=== PATIENT | male | born 1955 | race Caucasian/White ===

== ENCOUNTER 2019-12-28 17:36 | Emergency (ER) | payer MEDICARE, MEDICAID, SELFPAY ==
--- NOTE | ~2019-12-28 | CT_ITS ---
EXAMINATION: CTA chest PE protocol DATE: 12/28/2019 18:54 INDICATION: Shortness of breath. TECHNIQUE: Computed tomography (CT) pulmonary angiogram of the chest was performed with 100 mL Omnipa que-350 intravenous contrast. Additional 3D reconstructions utilizing coronal maximum intensity proje ction (MIP) were performed. Automated exposure control and iterative reconstruction technique were em ployed. The dose-length product was 343.31 mGy-cm. COMPARISON: None FINDINGS: Excellent contrast opacification of the pulmonary arteries. There is mild streak artifact from dense contrast in the superior vena cava and right atrium. Mild to moderate scattered respiratory motion ar tifact which mild to moderately decreases sensitivity in some of the smaller subsegmental pulmonary a rteries. No pulmonary embolism. Mild emphysema. Mild septal thickening in the dependent lower lobes w hich could represent mild atelectasis or less likely mild pulmonary edema. No pneumonia, pleural effu laly or pneumothorax. Heart size is normal. No pericardial effusion. Thoracic aorta is normal in vik ashlyn with no dissection. No pathologically enlarged thoracic lymphadenopathy. Diffuse hepatic steatosi s. Chronic T10 and T12 compression fractures. 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 IMPRESSION: 1. No pulmonary embolism with sensitivity mild to moderately decreased in some of the smaller subsegm ental pulmonary arteries to primarily to respiratory motion. 2. Mild emphysema with mild atelectasis versus mild pulmonary edema in the dependent lower lobes. 3. Diffuse hepatic steatosis. Reviewed, dictated and finalized at location A. IMPRESSION: 1. No pulmonary embolism with sensitivity mild to moderately decreased in some of the smaller subsegmental pulmonary arteries to primarily to respiratory roman on. 2. Mild emphysema with mild atelectasis versus mild pulmonary edema in the depe ndent lower lobes. 3. Diffuse hepatic steatosis.
--- NOTE | ~2019-12-28 | XR_ITS ---
EXAMINATION: XR chest 1V portable DATE: 12/28/2019 18:17 INDICATION: COPD presenting with shortness of breath TECHNIQUE: frontal view of the chest was obtained. COMPARISON: None FINDINGS: Increased lucency and architectural distortion in the upper lung zones consistent with given history of COPD. Increased interstitial pattern in the bilateral lower lung zones. No pleural effusion or pne umothorax. The cardiomediastinal silhouette is normal. IMPRESSION: 1. Increased interstitial opacities in the bilateral lower lung zones which could represent mild pulm onary edema or less likely pneumonia. 2. Emphysema. Reviewed, dictated and finalized at location A. IMPRESSION: 1. Increased interstitial opacities in the bilateral lower lung zones which cou ld represent mild pulmonary edema or less likely pneumonia. 2. Emphysema.
[2019-12-28 17:33] VITALS: BP 116/103; PULSE 118; RESP 22; TEMP 36.9; O2SAT 99
[2019-12-28 17:42] VITALS: PULSE 118
--- NOTE | 2019-12-28 17:45 | ECG_ITS ---
Measurements Intervals [place] Rate: 112 P: 81 [place]: 163 QRS: -12 QRSD: 108 T: 57 QT: 337 QTc: 461 Interpretive Statements SINUS TACHYCARDIA POSSIBLE LEFT ATRIAL ENLARGEMENT MINIMAL Q WAVES- LATERAL LEADS PEAKED T WAVES- CONSIDER HYPERKALEMIA OR ISCHEMIA BASELINE ARTIFACT- I, II, III, AVR, AVL, AVF, V1-V2 ABNORMAL ECG Electronically Signed On 12-29-2019 7:10:56 CDT by Daniel Roldan D.O.
[2019-12-28 17:46] LABS: Glucose Point of Care 185 (65-105)
--- NOTE | 2019-12-28 17:59 | ED.GENADULT ---
HPI - General Adult General Chief complaint: Shortness of Breath/Dyspnea Stated complaint: Sob/etoh Source: patient and EMS Mode of arrival: ambulatory Limitations: no limitations History of Present Illness HPI narrative: Patient is a 64-year-old male who presents to emergency department per EMS for evaluation of shortness of breath that has been present today patient reportedly has been drinking alcohol noting he had 6 beers patient was also smoking on arrival of EMS noting that he has shortness of breath and history of COPD. Patient was found to be wheezing denying any pain. Patient denies URI symptoms or sick contacts. On arrival patient resting comfortably in the room denying any pain resting comfortably Related Data Home Medications Medication Instructions Recorded Confirmed aspirin [Aspir-81] 81 mg PO DAILY 12/28/19 atorvastatin 80 mg PO HS 12/28/19 carvedilol 6.25 mg PO BID 12/28/19 cholecalciferol (vitamin D3) 25 mcg PO DAILY 12/28/19 [Vitamin D3] folic acid 1 mg PO DAILY 12/28/19 gabapentin 300 mg PO TID 12/28/19 potassium gluconate 595 mg PO DAILY 12/28/19 prednisone 12/28/19 tofacitinib [Xeljanz] 5 mg PO BID 12/28/19 Allergies Allergy/AdvReac Type Severity Reaction Status Date / Time No Known Allergies Allergy Unverified 12/28/19 17:40 Review of Systems Review of Systems: All systems reviewed & are unremarkable except as noted in HPI and below PMFSH Past Medical History Medical History (Updated 12/28/19 @ 19:12 by Tomas Tello PA-C) COPD (chronic obstructive pulmonary disease) Family History Family History (Updated 04/20/18 @ 15:46 by DOCTOR UNKNOWN) Other Family history of coronary artery disease Hypertension Social History Social History Smoking status: Current every day smoker Alcohol intake: current Exam Narrative: Exam Narrative: GENERAL: Well-appearing, well-nourished, and in no acute distress. HEAD: Normocephalic, atraumatic. EYES: PERRLA and EOMI. ENT: Nares clear, no rhinorrhea or epistaxis. Mucous membranes moist. Oropharynx without tonsillar hypertrophy exudate or other lesions. NECK: Supple. No adenopathy or masses. CHEST: Clear to auscultation. No respiratory distress. No wheezes rales or rhonchi HEART: Regular rate and rhythm. No murmur heard. Normal peripheral pulses. ABDOMEN: Soft, nontender, nondistended EXTREMITIES: Normal range of motion. No edema. SKIN: Warm, dry, no rash. NEURO: No focal deficits. Alert and oriented x3. Cranial nerves II through XII grossly intact PSYCH: Normal mood and affect. Course Vital Signs Vital signs: Vital Signs Temperature 98.5 F 12/28/19 17:33 Pulse Rate 118 H 12/28/19 17:33 Respiratory Rate 22 H 12/28/19 17:33 Blood Pressure 116/103 H 12/28/19 17:33 Pulse Oximetry 99 12/28/19 17:33 Temperature 98.5 F 12/28/19 17:33 Pulse Rate 126 H 12/28/19 18:25 Respiratory Rate 18 12/28/19 18:25 Blood Pressure 115/89 12/28/19 18:25 Pulse Oximetry 98 12/28/19 18:25 Medical Decision Making MDM Narrative Medical decision making narrative: Patient in the room at this time noting that he is anxious and does not wish to stay in the emergency department for any further evaluation patient notes that he would like to leave and is requesting to be discharged efforts were made to get the patient to stay in hospital and receive further evaluation of his symptoms however patient notes despite being told that he could risk and leaving he would still like to leave and will sign AMA documentation. Vital Signs Vital Signs: Vital Signs Temperature 98.5 F 12/28/19 17:33 Pulse Rate 118 H 12/28/19 17:33 Respiratory Rate 22 H 12/28/19 17:33 Blood Pressure 116/103 H 12/28/19 17:33 Pulse Oximetry 99 12/28/19 17:33 Temperature 98.5 F 12/28/19 17:33 Pulse Rate 126 H 12/28/19 18:25 Respiratory Rate 18
[2019-12-28 18:17] LABS: Basophils Percent Auto 0.3 % (0.2-1.2); Eosinophils Percent Auto 0.4 % (0-4.4); Hematocrit 41.1 % (42.0-52.0); Hemoglobin 14.4 g/dL (14.0-18.0); Immature Granulocyte Absolute 0.03 K/mm3 (0.00-0.031); Immature Granulocyte Percent A 0.4 % (0-0.5); Lymphocytes Absolute Auto 2.25 K/mm3 (0.9-3.2); Lymphocytes Percent Auto 32.6 % (18.3-44.2); Mean Corpuscular Hemoglobin 32.7 pg (26-34); Mean Corpuscular Volume 93.4 fl (80-100); Mean Platelet Volume 9.3 fl (7.4-10.4); Monocytes Absolute Auto 0.7 K/mm3 (0.1-0.6); Neutrophils Absolute Auto 3.9 K/mm3 (1.3-6.7); Neutrophils Percent Auto 56.3 % (45.5-73.1); Platelet Count Result 246 k/mm3 (150-375); Red Cell Distribution Width 15.8 % (11.5-14.5); White Blood Count 6.9 K/mm3 (4.5-10.0)
[2019-12-28 18:23] VITALS: BP 115/89; PULSE 119; RESP 22
[2019-12-28 18:25] VITALS: BP 115/89; PULSE 126; RESP 18; O2SAT 98
[2019-12-28 18:28] LABS: Alanine Aminotransferase 34 U/L (4-50); Albumin Level 4.3 g/dL (3.5-5.1); Alkaline Phosphatase 83 U/L (38-126); Aspartate Amino Transferase 51 U/L (17-59); Bilirubin,Total 0.4 mg/dL (0.2-1.3); Blood Urea Nitrogen 5 mg/dL (9-20); Calcium 8.4 mg/dL (8.4-10.2); Carbon Dioxide 21 mmol/L (22-30); Chloride 93 mmol/L (98-107); Estimated CRCL calculation 95 ml/min; Estimated Glomerular Filt Rate > 60; Glucose 191 mg/dL (75-110); Lipase 112 U/L (23-300); Potassium 3.4 mmol/L (3.4-5.0); Sodium 127 mmol/L (137-145)
[2019-12-28 18:31] LABS: D Dimer 2.17 ug/mL (<0.48)
[2019-12-28 18:41] LABS: NT Pro B Type Natriuretic Pept 70 PG/ML (5-100); Troponin I < 0.012 ng/mL (0.000-0.034)
--- NOTE | 2019-12-28 19:12 | PC.NURSE ---
Pt stating he wants to sign out. Austin at bedside explaining risks of leaving. AMA papers signed
== END 2019-12-28 19:28 | disposition left against medical advice (07) ==
PROVIDERS: Emergency Medicine Emergency Medical Services; Emergency Provider Emergency Medicine; PCP Family Medicine
DX: J43.9 Emphysema, unspecified (principal); R06.00 Dyspnea, unspecified; Z79.82 Long term (current) use of aspirin; F17.210 Nicotine dependence, cigarettes, uncomplicated; R00.0 Tachycardia, unspecified; R94.31 Abnormal electrocardiogram [ECG] [EKG]
CPT/HCPCS: 36415; 71045; 71275; 80053; 82948; 83690; 83880; 84484; 85025; 85380; 85610; 85730; 93005; 96365; 96375; 99284; J1100; J3411; J3475; J7120; Q9967

== ENCOUNTER 2020-01-02 10:17 | Inpatient (IN) | payer MEDICARE, MEDICAID, SELFPAY ==
[2020-01-02] VITALS (11 sets, daily range): BP systolic 141–157; BP diastolic 76–98; PULSE 103–159; RESP 19–21; TEMP 36.5–36.9; O2SAT 93–99; BMI 21.5
--- NOTE | ~2020-01-02 | CT_ITS ---
EXAMINATION: CT brain wo con INDICATION: Left-sided facial droop COMPARISON: 02/01/2016 TECHNIQUE: Standard unenhanced head CT. The dose-length product (DLP) was 605.33 mGy-cm. The mA was a djusted according to patient size. Iterative reconstruction technique was employed. FINDINGS: There is no acute intraparenchymal hemorrhage. No evidence of mass lesion. No evidence of a cute infarction. Encephalomalacia in the right frontal and temporal lobes is consistent with prior in farction. There is ex vacuo enlargement of the anterior horn of the right lateral ventricle. There is mild periventricular and subcortical hypodensity probably related to small vessel ischemic disease. There is mild prominence of the sulci and ventricles related to cerebral atrophy. Intracranial calcif ied cerebral atherosclerosis is noted. There are no extra-axial collections. There is no mass effect or midline shift. The orbits and soft tissues are unremarkable. The visualized sinuses and mastoid a ir cells are well aerated. IMPRESSION: 1. There is a prior infarction in the right frontal and temporal lobes without acute intracranial abn ormality. 2. Age related findings. Reviewed, dictated and finalized at location A. IMPRESSION: 1. There is a prior infarction in the right frontal and temporal lobes without acute intracranial abnormality. 2. Age related findings.
--- NOTE | 2020-01-02 10:19 | ED.WEAKNESS ---
HPI - Weakness General Chief complaint: Weakness Stated complaint: WEAKNESS History of Present Illness HPI Narrative: BIBEMS for weakness and dehydration. He reports that he awoke this morning feeling weak and dizzy. He says that he has been drinking heavily for several days and has not been eating or drinking anything besides beer. Last drink was late last night. He does have a h/o alcohol withdrawal. Related Data Home Medications Medication Instructions Recorded Confirmed aspirin [Aspir-81] 81 mg PO DAILY 12/28/19 atorvastatin 80 mg PO HS 12/28/19 carvedilol 6.25 mg PO BID 12/28/19 cholecalciferol (vitamin D3) 25 mcg PO DAILY 12/28/19 [Vitamin D3] folic acid 1 mg PO DAILY 12/28/19 gabapentin 300 mg PO TID 12/28/19 potassium gluconate 595 mg PO DAILY 12/28/19 prednisone 12/28/19 tofacitinib [Xeljanz] 5 mg PO BID 12/28/19 duloxetine 60 mg capsule,delayed 60 mg PO DAILY 01/02/20 release sprinkle lisinopril 20 mg tablet 20 mg PO DAILY 01/02/20 meloxicam 15 mg tablet 15 mg PO DAILY 01/02/20 methotrexate sodium 2.5 mg tablet 20 mg/m2 PO WEEKLY tablet 01/02/20 miconazole nitrate 2 % topical 1 applic TOPICAL DAILY 01/02/20 cream propranolol 80 mg capsule,24 80 mg PO DAILY 01/02/20 hr,extended release tiotropium bromide 2.5 2 puff INHALATION DAILY 01/02/20 mcg/actuation mist for inhalation trazodone 100 mg tablet 100 mg PO DAILY tablet 01/02/20 Allergies Allergy/AdvReac Type Severity Reaction Status Date / Time No Known Allergies Allergy Verified 01/02/20 10:32 Review of Systems Review of Systems: All systems reviewed & are unremarkable except as noted in HPI and below Constitutional: Constitutional: Reports fever(s) Cardiovascular: Cardiovascular: Denies chest pain Respiratory: Respiratory: Reports dyspnea Gastrointestinal: Gastrointestinal: Reports nausea and Denies vomiting Neurologic: Reports dizziness and Reports weakness [facility] Past Medical History Medical History COPD (chronic obstructive pulmonary disease) Stroke (~2013) Surgical History Surgical History History of laminectomy 1994 & 2001 Family History Family History Other Family history of coronary artery disease Hypertension Social History Social History Smoking status: Light tobacco smoker Second hand tobacco smoke exposure: Yes Alcohol intake: current Substance use: never Substance use type: does not use Gender identity (if verbalized by the patient): Male Exam Const: General: alert and ill appearing Nutritional Appearance: thin Orientation/consciousness: patient oriented x3 HENMT: Head: normal to inspection Eyes: Pupils: Equal, round and reactive pupils present Resp: Effort & Inspection: normal respiratory effort Auscultation: clear to auscultation bilaterally Cardio: Rate: tachycardic Rhythm: regular rhythm GI: GI Palp: Yes Soft to palpation and No Tenderness to palpation present (GI) Skin: General skin exam: normal color Neuro: General: patient oriented x3, moves all extremities and CN's II-XI intact bilaterally Speech: normal speech Other: Mildly tremulous Extrem: General: normal to inspection Course Vital Signs Vital signs: Vital Signs Temperature 36.9 C 01/02/20 10:23 Pulse Rate 125 H 01/02/20 10:23 Respiratory Rate 21 H 01/02/20 10:23 Blood Pressure 152/98 H 01/02/20 10:23 Pulse Oximetry 93 01/02/20 10:23 Temperature 36.9 C 01/02/20 10:23 Pulse Rate 159 H 01/02/20 14:14 Respiratory Rate 20 01/02/20 14:14 Blood Pressure 144/82 H 01/02/20 14:14 Pulse Oximetry 99 01/02/20 14:14 MDM - Weakness MDM Narrative Medical decision making narrative: Despite 2 liters NS he continues to be significantly ta
--- NOTE | 2020-01-02 10:41 | ECG_ITS ---
Measurements Intervals [place] Rate: 112 P: 71 [place]: 165 QRS: -50 QRSD: 101 T: 62 QT: 318 QTc: 434 Interpretive Statements SINUS TACHYCARDIA POSSIBLE LEFT ATRIAL ENLARGEMENT LEFT ANTERIOR FASCICULAR BLOCK PEAKED T WAVES- CONSIDER HYPERKALEMIA OR ISCHEMIA BASELINE ARTIFACT- I, III, AVL, V1-V2 ABNORMAL ECG Electronically Signed On 01-02-2020 11:40:12 CDT by Daniel Roldan D.O.
[2020-01-02] MEDS: SODIUM CHLORIDE 0.9% IV 1,000 ML 999 ML IV CONT ×2 (10:54→12:48)
[2020-01-02 11:20] LABS: Hematocrit 43.9 % (42.0-52.0); Hemoglobin 15.2 g/dL (14.0-18.0); Mean Corpuscular HGB Conc 34.6 g/dl (32-36); Mean Corpuscular Hemoglobin 32.6 pg (26-34); Mean Corpuscular Volume 94.2 fl (80-100); Mean Platelet Volume 9.6 fl (7.4-10.4); Platelet Count Result 207 k/mm3 (150-375); Red Blood Count 4.66 M/mm3 (4.6-6.20); Red Cell Distribution Width 16.2 % (11.5-14.5); White Blood Count 9.7 K/mm3 (4.5-10.0)
[2020-01-02 11:31] LABS: Prothrombin Time 13.2 Seconds (11.1-14.7)
[2020-01-02 11:32] LABS: Partial Thromboplastin Time 25.8 SECONDS (22.3-36.8)
[2020-01-02 11:33] LABS: Eosinophils Absolute Manual 0.09 K/mm3 (0.02-0.5); Eosinophils Percent Manual 1 % (0-4); Lymphocytes Absolute Manual 1.26 K/mm3 (1.1-4.5); Monocytes Absolute Manual 1.16 K/mm3 (0.1-0.90); Monocytes Percent Manual 12 % (3-9); Neutrophils Percent Manual 74 % (46-73); Platelet Estimate Adequate (Adequate); Total Cells Counted 100
[2020-01-02 11:35] LABS: Ethanol 111 mg/dL (<10)
[2020-01-02 11:38] LABS: Alanine Aminotransferase 97 U/L (4-50); Albumin Level 4.6 g/dL (3.5-5.1); Alkaline Phosphatase 103 U/L (38-126); Aspartate Amino Transferase 129 U/L (17-59); Bilirubin,Total 0.9 mg/dL (0.2-1.3); Blood Urea Nitrogen 8 mg/dL (9-20); Calcium 8.6 mg/dL (8.4-10.2); Carbon Dioxide 27 mmol/L (22-30); Chloride 99 mmol/L (98-107); Estimated CRCL calculation 71 ml/min; Estimated Glomerular Filt Rate > 60; Glucose 60 mg/dL (75-110); Sodium 136 mmol/L (137-145)
[2020-01-02 11:42] LABS: Lactic Acid Reflex 2.8 mmol/L (0.7-2.1)
[2020-01-02] MEDS: THIAMINE HCL 200 MG/2 ML VIAL 100 MG IV PUSH (11:47)
[2020-01-02] MEDS: CHLORDIAZEPOXIDE 25 MG CAPSULE PO ×2 (13:11→19:33)
[2020-01-02 13:18] LABS: Add Urine Microscopic? YES; Appearance Urine Clear (Clear); Bacteria Urine Trace /hpf; Bilirubin Urine Negative (Negative); Blood Urine Negative (Negative); Color Urine Yellow (Yellow); Glucose Urine UA Negative (Negative); Ketones Urine 1+ mg/dL (Negative); Leukocyte Esterase Ur Negative LEU/UL (Negative); Mucus Urine Rare /lpf; Nitrate Urine Negative (Negative); Protein Urine Negative (Negative); RBC Urine 0-2 /hpf (0-2); Squamous Epithelial Cell Urine Rare /hpf (Few); Urobilinogen Urine Negative mg/dL (<2.0); WBC Urine 0-3 /hpf
[2020-01-02 14:17] LABS: Reflex Lactic Acid Yes or No Add Lactic
[2020-01-02 15:24] LABS: Lactic Acid 1.8 mmol/L (0.7-2.1)
--- NOTE | 2020-01-02 16:14 | PC.NURSE ---
This patient, Mahamed Potts, was admitted to Medical Room 344-01. Patient/family oriented to hospital policies and general routines including ID bracelet, bed and alarms, visiting hours, pain management, procedures, bathroom and other care routines, personal items, smoking policy, room service/diet, and visiting hours. Valuables list has been completed. Information on how to activate the Rapid Response Team has been discussed. Patient/Family are encouraged to report perceived risks to care and to ask questions if they do not understand what they are told or what they should do.
[2020-01-02] MEDS: LABETALOL HCL INJ 100 MG/20 ML VIAL IV PUSH (17:37)
[2020-01-02] MEDS: LACTATED RINGERS 1,000 ML 150 ML IV CONT (17:40)
--- NOTE | 2020-01-02 18:51 | PM.IMHP ---
H&P: HPI History of Present Illness Chief complaint: dehydration,alcohol abuse and dependence Narrative: Mahamed Potts is a 64 year old male who has a history of alcoholism. The patient states that he drinks anywhere from 6-12 beers a night. The patient stated he has been drinking pretty heavily the last several nights. His chronic back pain. His chronic diarrhea as well the patient states that he has had several back surgeries and that he no longer can control his power bladder. He is able to walk without difficulty. Although patient has various stages of bruising all over his body. The patient stated he may have drinking more than usual last night. He comes in today with weakness and dehydration. Patient woke up and felt weak and dizzy. The patient has had a history of alcohol withdrawals in the past. He has a very poor historian. Patient's ethyl alcohol level is 111 when he came to the emergency room. Lactic 2.8. AST is 129, ALT is 97 an echo in fast phase was normal. On the of this month his liver enzymes were normal. Of some lower back pain. Patient had a chest CT performed on 12/28/2019 outpatient which was read as no pulmonary embolism was sensitivity mild to moderate bleed decreased and some of the smaller subsegmental pulmonary arteries to primarily due to respiratory motion. Diffuse hepatic steatosis. The patient was actually seen in ER here on 12/28/2019 when the patient became short of breath. Patient was wheezing that day he has history of COPD. Patient still continues to smoke at least half a pack to 2 packs of cigarettes a day. I am not sure if patient follows up with his primary care doctor is a have no office visit here since 04/21/18. On IV fluids, Ativan IV, thiamin IV, and Librium. Patient also tachycardic and hypertensive I did give him IV labetalol which helped the blood pressure as well as the heart rate. Date of service is 01/02/2020 Review of Systems Review of Systems: Narrative: The patient is a very poor historian. All systems reviewed & are unremarkable except as noted in HPI and below Constitutional: Constitutional: Reports as per HPI and Reports no additional constitutional complaints Eyes: Eyes: Reports as per HPI and Reports no additional eye complaints ENT: Reports system reviewed and no additional complaints, except as documented and Reports Normal hearing present Cardiovascular: Cardiovascular: Reports no additional cardiovascular complaints Respiratory: Respiratory: Reports no additional respiratory complaints and Reports no additional respiratory complaints Gastrointestinal: Gastrointestinal: Reports as per HPI and Reports no additional gastrointestinal complaints Musculoskeletal: Musculoskeletal: Reports no additional musculoskeletal complaints Integumentary/Breasts: Skin/Breast: Reports system reviewed and no additional complaints, except as docu and Reports as per HPI Neurologic: Reports system reviewed and no additional complaints, except as documented, Reports as per HPI and Reports Normal hearing present Psychiatric: Psychiatric: Reports no additional psychiatric complaints and Reports as per HPI Endocrine: Endocrine: Reports no additional endocrine complaints Hematologic/Lymphatic: Hematologic/Lymphatic: Reports no additional hematologic/lymphatic complaints Allergic/Immunologic: Allergic/Immunologic: Reports no additional allergic/immunologic complaints [facility] Past Medical History Medical History (Updated 01/02/20 @ 19:09 by Lizeth Prater NP) Anxiety COPD (chronic obstructive pulmonary disease) History of CVA (cerebrovascular accident) No residual Hyperlipidemia Hypertension Neuropathy Rheumatoid arthritis Stroke (~2013) Surgical History Surgical History History of laminectomy 1994 & 2001 Family History Family History (Updated 01/02/20 @ 19:06 by Lizeth Prater NP) Mother Heart disease Other
[2020-01-02] MEDS: GABAPENTIN 300 MG CAPSULE PO (19:34)
[2020-01-02] MEDS: ATORVASTATIN 40 MG TABLET 80 MG PO (20:13)
[2020-01-02] MEDS: carvediloL 6.25 MG TABLET 3.125 MG PO (20:13)
[2020-01-02 20:33] LABS: IFOB Positive Control Positive; Immunochemical Fecal Occult Bl Negative (N)
[2020-01-02] MEDS: SODIUM CHLORIDE 0.9% IV 500 ML 999 ML IV CONT (22:36)
[2020-01-03] VITALS (15 sets, daily range): BP systolic 125–137; BP diastolic 76–90; PULSE 69–107; RESP 16–20; TEMP 36.1–36.6; O2SAT 96–99
[2020-01-03] MEDS: LACTATED RINGERS 1,000 ML 150 ML IV CONT ×4 (00:28→20:43)
[2020-01-03] MEDS: CHLORDIAZEPOXIDE 25 MG CAPSULE PO ×4 (00:29→20:40)
[2020-01-03 06:22] LABS: Lactic Acid 0.9 mmol/L (0.7-2.1)
[2020-01-03 06:26] LABS: Alanine Aminotransferase 51 U/L (4-50); Albumin Level 2.9 g/dL (3.5-5.1); Alkaline Phosphatase 70 U/L (38-126); Aspartate Amino Transferase 57 U/L (17-59); Bilirubin,Total 0.8 mg/dL (0.2-1.3); Blood Urea Nitrogen 12 mg/dL (9-20); CRP 1.4 mg/dL (<1.0); Calcium 7.5 mg/dL (8.4-10.2); Carbon Dioxide 25 mmol/L (22-30); Chloride 103 mmol/L (98-107); Estimated CRCL calculation 92 ml/min; Estimated Glomerular Filt Rate > 60; Glucose 48 mg/dL (75-110); Magnesium 1.5 mg/dL (1.6-2.3); Potassium 3.4 mmol/L (3.4-5.0); Sodium 132 mmol/L (137-145)
[2020-01-03 06:57] LABS: Glucose Point of Care 112 (65-105)
[2020-01-03 08:31] LABS: Free T4 Free Thyroxine Reflex 1.16 ng/dL (0.78-2.19)
[2020-01-03] MEDS: GABAPENTIN 300 MG CAPSULE PO ×3 (08:32→17:36)
[2020-01-03] MEDS: ASPIRIN 81 MG ENTERIC TABLET PO (08:32)
[2020-01-03] MEDS: MAGNESIUM OXIDE 400 MG TABLET PO (08:32)
[2020-01-03] MEDS: THIAMINE HCL 100 MG TABLET PO (08:33)
[2020-01-03] MEDS: FOLIC ACID 1 MG TABLET PO (08:33)
[2020-01-03] MEDS: predniSONE 10 MG TABLET PO (08:33)
[2020-01-03] MEDS: DULOXETINE 60 MG CAPSULE.DR PO (08:33)
[2020-01-03] MEDS: CHOLECALCIFEROL 1,000 UNIT TABLET 1000 UNITS PO (08:33)
[2020-01-03 09:26] LABS: Total Triiodothyronine (T3) 0.84 NG/ML (0.97-1.69)
[2020-01-03] MEDS: carvediloL 3.125 MG TABLET PO ×2 (09:46→20:40)
--- NOTE | 2020-01-03 15:28 | PM.IMPN ---
Progress Note: A&P Assessment and Plan (1) Dehydration: Code(s): E86.0 - Dehydration Status: Acute Assessment and Plan: -------Patient has chronic diarrhea but appears to be worsened lately. He says his mother had the same issue. His alcohol abuse does not help this. Stool cultures pending. Electrolytes reviewed and normal except sodium 132. Glucose low at 48. (2) Tachycardia: Code(s): R00.0 - Tachycardia, unspecified Status: Acute Assessment and Plan: -----Likely d/t dehydration or alcohol withdraw. Continue cogreg. (3) Anxiety: Code(s): F41.9 - Anxiety disorder, unspecified Status: Chronic Assessment and Plan: -----Will wean librium. (4) Rheumatoid arthritis: Code(s): M06.9 - Rheumatoid arthritis, unspecified Status: Chronic Assessment and Plan: -----Continue with patient's home medications. He is on methotrexate, prednisone, Cymbalta, and xeljanz. (5) Hyperlipidemia: Code(s): E78.5 - Hyperlipidemia, unspecified Status: Chronic Assessment and Plan: -----Continue with Lipitor. (6) Hypertension: Code(s): I10 - Essential (primary) hypertension Status: Chronic Assessment and Plan: Last pressure 134/90. (7) Alcoholism: Code(s): F10.20 - Alcohol dependence, uncomplicated Status: Acute Assessment and Plan: -----Continue with CIWA score. Will decrease librium. (8) Neuropathy: Code(s): G62.9 - Polyneuropathy, unspecified Status: Chronic Assessment and Plan: -----Continue with gabapentin. Time Spent With Patient Time with patient: 25 - 35 minutes Subjective Date/time seen: 01/03/20 15:28 Interval history: Pt is a 64 y/o male here for weakness and diarrhea. Patient was seen today and states he is still having diarrhea which is more on the soft side with no blood or black substance. He has no nausea, abdominal pain or vomiting and his appetite is better. he admits to chronic back pain and has had some blurry vision a few weeks ago. He says he had a stroke 5 years ago and doesn't have any deficits. He does not recall having a left sided facial droop. He denies halluciniations or tremors. he has never had a withdraw seizure. No CP or SOB today. Review of Systems Review of Systems: All systems reviewed & are unremarkable except as noted in HPI and below Exam Narrative: Exam Narrative: General: Well developed well nourished patient resting comfortably in bed in NAD HEENT: normocephalic Neck: supple Neuro: Alert and oriented x4. Left sided facial droop. No other abnormalities. strenght 5/5 in UE and LE. Able to do finger to nose and rapid alternating movements CV:RRR. Tele shows sinus tachycardia up 140s but now is at 89. Resp:CTA Abd: Soft, non distended. No pain to palpation. Positive bowel sounds Extremities: No swelling, erythema, or pain to palpation. Objective Data Vital Signs Vital Signs: Vital Signs - 24 hr 01/02/20 16:52 01/02/20 17:37 01/02/20 19:45 Temperature Pulse Rate 125 H 145 H Pulse Rate [Left Radial] 144 H Respiratory Rate Blood Pressure Pulse Oximetry 01/02/20 19:57 01/02/20 20:00 01/02/20 20:13 Temperature 97.7 F Pulse Rate 111 H 108 H 115 H Pulse Rate [Left Radial] Respiratory Rate 20 Blood Pressure 151/76 H Pulse Oximetry 97 01/03/20 00:00 01/03/20 00:25 01/03/20 04:00 Temperature Pulse Rate 95 83 Pulse Rate [Left Radial] 98 Respiratory Rate Blood Pressure Pulse Oximetry 01/03/20 04:18 01/03/20 06:00 01/03/20 08:00 Temperature 97.9 F Pulse Rate 102 H 107 H Pulse Rate [Left Radial] 84 Respiratory Rate 20 Blood Pressure 137/78 Pulse Oximetry 96 01/03/20 09:46 01/03/20 12:00 01/03/20 14:00 Temperature 97.0 F L Pulse Rate 88 91 79 Pulse Rate [Left Radial] Respiratory Rate 16 Blood Pressure
[2020-01-03 17:53] LABS: Glucose Point of Care 191 (65-105)
[2020-01-03] MEDS: LOPERAMIDE HCL 2 MG CAPSULE PO (20:40)
[2020-01-03] MEDS: ATORVASTATIN 40 MG TABLET 80 MG PO (20:40)
[2020-01-03 23:08] LABS: Glucose Point of Care 99 (65-105)
[2020-01-04] VITALS (8 sets, daily range): BP systolic 125–131; BP diastolic 73–76; PULSE 64–95; RESP 16–18; TEMP 35.6–36.5; O2SAT 97–100
[2020-01-04] MEDS: LACTATED RINGERS 1,000 ML 150 ML IV CONT (04:24)
[2020-01-04 05:50] LABS: Glucose Point of Care 101 (65-105)
[2020-01-04 06:18] LABS: Blood Urea Nitrogen 7 mg/dL (9-20); Calcium 7.3 mg/dL (8.4-10.2); Carbon Dioxide 27 mmol/L (22-30); Chloride 101 mmol/L (98-107); Estimated CRCL calculation 92 ml/min; Estimated Glomerular Filt Rate > 60; Glucose 94 mg/dL (75-110); Magnesium 1.3 mg/dL (1.6-2.3); Phosphorus 2.7 mg/dL (2.5-4.5); Potassium 3.1 mmol/L (3.4-5.0); Sodium 130 mmol/L (137-145)
[2020-01-04 06:22] LABS: Hematocrit 33.7 % (42.0-52.0); Mean Corpuscular HGB Conc 35.6 g/dl (32-36); Mean Corpuscular Volume 95.5 fl (80-100); Mean Platelet Volume 10.5 fl (7.4-10.4); Platelet Count Result 170 k/mm3 (150-375); Red Blood Count 3.53 M/mm3 (4.6-6.20)
[2020-01-04] MEDS: ASPIRIN 81 MG ENTERIC TABLET PO (08:09)
[2020-01-04] MEDS: carvediloL 3.125 MG TABLET PO (08:09)
[2020-01-04] MEDS: CHLORDIAZEPOXIDE 25 MG CAPSULE PO (08:09)
[2020-01-04] MEDS: GABAPENTIN 300 MG CAPSULE PO ×2 (08:10→13:32)
[2020-01-04] MEDS: CHOLECALCIFEROL 1,000 UNIT TABLET 1000 UNITS PO (08:10)
[2020-01-04] MEDS: THIAMINE HCL 100 MG TABLET PO (08:10)
[2020-01-04] MEDS: MAGNESIUM OXIDE 400 MG TABLET PO (08:10)
[2020-01-04] MEDS: DULOXETINE 60 MG CAPSULE.DR PO (08:10)
[2020-01-04] MEDS: predniSONE 5 MG TABLET PO (08:10)
[2020-01-04] MEDS: FOLIC ACID 1 MG TABLET PO (08:10)
[2020-01-04] MEDS: POTASSIUM CHLORIDE 20 MEQ TABLET 40 MEQ PO (08:11)
[2020-01-04] MEDS: MAGNESIUM SULF 2 GM/WATER 50ML 2 GM/50 ML BAG IVPB (08:12)
--- NOTE | 2020-01-04 11:39 | PCOTNOTE ---
OT attempted treatment this date. Pt was still eating lunch and asked OT to come after.
[2020-01-04 11:57] LABS: Glucose Point of Care 109 (65-105)
[2020-01-04 12:17] LABS: Hematocrit 35.4 % (42.0-52.0)
--- NOTE | 2020-01-04 14:45 | PM.DS ---
DS: Admitting Diagnosis Admitting Diagnosis Admitting Diagnosis: Dehydration DS: Discharge Diagnosis Discharge Diagnosis (1) Dehydration: Code(s): E86.0 - Dehydration Status: Acute Assessment and Plan: -------Patient has chronic diarrhea but appears to be worsened lately. He says his mother had the same issue. His alcohol abuse does not help this. Stool cultures pending. Electrolytes reviewed and normal except sodium 132. Glucose low at 48. (2) Tachycardia: Code(s): R00.0 - Tachycardia, unspecified Status: Acute Assessment and Plan: -----Likely d/t dehydration or alcohol withdraw. Continue cogreg. (3) Anxiety: Code(s): F41.9 - Anxiety disorder, unspecified Status: Chronic Assessment and Plan: -----Will wean librium. (4) Rheumatoid arthritis: Code(s): M06.9 - Rheumatoid arthritis, unspecified Status: Chronic Assessment and Plan: -----Continue with patient's home medications. He is on methotrexate, prednisone, Cymbalta, and xeljanz. (5) Hyperlipidemia: Code(s): E78.5 - Hyperlipidemia, unspecified Status: Chronic Assessment and Plan: -----Continue with Lipitor. (6) Hypertension: Code(s): I10 - Essential (primary) hypertension Status: Chronic Assessment and Plan: Last pressure 134/90. (7) Alcoholism: Code(s): F10.20 - Alcohol dependence, uncomplicated Status: Acute Assessment and Plan: -----Continue with CIWA score. Will decrease librium. (8) Neuropathy: Code(s): G62.9 - Polyneuropathy, unspecified Status: Chronic Assessment and Plan: -----Continue with gabapentin. DS: Summary Hospital Course Reason for hospitalization: Weakness and dehydration Hospital Course: Patient is a 64-year-old male with a past medical history of alcoholism and stroke in 2013 who presented emergency room for weakness and dehydration. The patient stated he had been heavily drinking for several days and not eating or drinking anything but BR. He was feeling dizzy and overall weak. Vitals temperature 36.9?, pulse 125, respiratory rate 21, blood pressure 152/98, pulse ox 93 on room air. CBC within normal limits. Sodium 136, potassium 4.0, chloride 99, CO2 27, BUN 8, creatinine 0.8, glucose 60. CT of the brain shows an old prior infarcts but no acute abnormality. Hemoglobin initially dropped with IV fluids but remained stable at 12 and likely his baseline. It was likely inflated due to dehydration on initial draw. His stool occult test was negative. His magnesium was persistently low and was replaced and he was discharged on this. He had stool cultures which were negative. His diarrhea is likely due to alcohol dependence and he does have a faint history of IBS that runs in the family. I did refer him to a GI doctor. He was monitored for alcohol withdrawal symptoms and did well with scheduled Librium. The patient seems very motivated to quit drinking and a Librium taper was given to him at discharge with strict instructions. The patient understands he needs to come back if he continues to feel weak, starts having hallucinations, or has seizure activity. The patient worked with physical therapy and did well. He qualifies for home health. He felt much better the day of discharge and was eager for discharge. Patient was educated about the worrisome signs and symptoms to come back to emergency room for and was discharged in stable condition. Status at Discharge Overall status at discharge: patient is back to baseline Time Spent with Patient Time attestation: Total time spent providing and/or coordinating discharge services:34 min Time spent: Greater than 30 minutes Exam Narrative: Exam Narrative: General: Well developed well nourished patient resting comfortably in bed in NAD HEENT: normocephalic Neck: supple Neuro: Alert and oriented x
--- NOTE | 2020-01-15 15:49 | PC.NURSE ---
No ovas or parasites seen in stool.
== END 2020-01-04 15:51 | disposition home health service (06) | DRG 641 ==
LOC: ANHED 14:47 → ANH3MED 15:00
PROVIDERS: Nurse Practitioner; Physician Assistant; Admitting Provider Internal Medicine; Emergency Provider Emergency Medicine; PCP Family Medicine; Visit Provider Internal Medicine
DX: E86.0 Dehydration (principal); F10.239 Alcohol dependence with withdrawal, unspecified; Y90.5 Blood alcohol level of 100-119 mg/100 ml; G62.9 Polyneuropathy, unspecified; I10 Essential (primary) hypertension; R00.0 Tachycardia, unspecified; J44.9 Chronic obstructive pulmonary disease, unspecified; E78.5 Hyperlipidemia, unspecified; M06.9 Rheumatoid arthritis, unspecified; F41.9 Anxiety disorder, unspecified; K58.0 Irritable bowel syndrome with diarrhea; F17.210 Nicotine dependence, cigarettes, uncomplicated; Z86.73 Personal history of transient ischemic attack (TIA), and cerebral infarction without residual deficits
CPT/HCPCS: 36415; 70450; 80048; 80053; 80307; 81001; 82274; 83605; 83735; 84100; 84439; 84443; 84480; 85014; 85018; 85025; 85027; 85610; 85730; 86140; 87015; 87045; 87046; 87177; 87209; 87269; 87272; 87324; 87427; 89055; 93005; 96361; 96374; 96375; 96376; 97110; 97116; 97161; 97165; 97535; 99285; A9270; G0378; J2060; J3411; J3475; J7030; J7120; J7512

== ENCOUNTER 2020-01-25 18:26 | Emergency (ER) | payer MEDICARE, MEDICAID, SELFPAY ==
--- NOTE | ~2020-01-25 | XR_ITS ---
EXAMINATION: XR elbow RT min 3V DATE: 01/25/2020 18:57 INDICATION: Right elbow injury and pain. TECHNIQUE: 4 views of right elbow were obtained. COMPARISON: None. 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 There is an old healed fr acture of proximal ulna with internal fixation with plate and screws. No acute fracture. There is mil d elbow joint osteoarthritis. No elbow joint effusion. IMPRESSION: 1. 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 2. Mild elbow joint osteoarthritis. Reviewed, dictated and finalized at location A.
[2020-01-25 18:47] VITALS: BP 126/81; PULSE 98; RESP 18; TEMP 36; O2SAT 99
--- NOTE | 2020-01-25 19:04 | ED.UPPEXIN ---
HPI - Extremity Injury (Upper) General Chief Complaint: Extremity Injury, Upper Stated Complaint: Shoulder/Arm pain;burning Time Seen by Provider: 01/25/20 18:56 Source: patient and RN notes reviewed Mode of arrival: ambulatory Limitations: no limitations History of Present Illness HPI narrative: Patient presents today complaining of pain to the right elbow. He struck it against his kitchen counter at 8:00 this morning and has been having pain ever since to the lateral elbow. Patient has a plate placed in the elbow approximately 1.5 years ago due to fracture. He does report some tingling in his fingers, but does state he was recently diagnosed with neuropathy. He also has rheumatoid arthritis. Currently rates his pain 710 and has been taking Tylenol and 2 tramadol with relief. States after the injury he was able to lift up 2 cases of water after shopping. MD complaint: injury to: right and elbow Related Data Home Medications Medication Instructions Recorded Confirmed Xeljanz 5 mg PO BID 12/28/19 01/22/20 aspirin [Aspir-81] 81 mg PO DAILY 12/28/19 01/22/20 atorvastatin 80 mg PO HS 12/28/19 01/22/20 cholecalciferol (vitamin D3) 25 mcg PO DAILY 12/28/19 01/22/20 [Vitamin D3] folic acid 1 mg PO DAILY 12/28/19 01/22/20 methotrexate sodium 2.5 mg tablet 20 mg PO WEEKLY tablet 01/02/20 01/22/20 prednisone 5 mg PO DAILY 01/02/20 01/22/20 mecobalamin (vitamin B12) 1,000 1,000 mcg PO DAILY 01/08/20 01/22/20 mcg chewable tablet prednisone 10 mg tablet 10 mg PO DAILY 01/08/20 01/22/20 carvedilol 01/25/20 umeclidinium-vilanterol [Anoro INHALATION 01/25/20 Ellipta] Allergies Allergy/AdvReac Type Severity Reaction Status Date / Time No Known Allergies Allergy Verified 01/22/20 14:45 Review of Systems Review of Systems: Narrative: CONSTITUTIONAL: Denies body aches, fever, chills, or sweats. EYES: Denies visual changes, redness, or discharge. ENT: Denies rhinorrhea, congestion, sore throat, or otalgia. CARDIOVASCULAR: Denies chest pain, palpitations, or edema. RESPIRATORY: Denies cough or dyspnea. GASTROINTESTINAL: Denies abdominal pain, nausea, vomiting, or diarrhea. GENITOURINARY: Denies dysuria or hematuria. SKIN: Denies rash, itching, or wounds. MUSCULOSKELETAL: Denies back pain, or myalgia. + Right elbow injury NEUROLOGIC: Denies headache, numbness, tingling, or weakness. PSYCH: Denies depression or anxiety. [facility] Social History Social History Social History: The patient lives with his girlfriend. Patient is a full code. Patient does not have a durable power attorney general for healthcare. He has 1 biological child and 1 adopted. He is on SSI. He smokes anywhere from half a pack to 2 packs of cigarettes a day. And drinks up to 12 beers a day. Smoking packs per day: 2 Smoking cigarettes per day: 40.0 Smoking status: Current every day smoker Second hand tobacco smoke exposure: Yes Alcohol intake: current Drinks per week: 30 Substance use: never Substance use type: does not use Gender identity (if verbalized by the patient): Male Spiritual care concerns: No Comments At time of signature, I have reviewed and agree with nursing past medical, surgical, social and family history unless otherwise noted. Please see nursing chart for further information. There is no relevant family history pertinent to the presenting complaint Exam Narrative: Exam Narrative: GENERAL: Chronically ill-appearing, well-nourished, and in no acute distress. Appears older than stated age. Walks with a cane. HEAD: Normocephalic, atraumatic. EYES: EOMI. No redness or drainage. Conjunctivae normal. ENT: Mucous membranes pink and moist. NECK: Normal AROM. Supple. No lymphadenopathy. CHEST: No respiratory distress. EXTREMITIES: Right elbow: Mild tenderness to the lateral elbow without edema or ecchymosis. Patient has a very prominent olecranon process due to pr
== END 2020-01-25 19:10 | disposition home or self-care (01) ==
PROVIDERS: Emergency Provider Nurse Practitioner; PCP Family Medicine
DX: S50.01XA Contusion of right elbow, initial encounter (principal); W22.8XXA Striking against or struck by other objects, initial encounter; M06.9 Rheumatoid arthritis, unspecified; F17.210 Nicotine dependence, cigarettes, uncomplicated; Z86.73 Personal history of transient ischemic attack (TIA), and cerebral infarction without residual deficits; E78.00 Pure hypercholesterolemia, unspecified; I10 Essential (primary) hypertension; J44.9 Chronic obstructive pulmonary disease, unspecified; F41.9 Anxiety disorder, unspecified; G62.9 Polyneuropathy, unspecified
CPT/HCPCS: 73080; 99213; G0463

== ENCOUNTER 2020-03-13 13:24 | Outpatient (CLI) | payer MEDICARE, MEDICAID, SELFPAY ==
[2020-03-13 13:50] LABS: Basophils Percent Auto 0.3 % (0.2-1.2); Eosinophils Absolute Auto 0.1 K/mm3 (0-0.3); Eosinophils Percent Auto 0.7 % (0-4.4); Hematocrit 39.3 % (42.0-52.0); Immature Granulocyte Absolute 0.04 K/mm3 (0.00-0.031); Immature Granulocyte Percent A 0.4 % (0-0.5); Lymphocytes Percent Auto 43.9 % (18.3-44.2); Mean Corpuscular HGB Conc 33.1 g/dl (32-36); Mean Corpuscular Hemoglobin 31.7 pg (26-34); Mean Corpuscular Volume 95.9 fl (80-100); Mean Platelet Volume 9.7 fl (7.4-10.4); Monocytes Percent Auto 9.4 % (2.6-8.5); Neutrophils Absolute Auto 4.7 K/mm3 (1.3-6.7); Neutrophils Percent Auto 45.3 % (45.5-73.1); Platelet Count Result 387 k/mm3 (150-375); Red Cell Distribution Width 13.9 % (11.5-14.5); White Blood Count 10.3 K/mm3 (4.5-10.0)
[2020-03-13 16:48] LABS: Cholesterol 102 mg/dL (0-200); HDL Direct 40 mg/dL; Triglycerides 91 mg/dL (<150)
[2020-03-13 16:58] LABS: Complement C3 116 mg/dL (88-165); Rheumatoid Factor 31.1 IU/ML (<12)
[2020-03-13 17:00] LABS: LDL Cholesterol Direct 47 mg/dL
[2020-03-13 17:02] LABS: Alanine Aminotransferase 18 U/L (4-50); Albumin Level 4.4 g/dL (3.5-5.1); Alkaline Phosphatase 83 U/L (38-126); Anion Gap 10 mmol/L (8-16); Aspartate Amino Transferase 33 U/L (17-59); Bilirubin,Total 0.4 mg/dL (0.2-1.3); Blood Urea Nitrogen 8 mg/dL (9-20); CRP 0.8 mg/dL (<1.0); Calcium 9.3 mg/dL (8.4-10.2); Carbon Dioxide 25 mmol/L (22-30); Chloride 102 mmol/L (98-107); Estimated Glomerular Filt Rate > 60; Glucose 86 mg/dL (75-110); Potassium 3.9 mmol/L (3.4-5.0); Sodium 137 mmol/L (137-145)
[2020-03-13 17:03] LABS: Erythrocyte Sedimentation Rate 91 mm/hr (0-20)
[2020-03-13 17:19] LABS: Prostate Specific Antigen 1.3 ng/mL (< OR = 4.0)
[2020-03-13 17:20] LABS: Hepatitis B Surface Antigen Negative (Negative)
[2020-03-13 17:38] LABS: Hepatitis B Surface Anti Res Negative; Hepatitis C Virus Antibody Negative (Negative)
[2020-03-18 21:20] LABS: Anti Cyclic Citrullinated Pept >250 Units (<20)
[2020-03-19 10:45] LABS: SS-A <1.0; SS-B <1.0
[2020-03-19 13:44] LABS: SM Antibody <1.0; SM/RNP Antibody <1.0
== END 2020-03-13 13:25 | disposition home or self-care (01) ==
PROVIDERS: PCP Family Medicine; Visit Provider Internal Medicine
DX: E78.5 Hyperlipidemia, unspecified (principal); Z12.5 Encounter for screening for malignant neoplasm of prostate; J44.9 Chronic obstructive pulmonary disease, unspecified; M19.90 Unspecified osteoarthritis, unspecified site; M06.9 Rheumatoid arthritis, unspecified; Z20.828 Contact with and (suspected) exposure to other viral communicable diseases
CPT/HCPCS: 36415; 80053; 80061; 84153; 85025; 85652; 86038; 86140; 86160; 86200; 86225; 86235; 86430; 86706; 86803; 87340; G0103

== ENCOUNTER 2020-03-21 15:03 | Outpatient (CLI) | payer MEDICARE, MEDICAID, SELFPAY ==
[2020-03-21 16:19] LABS: Add Urine Microscopic? NO; Appearance Urine Clear (Clear); Bilirubin Urine Negative (Negative); Blood Urine Negative (Negative); Color Urine Yellow (Yellow); Glucose Urine UA Negative (Negative); Ketones Urine Negative (Negative); Leukocyte Esterase Ur Negative LEU/UL (Negative); Nitrate Urine Negative (Negative); Protein Urine Negative (Negative); Urobilinogen Urine Negative mg/dL (<2.0)
== END 2020-03-21 15:04 | disposition home or self-care (01) ==
LOC: ANHLAB 15:05
PROVIDERS: Internal Medicine; PCP Family Medicine; Visit Provider Internal Medicine Hematology & Oncology
DX: M06.9 Rheumatoid arthritis, unspecified (principal); Z79.899 Other long term (current) drug therapy
CPT/HCPCS: 81003

== ENCOUNTER 2020-03-24 11:28 | Outpatient (CLI) | payer MEDICARE, MEDICAID, SELFPAY ==
--- NOTE | ~2020-03-24 | XR_ITS ---
XR chest 2V 03/24/2020 12:08 Indication: Nonspecific reaction to cell mediated community Procedure: 2 view chest Comparison: 12/28/2019 Findings: There is chronic interstitial fibrosis primarily affecting the mid and lower lungs peripher ally. The lungs are hyperinflated which is consistent with, but not diagnostic of chronic obstructive pulmonary disease. No acute focal pneumonia, edema or effusion. Heart size normal. No acute osseous abnormality. Impression: 1: Chronic interstitial fibrosis. Reviewed, dictated and finalized at location B. Impression: 1: Chronic interstitial fibrosis.
--- NOTE | ~2020-03-24 | XR_ITS ---
XR knee LT 3V 03/24/2020 12:08 Indication: Left knee pain Procedure: 3 views left knee Comparison: No prior studies for comparison. Findings: No fracture or traumatic malalignment. No significant joint effusion. No radiopaque foreign bodies. Osteopenia. Impression: 1: No significant bone or joint abnormality. Reviewed, dictated and finalized at location B. Impression: 1: No significant bone or joint abnormality.
--- NOTE | ~2020-03-24 | XR_ITS ---
EXAMINATION: HAND-COSME ARTHRITIS 3+VIEWS DATE: 03/24/2020 12:08 INDICATION: Osteoarthritis TECHNIQUE: Posteroanterior, lateral, and oblique views of the left and of the right hands as well as a ballcatchers view of both hands were obtained. COMPARISON: None. FINDINGS: Normal alignment at the bilateral hands and wrists. No fracture. Mild polyarticular osteoarthritis in the right metacarpophalangeal and multiple bilateral predominantly distal interphalangeal joints. No erosions to suggest an inflammatory arthritis. Diffuse osteopenia. Soft tissues are unremarkable. IMPRESSION: 1. Mild polyarticular osteoarthritis at both hands with typical distal interphalangeal predominance. 2. Osteopenia. Reviewed, dictated and finalized at location A. IMPRESSION: 1. Mild polyarticular osteoarthritis at both hands with typical distal interpha langeal predominance. 2. Osteopenia.
--- NOTE | ~2020-03-24 | XR_ITS ---
XR knee RT 3V 03/24/2020 12:07 Indication: Rheumatoid arthritis Procedure: 3 views right knee Comparison: No prior studies for comparison. Findings: There is a healing patellar fracture transfixed by cerclage wire and screws no acute fractu re is identified. No significant joint effusion. No radiopaque foreign bodies. No erosive changes are seen. Impression: 1: Healing patellar fracture transfixed by screws and cerclage wires in close approximation. Reviewed, dictated and finalized at location B. Impression: 1: Healing patellar fracture transfixed by screws and cerclage wires in close a pproximation.
--- NOTE | ~2020-03-24 | XR_ITS ---
EXAMINATION: XR foot LT standing 2V DATE: 03/24/2020 12:07 INDICATION: Rheumatoid arthritis, unspecified. TECHNIQUE: 2 views of left foot standing were obtained. COMPARISON: None. FINDINGS: Pes planus is noted. No fracture. There is mild osteoarthritis of first metatarsophalangeal joint and second distal interphalangeal joint. IMPRESSION: 1. Mild polyarticular osteoarthritis. 2. Pes planus. Reviewed, dictated and finalized at location A.
--- NOTE | ~2020-03-24 | XR_ITS ---
EXAMINATION: XR hip BI 2V w AP pelvis DATE: 03/24/2020 12:08 INDICATION: Rheumatoid arthritis, unspecified. TECHNIQUE: An anteroposterior view of the pelvis and 2 views of each hip were obtained. COMPARISON: None. FINDINGS: There is lumbar levocurvature and severe spondylosis. No fracture. There is mild osteoarthr itis of the hips. IMPRESSION: 1. Mild osteoarthritis of the hips. Reviewed, dictated and finalized at location A.
--- NOTE | ~2020-03-24 | XR_ITS ---
EXAMINATION: XR foot RT standing 2V DATE: 03/24/2020 12:07 INDICATION: Rheumatoid arthritis, unspecified. TECHNIQUE: 2 views of right foot standing were obtained. COMPARISON: None. FINDINGS: There is overlapping of the second through fourth proximal and middle phalanges on the ante roposterior view. No fracture. There is mild osteoarthritis of first metatarsophalangeal joint and so me of the interphalangeal joints. There is an enthesophyte at posterior aspect of calcaneal tuberosit y. IMPRESSION: 1. Overlapping of the second through fourth proximal and middle phalanges on the anteroposterior view , which may be secondary to flexion of the proximal interphalangeal joints. If there is clinical conc emmanuel for dislocation, oblique radiographs are recommended. 2. Mild polyarticular osteoarthritis. Reviewed, dictated and finalized at location A. IMPRESSION: 1. Overlapping of the second through fourth proximal and middle phalanges on th e anteroposterior view, which may be secondary to flexion of the proximal inter phalangeal joints. If there is clinical concern for dislocation, oblique radiog raphs are recommended. 2. Mild polyarticular osteoarthritis.
== END 2020-03-24 11:29 | disposition home or self-care (01) ==
LOC: ANHIMG 11:35
PROVIDERS: PCP Family Medicine; Visit Provider Internal Medicine
DX: M06.9 Rheumatoid arthritis, unspecified (principal); R76.12 Nonspecific reaction to cell mediated immunity measurement of gamma interferon antigen response without active tuberculosis; M16.0 Bilateral primary osteoarthritis of hip; M19.041 Primary osteoarthritis, right hand; M19.042 Primary osteoarthritis, left hand; M19.072 Primary osteoarthritis, left ankle and foot; J84.10 Pulmonary fibrosis, unspecified
CPT/HCPCS: 71046; 73130; 73521; 73562; 73620

== ENCOUNTER 2020-04-01 15:44 | Outpatient (CLI) | payer MEDICARE, MEDICAID, SELFPAY ==
[2020-04-01 16:02] LABS: Hematocrit 39.4 % (42.0-52.0); Hemoglobin 12.9 g/dL (14.0-18.0); Mean Corpuscular HGB Conc 32.7 g/dl (32-36); Mean Corpuscular Hemoglobin 31.1 pg (26-34); Mean Corpuscular Volume 94.9 fl (80-100); Mean Platelet Volume 10.3 fl (7.4-10.4); Platelet Count Result 311 k/mm3 (150-375); Red Blood Count 4.15 M/mm3 (4.6-6.20); Red Cell Distribution Width 13.8 % (11.5-14.5); White Blood Count 9.2 K/mm3 (4.5-10.0)
[2020-04-01 16:47] LABS: Erythrocyte Sedimentation Rate 32 mm/hr (0-20)
[2020-04-01 16:50] LABS: Alanine Aminotransferase 15 U/L (4-50); Albumin Level 4.4 g/dL (3.5-5.1); Alkaline Phosphatase 91 U/L (38-126); Anion Gap 7 mmol/L (8-16); Aspartate Amino Transferase 29 U/L (17-59); Bilirubin,Total 0.4 mg/dL (0.2-1.3); Blood Urea Nitrogen 11 mg/dL (9-20); CRP < 0.5 mg/dL (<1.0); Calcium 9.7 mg/dL (8.4-10.2); Carbon Dioxide 28 mmol/L (22-30); Chloride 104 mmol/L (98-107); Estimated Glomerular Filt Rate > 60; Glucose 79 mg/dL (75-110); Potassium 3.9 mmol/L (3.4-5.0); Sodium 139 mmol/L (137-145)
[2020-04-02 16:35] LABS: Add Urine Microscopic? NO; Appearance Urine Clear (Clear); Bilirubin Urine Negative (Negative); Blood Urine Negative (Negative); Color Urine Yellow (Yellow); Glucose Urine UA Negative (Negative); Ketones Urine Negative (Negative); Leukocyte Esterase Ur Negative LEU/UL (Negative); Nitrate Urine Negative (Negative); Protein Urine Negative (Negative); Specific Grav Ur 1.015 (1.001-1.035); Urobilinogen Urine Negative mg/dL (<2.0)
== END 2020-04-01 15:45 | disposition home or self-care (01) ==
PROVIDERS: PCP Family Medicine; Visit Provider Internal Medicine
DX: M06.9 Rheumatoid arthritis, unspecified (principal); J44.9 Chronic obstructive pulmonary disease, unspecified; M19.90 Unspecified osteoarthritis, unspecified site; Z79.899 Other long term (current) drug therapy
CPT/HCPCS: 36415; 80053; 81003; 85027; 85652; 86140

== ENCOUNTER 2020-05-06 13:29 | Emergency (ER) | payer MEDICARE, MEDICAID, SELFPAY ==
--- NOTE | ~2020-05-06 | XR_ITS ---
EXAMINATION: XR wrist RT min 3V DATE: 05/06/2020 14:07 INDICATION: Radial right wrist pain post fall TECHNIQUE: Posteroanterior, ulnar deviation, oblique, and lateral views of the right wrist were obtai iliana. COMPARISON: none FINDINGS: Alignment is normal. No fracture. Joint spaces are normal. Diffuse osteopenia. Soft tissues are unrem arkable. IMPRESSION: 1. No acute osseous abnormality. Reviewed, dictated and finalized at location B.
[2020-05-06 13:31] VITALS: BP 102/62; PULSE 76; RESP 20; TEMP 35.9; O2SAT 100
--- NOTE | 2020-05-06 13:37 | ECG_ITS ---
Measurements Intervals [place] Rate: 66 P: 67 MD: 157 QRS: -15 QRSD: 106 T: 45 QT: 396 QTc: 418 Interpretive Statements SINUS RHYTHM INCOMPLETE RIGHT BUNDLE BRANCH BLOCK BASELINE ARTIFACT- I, II, III, AVR, AVL, AVF, V1-V2, V6 BORDERLINE ECG Electronically Signed On 05-06-2020 13:59:52 CDT by Daniel Roldan D.O.
[2020-05-06 13:51] LABS: Basophils Percent Auto 0.3 % (0.2-1.2); Eosinophils Percent Auto 0.4 % (0-4.4); Hematocrit 36.3 % (42.0-52.0); Hemoglobin 11.9 g/dL (14.0-18.0); Immature Granulocyte Absolute 0.04 K/mm3 (0.00-0.031); Immature Granulocyte Percent A 0.4 % (0-0.5); Lymphocytes Absolute Auto 3.73 K/mm3 (0.9-3.2); Lymphocytes Percent Auto 34.5 % (18.3-44.2); Mean Corpuscular HGB Conc 32.8 g/dl (32-36); Mean Corpuscular Hemoglobin 30.4 pg (26-34); Mean Corpuscular Volume 92.6 fl (80-100); Mean Platelet Volume 9.9 fl (7.4-10.4); Monocytes Absolute Auto 0.8 K/mm3 (0.1-0.6); Monocytes Percent Auto 7.8 % (2.6-8.5); Neutrophils Absolute Auto 6.1 K/mm3 (1.3-6.7); Neutrophils Percent Auto 56.6 % (45.5-73.1); Platelet Count Result 314 k/mm3 (150-375); Red Blood Count 3.92 M/mm3 (4.6-6.20); Red Cell Distribution Width 13.7 % (11.5-14.5); White Blood Count 10.8 K/mm3 (4.5-10.0)
--- NOTE | 2020-05-06 13:56 | PC.NURSE ---
EKG done at 1341, no doctor to show at this time
[2020-05-06 14:03] LABS: Anion Gap 8 mmol/L (8-16); Blood Urea Nitrogen 14 mg/dL (9-20); Calcium 8.9 mg/dL (8.4-10.2); Carbon Dioxide 29 mmol/L (22-30); Chloride 102 mmol/L (98-107); Estimated CRCL calculation 63 ml/min; Estimated Glomerular Filt Rate > 60; Glucose 113 mg/dL (75-110); Potassium 4.1 mmol/L (3.4-5.0); Sodium 139 mmol/L (137-145)
--- NOTE | 2020-05-06 14:54 | ED.FALL ---
HPI - Fall General Chief Complaint: Fall Stated Complaint: WRIST PAIN Time Seen by Provider: 05/06/20 14:20 Source: patient and family Mode of arrival: ambulatory Limitations: no limitations History of Present Illness HPI Narrative: 65-year-old male Reports falling backwards several hours ago and bracing with his arms Complains of persistent soreness in the right wrist No other injuries No LOC Has a history of other falls Related Data Home Medications Medication Instructions Recorded Confirmed Xeljanz 5 mg PO BID 12/28/19 04/07/20 aspirin [Aspir-81] 81 mg PO DAILY 12/28/19 04/07/20 atorvastatin 80 mg PO HS 12/28/19 04/07/20 cholecalciferol (vitamin D3) 25 mcg PO DAILY 12/28/19 04/07/20 [Vitamin D3] mecobalamin (vitamin B12) 1,000 1,000 mcg PO DAILY 01/08/20 04/07/20 mcg chewable tablet potassium gluconate 595 mg (99 mg) 595 mg PO DAILY 02/01/20 04/07/20 tablet Allergies Allergy/AdvReac Type Severity Reaction Status Date / Time No Known Allergies Allergy Verified 05/06/20 13:38 Review of Systems Review of Systems: All systems reviewed & are unremarkable except as noted in HPI and below Constitutional: Constitutional: Denies chills, Denies fatigue, Denies fever(s), Denies headache(s) and Denies weakness Eyes: Eyes: Denies change in vision and Denies other visual disturbances ENT: Denies headache(s), Denies epistaxis, Denies nasal congestion and Denies sore throat Cardiovascular: Cardiovascular: Denies chest pain, Denies leg edema, Denies palpitations and Denies dyspnea Respiratory: Respiratory: Denies cough, Denies dyspnea and Denies wheezing Gastrointestinal: Gastrointestinal: Denies abdominal pain, Denies diarrhea, Denies nausea and Denies vomiting Genitourinary: Genitourinary: Denies hematuria, Denies dysuria and Denies urinary frequency Musculoskeletal: Musculoskeletal: Denies deformity, Denies arthralgias, Denies joint swelling, Denies muscle weakness and Denies numbness Integumentary/Breasts: Skin/Breast: Denies rash, Denies unusual bruising and Denies wounds Neurologic: Denies Abnormal speech present, Denies headache(s), Denies focal weakness, Denies numbness and Denies weakness Psychiatric: Psychiatric: Reports no additional psychiatric complaints Endocrine: Endocrine: Denies fatigue and Denies palpitations Hematologic/Lymphatic: Hematologic/Lymphatic: Denies easy bleeding and Denies easy bruising Allergic/Immunologic: Allergic/Immunologic: Denies wheezing PMFSH Past Medical History Medical History (Updated 05/06/20 @ 15:02 by Deny Coates MD) (QFT) 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 Alcoholism Anxiety BPH without obstruction/lower urinary tract symptoms Chronic back pain COPD (chronic obstructive pulmonary disease) Depression with anxiety History of CVA (cerebrovascular accident) No residual Hyperlipidemia Hypertension Hypomagnesemia Neuropathy Rheumatoid arthritis (~2011) Stroke (~2013) Surgical History Surgical History (Updated 04/07/20 @ 14:19 by Trent Shepherd MD) H/O elbow surgery 2018right elbow - ORIF for fracture H/O knee surgery right ORIF for patellar fracture History of laminectomy L spine - 1994 & 2000 History of right-sided carotid endarterectomy Family History Family History Mother No problems noted. Father Heart disease Hypertension Cerebrovascular accident Grandparent Arthritis Other Family history of coronary artery disease Social History Social History Social History: The patient lives with his girlfriend. Patient is a full code. Patient does not have a durable power attorney recruiter for healthcare. He has 1 biological child and 1 adopted. He is on SSI. He smokes anywhere from half a pack to 2 packs of cigarettes a day. And drinks up to 12 beers a day. Smoking packs per day
[2020-05-06 15:35] VITALS: BP 115/75; PULSE 70; RESP 18; O2SAT 96
== END 2020-05-06 15:36 | disposition home or self-care (01) ==
PROVIDERS: Emergency Medicine; Emergency Provider Emergency Medicine; PCP Family Medicine
DX: S69.91XA Unspecified injury of right wrist, hand and finger(s), initial encounter (principal); R26.81 Unsteadiness on feet; W18.30XA Fall on same level, unspecified, initial encounter; Z79.82 Long term (current) use of aspirin; N40.0 Benign prostatic hyperplasia without lower urinary tract symptoms; J44.9 Chronic obstructive pulmonary disease, unspecified; E78.5 Hyperlipidemia, unspecified; I10 Essential (primary) hypertension; G62.9 Polyneuropathy, unspecified; M06.9 Rheumatoid arthritis, unspecified; Z86.73 Personal history of transient ischemic attack (TIA), and cerebral infarction without residual deficits; F17.210 Nicotine dependence, cigarettes, uncomplicated; I45.10 Unspecified right bundle-branch block
CPT/HCPCS: 36415; 73110; 80048; 85025; 93005; 99284

== ENCOUNTER 2020-07-07 13:59 | Outpatient (CLI) | payer MEDICARE, MEDICAID, SELFPAY ==
[2020-07-07 14:25] LABS: Hematocrit 38.6 % (42.0-52.0); Hemoglobin 12.7 g/dL (14.0-18.0); Mean Corpuscular HGB Conc 32.9 g/dl (32-36); Mean Corpuscular Hemoglobin 29.7 pg (26-34); Mean Corpuscular Volume 90.2 fl (80-100); Mean Platelet Volume 9.5 fl (7.4-10.4); Platelet Count Result 314 k/mm3 (150-375); Red Blood Count 4.28 M/mm3 (4.6-6.20); Red Cell Distribution Width 15.6 % (11.5-14.5); White Blood Count 11.7 K/mm3 (4.5-10.0)
[2020-07-07 17:00] LABS: Add Urine Microscopic? NO; Appearance Urine Clear (Clear); Bilirubin Urine Negative (Negative); Blood Urine Negative (Negative); Color Urine Yellow (Yellow); Glucose Urine UA Negative (Negative); Ketones Urine Negative (Negative); Leukocyte Esterase Ur Negative LEU/UL (Negative); Nitrate Urine Negative (Negative); Protein Urine Negative (Negative); Specific Grav Ur 1.013 (1.001-1.035); Urobilinogen Urine Negative mg/dL (<2.0)
[2020-07-07 17:03] LABS: Erythrocyte Sedimentation Rate 20 mm/hr (0-20)
[2020-07-07 17:10] LABS: Alanine Aminotransferase 15 U/L (4-50); Albumin Level 4.2 g/dL (3.5-5.1); Alkaline Phosphatase 86 U/L (38-126); Anion Gap 8 mmol/L (8-16); Aspartate Amino Transferase 31 U/L (17-59); Bilirubin,Total 0.3 mg/dL (0.2-1.3); Blood Urea Nitrogen 13 mg/dL (9-20); CRP 0.6 mg/dL (<1.0); Calcium 9.5 mg/dL (8.4-10.2); Carbon Dioxide 30 mmol/L (22-30); Chloride 102 mmol/L (98-107); Estimated Glomerular Filt Rate > 60; Glucose 92 mg/dL (75-110); Potassium 4.2 mmol/L (3.4-5.0); Sodium 140 mmol/L (137-145)
== END 2020-07-07 14:00 | disposition home or self-care (01) ==
LOC: ANHLAB 14:01
PROVIDERS: PCP Physician Assistant; Visit Provider Internal Medicine
DX: M06.9 Rheumatoid arthritis, unspecified (principal); M19.90 Unspecified osteoarthritis, unspecified site; J44.9 Chronic obstructive pulmonary disease, unspecified; Z79.899 Other long term (current) drug therapy
CPT/HCPCS: 36415; 80053; 81003; 85027; 85652; 86140

== ENCOUNTER 2020-09-04 09:45 | Emergency (ER) | payer MEDICARE, MEDICAID, SELFPAY ==
--- NOTE | ~2020-09-04 | XR_ITS ---
EXAMINATION: XR knee RT 3V DATE: 09/04/2020 10:23 INDICATION: Right knee pain TECHNIQUE: Anteroposterior, oblique and crosstable lateral views of the right knee were obtained COMPARISON: 03/24/2020 FINDINGS: There are sclerotic margins on at least some of the persistent linear lucency at a transverse fractur e line at the patella. It is unclear whether there is solid osseous bridging. The fracture is fixed w ith a pair of screws with associated anterior sided cerclage wire. No surrounding lucency to suggest loosening or infection. Alignment remains essentially anatomic although there is an irregular contour along the patellar articular surface at the site of the fracture. Joint spaces appear relatively pre served on nonweightbearing imaging. No osteophytosis. Soft tissues are unremarkable with no right kne e joint effusion. IMPRESSION: 1. Internally fixed transverse patellar fracture which remains in near-anatomic alignment with persis tent lucency along the fracture plane which may remain ununited. Reviewed, dictated and finalized at location A. ETIZER IMPRESSION: 1. Internally fixed transverse patellar fracture which remains in near-anatomic alignment with persistent lucency along the fracture plane which may remain un united.
[2020-09-04 10:10] VITALS: BP 141/85; PULSE 94; RESP 16; TEMP 37.3; O2SAT 97
--- NOTE | 2020-09-04 10:21 | ED.GENADULT ---
HPI - General Adult General Chief complaint: Extremity Injury, Lower Stated complaint: Right knee Pain Time Seen by Provider: 09/04/20 10:20 Source: patient and RN notes reviewed Mode of arrival: wheelchair Limitations: no limitations History of Present Illness HPI narrative: 65-year-old male presents with complains of right knee pain for 1 day. Mahamed reports pain started 1 day ago without new injury or falls. History of patellar fracture and repair. ES Tylenol and ice pack (last on 09/03/20) with little to no relief. No radiation of pain. No numbness or tingling, or bleeding. No swelling. No loss of mobility. Exacerbating factor consist of bearing weight and straightening knee. No fever or chills. Remains active. The patient reports he have not been diagnosed with COVID-19. The patient reports he is not waiting for the results of a COVID-19 lab test. The patient reports he do not have chills, weakness, or fatigue. The patient reports he do not have a new or worsening cough or shortness of breath. Denies chest pain. The patient reports he do not have any rhinorrhea, congestion, loss of taste or smell, sore throat, nausea, vomiting, abdominal pain, and diarrhea. Tolerating po intake well. Denies recent traveling. Denies concerns for COVID-19 or exposures been home with limited outdoor exposure except for essential household needs and return home. At this time, patient is not suspected of having COVID-19. Some parts of this dictation were generated by voice recognition software and may contain typographical and/or grammatical inaccuracies. Related Data Home Medications Medication Instructions Recorded Confirmed Xeljanz 5 mg PO BID 12/28/19 07/29/20 aspirin [Aspir-81] 81 mg PO DAILY 12/28/19 07/29/20 cholecalciferol (vitamin D3) 25 mcg PO DAILY 12/28/19 07/29/20 [Vitamin D3] mecobalamin (vitamin B12) 1,000 1,000 mcg PO DAILY 01/08/20 07/29/20 mcg chewable tablet potassium gluconate 595 mg (99 mg) 595 mg PO DAILY 02/01/20 07/29/20 tablet Allergies Allergy/AdvReac Type Severity Reaction Status Date / Time No Known Allergies Allergy Verified 07/08/20 12:38 Review of Systems Review of Systems: Narrative: CONSTITUTIONAL: Denies fever, chills, sweats. EYES: Denies visual changes, redness, discharge. ENT: Denies rhinorrhea, congestion, sore throat, otalgia. CARDIOVASCULAR: Denies chest pain, palpitations, edema. RESPIRATORY: Denies dyspnea, wheezing, cough. GASTROINTESTINAL: Denies abdominal pain, nausea, vomiting, diarrhea. SKIN: Denies rash or itching. MUSCULOSKELETAL: Denies acute back pain or myalgia. Complains of Right knee pain. NEUROLOGIC: Denies numbness or focal weakness. PSYCHIATRIC: Denies anxiety or depression. All other systems reviewed & are unremarkable except as noted in HPI and below. 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 Alcoholism Anxiety Bilateral shoulder pain BPH without obstruction/lower urinary tract symptoms Chronic back pain COPD (chronic obstructive pulmonary disease) Depression with anxiety Genu varum of both lower extremities History of CVA (cerebrovascular accident) No residual Hyperlipidemia Hypertension Hypomagnesemia Neuropathy Rheumatoid arthritis (~2011) Stroke (~2013) Tobacco abuse Surgical History Surgical History H/O elbow surgery 2018right elbow - ORIF for fracture H/O knee surgery right ORIF for patellar fracture History of laminectomy L spine - 1994 & 2000 History of right-sided carotid endarterectomy Family History Family History Mother No problems noted. Father Heart disease Hypertension Cerebrovascular accident Grandparent Arthritis Other Family history of coronary artery disease
[2020-09-04] MEDS: KETOROLAC (*BKC) 60 MG/2 ML VIAL IM (10:40)
== END 2020-09-04 10:56 | disposition home or self-care (01) ==
PROVIDERS: Emergency Provider Nurse Practitioner Family; PCP Physician Assistant
DX: M25.561 Pain in right knee (principal); F17.210 Nicotine dependence, cigarettes, uncomplicated; N40.0 Benign prostatic hyperplasia without lower urinary tract symptoms; J44.9 Chronic obstructive pulmonary disease, unspecified; Z86.73 Personal history of transient ischemic attack (TIA), and cerebral infarction without residual deficits; E78.5 Hyperlipidemia, unspecified; I10 Essential (primary) hypertension; M06.9 Rheumatoid arthritis, unspecified; G62.9 Polyneuropathy, unspecified
CPT/HCPCS: 73562; 96372; 99213; G0463; J1885

== ENCOUNTER 2020-10-18 14:39 | Emergency (ER) | payer MEDICARE, MEDICAID, SELFPAY ==
--- NOTE | 2020-10-18 14:40 | PC.NURSE ---
Pt to ED via [facility] from [facility] parking lot. Per EMS they were called per patient because he was unable to get out of his car. Pt had c/o cp and sob. EKG was sinus and WNL. Pt also states that the patient had been drinking alcohol. Pt estimates he had had approx a 6 pack. Transferred to w/c and to waiting room as no beds available. Pt was signed in and bracelet placed. As pt was being rolled per wheelchair to await triage, states I'm not waiting to KATELIN Morris. Pt was told to stay in wheelchair and that he would be triaged soon, and get into a room as soon as one opened. Pt was heard multiple times to be asking other patients waiting to assist him to his car in the parking lot. Pt told per per staff to please not bother other patients, that he would be triaged shortly.
--- NOTE | 2020-10-18 15:10 | PC.NURSE ---
Pt noted to be rolling out to parking lot unassisted in wheelchair. Dillan QUINTERO notified per Ami Menchaca RN. Pt returns to ED per [employer]. Officer states to patient not to drive due to heavy intoxication. Pt verb understanding and is calling someone to come and get him. Pt refuses triage and to be evaluated.
--- NOTE | 2020-10-18 15:27 | PC.NURSE ---
This RN triaging another patient when sound heard. Visitor of another pt yells hey this davina fell! . Pt noted to be sitting on the floor facing the wheelchair. Pt states my ride was here and I was trying to get to the car . Pt was being assisted by another visitor. Pt states he is not hurt and continues to refuse to be evaluated in the ED. Denies striking head. States I was just trying to walk out to the car. My ride is here . Pt assisted x2 to wheelchair and then to the waiting vehicle with assist x2.
== END 2020-10-18 15:27 | disposition left against medical advice (07) ==
PROVIDERS: PCP Physician Assistant
DX: Z53.21 Procedure and treatment not carried out due to patient leaving prior to being seen by health care provider (principal)
CPT/HCPCS: 99199

== ENCOUNTER 2020-10-24 01:28 | Emergency (ER) | payer MEDICARE, MEDICAID, SELFPAY ==
--- NOTE | ~2020-10-24 | CT_ITS ---
EXAMINATION: CT cervical spine wo con EXAM DATE: 10/24/2020 02:05 INDICATION: Fall, head injury. Frontal scalp contusion. TECHNIQUE: Spiral CT of the cervical spine was performed without contrast. Axial images were reviewe d. Coronal and sagittal reformatted images were also reviewed. The dose-length product (DLP) for thi s examination was 218.98 mGy-cm. The exposure was tailored according to patient size (auto mA exposu re control), and iterative reconstruction (ASIR) was used as additional dose reduction technique. Com parison is made to prior examination from 02/01/2016. FINDINGS: There is no evidence of acute cervical fracture. The odontoid process is intact. Pre-den s space is normal. Prevertebral soft tissue is normal. There are no soft tissue abnormalities ident ified. There is no disc space widening or traumatic vertebral body subluxation suspected. Moderate to severe cervical disc disease, with significant multilevel neural foraminal stenosis due to uncover tebral joint arthropathy. A detailed level by level evaluation of spondylosis can be added as addend um if requested. IMPRESSION: 1. No acute cervical fracture. 2. Moderate to severe spondylosis. Reviewed, dictated and finalized at location A.
--- NOTE | ~2020-10-24 | CT_ITS ---
EXAMINATION: CT brain wo con EXAM DATE: 10/24/2020 02:04 INDICATION: Fall. TECHNIQUE: Spiral CT of the head was performed without contrast. Axial, coronal and sagittal images were reviewed. The dose-length product (DLP) for this examination was 605.33 mGy-cm. The exposure w as tailored according to patient size, and iterative reconstruction (ASIR) was used as additional dos e reduction technique. There is 01/03/[address] comparison. FINDINGS: There is large left frontal scalp contusion/hematoma without underlying fracture. Moderate- sized old right frontotemporal lobe infarction. Mild microangiopathy and cerebral atrophy. No acute i ntraparenchymal hemorrhage, evidence of mass lesion, obstructive hydrocephalus or extra-axial collect ions. Orbits are unremarkable. Imaged portions of sinuses aerated. IMPRESSION: 1. Large left frontal scalp contusion/hematoma. 2. Moderate-sized right frontotemporal lobe MCA distribution infarction. 3. Mild age-related intracranial findings. Reviewed, dictated and finalized at location A.
[2020-10-24 01:27] VITALS: BP 128/80; PULSE 97; RESP 18; TEMP 36.6; O2SAT 100
--- NOTE | 2020-10-24 02:23 | ED.GENADULT ---
HPI - General Adult General Chief complaint: Fall Stated complaint: etoh, glf, hematoma Time Seen by Provider: 10/24/20 01:30 History of Present Illness HPI narrative: Patient is a 65-year-old gentleman who presents to the emergency department with chief complaint of head injury. The patient reports he has had multiple falls over the last several days and reports he has been drinking alcohol. Patient reports tonight he is intoxicated and fell and struck his head. Patient is unsure if he had loss of consciousness reports currently that he is intoxicated. Related Data Home Medications Medication Instructions Recorded Confirmed aspirin [Aspir-81] 81 mg PO DAILY 12/28/19 10/14/20 cholecalciferol (vitamin D3) 25 mcg PO DAILY 12/28/19 10/14/20 [Vitamin D3] mecobalamin (vitamin B12) 1,000 1,000 mcg PO DAILY 01/08/20 10/14/20 mcg chewable tablet potassium gluconate 595 mg (99 mg) 595 mg PO DAILY 02/01/20 10/14/20 tablet Allergies Allergy/AdvReac Type Severity Reaction Status Date / Time No Known Allergies Allergy Verified 10/24/20 01:41 Review of Systems Review of Systems: Narrative: A 10 system review of systems was completed on the patient and is negative except for what is stated in the HPI. Nursing and ancillary documentation was reviewed. 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 Alcoholism Anxiety Bilateral shoulder pain BPH without obstruction/lower urinary tract symptoms Chronic back pain COPD (chronic obstructive pulmonary disease) Depression with anxiety Genu varum of both lower extremities History of CVA (cerebrovascular accident) No residual Hyperlipidemia Hypertension Hypomagnesemia Neuropathy Rheumatoid arthritis (~2011) Stroke (~2013) Tobacco abuse Surgical History Surgical History H/O elbow surgery 2018right elbow - ORIF for fracture H/O knee surgery right ORIF for patellar fracture History of laminectomy L spine - 1994 & 2000 History of right-sided carotid endarterectomy Family History Family History Mother No problems noted. Father Heart disease Hypertension Cerebrovascular accident Grandparent Arthritis Other Family history of coronary artery disease Social History Social History Social History: The patient lives with his girlfriend. Patient is a full code. Patient does not have a durable power real estate attorney for healthcare. He has 1 biological child and 1 adopted. He is on SSI. He smokes anywhere from half a pack to 2 packs of cigarettes a day. And drinks up to 12 beers a day. Smoking packs per day: 1.5 Smoking cigarettes per day: 30.0 Years smoked: 40 Smoking pack-years: 60.00 Smoking status: Current every day smoker Tobacco type: cigarettes Second hand tobacco smoke exposure: Yes Alcohol intake: current Drinks per week: 30 Substance use: never Substance use type: does not use Additional living arrangements comments: significant other Additional occupation/education comments: disable Gender identity (if verbalized by the patient): Male Spiritual care concerns: No Exam Narrative: Exam Narrative: GENERAL: Well-appearing, well-nourished, and in no acute distress. HEAD: Normocephalic, there is a large hematoma on the left frontal area. EYES: PERRLA and EOMI. ENT: Nares clear, no rhinorrhea or epistaxis. Mucous membranes moist. NECK: Supple. CHEST: Clear to auscultation. No respiratory distress. HEART: Regular rate and rhythm. No murmur heard. Normal peripheral pulses. ABDOMEN: Soft, nontender, nondistended, normal active bowel sounds. EXTREMITIES: Normal range of motion. No edema. SKIN: Warm, dry, no
[2020-10-24 02:49] VITALS: BP 158/98; PULSE 98; RESP 18; TEMP 36.6; O2SAT 98
--- NOTE | 2020-10-24 02:50 | PC.NURSE ---
c-collar removed by this RN per verbal order from Dr. Palma.
[2020-10-24 05:31] VITALS: BP 102/74; PULSE 100; RESP 16; O2SAT 98
--- NOTE | 2020-10-24 05:50 | PC.NURSE ---
Pt provided with gown and assisted into w/c by RN x 2. Taken to ED wr to await ride. Pt requested this RN call his girlfriend Yessenia at [phone]. she reports she will pick pt up in ED lobby. Yessenia's phone number: [phone]
== END 2020-10-24 05:54 | disposition home or self-care (01) ==
PROVIDERS: Emergency Provider Emergency Medicine; PCP Physician Assistant
DX: S00.03XA Contusion of scalp, initial encounter (principal); F10.129 Alcohol abuse with intoxication, unspecified; Z79.82 Long term (current) use of aspirin; N40.0 Benign prostatic hyperplasia without lower urinary tract symptoms; J44.9 Chronic obstructive pulmonary disease, unspecified; F41.8 Other specified anxiety disorders; Z86.73 Personal history of transient ischemic attack (TIA), and cerebral infarction without residual deficits; E78.5 Hyperlipidemia, unspecified; I10 Essential (primary) hypertension; G62.9 Polyneuropathy, unspecified; M06.9 Rheumatoid arthritis, unspecified; F17.210 Nicotine dependence, cigarettes, uncomplicated; W19.XXXA Unspecified fall, initial encounter
CPT/HCPCS: 70450; 72125; 99284

== ENCOUNTER 2020-11-03 05:08 | Inpatient (IN) | payer MEDICARE, MEDICAID, SELFPAY ==
[2020-11-03] VITALS (29 sets, daily range): BP systolic 101–151; BP diastolic 63–103; PULSE 74–109; RESP 13–22; TEMP 36.1–36.9; O2SAT 92–100; BMI 18.6
--- NOTE | ~2020-11-03 | XR_ITS ---
EXAMINATION: XR chest 1V portable DATE: 11/03/2020 06:07 INDICATION: Shortness of breath. TECHNIQUE: A single frontal view of the chest was obtained. COMPARISON: Chest 2 views 03/24/2020, chest CT 11/03/2020 FINDINGS: There are reticular opacities in the lower lung zones. No pleural effusion or pneumothorax. The heart size is normal. IMPRESSION: 1. Reticular opacities in the lower lung zones, consistent with chronic interstitial lung disease. Reviewed, dictated and finalized at location A. IMPRESSION: 1. Reticular opacities in the lower lung zones, consistent with chronic interst itial lung disease.
--- NOTE | ~2020-11-03 | CT_ITS ---
EXAMINATION: CTA chest PE protocol DATE: 11/03/2020 06:58 INDICATION: Shortness of breath. TECHNIQUE: Computed tomography angiography (CTA) of the chest was performed with 100 mL Omnipaque-350 intravenous contrast timed to evaluate the pulmonary arteries. Coronal maximum intensity projection 3D-reconstructions were created by the technologist. Automated exposure control and iterative reconst ruction technique were employed. The dose-length product was 354.80 mGy-cm. COMPARISON: Chest CT 12/28/2019 FINDINGS: There is mild emphysema. There are widespread peripheral septal thickening in the lungs wit h a lower lung predominance with areas of honeycombing. There are mild groundglass opacities in the b asilar lungs. No pleural effusion. The heart size is normal. There is a small pericardial effusion. T here are coronary artery calcifications. There is no pulmonary embolus. There is an old fracture of t he body of the sternum with nonunion. There is mild chronic height loss of T4 vertebral body. There i s a chronic burst fracture of T10. There is a chronic burst fracture of T12. There is a compression f racture of L1 superior endplate with 1/5 loss of height, likely subacute. There is dextroscoliosis of thoracic spine and levoscoliosis of thoracolumbar spine. IMPRESSION: 1. No pulmonary embolus. 2. Mild emphysema and chronic interstitial lung disease in a pattern of usual interstitial pneumonia (UIP). 3. Subacute L1 compression fracture. Reviewed, dictated and finalized at location A. IMPRESSION: 1. No pulmonary embolus. 2. Mild emphysema and chronic interstitial lung disease in a pattern of usual i nterstitial pneumonia (UIP). 3. Subacute L1 compression fracture.
--- NOTE | 2020-11-03 05:13 | ECG_ITS ---
Measurements Intervals M[place] Rate: 92 P: 79 AK: 146 QRS: -67 QRSD: 97 T: 60 QT: 335 QTc: 414 Interpretive Statements SINUS RHYTHM POSSIBLE LEFT ATRIAL ENLARGEMENT INCOMPLETE RIGHT BUNDLE BRANCH BLOCK LEFT ANTERIOR FASCICULAR BLOCK MINIMAL Q WAVES- ANTEROLATERAL LEADS PEAKED T WAVES- CONSIDER HYPERKALEMIA OR ISCHEMIA BASELINE ARTIFACT- I, AVL, V1-V2 ABNORMAL ECG Electronically Signed On 11-03-2020 6:57:48 CDT by Daniel Rodlan D.O.
--- NOTE | 2020-11-03 05:17 | PC.NURSE ---
0510 ERP states the STEMI is cancelled. ERP at the bedside.
[2020-11-03] MEDS: ALBUTEROL SULFATE NEB 2.5 MG/0.5 ML INH 5 MG INHALATION (05:42)
[2020-11-03] MEDS: IPRATROPIUM BR 0.02% INH SOLN 0.5 MG/2.5 ML VIAL INHALATION (05:42)
[2020-11-03 05:44] LABS: Basophils Percent Auto 0.4 % (0.2-1.2); Eosinophils Absolute Auto 0.1 K/mm3 (0-0.3); Eosinophils Percent Auto 0.6 % (0-4.4); Hemoglobin 14.3 g/dL (14.0-18.0); Immature Granulocyte Absolute 0.06 K/mm3 (0.00-0.031); Immature Granulocyte Percent A 0.8 % (0-0.5); Mean Corpuscular HGB Conc 34.9 g/dl (32-36); Mean Corpuscular Hemoglobin 29.9 pg (26-34); Mean Corpuscular Volume 85.8 fl (80-100); Mean Platelet Volume 8.5 fl (7.4-10.4); Monocytes Absolute Auto 0.9 K/mm3 (0.1-0.6); Neutrophils Percent Auto 64.2 % (45.5-73.1); Platelet Count Result 403 k/mm3 (150-375); Red Blood Count 4.78 M/mm3 (4.6-6.20); Red Cell Distribution Width 14.1 % (11.5-14.5); White Blood Count 7.7 K/mm3 (4.5-10.0)
[2020-11-03 05:55] LABS: Alanine Aminotransferase 32 U/L (4-50); Albumin Level 3.9 g/dL (3.5-5.1); Alkaline Phosphatase 99 U/L (38-126); Anion Gap 5 mmol/L (8-16); Aspartate Amino Transferase 43 U/L (17-59); Bilirubin,Total 0.4 mg/dL (0.2-1.3); Blood Urea Nitrogen 6 mg/dL (9-20); Calcium 8.6 mg/dL (8.4-10.2); Carbon Dioxide 27 mmol/L (22-30); Chloride 96 mmol/L (98-107); Estimated CRCL calculation 65 ml/min; Estimated Glomerular Filt Rate > 60; Glucose 81 mg/dL (75-110); Potassium 4.6 mmol/L (3.4-5.0); Sodium 128 mmol/L (137-145)
[2020-11-03 05:59] LABS: INR 0.9; Prothrombin Time 12.9 Seconds (11.1-14.7)
[2020-11-03 06:00] LABS: Partial Thromboplastin Time 28.7 SECONDS (22.3-36.8)
[2020-11-03 06:04] LABS: Ethanol < 10 mg/dL (<10)
[2020-11-03 06:07] LABS: NT Pro B Type Natriuretic Pept 190 pg/mL (5-100); Troponin I < 0.012 ng/mL (0.000-0.034)
--- NOTE | 2020-11-03 06:28 | ED.GENADULT ---
HPI - General Adult General Chief complaint: Shortness of Breath/Dyspnea <Mat Palma MD - Last Filed: 11/03/20 06:36> Stated complaint: STEMI <Mat Palma MD - Last Filed: 11/03/20 06:36> Time Seen by Provider: 11/03/20 05:13 <Mat Palma MD - Last Filed: 11/03/20 06:36> History of Present Illness HPI narrative: Patient is a 65-year-old gentleman who presents the emergency department with chief complaint of shortness of breath. Patient reports that he is an alcoholic and has been drinking heavily for the last week consuming approximately a 30 pack of beers. Patient reports that he has history of COPD and because of his drinking he has been staying in a hotel and has not had his nebulizer treatments. Patient reports that tonight he started getting short of breath and called EMS when EMS responded they noticed there was some potential ST elevations on his EKG and activated the patient is a code STEMI. Upon initial arrival to the emergency department EKG was obtained and was discussed with the washing machine assembler on-call who agreed that the patient did not have an acute ST elevation [place]. <Mat Palma MD - Last Filed: 11/03/20 06:36> Related Data Home medications: Home Medications Medication Instructions Recorded Confirmed aspirin [Aspir-81] 81 mg PO DAILY 12/28/19 10/14/20 cholecalciferol (vitamin D3) 25 mcg PO DAILY 12/28/19 10/14/20 [Vitamin D3] mecobalamin (vitamin B12) 1,000 1,000 mcg PO DAILY 01/08/20 10/14/20 mcg chewable tablet potassium gluconate 595 mg (99 mg) 595 mg PO DAILY 02/01/20 10/14/20 tablet <Mat Palma MD - Last Filed: 11/03/20 06:36> Allergies/adverse reactions: Allergies Allergy/AdvReac Type Severity Reaction Status Date / Time No Known Allergies Allergy Verified 11/03/20 05:15 <Mat Palma MD - Last Filed: 11/03/20 06:36> Review of Systems Review of Systems: Narrative: A 10 system review of systems was completed on the patient and is negative except for what is stated in the HPI. Nursing and ancillary documentation was reviewed. 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 Alcoholism Anxiety Bilateral shoulder pain BPH without obstruction/lower urinary tract symptoms Chronic back pain COPD (chronic obstructive pulmonary disease) Depression with anxiety Genu varum of both lower extremities History of CVA (cerebrovascular accident) No residual Hyperlipidemia Hypertension Hypomagnesemia Neuropathy Rheumatoid arthritis (~2011) Stroke (~2013) Tobacco abuse <Mat Palma MD - Last Filed: 11/03/20 06:36> Surgical History Surgical History: Surgical History H/O elbow surgery 2018right elbow - ORIF for fracture H/O knee surgery right ORIF for patellar fracture History of laminectomy L spine - 1994 & 2000 History of right-sided carotid endarterectomy <Mat Palma MD - Last Filed: 11/03/20 06:36> Family History Family History: Family History Mother No problems noted. Father Heart disease Hypertension Cerebrovascular accident Grandparent Arthritis Other Family history of coronary artery disease <Mat Palma MD - Last Filed: 11/03/20 06:36> Social History Social History: Social History Social History: The patient lives with his girlfriend. Patient is a full code. Patient does not have a durable power bankruptcy attorney for healthcare. He has 1 biological child and 1 adopted. He is on SSI. He smokes anywhere
--- NOTE | 2020-11-03 06:42 | PC.NURSE ---
This nurse performed a ambulation assessment with pulse ox. Patient maintained oxygen sat 96%-98% on RA, but patient's HR increased to 163. ERP notified. Patient also was very unsteady on his feet. Patient did ambulate to the bathroom and back to his room with this RN as an assist.
--- NOTE | 2020-11-03 06:48 | PC.NURSE ---
Patient being taken to CT.
[2020-11-03] MEDS: SODIUM CHLORIDE 0.9% IV 1,000 ML 999 ML IV CONT (06:58)
--- NOTE | 2020-11-03 10:30 | ADMGEN ---
This patient, Mahamed Potts, was admitted to 2 Medical Room 242-. Patient/family oriented to hospital policies and general routines including ID bracelet, bed and alarms, visiting hours, pain management, procedures, bathroom and other care routines, personal items, smoking policy, room service/diet, and visiting hours. Information on how to activate the Rapid Response Team has been discussed. Patient/Family are encouraged to report perceived risks to care and to ask questions if they do not understand what they are told or what they should do.
[2020-11-03] MEDS: SODIUM CHLORIDE 0.9% IV 1,000 ML 125 ML IV CONT (10:45)
[2020-11-03] MEDS: chlordiazePOXIDE (*CRX) 25 MG CAPSULE PO ×2 (10:45→17:27)
--- NOTE | 2020-11-03 11:54 | PM.IMHP ---
H&P: HPI History of Present Illness Date/Time: 11/03/20 11:54 Chief Complaint: Shortness of breath Narrative: This is a 65-year-old male with past medical history significant for COPD patient is a current everyday smoker he also drinks alcohol and has been falling at home due to alcohol intoxication his girlfriend kicked pain out of the house and he has been living at [facility] parking lot has not been eating as a result of these feels very weak has had shortness of breath with cough and sputum production of clear phlegm to greenish at times has had some diarrhea as well no nausea no vomiting patient had been drinking up to 12 beers daily. He denies any chills or rigors, no leg swelling no chest pain no palpitations no orthopnea no dizziness. Preliminary workup was essentially unremarkable is set for slightly decreased sodium at 128. Review of Systems Review of Systems: Narrative: Patient has been drinking in 6-12 beers daily has been following at home as a result of alcohol intoxication and girlfriend Q10 out of the house and he has been living in a parking lot in [facility] and he comes to the emergency room due to worsening shortness of breath and sputum production Constitutional: Comments: No chills no fevers no rigors Eyes: Comments: No vision change ENT: Comments: No nasal congestion no sore throat no earache Cardiovascular: Comments: No chest pain no PND no orthopnea no leg swelling Respiratory: Comments: Shortness of breath cough with sputum production of green sputum on to clear phlegm at times Gastrointestinal: Comments: Has had some diarrhea no nausea no vomiting Genitourinary: Comments: No pain or burning with urination Musculoskeletal: Comments: Patient has been falling Integumentary/Breasts: Comments: Patient has a a bump on his forehead and some hematomas and bruises of his face Neurologic: Comments: No tremors no sensorimotor deficit Psychiatric: Comments: Drinking 6-12 beers daily Endocrine: Comments: No heat or cold intolerance Hematologic/Lymphatic: Comments: No lymphadenopathies PMFSH Past Medical History Medical History (QFT) 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 Alcoholism Anxiety Bilateral shoulder pain BPH without obstruction/lower urinary tract symptoms Chronic back pain COPD (chronic obstructive pulmonary disease) Depression with anxiety Genu varum of both lower extremities History of CVA (cerebrovascular accident) No residual Hyperlipidemia Hypertension Hypomagnesemia Neuropathy Rheumatoid arthritis (~2011) Stroke (~2013) Tobacco abuse Surgical History Surgical History H/O elbow surgery 2018right elbow - ORIF for fracture H/O knee surgery right ORIF for patellar fracture History of laminectomy L spine - 1994 & 2000 History of right-sided carotid endarterectomy Family History Family History Mother No problems noted. Father Heart disease Hypertension Cerebrovascular accident Grandparent Arthritis Other Family history of coronary artery disease Social History Social History Social History: The patient lives with his girlfriend. Patient is a full code. Patient does not have a durable power document review attorney for healthcare. He has 1 biological child and 1 adopted. He is on SSI. He smokes anywhere from half a pack to 2 packs of cigarettes a day. And drinks up to 12 beers a day. Smoking packs per day: 1.5 Smoking cigarettes per day: 30.0 Years smoked: 40 Smoking pack-years: 60.00 Smoking status: Current every day smoker Tobacco type: cigarettes and e-cigarettes/vaping Second hand tobacco smoke exposure: Yes Alcohol intake: current Drinks per week: 70 Substance use: never Substance use type: does
[2020-11-03] MEDS: GABAPENTIN 300 MG CAPSULE PO ×2 (13:56→17:27)
[2020-11-03] MEDS: THIAMINE HCL INJ 100 MG, FOLIC ACID INJ 1 MG, MULTIVITAMINS-12 INJ VIAL 1 5 ML, MULTIVI... IV CONT (13:57)
[2020-11-03] MEDS: ALBUTEROL SULFATE (*SP) AEROSOL 1 PUFF 2 PUFF INHALATION (19:10)
[2020-11-04] VITALS (13 sets, daily range): BP systolic 101–136; BP diastolic 61–83; PULSE 74–127; RESP 14–18; TEMP 36.5–36.9; O2SAT 97–100
[2020-11-04] MEDS: chlordiazePOXIDE (*CRX) 25 MG CAPSULE PO ×3 (01:45→17:19)
[2020-11-04 05:48] LABS: Anion Gap 0 mmol/L (8-16); Blood Urea Nitrogen 16 mg/dL (9-20); Calcium 7.9 mg/dL (8.4-10.2); Carbon Dioxide 29 mmol/L (22-30); Chloride 103 mmol/L (98-107); Estimated CRCL calculation 54 ml/min; Estimated Glomerular Filt Rate > 60; Glucose 98 mg/dL (75-110); Potassium 4.3 mmol/L (3.4-5.0); Sodium 132 mmol/L (137-145)
[2020-11-04] MEDS: MAGNESIUM OXIDE 400 MG TABLET BY MOUTH (09:19)
[2020-11-04] MEDS: CHOLECALCIFEROL 1,000 UNITS TABLET 1000 UNITS PO (09:20)
[2020-11-04] MEDS: terbinafine HCL 250 MG TABLET PO (09:20)
[2020-11-04] MEDS: TAMSULOSIN HCL 0.4 MG CAPSULE BY MOUTH (09:20)
[2020-11-04] MEDS: GABAPENTIN 300 MG CAPSULE PO ×3 (09:21→17:19)
[2020-11-04] MEDS: METOPROLOL SUCCINATE EXT REL 25 MG TABCR BY MOUTH (09:23)
--- NOTE | 2020-11-04 12:24 | PC.NURSE ---
On 11/04/20, the student, [NIKITA ROMEO], provided care and completed [facility] documentation on this patient. I have reviewed the student's documentation and agree with the findings.
--- NOTE | 2020-11-04 14:31 | PM.IMPN ---
Progress Note: A&P Assessment and Plan (1) Acute hyponatremia: Code(s): E87.1 - Hypo-osmolality and hyponatremia Status: Acute Assessment and Plan: Will repeat BMP in the morning Likely secondary to drinking beer 6-12 beers a day (2) Alcohol abuse: Code(s): F10.10 - Alcohol abuse, uncomplicated Status: Acute Assessment and Plan: On CIWA protocol No signs of withdrawal (3) Tobacco abuse: Code(s): Z72.0 - Tobacco use Status: Acute Assessment and Plan: Patient is a current everyday smoker Encouraged tobacco cessation Nicotine patch as needed (4) COPD (chronic obstructive pulmonary disease): Qualifiers: COPD type: unspecified COPD Qualified Code(s): J44.9 - Chronic obstructive pulmonary disease, unspecified Code(s): J44.9 - Chronic obstructive pulmonary disease, unspecified Status: Acute Assessment and Plan: On breathing treatments Improved (5) Unsteady gait: Code(s): R26.81 - Unsteadiness on feet Status: Acute Assessment and Plan: Likely secondary to intoxication with alcohol Patient has been falling at home (6) Chronic back pain: Qualifiers: Back pain location: back pain in unspecified location Back pain laterality: unspecified Qualified Code(s): M54.9 - Dorsalgia, unspecified; G89.29 - Other chronic pain Code(s): M54.9 - Dorsalgia, unspecified; G89.29 - Other chronic pain Status: Acute Assessment and Plan: Tylenol as needed (7) Neuropathy: Code(s): G62.9 - Polyneuropathy, unspecified Status: Chronic Assessment and Plan: Continue gabapentin (8) Rheumatoid arthritis: Onset Date: ~2011 Qualifiers: Rheumatoid arthritis location: multiple sites Rheumatoid factor presence: with rheumatoid factor Qualified Code(s): M05.79 - Rheumatoid arthritis with rheumatoid factor of multiple sites without organ or systems involvement Code(s): M06.9 - Rheumatoid arthritis, unspecified Status: Chronic Assessment and Plan: On immunomodulator Subjective Date/time seen: 11/04/20 14:31 I feel better Review of Systems Review of Systems: Narrative: Patient presented to the hospital due to worsening shortness of breath patient has been drinking large amounts and has been passing out and falling at home. Constitutional: Comments: No fevers no rigors no chest Cardiovascular: Comments: No chest pain Respiratory: Comments: Shortness of breath Gastrointestinal: Comments: Diarrhea Musculoskeletal: Comments: No muscle aches or joint aches Integumentary/Breasts: Comments: Bruises Neurologic: Comments: No sensorimotor deficit Exam Narrative: Exam Narrative: Patient is laying in bed Const: General: comfortable, no acute distress, well developed, alert, awake, ill appearing chronically and tired appearing Nutritional Appearance: underweight Orientation/consciousness: patient oriented x3 HENMT: Head: normal to inspection, normocephalic and atraumatic Ears: hearing grossly normal bilaterally Face and sinus: normal facial exam Eyes: General: appearance normal, both eyes and all related structures Pupils: Equal, round and reactive pupils present EOM: EOMs intact bilaterally Neck: Neck: full ROM, no lymphadenopathy and no JVD Thyroid: thyroid normal Lymphatic: no lymphadenopathy noted Resp: Effort & Inspection: normal respiratory effort and able to speak in complete sentences Auscultation: clear to auscultation bilaterally Cardio: Jugular venous distension: no JVD Rate: regular rate Rhythm: regular rhythm Heart sounds: S1 normal heart sound present and S2 normal heart sound present GI: GI Palp: Yes Soft to palpation and Yes No hepatosplenomegaly present : General: Yes deferred Skin: Rashes: no rashes Wounds: no wounds Neuro: General: patient oriented x3 and CN's II-XI intact bilaterally Cranial nerves: Yes CN's II-XI
[2020-11-04] MEDS: ACETAMINOPHEN 325 MG TABLET 650 MG PO (20:32)
[2020-11-04] MEDS: NICOTINE (*PBKC) 21 MG PATCH 1 PATCH TRANSDERM (23:26)
[2020-11-05] VITALS (8 sets, daily range): BP systolic 110–147; BP diastolic 51–81; PULSE 67–87; RESP 16–18; TEMP 36.3–37; O2SAT 98–100
[2020-11-05] MEDS: ACETAMINOPHEN 325 MG TABLET 650 MG PO ×3 (02:00→22:42)
[2020-11-05] MEDS: chlordiazePOXIDE (*CRX) 25 MG CAPSULE PO ×3 (02:10→17:51)
[2020-11-05] MEDS: TAMSULOSIN HCL 0.4 MG CAPSULE BY MOUTH (10:00)
[2020-11-05] MEDS: GABAPENTIN 300 MG CAPSULE PO ×3 (10:00→17:51)
[2020-11-05] MEDS: terbinafine HCL 250 MG TABLET PO (10:00)
[2020-11-05] MEDS: CHOLECALCIFEROL 1,000 UNITS TABLET 1000 UNITS PO (10:00)
[2020-11-05] MEDS: METOPROLOL SUCCINATE EXT REL 25 MG TABCR BY MOUTH (10:00)
[2020-11-05] MEDS: MAGNESIUM OXIDE 400 MG TABLET BY MOUTH (10:01)
[2020-11-05] MEDS: NICOTINE (*PBKC) 21 MG PATCH 1 PATCH TRANSDERM (10:01)
--- NOTE | 2020-11-05 10:33 | PM.DS ---
DS: Admitting Diagnosis Admitting Diagnosis Admitting Diagnosis: (1) Acute hyponatremia: Code(s): E87.1 - Hypo-osmolality and hyponatremia Status: Acute Assessment and Plan: Patient has been drinking 6-12 beers daily but has not been eating or drinking lately as a result of being kicked out of his house and living at the parking lot in [facility]. Will give iv fluids with 0.9 normal saline and monitor Limited free water intake as well (2) Alcohol abuse: Code(s): F10.10 - Alcohol abuse, uncomplicated Status: Acute Assessment and Plan: [facility] protocol Banana bag Supportive care Continue to monitor Does not appear to have withdrawal (3) Tobacco abuse: Code(s): Z72.0 - Tobacco use Status: Acute Assessment and Plan: Nicotine patch as needed (4) COPD (chronic obstructive pulmonary disease): Qualifiers: COPD type: unspecified COPD Qualified Code(s): J44.9 - Chronic obstructive pulmonary disease, unspecified Code(s): J44.9 - Chronic obstructive pulmonary disease, unspecified Status: Acute Assessment and Plan: Not actively wheezing currently Restart home meds Continue to monitor (5) Unsteady gait: Code(s): R26.81 - Unsteadiness on feet Status: Acute Assessment and Plan: Likely secondary to alcohol intoxication PT OT (6) Neuropathy: Code(s): G62.9 - Polyneuropathy, unspecified Status: Chronic Assessment and Plan: Continue gabapentin (7) Rheumatoid arthritis: Onset Date: ~2011 Qualifiers: Rheumatoid arthritis location: multiple sites Rheumatoid factor presence: with rheumatoid factor Qualified Code(s): M05.79 - Rheumatoid arthritis with rheumatoid factor of multiple sites without organ or systems involvement Code(s): M06.9 - Rheumatoid arthritis, unspecified Status: Chronic Assessment and Plan: Patient is on immunomodulators (8) Hypertension: Qualifiers: Hypertension type: essential hypertension Qualified Code(s): I10 - Essential (primary) hypertension Code(s): I10 - Essential (primary) hypertension Status: Chronic Assessment and Plan: Continue metoprolol (9) Chronic back pain: Qualifiers: Back pain location: back pain in unspecified location Back pain laterality: unspecified Qualified Code(s): M54.9 - Dorsalgia, unspecified; G89.29 - Other chronic pain Code(s): M54.9 - Dorsalgia, unspecified; G89.29 - Other chronic pain Status: Acute Assessment and Plan: Tylenol as needed DS: Discharge Diagnosis Discharge Diagnosis (1) Acute hyponatremia: Code(s): E87.1 - Hypo-osmolality and hyponatremia Status: Acute Assessment and Plan: Will repeat BMP in the morning Likely secondary to drinking beer 6-12 beers a day (2) Alcohol abuse: Code(s): F10.10 - Alcohol abuse, uncomplicated Status: Acute Assessment and Plan: On CIWA protocol No signs of withdrawal (3) Tobacco abuse: Code(s): Z72.0 - Tobacco use Status: Acute Assessment and Plan: Patient is a current everyday smoker Encouraged tobacco cessation Nicotine patch as needed (4) COPD (chronic obstructive pulmonary disease): Qualifiers: COPD type: unspecified COPD Qualified Code(s): J44.9 - Chronic obstructive pulmonary disease, unspecified Code(s): J44.9 - Chronic obstructive pulmonary disease, unspecified Status: Acute Assessment and Plan: On breathing treatments Improved (5) Unsteady gait: Code(s): R26.81 - Unsteadiness on feet Status: Acute Assessment and Plan: Likely secondary to intoxication with alcohol Patient has been falling at home PT OT (6) Chronic back pain: Qualifiers: Back pain laterality: unspecified Back pain location: back pain in unspecified location Qualified Code(s): M54.9 - Dorsalgia, unspecified; G89.29 -
--- NOTE | 2020-11-05 13:24 | PM.IMPN ---
Progress Note: A&P Assessment and Plan (1) Acute hyponatremia: Code(s): E87.1 - Hypo-osmolality and hyponatremia Status: Acute Assessment and Plan: Will repeat BMP in the morning Likely secondary to drinking beer 6-12 beers a day (2) Alcohol abuse: Code(s): F10.10 - Alcohol abuse, uncomplicated Status: Acute Assessment and Plan: On CIWA protocol No signs of withdrawal (3) Tobacco abuse: Code(s): Z72.0 - Tobacco use Status: Acute Assessment and Plan: Patient is a current everyday smoker Encouraged tobacco cessation Nicotine patch as needed (4) COPD (chronic obstructive pulmonary disease): Qualifiers: COPD type: unspecified COPD Qualified Code(s): J44.9 - Chronic obstructive pulmonary disease, unspecified Code(s): J44.9 - Chronic obstructive pulmonary disease, unspecified Status: Acute Assessment and Plan: On breathing treatments Improved (5) Unsteady gait: Code(s): R26.81 - Unsteadiness on feet Status: Acute Assessment and Plan: Likely secondary to intoxication with alcohol Patient has been falling at home PT OT (6) Chronic back pain: Qualifiers: Back pain location: back pain in unspecified location Back pain laterality: unspecified Qualified Code(s): M54.9 - Dorsalgia, unspecified; G89.29 - Other chronic pain Code(s): M54.9 - Dorsalgia, unspecified; G89.29 - Other chronic pain Status: Acute Assessment and Plan: Tylenol as needed (7) Neuropathy: Code(s): G62.9 - Polyneuropathy, unspecified Status: Chronic Assessment and Plan: Continue gabapentin (8) Rheumatoid arthritis: Onset Date: ~2011 Qualifiers: Rheumatoid arthritis location: multiple sites Rheumatoid factor presence: with rheumatoid factor Qualified Code(s): M05.79 - Rheumatoid arthritis with rheumatoid factor of multiple sites without organ or systems involvement Code(s): M06.9 - Rheumatoid arthritis, unspecified Status: Chronic Assessment and Plan: On immunomodulator Subjective Date/time seen: 11/05/20 13:24 I feel much better Review of Systems Review of Systems: Narrative: Patient presented to emergency room due to worsening shortness of breath Exam Narrative: Exam Narrative: Patient is laying in bed Const: General: comfortable, no acute distress, well developed, alert, awake, ill appearing chronically and tired appearing Nutritional Appearance: underweight Orientation/consciousness: patient oriented x3 HENMT: Head: normal to inspection, normocephalic, atraumatic and other (Left forehead above the orbit bumps and bruises) Ears: hearing grossly normal bilaterally Face and sinus: normal facial exam Eyes: General: appearance normal, both eyes and all related structures Pupils: Equal, round and reactive pupils present EOM: EOMs intact bilaterally Neck: Neck: full ROM, no lymphadenopathy and no JVD Thyroid: thyroid normal Lymphatic: no lymphadenopathy noted Resp: Effort & Inspection: normal respiratory effort and able to speak in complete sentences Auscultation: clear to auscultation bilaterally Cardio: Jugular venous distension: no JVD Rate: regular rate Rhythm: regular rhythm Heart sounds: S1 normal heart sound present and S2 normal heart sound present : General: Yes deferred Skin: Rashes: no rashes Wounds: no wounds Neuro: General: patient oriented x3 and CN's II-XI intact bilaterally Cranial nerves: Yes CN's II-XII intact bilaterally and Yes Equal, round and reactive pupils present Cognition (Neuro): normal cognition Speech: normal speech Gait exam (Neuro): Normal gait present Motor exam (neuro): 5/5 motor strength present throughout Extrem: General: normal to inspection, full ROM, no joint enlargement and no pedal edema Objective Data Vital Signs Vital Signs: Vital Signs - 24 hr 11/04/20 16:00 11/04/20 16:05
[2020-11-06] VITALS: BP 117/69; PULSE 76; RESP 20; TEMP 36.4; O2SAT 100
[2020-11-06 02:00] VITALS: BP 96/54; PULSE 86; RESP 16; TEMP 36.1; O2SAT 100
[2020-11-06] MEDS: chlordiazePOXIDE (*CRX) 25 MG CAPSULE PO ×2 (02:40→09:36)
[2020-11-06 04:00] VITALS: BP 107/67; PULSE 72; RESP 18; TEMP 36.3; O2SAT 98
[2020-11-06 09:35] VITALS: PULSE 72
[2020-11-06] MEDS: GABAPENTIN 300 MG CAPSULE PO ×2 (09:35→12:18)
[2020-11-06] MEDS: METOPROLOL SUCCINATE EXT REL 25 MG TABCR BY MOUTH (09:35)
[2020-11-06] MEDS: CHOLECALCIFEROL 1,000 UNITS TABLET 1000 UNITS PO (09:35)
[2020-11-06] MEDS: MAGNESIUM OXIDE 400 MG TABLET BY MOUTH (09:36)
[2020-11-06] MEDS: NICOTINE (*PBKC) 21 MG PATCH 1 PATCH TRANSDERM (09:36)
[2020-11-06] MEDS: TAMSULOSIN HCL 0.4 MG CAPSULE BY MOUTH (09:36)
[2020-11-06] MEDS: ACETAMINOPHEN 325 MG TABLET 650 MG PO (09:36)
[2020-11-06] MEDS: terbinafine HCL 250 MG TABLET PO (09:36)
[2020-11-06 10:00] VITALS: BP 94/57; PULSE 82; RESP 16; TEMP 36; O2SAT 100
== END 2020-11-06 15:50 | disposition home or self-care (01) | DRG 641 ==
LOC: ANHED 09:42 → ANH2MED 09:50
PROVIDERS: Emergency Medicine; Admitting Provider Internal Medicine; Emergency Provider Family Medicine; PCP Physician Assistant; Visit Provider Internal Medicine
DX: E87.1 Hypo-osmolality and hyponatremia (principal); Z68.1 Body mass index [BMI] 19.9 or less, adult; R63.6 Underweight; F10.229 Alcohol dependence with intoxication, unspecified; Y90.0 Blood alcohol level of less than 20 mg/100 ml; F17.210 Nicotine dependence, cigarettes, uncomplicated; J44.9 Chronic obstructive pulmonary disease, unspecified; M54.9 Dorsalgia, unspecified; G89.29 Other chronic pain; G62.9 Polyneuropathy, unspecified; M05.79 Rheumatoid arthritis with rheumatoid factor of multiple sites without organ or systems involvement; N40.0 Benign prostatic hyperplasia without lower urinary tract symptoms; F41.8 Other specified anxiety disorders; E78.5 Hyperlipidemia, unspecified; R26.81 Unsteadiness on feet; I10 Essential (primary) hypertension; Z86.73 Personal history of transient ischemic attack (TIA), and cerebral infarction without residual deficits
CPT/HCPCS: 36415; 71045; 71275; 80048; 80053; 80307; 83880; 84484; 85025; 85610; 85730; 93005; 94640; 96360; 97110; 97116; 97161; 97165; 97530; 99285; A9270; J3411; J3475; J7030; Q9967

== ENCOUNTER 2020-11-06 20:51 | Inpatient (IN) | payer MEDICARE, MEDICAID, SELFPAY ==
--- NOTE | ~2020-11-06 | XR_ITS ---
EXAMINATION: XR hip BI 2V w AP pelvis EXAM DATE: 11/10/2020 14:07 INDICATION: Fall, bilateral hip pain. TECHNIQUE: Each hip imaged independently (separate right and also left hip) 'frog leg' and frontal p rojections for interpretation. Frontal projection pelvis. Comparison is made to prior examination fr om 03/24/2020. FINDINGS: No radiographic evidence of hip avascular necrosis. There is mild symmetric bilateral hip primary osteoarthritis. Moderate to severe disc disease L4-5. There are no acute fractures or disloca tions identified. There is no subcutaneous gas. The soft tissue is unremarkable. There are no rad iopaque foreign bodies. IMPRESSION: No acute osseous findings. Reviewed, dictated and finalized at location B. IMPRESSION: No acute osseous findings.
--- NOTE | ~2020-11-06 | XR_ITS ---
EXAMINATION: XR chest 1V portable DATE: 11/06/2020 21:20 INDICATION: COPD presenting with weakness TECHNIQUE: frontal view of the chest was obtained. COMPARISON: Chest radiograph and CT dated 11/03/2020 FINDINGS: Mild emphysema better appreciated on prior CT . Increased interstitial pattern with in the bilateral mid and lower lung zones consistent with mild pulmonary edema. No pleural effusion or pneumothorax. T he cardiomediastinal silhouette is normal. Likely right rotator cuff arthropathy. IMPRESSION: 1. Increased interstitial pattern in the bilateral mid and lower lung zones with differential includi ng mild pulmonary edema, pneumonia or more chronic interstitial lung disease. 2. Mild emphysema. Reviewed, dictated and finalized at location A. IMPRESSION: 1. Increased interstitial pattern in the bilateral mid and lower lung zones wit h differential including mild pulmonary edema, pneumonia or more chronic inters titial lung disease. 2. Mild emphysema.
--- NOTE | ~2020-11-06 | CT_ITS ---
EXAMINATION: CT lumbar spine wo con DATE: 11/06/2020 21:43 INDICATION: Weakness TECHNIQUE: Computed tomography (CT) of the lumbar spine was performed without intravenous contrast. A utomated exposure control and iterative reconstruction technique were employed. The dose-length produ ct was 890.29 mGy-cm. COMPARISON: Lumbar spine MR dated 03/04/[address] chest dated 11/03/2020 and chest radiograph dated FINDINGS: 4 mm retrolisthesis L5 on S1. Mild thoracolumbar levocurvature centered at T12-L1. Chronic T12 burst fracture with up to two thirds right central vertebral body height loss. Likely subacute L1 compressi on fracture with 20% anterior vertebral body height loss, unchanged since the most recent CT but new since chest radiograph dated 03/24/2020. Vacuum phenomena with severe disc height loss at L4-L5 and L5 -S1, mild disc height loss at L1-L2 and with widening of the T12-L1 disc space resulting from the T12 burst fracture. Mild emphysema with chronic interstitial lung disease at the basilar bilateral lower lobes. The following disc levels are specifically discussed: T11-T12: Disc is mildly bulging. There is mild left and moderate right facet joint osteoarthritis. Th ere is mild left and mild to moderate right neural foraminal stenosis. There is mild central canal st enosis. T12-L1: Disc is mildly bulging and there is 2 mm retropulsion of the posterior inferior endplate of T 12. There is mild to moderate bilateral facet joint osteoarthritis. There is mild left and moderate r ight neural foraminal stenosis. There is mild central canal stenosis. L1-L2: Disc is bulging. There is mild bilateral facet joint osteoarthritis. There is mild to moderate bilateral neural foraminal stenosis. There is mild central canal stenosis. L2-L3: Disc is bulging. There is mild bilateral facet joint osteoarthritis. There is mild to moderate bilateral neural foraminal stenosis. There is moderate central canal stenosis. L3-L4: Disc is bulging. There is mild bilateral facet joint osteoarthritis. There is mild to moderate bilateral neural foraminal stenosis. There is moderate central canal stenosis. L4-L5: Disc is bulging. There is moderate bilateral facet joint osteoarthritis. There is moderate chris ateral neural foraminal stenosis. There is moderate central canal stenosis. L5-S1: Disc is bulging. There is moderate right and severe left facet joint osteoarthritis. There is moderate bilateral neural foraminal stenosis. There is mild central canal stenosis. IMPRESSION: 1. Moderate to severe lumbar spondylosis. 2. Chronic T12 burst fracture and likely subacute L1 compression fracture. Reviewed, dictated and finalized at location A.
--- NOTE | ~2020-11-06 | CT_ITS ---
EXAMINATION: CTA BRAIN/CAROTID DATE: 11/06/2020 23:19 INDICATION: Stroke presenting with unsteady gait and weakness TECHNIQUE: Computed tomographic angiography (CTA) of the head and neck was performed with 100 mL Omni paque-350 intravenous contrast. Multiplanar reconstructions and maximum intensity projection 3D-recon structions of the carotid arteries and of the intracranial arteries were created by the technologist on a separate workstation. Automated exposure control and iterative reconstruction technique were emp loyed.The dose-length product was 1135.46 mGy-cm. COMPARISON: Head CT dated 11/06/2020 FINDINGS: Carotid arteries: Visualized thoracic aortic arch is normal in caliber with no dissection. There is prominent atheroscl erotic plaque but with 0% stenosis of the right carotid bulb relative to normal distal artery lumen d iameter (NASCET criteria). There is 50% stenosis of the left carotid bulb relative to normal distal a rtery lumen diameter. Mild emphysema and bronchial wall thickening in the visualized upper lungs. The re are also groundglass opacities and smooth septal line thickening consistent with mild pulmonary ed hoa. Severe cervical spondylosis. Intracranial arteries There is no hemodynamically significant stenosis in the vertebral, basilar and internal carotid arter ies. Vertebral arteries are codominant. There are no aneurysms identified. Both A1 and P1 segments a re patent. Cerebral arterial arborization appears symmetric. Again noted is moderate-sized region of encephalomalacia consistent with chronic infarct in the right middle cerebral artery vascular distri bution of the right frontal and temporal lobes as well as portions of the right basal ganglia and rig ht thalamus. IMPRESSION: 1. 0% stenosis of the right carotid bulb relative to normal distal artery lumen diameter (NASCET crit eria). 2. 50% stenosis of the left carotid bulb relative to normal distal artery lumen diameter. 3. Normal cerebral angiogram. Reviewed, dictated and finalized at location A. IMPRESSION: 1. 0% stenosis of the right carotid bulb relative to normal distal artery lumen diameter (NASCET criteria). 2. 50% stenosis of the left carotid bulb relative to normal distal artery lumen diameter. 3. Normal cerebral angiogram.
--- NOTE | ~2020-11-06 | CT_ITS ---
EXAMINATION: CT brain wo con DATE: 11/06/2020 21:42 INDICATION: Unsteady gait and weakness TECHNIQUE: Computed tomography (CT) of the head was performed without intravenous contrast. Sagittal and coronal reconstructions were performed. The mA was adjusted according to patient size. Iterative reconstruction technique was employed. The dose-length product was 605.33 mGy-cm. COMPARISON: head CT dated 10/24/2020 FINDINGS: Moderate sized right frontal temporal lobe infarct centered along the sylvian fissure and also involv ing portions of the right basal ganglia and right thalamus. No acute intracranial hemorrhage, acute i nfarction or abnormal extra axial fluid collection. Ex vacuo dilation of the right lateral ventricle. Remaining ventricles are normal. Symmetric prominence of the sulci consistent with mild age-appropri ate diffuse cerebral volume loss. No mass/mass effect. The orbits, paranasal sinuses and mastoid air cells are normal. IMPRESSION: 1. No acute intracranial process. 2. Moderate-sized chronic infarct in the right middle cerebral artery vascular distribution including portions of the right frontal and temporal lobes, right basal ganglia and right thalamus. Reviewed, dictated and finalized at location A.
--- NOTE | ~2020-11-06 | MR_ITS ---
EXAMINATION: MR brain/brain stem wo/w con DATE: 11/07/2020 10:08 INDICATION: Cerebrovascular accident. TECHNIQUE: Magnetic resonance imaging (MRI) of the brain and brainstem was performed without and with 11 mL MultiHance intravenous contrast. Sequences included sagittal and axial T1-weighted FSE, axial diffusion-weighted FS EPI, axial T2*-weighted GRE, axial T2-weighted FLAIR Propeller, and axial T2-we ighted Propeller. Postcontrast sequences included axial and coronal T1-weighted FSE. Apparent diffusi on coefficient (ADC) maps were created. COMPARISON: Head CT 11/06/2020 FINDINGS: There is chronic encephalomalacia involving the right frontotemporoparietal region, right i nsula, and right basal ganglia with old blood products in the right basal ganglia. There is no acute ischemic infarct or abnormal mass lesion. There are scattered areas of nonspecific increased T2-weigh katie signal intensity in the left cerebral white matter, which is within normal limits for the patient 's age. There is ex vacuo dilatation of body of right lateral ventricle. There is a hematoma in left frontal lateral scalp. The mastoid air cells are normal. The paranasal sinuses are clear. The orbits are normal. IMPRESSION: 1. Chronic encephalomalacia involving the right frontotemporoparietal region, right insula, and right basal ganglia. Reviewed, dictated and finalized at location A. IMPRESSION: 1. Chronic encephalomalacia involving the right frontotemporoparietal region, r ight insula, and right basal ganglia.
--- NOTE | 2020-11-06 20:56 | ECG_ITS ---
Measurements Intervals [place] Rate: 75 P: 62 MA: 172 QRS: -9 QRSD: 100 T: 42 QT: 378 QTc: 422 Interpretive Statements SINUS RHYTHM INCOMPLETE RIGHT BUNDLE BRANCH BLOCK DELAYED PRECORDIAL R/S TRANSITION MINIMAL Q WAVES- LATERAL LEADS BORDERLINE ECG Electronically Signed On 11-07-2020 7:31:55 CDT by Daniel Roldan D.O.
[2020-11-06 21:20] LABS: Glucose Point of Care 100 (65-105)
[2020-11-06 21:33] LABS: Basophils Percent Auto 0.4 % (0.2-1.2); Eosinophils Absolute Auto 0.1 K/mm3 (0-0.3); Hematocrit 35.5 % (42.0-52.0); Immature Granulocyte Absolute 0.05 K/mm3 (0.00-0.031); Immature Granulocyte Percent A 0.9 % (0-0.5); Lymphocytes Absolute Auto 1.95 K/mm3 (0.9-3.2); Lymphocytes Percent Auto 34.7 % (18.3-44.2); Mean Corpuscular HGB Conc 33.8 g/dl (32-36); Mean Corpuscular Hemoglobin 29.7 pg (26-34); Mean Corpuscular Volume 87.9 fl (80-100); Mean Platelet Volume 8.8 fl (7.4-10.4); Monocytes Absolute Auto 0.6 K/mm3 (0.1-0.6); Monocytes Percent Auto 10.1 % (2.6-8.5); Neutrophils Absolute Auto 2.9 K/mm3 (1.3-6.7); Neutrophils Percent Auto 51.9 % (45.5-73.1); Platelet Count Result 434 k/mm3 (150-375); Red Blood Count 4.04 M/mm3 (4.6-6.20); Red Cell Distribution Width 15.4 % (11.5-14.5); White Blood Count 5.6 K/mm3 (4.5-10.0)
[2020-11-06 21:45] LABS: Ethanol < 10 mg/dL (<10)
[2020-11-06 21:45] LABS: Alanine Aminotransferase 18 U/L (4-50); Albumin Level 3.4 g/dL (3.5-5.1); Alkaline Phosphatase 93 U/L (38-126); Anion Gap 6 mmol/L (8-16); Aspartate Amino Transferase 28 U/L (17-59); Bilirubin,Total 0.1 mg/dL (0.2-1.3); Blood Urea Nitrogen 15 mg/dL (9-20); Calcium 8.8 mg/dL (8.4-10.2); Carbon Dioxide 30 mmol/L (22-30); Chloride 100 mmol/L (98-107); Estimated Glomerular Filt Rate > 60; Glucose 104 mg/dL (75-110); Magnesium 1.5 mg/dL (1.6-2.3); Phosphorus 4.4 mg/dL (2.5-4.5); Potassium 4.3 mmol/L (3.4-5.0); Sodium 136 mmol/L (137-145)
[2020-11-06 21:55] VITALS: BP 128/88; PULSE 75; O2SAT 98
[2020-11-06 21:55] LABS: Prothrombin Time 13.3 Seconds (11.1-14.7)
[2020-11-06 21:56] LABS: Troponin I < 0.012 ng/mL (0.000-0.034)
[2020-11-06 21:57] LABS: Partial Thromboplastin Time 26.4 SECONDS (22.3-36.8)
[2020-11-06 22:14] VITALS: BP 113/68; PULSE 75; RESP 20; O2SAT 96
[2020-11-06] MEDS: MAGNESIUM SULF 2 GM/WATER 50ML 2 GM/50 ML BAG IVPB (22:38)
--- NOTE | 2020-11-06 23:06 | ED.FALL ---
HPI - Fall General Chief Complaint: Fall Stated Complaint: trouble walking, unsteady gait, released hosp toda Time Seen by Provider: 11/06/20 20:55 Source: patient, RN notes reviewed and old records reviewed Mode of arrival: EMS Limitations: no limitations History of Present Illness HPI Narrative: Patient is a 65-year-old male who returns back to the emergency department patient was discharged home after being brought in the hospital for alcohol detox patient notes that he completed this and was discharged home patient had been advised for placement but refused. Patient notes today he had difficulty using his left hand and attributes this to arthritis patient notes he was having trouble gripping his cup and also notes he was having trouble with ambulating. Patient on arriving home was unable to ambulate or get up EMS was contacted and brought the patient back. On arrival patient in the room denying any pain but does have slight droop in the angle of the left mouth. Patient notes that his legs have been weak and he has been unable to ambulate today. Patient notes that prior to discharge she was able to ambulate with help. Patient lives at home with a girlfriend. Patient denies any injury or trauma or alcohol abuse Related Data Home Medications Medication Instructions Recorded Confirmed aspirin [Aspir-81] 81 mg PO DAILY 12/28/19 11/03/20 cholecalciferol (vitamin D3) 25 mcg PO DAILY 12/28/19 11/03/20 [Vitamin D3] mecobalamin (vitamin B12) 1,000 1,000 mcg PO DAILY 01/08/20 11/03/20 mcg chewable tablet potassium gluconate 595 mg (99 mg) 595 mg PO DAILY 02/01/20 11/03/20 tablet Allergies Allergy/AdvReac Type Severity Reaction Status Date / Time No Known Allergies Allergy Verified 11/03/20 10:38 Review of Systems Review of Systems: All systems reviewed & are unremarkable except as noted in HPI and below PMFSH Past Medical History Medical History (QFT) 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 Alcoholism Anxiety Bilateral shoulder pain BPH without obstruction/lower urinary tract symptoms Chronic back pain COPD (chronic obstructive pulmonary disease) Depression with anxiety Genu varum of both lower extremities History of CVA (cerebrovascular accident) No residual Hyperlipidemia Hypertension Hypomagnesemia Neuropathy Rheumatoid arthritis (~2011) Stroke (~2014) Tobacco abuse Surgical History Surgical History H/O elbow surgery 2018right elbow - ORIF for fracture H/O knee surgery right ORIF for patellar fracture History of laminectomy L spine - 1994 & 2000 History of right-sided carotid endarterectomy Family History Family History Mother No problems noted. Father Heart disease Hypertension Cerebrovascular accident Grandparent Arthritis Other Family history of coronary artery disease Social History Social History Social History: The patient lives with his girlfriend. Patient is a full code. Patient does not have a durable power [employer] attorney for healthcare. He has 1 biological child and 1 adopted. He is on SSI. He smokes anywhere from half a pack to 2 packs of cigarettes a day. And drinks up to 12 beers a day. Smoking packs per day: 1.5 Smoking cigarettes per day: 30.0 Years smoked: 40 Smoking pack-years: 60.00 Smoking status: Current every day smoker Tobacco type: cigarettes and e-cigarettes/vaping Second hand tobacco smoke exposure: Yes Alcohol intake: current Drinks per week: 70 Substance use: never Substance use type: does not use Additional living arrangements comments: significant other Additional occupation/education comments: disable Gender identity (if verbalized by the patient): Male Spiritual care concerns:
[2020-11-07] VITALS (8 sets, daily range): BP systolic 98–157; BP diastolic 66–89; PULSE 80–97; RESP 16–20; TEMP 36.3–36.9; O2SAT 96–100; BMI 21.1
[2020-11-07 00:24] LABS: Add Urine Microscopic? NO; Appearance Urine Clear (Clear); Bilirubin Urine Negative (Negative); Blood Urine Negative (Negative); Color Urine Yellow (Yellow); Glucose Urine UA Negative (Negative); Ketones Urine Negative (Negative); Leukocyte Esterase Ur Negative LEU/UL (Negative); Nitrate Urine Negative (Negative); Protein Urine Negative (Negative); Specific Grav Ur 1.013 (1.001-1.035); Urobilinogen Urine Negative mg/dL (<2.0)
[2020-11-07 00:29] LABS: Amphetamine Screen Urine Negative (Negative); Barbiturate Screen Urine Negative (Negative); Benzodiazepines Screen Urine Positive (Negative); Cannabinoid Screen Urine Negative (Negative); Cocaine Screen Urine Negative (Negative); Methadone Screen Urine Negative (Negative); Opiate Screen Urine Negative (Negative); Phencyclidine Screen Urine Negative (Negative)
[2020-11-07] MEDS: LACTATED RINGERS 1,000 ML 75 ML IV CONT (03:54)
--- NOTE | 2020-11-07 08:28 | PM.IMHP ---
H&P: HPI History of Present Illness Date/Time: 11/07/20 08:28 Chief Complaint: I could not walk Narrative: This 65-year-old male with past medical history significant for rheumatoid arthritis Alcohol abuse COPD tobacco use patient is a current everyday smoker patient was just discharged home on the day before he was supposed to go for physical therapy in the outpatient setting however when the patient got home and after he needed some help getting up the stairs through the garage door once he was inside and after he had lunch he was unable to get up by himself he denies any numbness any incontinence of urine or stool or retention he denies any pain he denies any paresthesia denies any loss of strength or focal weakness but he could not get up from sitting position. patient had just been discharged from [facility] where he was treated for worsening shortness of breath acute COPD exacerbation and was monitor for alcohol withdrawal while as well. Patient had been evaluated by physical therapy and occupational therapy and it was decided he would go for outpatient rehabilitation. However patient return to us due to above problems. preliminary workup has been essentially nonrevealing CT of lumbar spine is significant for compression fracture , MRI was significant for area of old chronic infarct and encephalomalacia however no acute findings. Review of Systems Review of Systems: Narrative: patient presented to the emergency room after he was discharged to was home and with he was unable to get all from sitting position his girlfriend called an Ambulance and he was brought to the emergency room. All systems reviewed & are unremarkable except as noted in HPI and below Constitutional: Comments: No fevers no rigors no chills Eyes: Comments: no vision changes ENT: Comments: no earache no nose discharge or congestion no sore throat Cardiovascular: Comments: no chest pain Respiratory: Comments: no shortness of breath no cough no sputum production Gastrointestinal: Comments: no abdominal pain no nausea no vomiting no diarrhea Genitourinary: Comments: no pain or burning with urination Musculoskeletal: Comments: weakness generalized unable to get up from sitting position Integumentary/Breasts: Comments: no rashes Neurologic: Comments: no focal weakness unsteady gait PMFSH Past Medical History Medical History (QFT) 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 Alcoholism Anxiety Bilateral shoulder pain BPH without obstruction/lower urinary tract symptoms Chronic back pain COPD (chronic obstructive pulmonary disease) Depression with anxiety Genu varum of both lower extremities History of CVA (cerebrovascular accident) No residual Hyperlipidemia Hypertension Hypomagnesemia Neuropathy Rheumatoid arthritis (~2011) Stroke (~2013) Tobacco abuse Surgical History Surgical History H/O elbow surgery 2018right elbow - ORIF for fracture H/O knee surgery right ORIF for patellar fracture History of laminectomy L spine - 1994 & 2000 History of right-sided carotid endarterectomy Family History Family History Mother No problems noted. Father Heart disease Hypertension Cerebrovascular accident Grandparent Arthritis Other Family history of coronary artery disease Social History Social History Social History: The patient lives with his girlfriend. Patient is a full code. Patient does not have a durable power [employer] attorney for healthcare. He has 1 biological child and 1 adopted. He is on SSI. He smokes anywhere from half a pack to 2 packs of cigarettes a day. And drinks up to 12 beers a day. Smoking packs per day: 1 Smoking cigarettes per day: 20.0 Years smoked: 30 [employer]
--- NOTE | 2020-11-07 09:57 | PCPTNOTE ---
Attempted PT evaluation. Pt in MRI. Will try again at later time. Audra Cardoza, DASHT
[2020-11-07] MEDS: FAMOTIDINE 20 MG/2 ML VIAL IV PUSH ×2 (10:15→19:58)
[2020-11-07] MEDS: METOPROLOL SUCCINATE EXT REL 25 MG TABCR BY MOUTH (14:30)
[2020-11-07] MEDS: GABAPENTIN 300 MG CAPSULE PO ×2 (14:30→19:57)
[2020-11-07] MEDS: CYANOCOBALAMIN 1,000 MCG TABLET 1000 MCG PO (14:30)
[2020-11-07] MEDS: MAGNESIUM OXIDE 400 MG TABLET BY MOUTH (14:31)
[2020-11-07] MEDS: terbinafine HCL 250 MG TABLET PO (14:31)
[2020-11-07] MEDS: TAMSULOSIN HCL 0.4 MG CAPSULE BY MOUTH (14:31)
[2020-11-07] MEDS: UMECLIDINIUM/VILANTEROL 62.5-25 MCG ELLIPTA 1 PUFF INHALATION (19:56)
[2020-11-07] MEDS: NICOTINE (*PBKC) 21 MG PATCH 1 PATCH TRANSDERM (20:14)
[2020-11-08] VITALS: BP 119/79; PULSE 77; RESP 20; TEMP 36.6; O2SAT 98
[2020-11-08] MEDS: MELATONIN 3 MG TABLET PO ×2 (00:06→20:16)
[2020-11-08 06:00] VITALS: BP 100/61; PULSE 70; RESP 20; TEMP 36.4; O2SAT 98
[2020-11-08] MEDS: UMECLIDINIUM/VILANTEROL 62.5-25 MCG ELLIPTA 1 PUFF INHALATION (10:02)
[2020-11-08] MEDS: GABAPENTIN 300 MG CAPSULE PO ×3 (10:02→17:49)
[2020-11-08] MEDS: NICOTINE (*PBKC) 21 MG PATCH 1 PATCH TRANSDERM (10:02)
[2020-11-08] MEDS: terbinafine HCL 250 MG TABLET PO (10:02)
[2020-11-08] MEDS: CHOLECALCIFEROL 1,000 UNITS TABLET 1000 UNITS PO (10:02)
[2020-11-08] MEDS: MAGNESIUM OXIDE 400 MG TABLET BY MOUTH (10:03)
[2020-11-08] MEDS: TAMSULOSIN HCL 0.4 MG CAPSULE BY MOUTH (10:03)
[2020-11-08] MEDS: FAMOTIDINE 20 MG/2 ML VIAL IV PUSH ×2 (10:03→20:17)
[2020-11-08] MEDS: CYANOCOBALAMIN 1,000 MCG TABLET 1000 MCG PO (10:04)
[2020-11-08] MEDS: traMADol HCL (*CRX) 50 MG TABLET PO ×2 (11:51→20:16)
--- NOTE | 2020-11-08 12:49 | PM.IMPN ---
Progress Note: A&P Assessment and Plan (1) Gait instability: Code(s): R26.81 - Unsteadiness on feet Status: Acute Assessment and Plan: patient is nonfocal at physical exam MRI of the brain reviewed CT of lumbar spine reviewed likely secondary to deconditioning will obtain physical therapy occupational therapy eval supportive care fall precautions PT/OT patient has been up today to the chair (2) Generalized weakness: Code(s): R53.1 - Weakness Status: Acute Assessment and Plan: likely secondary to deconditioning (3) Acute hyponatremia: Code(s): E87.1 - Hypo-osmolality and hyponatremia Status: Acute Assessment and Plan: TRENDING UP TODAY'S VALUE IS 136 DAILY BMP (4) Alcohol abuse: Code(s): F10.10 - Alcohol abuse, uncomplicated Status: Acute Assessment and Plan: PATIENT WAS TREATED WITH LIBRIUM ON HIS PRIOR ADMISSION CURRENTLY DOES NOT SEEM TO HAVE ANY WITHDRAWAL WILL CONTINUE TO MONITOR (5) Tobacco abuse: Code(s): Z72.0 - Tobacco use Status: Acute Assessment and Plan: NICOTINE PATCH NEEDED (6) COPD (chronic obstructive pulmonary disease): Qualifiers: COPD type: unspecified COPD Qualified Code(s): J44.9 - Chronic obstructive pulmonary disease, unspecified Code(s): J44.9 - Chronic obstructive pulmonary disease, unspecified Status: Acute Assessment and Plan: APPEARS TO BE STABLE NOT ACTIVELY WHEEZING continue home meds (7) Chronic back pain: Qualifiers: Back pain location: back pain in unspecified location Back pain laterality: unspecified Qualified Code(s): M54.9 - Dorsalgia, unspecified; G89.29 - Other chronic pain Code(s): M54.9 - Dorsalgia, unspecified; G89.29 - Other chronic pain Status: Acute Assessment and Plan: PATIENT WITH SUBACUTE COMPRESSION VERTEBRAE FRACTURE PATIENT WITH NO CAUDA EQUINA ABLE TO VOID NO NUMBNESS MEDICAL MANAGEMENT (8) Rheumatoid arthritis: Onset Date: ~2011 Qualifiers: Rheumatoid arthritis location: multiple sites Rheumatoid factor presence: with rheumatoid factor Qualified Code(s): M05.79 - Rheumatoid arthritis with rheumatoid factor of multiple sites without organ or systems involvement Code(s): M06.9 - Rheumatoid arthritis, unspecified Status: Chronic Assessment and Plan: HOLDING IMMUNOMODULATOR MAYBE THIS IS CONTRIBUTING TO HIS GENERALIZED MUSCLE WEAKNESS WILL CONTINUE TO MONITOR (9) Hypertension: Qualifiers: Hypertension type: essential hypertension Qualified Code(s): I10 - Essential (primary) hypertension Code(s): I10 - Essential (primary) hypertension Status: Chronic Assessment and Plan: RESTART HOME MEDS CONTINUE TO MONITOR Subjective Date/time seen: 11/08/20 12:49 I am fine Review of Systems Review of Systems: All systems reviewed & are unremarkable except as noted in HPI and below Exam Narrative: Exam Narrative: patient is laying in bed in no acute distress chronically looking Const: General: comfortable, no acute distress, well developed, alert and awake Nutritional Appearance: underweight Orientation/consciousness: patient oriented x3 HENMT: Head: normal to inspection, normocephalic and atraumatic Ears: hearing grossly normal bilaterally Face and sinus: normal facial exam Eyes: General: appearance normal, both eyes and all related structures Pupils: Equal, round and reactive pupils present EOM: EOMs intact bilaterally Neck: Neck: full ROM, no lymphadenopathy and no JVD Thyroid: thyroid normal Lymphatic: no lymphadenopathy noted Resp: Effort & Inspection: normal respiratory effort and able to speak in complete sentences Auscultation: clear to auscultation bilaterally Cardio: Jugular venous distension: no JVD Rate: regular rate Rhythm: regular rhythm Heart sounds: S1 normal heart soun
[2020-11-08 14:00] VITALS: BP 119/74; PULSE 84; RESP 16; TEMP 35.9; O2SAT 100
[2020-11-08 14:05] VITALS: BP 117/80
[2020-11-08 14:10] VITALS: BP 87/60
[2020-11-08] MEDS: SODIUM CHLORIDE 0.9% IV 1,000 ML 500 ML IV CONT (17:49)
[2020-11-08 21:42] VITALS: BP 133/82; PULSE 100; RESP 20; TEMP 36.8; O2SAT 99
[2020-11-09 06:00] VITALS: BP 165/87; PULSE 59; RESP 20; TEMP 36.6; O2SAT 95
[2020-11-09] MEDS: NICOTINE (*PBKC) 21 MG PATCH 1 PATCH TRANSDERM (08:54)
[2020-11-09] MEDS: FAMOTIDINE 20 MG/2 ML VIAL IV PUSH ×2 (08:55→21:24)
[2020-11-09] MEDS: CYANOCOBALAMIN 1,000 MCG TABLET 1000 MCG PO (08:55)
[2020-11-09] MEDS: CHOLECALCIFEROL 1,000 UNITS TABLET 1000 UNITS PO (08:55)
[2020-11-09 08:56] VITALS: PULSE 85
[2020-11-09] MEDS: MAGNESIUM OXIDE 400 MG TABLET BY MOUTH (08:56)
[2020-11-09] MEDS: GABAPENTIN 300 MG CAPSULE PO ×3 (08:56→17:10)
[2020-11-09] MEDS: terbinafine HCL 250 MG TABLET PO (08:56)
[2020-11-09] MEDS: METOPROLOL SUCCINATE EXT REL 25 MG TABCR BY MOUTH (08:56)
[2020-11-09] MEDS: TAMSULOSIN HCL 0.4 MG CAPSULE BY MOUTH (08:56)
[2020-11-09] MEDS: UMECLIDINIUM/VILANTEROL 62.5-25 MCG ELLIPTA 1 PUFF INHALATION (09:02)
--- NOTE | 2020-11-09 12:25 | PM.IMPN ---
Progress Note: A&P Assessment and Plan (1) Gait instability: Code(s): R26.81 - Unsteadiness on feet Status: Acute Assessment and Plan: patient is nonfocal at physical exam MRI of the brain reviewed CT of lumbar spine reviewed likely secondary to deconditioning will obtain physical therapy occupational therapy eval supportive care fall precautions Participating in physical therapy session with PT and OT patient has been up today to the chair (2) Generalized weakness: Code(s): R53.1 - Weakness Status: Acute Assessment and Plan: likely secondary to deconditioning (3) Acute hyponatremia: Code(s): E87.1 - Hypo-osmolality and hyponatremia Status: Acute Assessment and Plan: TRENDING UP TODAY'S VALUE IS 136 DAILY BMP (4) Alcohol abuse: Code(s): F10.10 - Alcohol abuse, uncomplicated Status: Acute Assessment and Plan: PATIENT WAS TREATED WITH LIBRIUM ON HIS PRIOR ADMISSION CURRENTLY DOES NOT SEEM TO HAVE ANY WITHDRAWAL WILL CONTINUE TO MONITOR (5) Tobacco abuse: Code(s): Z72.0 - Tobacco use Status: Acute Assessment and Plan: NICOTINE PATCH NEEDED (6) COPD (chronic obstructive pulmonary disease): Qualifiers: COPD type: unspecified COPD Qualified Code(s): J44.9 - Chronic obstructive pulmonary disease, unspecified Code(s): J44.9 - Chronic obstructive pulmonary disease, unspecified Status: Acute Assessment and Plan: APPEARS TO BE STABLE NOT ACTIVELY WHEEZING continue home meds (7) Chronic back pain: Qualifiers: Back pain location: back pain in unspecified location Back pain laterality: unspecified Qualified Code(s): M54.9 - Dorsalgia, unspecified; G89.29 - Other chronic pain Code(s): M54.9 - Dorsalgia, unspecified; G89.29 - Other chronic pain Status: Acute Assessment and Plan: PATIENT WITH SUBACUTE COMPRESSION VERTEBRAE FRACTURE PATIENT WITH NO CAUDA EQUINA ABLE TO VOID NO NUMBNESS MEDICAL MANAGEMENT (8) Rheumatoid arthritis: Onset Date: ~2011 Qualifiers: Rheumatoid arthritis location: multiple sites Rheumatoid factor presence: with rheumatoid factor Qualified Code(s): M05.79 - Rheumatoid arthritis with rheumatoid factor of multiple sites without organ or systems involvement Code(s): M06.9 - Rheumatoid arthritis, unspecified Status: Chronic Assessment and Plan: HOLDING IMMUNOMODULATOR MAYBE THIS IS CONTRIBUTING TO HIS GENERALIZED MUSCLE WEAKNESS WILL CONTINUE TO MONITOR (9) Hypertension: Qualifiers: Hypertension type: essential hypertension Qualified Code(s): I10 - Essential (primary) hypertension Code(s): I10 - Essential (primary) hypertension Status: Chronic Assessment and Plan: RESTART HOME MEDS CONTINUE TO MONITOR (10) Tremor of both hands: Code(s): R25.1 - Tremor, unspecified Status: Acute Assessment and Plan: With purposeful movement Will start scheduled Librium Continue to monitor Subjective Date/time seen: 11/09/20 12:25 I can't hold my cup with mild left hand and I have shakiness with movement Review of Systems Review of Systems: All systems reviewed & are unremarkable except as noted in HPI and below Exam Narrative: Exam Narrative: patient is sitting in chair in no acute distress chronically looking Const: General: comfortable, no acute distress, well developed, alert and awake Nutritional Appearance: underweight Orientation/consciousness: patient oriented x3 HENMT: Head: normal to inspection, normocephalic and atraumatic Ears: hearing grossly normal bilaterally Face and sinus: normal facial exam Eyes: General: appearance normal, both eyes and all related structures Pupils: Equal, round and reactive pupils present EOM: EOMs intact bilaterally Neck: Neck: full ROM, no lymphadenopathy and no JVD Thyroid: thy
[2020-11-09 14:00] VITALS: BP 125/81; PULSE 94; RESP 16; TEMP 36.6; O2SAT 99
[2020-11-09] MEDS: chlordiazePOXIDE (*CRX) 25 MG CAPSULE PO (17:11)
[2020-11-09] MEDS: traMADol HCL (*CRX) 50 MG TABLET PO (21:23)
[2020-11-09] MEDS: MELATONIN 3 MG TABLET PO (21:23)
[2020-11-09 21:34] VITALS: BP 102/65; PULSE 81; RESP 18; TEMP 36.7; O2SAT 98
[2020-11-10] MEDS: chlordiazePOXIDE (*CRX) 25 MG CAPSULE PO ×5 (00:30→23:25)
[2020-11-10 05:42] VITALS: BP 130/85; PULSE 83; RESP 18; TEMP 36.6; O2SAT 97
[2020-11-10] MEDS: NICOTINE (*PBKC) 21 MG PATCH 1 PATCH TRANSDERM (08:46)
[2020-11-10 08:47] VITALS: PULSE 80
[2020-11-10] MEDS: MAGNESIUM OXIDE 400 MG TABLET BY MOUTH (08:47)
[2020-11-10] MEDS: METOPROLOL SUCCINATE EXT REL 25 MG TABCR BY MOUTH (08:47)
[2020-11-10] MEDS: terbinafine HCL 250 MG TABLET PO (08:47)
[2020-11-10] MEDS: TAMSULOSIN HCL 0.4 MG CAPSULE BY MOUTH (08:47)
[2020-11-10] MEDS: CYANOCOBALAMIN 1,000 MCG TABLET 1000 MCG PO (08:47)
[2020-11-10] MEDS: CHOLECALCIFEROL 1,000 UNITS TABLET 1000 UNITS PO (08:48)
[2020-11-10] MEDS: UMECLIDINIUM/VILANTEROL 62.5-25 MCG ELLIPTA 1 PUFF INHALATION (08:48)
[2020-11-10] MEDS: FAMOTIDINE 20 MG/2 ML VIAL IV PUSH ×2 (08:48→20:48)
[2020-11-10] MEDS: GABAPENTIN 300 MG CAPSULE PO ×3 (08:48→17:12)
[2020-11-10] MEDS: traMADol HCL (*CRX) 50 MG TABLET PO ×2 (08:56→20:48)
--- NOTE | 2020-11-10 10:49 | PM.IMPN ---
Progress Note: A&P Assessment and Plan (1) Gait instability: Code(s): R26.81 - Unsteadiness on feet Status: Acute Assessment and Plan: patient is nonfocal at physical exam MRI of the brain reviewed CT of lumbar spine reviewed likely secondary to deconditioning will obtain physical therapy occupational therapy eval supportive care fall precautions Participating in physical therapy session with PT and OT patient has been up today to the chair Patient is wanting to go home (2) Generalized weakness: Code(s): R53.1 - Weakness Status: Acute Assessment and Plan: likely secondary to deconditioning Improved (3) Acute hyponatremia: Code(s): E87.1 - Hypo-osmolality and hyponatremia Status: Acute Assessment and Plan: TRENDING UP TODAY'S VALUE IS 136 DAILY BMP Continue to monitor (4) Alcohol abuse: Code(s): F10.10 - Alcohol abuse, uncomplicated Status: Acute Assessment and Plan: PATIENT WAS TREATED WITH LIBRIUM ON HIS PRIOR ADMISSION CURRENTLY DOES NOT SEEM TO HAVE ANY WITHDRAWAL WILL CONTINUE TO MONITOR Patient was put back on Librium after he complained of tremors which are not present today (5) Tobacco abuse: Code(s): Z72.0 - Tobacco use Status: Acute Assessment and Plan: NICOTINE PATCH NEEDED (6) COPD (chronic obstructive pulmonary disease): Qualifiers: COPD type: unspecified COPD Qualified Code(s): J44.9 - Chronic obstructive pulmonary disease, unspecified Code(s): J44.9 - Chronic obstructive pulmonary disease, unspecified Status: Acute Assessment and Plan: APPEARS TO BE STABLE NOT ACTIVELY WHEEZING continue home meds (7) Chronic back pain: Qualifiers: Back pain location: back pain in unspecified location Back pain laterality: unspecified Qualified Code(s): M54.9 - Dorsalgia, unspecified; G89.29 - Other chronic pain Code(s): M54.9 - Dorsalgia, unspecified; G89.29 - Other chronic pain Status: Acute Assessment and Plan: PATIENT WITH SUBACUTE COMPRESSION VERTEBRAE FRACTURE PATIENT WITH NO CAUDA EQUINA ABLE TO VOID NO NUMBNESS MEDICAL MANAGEMENT (8) Rheumatoid arthritis: Onset Date: ~2011 Qualifiers: Rheumatoid arthritis location: multiple sites Rheumatoid factor presence: with rheumatoid factor Qualified Code(s): M05.79 - Rheumatoid arthritis with rheumatoid factor of multiple sites without organ or systems involvement Code(s): M06.9 - Rheumatoid arthritis, unspecified Status: Chronic Assessment and Plan: HOLDING IMMUNOMODULATOR MAYBE THIS IS CONTRIBUTING TO HIS GENERALIZED MUSCLE WEAKNESS WILL CONTINUE TO MONITOR (9) Hypertension: Qualifiers: Hypertension type: essential hypertension Qualified Code(s): I10 - Essential (primary) hypertension Code(s): I10 - Essential (primary) hypertension Status: Chronic Assessment and Plan: RESTART HOME MEDS CONTINUE TO MONITOR (10) Tremor of both hands: Code(s): R25.1 - Tremor, unspecified Status: Acute Assessment and Plan: With purposeful movement Will start scheduled Librium Continue to monitor Patient with no tremors today will continue to monitor continue tapering of Librium for now Subjective Date/time seen: 11/10/20 10:49 Patient states that he is feeling fine Review of Systems Review of Systems: Narrative: Patient denies any issues today All systems reviewed & are unremarkable except as noted in HPI and below Exam Narrative: Exam Narrative: patient is laying in bed in no acute distress chronically ill looking Const: General: comfortable, no acute distress, well developed, alert and awake Nutritional Appearance: underweight Orientation/consciousness: patient oriented x3 HENMT: Head: normal to inspection, normocephalic and atraumatic Ears: hearing grossly normal bilaterally Fac
[2020-11-10 11:10] LABS: Basophils Absolute Auto 0.1 K/mm3 (0.0-0.1); Basophils Percent Auto 0.6 % (0.2-1.2); Eosinophils Absolute Auto 0.2 K/mm3 (0-0.3); Eosinophils Percent Auto 2.5 % (0-4.4); Hematocrit 39.8 % (42.0-52.0); Immature Granulocyte Absolute 0.09 K/mm3 (0.00-0.031); Lymphocytes Absolute Auto 2.41 K/mm3 (0.9-3.2); Lymphocytes Percent Auto 27.2 % (18.3-44.2); Mean Corpuscular HGB Conc 32.7 g/dl (32-36); Mean Corpuscular Hemoglobin 29.7 pg (26-34); Mean Corpuscular Volume 91.1 fl (80-100); Mean Platelet Volume 9.1 fl (7.4-10.4); Monocytes Percent Auto 11.7 % (2.6-8.5); Neutrophils Absolute Auto 5.1 K/mm3 (1.3-6.7); Platelet Count Result 465 k/mm3 (150-375); Red Blood Count 4.37 M/mm3 (4.6-6.20); Red Cell Distribution Width 15.9 % (11.5-14.5); White Blood Count 8.9 K/mm3 (4.5-10.0)
[2020-11-10 11:21] LABS: Anion Gap 3 mmol/L (8-16); Blood Urea Nitrogen 12 mg/dL (9-20); Calcium 9.3 mg/dL (8.4-10.2); Carbon Dioxide 34 mmol/L (22-30); Chloride 101 mmol/L (98-107); Estimated CRCL calculation 61 ml/min; Estimated Glomerular Filt Rate > 60; Glucose 88 mg/dL (75-110); Potassium 4.2 mmol/L (3.4-5.0); Sodium 138 mmol/L (137-145)
[2020-11-10 12:21] VITALS: BP 111/73; PULSE 54; RESP 16; TEMP 36.6; O2SAT 96
[2020-11-10 12:36] VITALS: BP 111/73; PULSE 54; RESP 16; TEMP 36.6; O2SAT 96
[2020-11-10 14:00] VITALS: BP 98/63; PULSE 82; RESP 16; TEMP 36.2; O2SAT 100
--- NOTE | 2020-11-10 17:42 | PC.NURSE ---
1217 heard a loud noise upon entering room pt was on his but sitting on floor in his bathroom and walker was lying in shower, pt states he lost his balance denies any pain or injury. 1220 notified.
[2020-11-10] MEDS: MELATONIN 3 MG TABLET PO (20:48)
[2020-11-10 22:00] VITALS: BP 131/76; PULSE 80; RESP 18; TEMP 36.5; O2SAT 100
[2020-11-11 06:00] VITALS: BP 133/80; PULSE 70; RESP 16; TEMP 36.6; O2SAT 99
[2020-11-11 06:02] LABS: Hematocrit 36.8 % (42.0-52.0); Hemoglobin 12.4 g/dL (14.0-18.0); Mean Corpuscular HGB Conc 33.7 g/dl (32-36); Mean Corpuscular Hemoglobin 30.1 pg (26-34); Mean Corpuscular Volume 89.3 fl (80-100); Mean Platelet Volume 8.8 fl (7.4-10.4); Platelet Count Result 405 k/mm3 (150-375); Red Blood Count 4.12 M/mm3 (4.6-6.20); Red Cell Distribution Width 15.6 % (11.5-14.5); White Blood Count 7.1 K/mm3 (4.5-10.0)
[2020-11-11 06:15] LABS: Anion Gap 5 mmol/L (8-16); Blood Urea Nitrogen 14 mg/dL (9-20); Carbon Dioxide 28 mmol/L (22-30); Chloride 102 mmol/L (98-107); Estimated CRCL calculation 61 ml/min; Estimated Glomerular Filt Rate > 60; Glucose 81 mg/dL (75-110); Sodium 135 mmol/L (137-145)
[2020-11-11 08:37] LABS: Band Neutrophils Percent 1 % (0-6); Eosinophils Absolute Manual 0.14 K/mm3 (0.02-0.5); Eosinophils Percent Manual 2 % (0-4); Lymphocytes Absolute Manual 2.41 K/mm3 (1.1-4.5); Monocytes Absolute Manual 1.27 K/mm3 (0.1-0.90); Monocytes Percent Manual 18 % (3-9); Neutrophils Absolute Manual 3.26 K/mm3 (1.3-6.7); Neutrophils Percent Manual 45 % (46-73); Platelet Estimate Adequate (Adequate); Total Cells Counted 100
[2020-11-11 08:38] LABS: Hypochromasia 1+ (NORMAL)
[2020-11-11 08:54] VITALS: PULSE 70
[2020-11-11] MEDS: METOPROLOL SUCCINATE EXT REL 25 MG TABCR BY MOUTH (08:54)
[2020-11-11] MEDS: MAGNESIUM OXIDE 400 MG TABLET BY MOUTH (08:54)
[2020-11-11] MEDS: GABAPENTIN 300 MG CAPSULE PO ×2 (08:54→12:34)
[2020-11-11] MEDS: FAMOTIDINE 20 MG/2 ML VIAL IV PUSH (08:55)
[2020-11-11] MEDS: CYANOCOBALAMIN 1,000 MCG TABLET 1000 MCG PO (08:55)
[2020-11-11] MEDS: NICOTINE (*PBKC) 21 MG PATCH 1 PATCH TRANSDERM (08:55)
[2020-11-11] MEDS: CHOLECALCIFEROL 1,000 UNITS TABLET 1000 UNITS PO (08:55)
[2020-11-11] MEDS: terbinafine HCL 250 MG TABLET PO (08:55)
[2020-11-11] MEDS: TAMSULOSIN HCL 0.4 MG CAPSULE BY MOUTH (08:55)
[2020-11-11] MEDS: UMECLIDINIUM/VILANTEROL 62.5-25 MCG ELLIPTA 1 PUFF INHALATION (08:56)
[2020-11-11] MEDS: chlordiazePOXIDE (*CRX) 25 MG CAPSULE PO (12:34)
[2020-11-11 14:00] VITALS: BP 100/66; PULSE 80; RESP 16; TEMP 36.7; O2SAT 100
--- NOTE | 2020-11-11 14:24 | PM.DS ---
DS: Admitting Diagnosis Admitting Diagnosis Admitting Diagnosis: I could not walk DS: Discharge Diagnosis Discharge Diagnosis (1) Gait instability: Code(s): R26.81 - Unsteadiness on feet Status: Acute Assessment and Plan: patient is nonfocal at physical exam MRI of the brain reviewed CT of lumbar spine reviewed likely secondary to deconditioning Participating in physical therapy session with PT and OT Pt to be dischraged to a SNF (2) Generalized weakness: Code(s): R53.1 - Weakness Status: Acute Assessment and Plan: likely secondary to deconditioning (3) Acute hyponatremia: Code(s): E87.1 - Hypo-osmolality and hyponatremia Status: Acute Assessment and Plan: TRENDING UP TODAY'S VALUE IS 136 DAILY BMP Continue to monitor (4) Alcohol abuse: Code(s): F10.10 - Alcohol abuse, uncomplicated Status: Acute Assessment and Plan: PATIENT WAS TREATED WITH LIBRIUM ON HIS PRIOR ADMISSION CURRENTLY DOES NOT SEEM TO HAVE ANY WITHDRAWAL Patient was put back on Librium after he complained of tremors (5) Tobacco abuse: Code(s): Z72.0 - Tobacco use Status: Acute Assessment and Plan: NICOTINE PATCH NEEDED (6) COPD (chronic obstructive pulmonary disease): Qualifiers: COPD type: unspecified COPD Qualified Code(s): J44.9 - Chronic obstructive pulmonary disease, unspecified Code(s): J44.9 - Chronic obstructive pulmonary disease, unspecified Status: Acute Assessment and Plan: continue home meds (7) Chronic back pain: Qualifiers: Back pain laterality: unspecified Back pain location: back pain in unspecified location Qualified Code(s): M54.9 - Dorsalgia, unspecified; G89.29 - Other chronic pain Code(s): M54.9 - Dorsalgia, unspecified; G89.29 - Other chronic pain Status: Acute Assessment and Plan: PATIENT WITH SUBACUTE COMPRESSION VERTEBRAE FRACTURE PATIENT WITH NO CAUDA EQUINA ABLE TO VOID NO NUMBNESS MEDICAL MANAGEMENT (8) Rheumatoid arthritis: Onset Date: ~2011 Qualifiers: Rheumatoid arthritis location: multiple sites Rheumatoid factor presence: with rheumatoid factor Qualified Code(s): M05.79 - Rheumatoid arthritis with rheumatoid factor of multiple sites without organ or systems involvement Code(s): M06.9 - Rheumatoid arthritis, unspecified Status: Chronic Assessment and Plan: HOLDING IMMUNOMODULATOR MAYBE THIS IS CONTRIBUTING TO HIS GENERALIZED MUSCLE WEAKNESS WILL CONTINUE TO MONITOR 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 (9) Hypertension: Qualifiers: Hypertension type: essential hypertension Qualified Code(s): I10 - Essential (primary) hypertension Code(s): I10 - Essential (primary) hypertension Status: Chronic Assessment and Plan: RESTART HOME MEDS CONTINUE TO MONITOR (10) Tremor of both hands: Code(s): R25.1 - Tremor, unspecified Status: Acute Assessment and Plan: With purposeful movement Will start scheduled Librium Taper of Librium gradually (11) Alcohol abuse: Code(s): F10.10 - Alcohol abuse, uncomplicated Status: Acute Assessment and Plan: Taper of Librium gradually DS: Summary Hospital Course Hospital Course: This 65-year-old male with past medical history significant for rheumatoid arthritis Alcohol abuse COPD tobacco use patient is a current everyday smoker patient was just discharged home on the day before he was supposed to go for physical therapy in the outpatient setting however when the patient got home and after he needed some help getting up the stairs through the garage door once he was inside and after he had lunch he was unable to get up by himself he denies any numbness any incontinence of urine or stool or retention he denies any pain he denies any paresthesia denies
[2020-11-11 14:27] LABS: SARS-CoV-2 RNA PCR Negative
== END 2020-11-11 16:05 | DRG 546 ==
LOC: ANHED 23:15 → ANH3MEDSUR 11-07 00:10
PROVIDERS: Emergency Medicine Emergency Medical Services; Internal Medicine; Admitting Provider Internal Medicine; Emergency Provider Emergency Medicine; PCP Physician Assistant; Visit Provider Family Medicine
DX: M06.9 Rheumatoid arthritis, unspecified (principal); E87.1 Hypo-osmolality and hyponatremia; M48.56XA Collapsed vertebra, not elsewhere classified, lumbar region, initial encounter for fracture; R53.1 Weakness; R26.81 Unsteadiness on feet; R25.1 Tremor, unspecified; Z20.822 Contact with and (suspected) exposure to COVID-19; F10.10 Alcohol abuse, uncomplicated; J44.9 Chronic obstructive pulmonary disease, unspecified; M54.9 Dorsalgia, unspecified; G89.29 Other chronic pain; I10 Essential (primary) hypertension; F41.8 Other specified anxiety disorders; N40.0 Benign prostatic hyperplasia without lower urinary tract symptoms; E78.5 Hyperlipidemia, unspecified; G62.9 Polyneuropathy, unspecified; F17.210 Nicotine dependence, cigarettes, uncomplicated; Z86.73 Personal history of transient ischemic attack (TIA), and cerebral infarction without residual deficits
CPT/HCPCS: 36415; 70450; 70496; 70498; 70553; 71045; 72131; 73521; 80048; 80053; 80307; 81003; 82948; 83735; 84100; 84484; 85025; 85610; 85730; 93005; 96365; 96375; 96376; 97110; 97116; 97161; 97165; 97530; 97535; 99285; A9270; A9577; C9803; G0378; J3475; J7030; J7120; Q9967; U0003; U0005

== ENCOUNTER 2020-12-12 09:44 | Outpatient (CLI) | payer MEDICARE, MEDICAID, SELFPAY ==
--- NOTE | ~2020-12-12 | XR_ITS ---
EXAMINATION: XR elbow RT 2V, XR forearm RT 2V DATE: 12/12/2020 10:13 INDICATION: Right elbow and forearm pain post fall one month prior. TECHNIQUE: 1. Anteroposterior and lateral views of the right forearm were obtained. 2. Anteroposterior, two oblique and lateral views of the right elbow were obtained. 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 Dorsal plate and screw fixation of an old heal ed fracture of the proximal ulna which is in near-anatomic alignment. No change in mild backing out o f the long screw extending through the proximal tip of the plate and screws across the olecranon with the head of the screw projecting 4 mm posterior to the peripheral margin of the plate. Unfixed old h ealed fracture deformity at the distal right radius resulting in 35 degree volar tilt of the distal a rticular surface. No acute fracture. No right elbow joint effusion. There is however prominent soft t issue overlying the plate and screws posterior to the elbow and along the dorsal aspect of the proxim al to mid right forearm. IMPRESSION: 1. No acute osseous abnormality. 2. Old right radial and ulnar fractures as detailed above with internal fixation at the proximal ulna r fracture, nonunion at the radial head and malunion with 35 degrees dorsal tilt at the distal radius . Reviewed, dictated and finalized at location A. IMPRESSION: 1. No acute osseous abnormality. 2. 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
== END 2020-12-12 09:45 | disposition home or self-care (01) ==
LOC: ANHIMG 09:50
PROVIDERS: PCP Physician Assistant; Visit Provider Physician Assistant
DX: M71.021 Abscess of bursa, right elbow (principal); M79.631 Pain in right forearm
CPT/HCPCS: 73070; 73090

== ENCOUNTER 2020-12-18 14:18 | Inpatient (IN) | payer MEDICARE, MEDICAID, SELFPAY ==
[2020-12-18] VITALS (26 sets, daily range): BP systolic 118–142; BP diastolic 72–107; PULSE 64–86; RESP 11–20; TEMP 36.2–36.3; O2SAT 82–100
--- NOTE | ~2020-12-18 | XR_ITS ---
EXAMINATION: XR elbow RT 2V DATE: 12/19/2020 15:27 INDICATION: Right elbow hardware removal. TECHNIQUE: A single lateral view of right elbow was obtained. COMPARISON: Right elbow radiograph 12/18/2020 FINDINGS: Bone alignment is normal. There is a chronic fracture of radial head with nonunion. There i s mild elbow joint osteoarthritis. No elbow joint effusion. There is posterior soft tissue swelling. IMPRESSION: 1. Chronic radial head fracture with nonunion. 2. Mild elbow joint osteoarthritis. Reviewed, dictated and finalized at location A.
--- NOTE | ~2020-12-18 | XR_ITS ---
XR elbow RT min 3V 12/18/2020 14:59 Indication: Ground-level fall one week ago Procedure: 4 views right elbow Comparison: 12/12/2020 and 01/25/2020 Findings: There is a chronic nonunited extra-articular fracture right radial head. There is dorsal pl ate and screw fixation of old healed proximal ulnar fracture in near-anatomic alignment. No significa nt change to mild backing out of long screw involving the proximal tip the plate and screws across th e olecranon. No acute fracture or traumatic malalignment. Mild persistent dorsal soft tissue swelling . Impression: 1: No acute bone or joint abnormality. Reviewed, dictated and finalized at location B. Impression: 1: No acute bone or joint abnormality.
[2020-12-18 17:11] LABS: Basophils Percent Auto 0.3 % (0.2-1.2); Eosinophils Absolute Auto 0.2 K/mm3 (0-0.3); Eosinophils Percent Auto 2.4 % (0-4.4); Hematocrit 38.4 % (42.0-52.0); Hemoglobin 12.5 g/dL (14.0-18.0); Immature Granulocyte Absolute 0.03 K/mm3 (0.00-0.031); Immature Granulocyte Percent A 0.3 % (0-0.5); Lymphocytes Absolute Auto 3.36 K/mm3 (0.9-3.2); Lymphocytes Percent Auto 38.7 % (18.3-44.2); Mean Corpuscular HGB Conc 32.6 g/dl (32-36); Mean Corpuscular Hemoglobin 29.1 pg (26-34); Mean Corpuscular Volume 89.3 fl (80-100); Mean Platelet Volume 8.9 fl (7.4-10.4); Monocytes Percent Auto 11.4 % (2.6-8.5); Neutrophils Absolute Auto 4.1 K/mm3 (1.3-6.7); Neutrophils Percent Auto 46.9 % (45.5-73.1); Platelet Count Result 316 k/mm3 (150-375); White Blood Count 8.7 K/mm3 (4.5-10.0)
[2020-12-18] MEDS: KETOROLAC 30 MG/ML VIAL (*BKC) IV PUSH (17:23)
[2020-12-18 17:24] LABS: Anion Gap 10 mmol/L (8-16); Blood Urea Nitrogen 13 mg/dL (9-20); CRP 2.1 mg/dL (<1.0); Calcium 9.7 mg/dL (8.4-10.2); Carbon Dioxide 29 mmol/L (22-30); Chloride 101 mmol/L (98-107); Estimated CRCL calculation 45 ml/min; Estimated Glomerular Filt Rate > 60; Glucose 79 mg/dL (75-110); Potassium 4.5 mmol/L (3.4-5.0); Sodium 140 mmol/L (137-145)
[2020-12-18 17:37] LABS: Erythrocyte Sedimentation Rate 62 mm/hr (0-20)
--- NOTE | 2020-12-18 19:15 | PM.IMHP ---
H&P: HPI History of Present Illness Date/Time: 12/18/20 19:15 Chief Complaint: Right elbow pain. Narrative: This is a 65-year-old male with history of stroke, hypertension, dyslipidemia, and rheumatoid arthritis who presented to the emergency department earlier today via private vehicle from home for further evaluation of right elbow pain. He reportedly has a history of bursitis in that right elbow and approximately 3 to 4 weeks ago he had a fall in which he bumped that right elbow, and since that time he has had increasing redness and swelling in the region. He was seen by his primary care provider and was started on dicloxacillin after developing drainage from the elbow. He was referred to Dr. Linares (orthopedics) but he has not yet had an appointment scheduled. Despite being compliant with the dicloxacillin he continues to have increasing discharge at this site and he is now being admitted for consultation with orthopedics, given underlying hardware. Has had burning discomfort in the right elbow but has no pain with active range of motion. He has not had fever, chills, or sweats. No axillary lymphadenopathy. Review of Systems Review of Systems: Narrative: Twelve systems were reviewed with pertinent positives and negatives as per HPI. No fever, chills, or sweats. He denies recent cold and flu symptoms. He was hospitalized in mid October 2020 with a stroke and was discharged to rehab where he was for about 3 weeks before returning home recently. He has been doing well, and has not had alcohol or cigarettes since he was discharged from the hospital. He has not had alcohol withdrawal signs or symptoms. Cold or flu symptoms. No significant issues with his rheumatoid arthritis slightly. Except as documented, all other systems were reviewed and are negative. 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 Anxiety Benign prostatic hyperplasia Chronic anemia Chronic back pain Chronic obstructive pulmonary disease Depression with anxiety Genu varum of both lower extremities History of cerebrovascular accident Hyperlipidemia Hypertension Peripheral neuropathy Rheumatoid arthritis (~2011) Tobacco abuse Surgical History Surgical History (Updated 12/18/20 @ 21:31 by Candi Cabrera PA-C) History of lumbar laminectomy History of orthopedic surgery ORIF right patellar fracture. ORIF right elbow fracture. History of right-sided carotid endarterectomy Family History Family History Mother No problems noted. Father Heart disease Hypertension Cerebrovascular accident Grandparent Arthritis Other Family history of coronary artery disease Social History Social History (Updated 12/18/20 @ 21:33 by Candi Cabrera PA-C) Social History: The patient lives in [place] with his girlfriend. He has 1 biological child and 1 adopted. He he smoked up to 2 packs of cigarettes a day and quit in October 2020. He has not consumed alcohol since late October 2020, previously drank up to a 12 pack a day. No illicit substance use. Code status: Full code. Meds Home Medications and Allergies Home Medications Medication Instructions Recorded Confirmed Type aspirin [Aspir-81] 81 mg PO DAILY 12/28/19 12/11/20 History cholecalciferol (vitamin D3) 25 mcg PO DAILY 12/28/19 12/11/20 History [Vitamin D3] mecobalamin (vitamin B12) 1,000 1,000 mcg PO DAILY 01/08/20 12/11/20 History mcg chewable tablet albuterol sulfate 90 mcg/actuation 2 puff INHALATION Q4H PRN #8.5 gm 01/22/20 12/11/20 Rx aerosol inhaler potassium gluconate 595 mg (99 mg) 595 mg PO DAILY 02/01/20 12/11/20 History tablet sildenafil 50 mg tablet 50 mg PO DAILY PRN #10 tablet 03/11/20 06
--- NOTE | 2020-12-18 19:18 | ED.UPPEXIN ---
HPI - Extremity Injury (Upper) General Chief Complaint: Extremity Injury, Upper Stated Complaint: Need my elbow looked at Time Seen by Provider: 12/18/20 15:56 Source: patient and family Mode of arrival: ambulatory Limitations: no limitations History of Present Illness HPI narrative: 65-year-old male History of alcoholism, falls often He fractured his right elbow and had open reduction internal fixation done in [place] at least a couple years ago He has had swelling and drainage from the right olecranon bursa for 3 or 4 months The evaluation and treatment of this is been kind of a mess, patient is missed appointments, he has apparently resisted referral to orthopedist in [place], there was difficulty getting him in to offices here due to scheduling issues or other snafus, he has been seen regularly by his primary care provider and treated with dicloxacillin at least twice however he still has a draining wound and redness in the elbow and has now also a little bit of erythema over the proximal olecranon as well Related Data Home Medications Medication Instructions Recorded Confirmed aspirin [Aspir-81] 81 mg PO DAILY 12/28/19 12/11/20 cholecalciferol (vitamin D3) 25 mcg PO DAILY 12/28/19 12/11/20 [Vitamin D3] mecobalamin (vitamin B12) 1,000 1,000 mcg PO DAILY 01/08/20 12/11/20 mcg chewable tablet potassium gluconate 595 mg (99 mg) 595 mg PO DAILY 02/01/20 12/11/20 tablet tramadol 50 mg tablet 50 mg PO Q12H PRN tablet 11/25/20 12/11/20 Allergies Allergy/AdvReac Type Severity Reaction Status Date / Time No Known Allergies Allergy Verified 12/11/20 10:59 Review of Systems Review of Systems: All systems reviewed & are unremarkable except as noted in HPI and below Constitutional: Constitutional: Reports no additional constitutional complaints, Denies chills, Denies fever(s) and Denies headache(s) Eyes: Eyes: Reports no additional eye complaints and Denies change in vision ENT: Denies headache(s) and Denies sore throat Cardiovascular: Cardiovascular: Denies chest pain and Denies dyspnea Respiratory: Respiratory: Denies cough and Denies dyspnea Gastrointestinal: Gastrointestinal: Denies abdominal pain, Denies diarrhea and Denies vomiting Genitourinary: Genitourinary: Denies dysuria and Denies urinary frequency Musculoskeletal: Musculoskeletal: Denies deformity, Reports arthralgias, Reports joint swelling and Denies numbness Integumentary/Breasts: Skin/Breast: Denies rash and Denies wounds Neurologic: Denies syncope, Denies headache(s), Denies focal weakness, Denies numbness and Reports weakness Psychiatric: Psychiatric: Reports no additional psychiatric complaints Endocrine: Endocrine: Reports no additional endocrine complaints Hematologic/Lymphatic: Hematologic/Lymphatic: Reports no additional hematologic/lymphatic complaints Allergic/Immunologic: Allergic/Immunologic: Reports no additional allergic/immunologic complaints [facility] Past Medical History Medical History (QFT) 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 Alcoholism Anxiety Bilateral shoulder pain BPH without obstruction/lower urinary tract symptoms Chronic back pain COPD (chronic obstructive pulmonary disease) Depression with anxiety Genu varum of both lower extremities History of CVA (cerebrovascular accident) No residual Hyperlipidemia Hypertension Hypomagnesemia Neuropathy Rheumatoid arthritis (~2011) Stroke (~2013) Tobacco abuse Surgical History Surgical History H/O elbow surgery 2018right elbow - ORIF for fracture H/O knee surgery right ORIF for patellar fracture History of laminectomy L spine - 1994 & 2000 History of right-sided carotid endarterectomy Family History Family History Mother No problems noted. Father Heart di
[2020-12-18] MEDS: LACTATED RINGERS 1,000 ML 50 ML IV CONT (21:30)
--- NOTE | 2020-12-18 22:41 | PC.NURSE ---
This patient, Mahamed Potts, was admitted to 2 Medical Room 259-. Patient/family oriented to hospital policies and general routines including ID bracelet, bed and alarms, visiting hours, pain management, procedures, bathroom and other care routines, personal items, smoking policy, room service/diet, and visiting hours. Information on how to activate the Rapid Response Team has been discussed. Patient/Family are encouraged to report perceived risks to care and to ask questions if they do not understand what they are told or what they should do.
[2020-12-19] VITALS (14 sets, daily range): BP systolic 115–166; BP diastolic 69–97; PULSE 66–88; RESP 10–18; TEMP 35.8–36.5; O2SAT 96–100
[2020-12-19] MEDS: traMADol HCL (*CRX) 50 MG TABLET PO (04:08)
[2020-12-19] MEDS: DICLOXACILLIN SODIUM 250 MG CAPSULE 500 MG PO (05:24)
[2020-12-19] MEDS: GABAPENTIN 300 MG CAPSULE PO ×2 (05:26→21:26)
[2020-12-19 05:39] LABS: Hematocrit 37.9 % (42.0-52.0); Hemoglobin 12.3 g/dL (14.0-18.0); Mean Corpuscular HGB Conc 32.5 g/dl (32-36); Mean Corpuscular Hemoglobin 28.8 pg (26-34); Mean Corpuscular Volume 88.8 fl (80-100); Mean Platelet Volume 9.2 fl (7.4-10.4); Platelet Count Result 295 k/mm3 (150-375); Red Blood Count 4.27 M/mm3 (4.6-6.20); White Blood Count 8.1 K/mm3 (4.5-10.0)
[2020-12-19 05:50] LABS: Potassium 4.4 mmol/L (3.4-5.0)
[2020-12-19 05:55] LABS: Alanine Aminotransferase 12 U/L (4-50); Albumin Level 3.6 g/dL (3.5-5.1); Alkaline Phosphatase 94 U/L (38-126); Anion Gap 7 mmol/L (8-16); Aspartate Amino Transferase 22 U/L (17-59); Bilirubin,Total 0.1 mg/dL (0.2-1.3); Blood Urea Nitrogen 21 mg/dL (9-20); Carbon Dioxide 28 mmol/L (22-30); Chloride 105 mmol/L (98-107); Estimated CRCL calculation 44 ml/min; Estimated Glomerular Filt Rate > 60; Glucose 100 mg/dL (75-110); Sodium 140 mmol/L (137-145)
[2020-12-19] MEDS: buPROPion HCL SR (12 HR) 150 MG TAB PO ×2 (08:41→20:25)
[2020-12-19] MEDS: UMECLIDINIUM/VILANTEROL 62.5-25 MCG ELLIPTA 1 PUFF INHALATION (08:41)
[2020-12-19] MEDS: METOPROLOL SUCCINATE EXT REL 50 MG TABCR PO (08:41)
[2020-12-19] MEDS: terbinafine HCL 250 MG TABLET PO (08:41)
[2020-12-19] MEDS: ASPIRIN 81 MG ENTERIC TABLET PO (08:42)
[2020-12-19] MEDS: CHOLECALCIFEROL 1,000 UNITS TABLET 1000 UNITS PO (08:42)
[2020-12-19] MEDS: MAGNESIUM OXIDE 400 MG TABLET PO (08:42)
[2020-12-19] MEDS: TAMSULOSIN HCL 0.4 MG CAPSULE PO (08:42)
--- NOTE | 2020-12-19 12:09 | WPDANESEPP ---
Anes - Eval Pre Procedure Procedure: Operation Date: 12/19/20 12:30 Proposed Procedures p Washout Right Elbow(Right) - Keegan Linares MD p Removal Hardware Right Elbow(Right) - Keegan Linares MD Date/Time: 12/19/20 12:09 Pre Op Diagnosis: Infected Hardware Rt Elbow, Bursitis Patient Data Age: 65 Gender: M Height: 5 ft 6 in Weight: 56.4 kg Last Vital Signs Temp 97.1 F L 12/19/20 05:57 Pulse 71 12/19/20 08:41 Resp 16 12/19/20 05:57 BP 128/81 12/19/20 05:57 Pulse Ox 98 12/19/20 05:57 Allergies Allergy/AdvReac Type Severity Reaction Status Date / Time No Known Allergies Allergy Verified 12/11/20 10:59 Home Medications Medication Instructions Recorded Confirmed Type aspirin [Aspir-81] 81 mg PO DAILY 12/28/19 12/18/20 History cholecalciferol (vitamin D3) 25 mcg PO DAILY 12/28/19 12/18/20 History [Vitamin D3] albuterol sulfate 90 mcg/actuation 2 puff INHALATION Q4H PRN #8.5 gm 01/22/20 12/18/20 Rx aerosol inhaler potassium gluconate 595 mg (99 mg) 595 mg PO DAILY 02/01/20 12/18/20 History tablet sildenafil 50 mg tablet 50 mg PO DAILY PRN #10 tablet 03/11/20 12/18/20 Rx gabapentin 300 mg capsule 300 mg PO TID #270 cap 08/14/20 12/18/20 Rx terbinafine HCl 250 mg tablet 250 mg PO DAILY #45 tablet 10/14/20 12/18/20 Rx bupropion HCl 150 mg tablet,12 hr 150 mg PO BID #90 tablet 10/15/20 12/18/20 Rx sustained-release chlordiazepoxide HCl 10 mg PO TID #30 cap 11/11/20 12/18/20 Rx melatonin 3 mg PO HS #30 tablet 11/11/20 12/18/20 Rx tofacitinib 5 mg tablet 5 mg PO BID #180 tablet 11/24/20 12/18/20 Rx ipratropium 0.5 mg-albuterol 3 mg 3 ml INHALATION Q4H PRN #180 ml 11/25/20 12/18/20 Rx (2.5 mg base)/3 mL nebulization soln tramadol 50 mg tablet 50 mg PO Q12H PRN tablet 11/25/20 12/18/20 History Anoro Ellipta 1 inh INHALATION DAILY 12/18/20 12/18/20 History atorvastatin 40 mg PO HS 12/18/20 12/18/20 History magnesium oxide 400 mg PO DAILY 12/18/20 12/18/20 History metoprolol succinate 50 mg PO DAILY 12/18/20 12/18/20 History tamsulosin 0.4 mg PO DAILY 12/18/20 12/18/20 History Laboratory Tests 12/18/20 12/18/20 12/19/20 17:03 17:03 05:28 WBC 8.7 K/mm3 K/mm3 8.1 K/mm3 K/mm3 (4.5-10.0) (4.5-10.0) RBC 4.30 M/mm3 L M/mm3 4.27 M/mm3 L M/mm3 (4.6-6.20) (4.6-6.20) Hgb 12.5 g/dL L g/dL 12.3 g/dL L g/dL (14.0-18.0) (14.0-18.0) Hct 38.4 % L % 37.9 % L % (42.0-52.0) (42.0-52.0) MCV 89.3 fl fl 88.8 fl fl (80-100) (80-100) MCH 29.1 pg pg 28.8 pg pg (26-34) (26-34) MCHC 32.6 g/dl g/dl 32.5 g/dl g/dl (32-36) (32-36) RDW 15.0 % H % 15.0 % H % (11.5-14.5) (11.5-14.5) Plt Count 316 k/mm3 k/mm3 295 k/mm3 k/mm3 (150-375) (150-375) MPV 8.9 fl fl 9.2 fl fl (7.4-10.4) (7.4-10.4) Immature Gran % (Auto) 0.3 % % (0-0.5) Neut % (Auto) 46.9 % % (45.5-73.1) Lymph % (Auto) 38.7 % % (18.3-44.2) [place] % (Auto) 11.4 % H % (2.6-8.5) Eos % (Auto) 2.4 % % (0-4.4) Baso % (Auto) 0.3 % % (0.2-1.2) Lymph # (Auto) 3.36 K/mm3 H K/mm3 (0.9-3.2) [place] # (Auto) 1.0 K/mm3 H K/mm3 (0.1-0.6) Eos # (Auto) 0.2 K/mm3 K/mm3 (0-0.3) Baso # (Auto) 0.0 K/mm3 K/mm3 (0.0-0.1) Abs Immat Gran (auto) 0.03 K/mm3 K/mm3 (0.00-0.031) Absolute Neuts (auto) 4.1 K/mm3 K/mm3 (1.3-6.7) Absolute Nucleated RBC 0.0 K/mm3 K/mm3 (0.0-0.012) Nucleated RBC % 0.0 % % (0.0-0.2) ESR 62 mm/hr H mm/hr (0-20) Sodium 140 mmol/L mmol/L (137-145) Potassium 4.5 mmol/L mmol/L (3.4-5.0) Chloride 101 mmol/L mmol/L (98-107) Carbon Dioxide 29 mmol/L mmol/L (22-30) Anion Gap 10 mmol/L mmol/L (8-16) BUN 13 mg/dL mg/dL (9-20) Creatinine 1.20 mg/dL mg/dL (0.7-1.3) Estim Creat Clear Calc 45 ml/
--- NOTE | 2020-12-19 12:30 | PC.NURSE ---
To OR per KOMAL pickard intact. Report given to KATELIN Garcia.
--- NOTE | 2020-12-19 12:41 | WPDANESEPPF ---
Anes - Initial Pre Proc Eval Procedure: Operation Date: 12/19/20 12:30 Proposed Procedures p Washout Right Elbow(Right) - Keegan Linares MD p Removal Hardware Right Elbow(Right) - Keegan Linares MD Date/Time: 12/19/20 12:41 Surgeon: Marissa Jsaon PA-C Pre Op Diagnosis: Infected Hardware Rt Elbow, Bursitis Patient Data Age: 65 Gender: M Height: 5 ft 6 in Weight: 56.4 kg Last Vital Signs Temp 36.2 C L 12/19/20 05:57 Pulse 71 12/19/20 08:41 Resp 16 12/19/20 05:57 BP 128/81 12/19/20 05:57 Pulse Ox 98 12/19/20 05:57 Allergies Allergy/AdvReac Type Severity Reaction Status Date / Time No Known Allergies Allergy Verified 12/11/20 10:59 Home Medications Medication Instructions Recorded Confirmed Type aspirin [Aspir-81] 81 mg PO DAILY 12/28/19 12/18/20 History cholecalciferol (vitamin D3) 25 mcg PO DAILY 12/28/19 12/18/20 History [Vitamin D3] albuterol sulfate 90 mcg/actuation 2 puff INHALATION Q4H PRN #8.5 gm 01/22/20 12/18/20 Rx aerosol inhaler potassium gluconate 595 mg (99 mg) 595 mg PO DAILY 02/01/20 12/18/20 History tablet sildenafil 50 mg tablet 50 mg PO DAILY PRN #10 tablet 03/11/20 12/18/20 Rx gabapentin 300 mg capsule 300 mg PO TID #270 cap 08/14/20 12/18/20 Rx terbinafine HCl 250 mg tablet 250 mg PO DAILY #45 tablet 10/14/20 12/18/20 Rx bupropion HCl 150 mg tablet,12 hr 150 mg PO BID #90 tablet 10/15/20 12/18/20 Rx sustained-release chlordiazepoxide HCl 10 mg PO TID #30 cap 11/11/20 12/18/20 Rx melatonin 3 mg PO HS #30 tablet 11/11/20 12/18/20 Rx tofacitinib 5 mg tablet 5 mg PO BID #180 tablet 11/24/20 12/18/20 Rx ipratropium 0.5 mg-albuterol 3 mg 3 ml INHALATION Q4H PRN #180 ml 11/25/20 12/18/20 Rx (2.5 mg base)/3 mL nebulization soln tramadol 50 mg tablet 50 mg PO Q12H PRN tablet 11/25/20 12/18/20 History Anoro Ellipta 1 inh INHALATION DAILY 12/18/20 12/18/20 History atorvastatin 40 mg PO HS 12/18/20 12/18/20 History magnesium oxide 400 mg PO DAILY 12/18/20 12/18/20 History metoprolol succinate 50 mg PO DAILY 12/18/20 12/18/20 History tamsulosin 0.4 mg PO DAILY 12/18/20 12/18/20 History Laboratory Tests 12/18/20 12/18/20 12/19/20 17:03 17:03 05:28 WBC 8.7 K/mm3 K/mm3 8.1 K/mm3 K/mm3 (4.5-10.0) (4.5-10.0) RBC 4.30 M/mm3 L M/mm3 4.27 M/mm3 L M/mm3 (4.6-6.20) (4.6-6.20) Hgb 12.5 g/dL L g/dL 12.3 g/dL L g/dL (14.0-18.0) (14.0-18.0) Hct 38.4 % L % 37.9 % L % (42.0-52.0) (42.0-52.0) MCV 89.3 fl fl 88.8 fl fl (80-100) (80-100) MCH 29.1 pg pg 28.8 pg pg (26-34) (26-34) MCHC 32.6 g/dl g/dl 32.5 g/dl g/dl (32-36) (32-36) RDW 15.0 % H % 15.0 % H % (11.5-14.5) (11.5-14.5) Plt Count 316 k/mm3 k/mm3 295 k/mm3 k/mm3 (150-375) (150-375) MPV 8.9 fl fl 9.2 fl fl (7.4-10.4) (7.4-10.4) Immature Gran % (Auto) 0.3 % % (0-0.5) Neut % (Auto) 46.9 % % (45.5-73.1) Lymph % (Auto) 38.7 % % (18.3-44.2) [place] % (Auto) 11.4 % H % (2.6-8.5) Eos % (Auto) 2.4 % % (0-4.4) Baso % (Auto) 0.3 % % (0.2-1.2) Lymph # (Auto) 3.36 K/mm3 H K/mm3 (0.9-3.2) [place] # (Auto) 1.0 K/mm3 H K/mm3 (0.1-0.6) Eos # (Auto) 0.2 K/mm3 K/mm3 (0-0.3) Baso # (Auto) 0.0 K/mm3 K/mm3 (0.0-0.1) Abs Immat Gran (auto) 0.03 K/mm3 K/mm3 (0.00-0.031) Absolute Neuts (auto) 4.1 K/mm3 K/mm3 (1.3-6.7) Absolute Nucleated RBC 0.0 K/mm3 K/mm3 (0.0-0.012) Nucleated RBC % 0.0 % % (0.0-0.2) ESR 62 mm/hr H mm/hr (0-20) Sodium 140 mmol/L mmol/L (137-145) Potassium 4.5 mmol/L mmol/L (3.4-5.0) Chloride 101 mmol/L mmol/L (98-107) Carbon Dioxide 29 mmol/L mmol/L (22-30) Anion Gap 10 mmol/L mmol/L (8-16) BUN 13 mg/dL mg/dL (9-20) Creatinine 1.20 mg/dL mg/dL (0.7-1
--- NOTE | 2020-12-19 12:50 | PM.IMPN ---
Progress Note: A&P Assessment and Plan (1) Olecranon bursitis of right elbow: Code(s): M70.21 - Olecranon bursitis, right elbow Status: Acute Assessment and Plan: With serous drainage. Afebrile, no leukocytosis. No concerns for septic joint at this time with full ROM and minimal pain. Appreciate orthopedic surgery consultation. Planning for hardware removal today in OR with Dr. Linares Continue PO dicloxacillin at this time. Wound culture is pending NPO for surgery. Advance diet postoperatively. (2) Chronic anemia: Code(s): D64.9 - Anemia, unspecified Status: Acute Assessment and Plan: H&H is consistent with baseline. Monitor labs (3) Chronic obstructive pulmonary disease: Code(s): J44.9 - Chronic obstructive pulmonary disease, unspecified Status: Acute Assessment and Plan: Stable with no acute issues. Oxygen saturations stable on room air. Continue home Anoro Ellipta Albuterol prn (4) Rheumatoid arthritis: Onset Date: ~2011 Qualifiers: Rheumatoid arthritis location: multiple sites Rheumatoid factor presence: with rheumatoid factor Qualified Code(s): M05.79 - Rheumatoid arthritis with rheumatoid factor of multiple sites without organ or systems involvement Code(s): M06.9 - Rheumatoid arthritis, unspecified Status: Chronic Assessment and Plan: Stable. Home Xeljanz is non-formulary. Hold for now. (5) Hypertension: Qualifiers: Hypertension type: essential hypertension Qualified Code(s): I10 - Essential (primary) hypertension Code(s): I10 - Essential (primary) hypertension Status: Chronic Assessment and Plan: Blood pressure reviewed and are stable. Last BP 128/81 Continue metoprolol Subjective Date/time seen: 12/19/20 12:50 Interval history: Date of service: 12/19/2020 Mahamed Potts is a 65-year-old male with a history of chronic anemia, COPD, CVA, hypertension, hyperlipidemia, rheumatoid arthritis, history of alcohol and tobacco abuse, and prior ORIF of right elbow with hardware in place who is seen in follow-up for bursitis of the right elbow with drainage. He is feeling okay today. He notes that his elbow pain gets up to a 7/10 when any pressure is applied or with certain movements. He reports that is still draining clearish fluid. He denies fever, chills, nausea, or vomiting. No chest pain or shortness of breath. No other body aches or pains. No urinary symptoms. He is feeling hungry but is NPO for surgery this afternoon. He was about to be taken down for surgery at the time of my encounter. Review of Systems Review of Systems: All systems reviewed & are unremarkable except as noted in HPI and below Exam Narrative: Exam Narrative: Mr. Potts is a thin, well-appearing 65-year-old male who is sitting in a chair by the bedside. He appears comfortable and is in NARD. Neuro: awake, alert and oriented x4, speech clear, no focal neuro deficits noted HEENMT: normocephalic, atraumatic, EOMI, sclerae anicteric, moist oral mucosa, tongue midline, nares patent Neck: supple, no lymphadenopathy Respiratory: clear to auscultation bilaterally, nonlabored breathing Cardio: regular rate, regular rhythm with S1-S2 Abdomen: nondistended, normoactive bowel sounds, soft, nontender to palpation, no rigidity or guarding Extremities: right elbow is edematous and erythematous, exquisitely tender to palpation with serous drainage from 3 small openings. Skin: no rashes or lesions, warm and dry Psych: appropriate mood and affect, judgment and insight intact Objective Data Vital Signs Vital Signs: Vital Signs - 24 hr 12/18/20 14:41 12/18/20 16:00 12/18/20 16:01 Temperature 97.1 F L Pulse Rate 79 64 66 Respiratory Rate 16 13 14 Blood Pressure 119/80 141/98 H Pulse Oximetry 100 100 100 12/18/20 16:15 12/18/20 16:16 12/18/20 16:30 Tempera
[2020-12-19] MEDS: LACTATED RINGERS 1,000 ML 30 ML IV CONT ×2 (13:19→14:55)
--- NOTE | 2020-12-19 13:19 | PM.CNOR ---
Assessment and Plan Assessment and plan (1) Septic olecranon bursitis of right elbow: Code(s): M71.121 - Other infective bursitis, right elbow Status: Chronic Assessment and Plan: Right elbow septic olecranon bursitis. Plan will be hardware removal today and debridement of the wound. Consider delayed closure depending on how the tissues looked today. Is likely going to need to be on long-term IV antibiotics for this. No evidence by x-ray of osteomyelitis. Does have a nonunited right radial neck fracture. Do not plan on doing anything with that. Reviewing his record, compliance is going to certainly be a concern with this gentleman. Thank you for the consultation. History of Present Illness HPI Consult date: 12/19/20 Consult reason: other (Left elbow infection) Chief complaint: Infected Hardware Rt Elbow, Bursitis Narrative: 65-year-old right-handed male with right elbow infection. History ORIF right olecranon about three years ago. Developed drainage and redness over the past several months in the right elbow. Was put on dicloxacillin an outpatient. Had been instructed to go to the ER several weeks back but decided finding to go only yesterday. No other skin infection areas per patient. 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 Anxiety Benign prostatic hyperplasia Chronic anemia Chronic back pain Chronic obstructive pulmonary disease COPD (chronic obstructive pulmonary disease) Depression with anxiety Genu varum of both lower extremities History of cerebrovascular accident Hyperlipidemia Hypertension Peripheral neuropathy Rheumatoid arthritis (~2011) Tobacco abuse Surgical History Surgical History History of lumbar laminectomy History of orthopedic surgery ORIF right patellar fracture. ORIF right elbow fracture. History of right-sided carotid endarterectomy Family History Family History Mother No problems noted. Father Heart disease Hypertension Cerebrovascular accident Grandparent Arthritis Other Family history of coronary artery disease Social History Social History Social History: The patient lives in [place] with his girlfriend. He has 1 biological child and 1 adopted. He he smoked up to 2 packs of cigarettes a day and quit in October 2020. He has not consumed alcohol since late October 2020, previously drank up to a 12 pack a day. No illicit substance use. Code status: Full code. Smoking packs per day: 1 Smoking cigarettes per day: 20.0 Years smoked: 45 Smoking pack-years: 45.00 Smoking status: Former smoker Alcohol intake: never Substance use: never Gender identity (if verbalized by the patient): Male Spiritual care concerns: No Meds Home Medications and Allergies Home Medications Medication Instructions Recorded Confirmed Type aspirin [Aspir-81] 81 mg PO DAILY 12/28/19 12/18/20 History cholecalciferol (vitamin D3) 25 mcg PO DAILY 12/28/19 12/18/20 History [Vitamin D3] albuterol sulfate 90 mcg/actuation 2 puff INHALATION Q4H PRN #8.5 gm 01/22/20 12/18/20 Rx aerosol inhaler potassium gluconate 595 mg (99 mg) 595 mg PO DAILY 02/01/20 12/18/20 History tablet sildenafil 50 mg tablet 50 mg PO DAILY PRN #10 tablet 03/11/20 12/18/20 Rx gabapentin 300 mg capsule 300 mg PO TID #270 cap 08/14/20 12/18/20 Rx terbinafine HCl 250 mg tablet 250 mg PO DAILY #45 tablet 10/14/20 12/18/20 Rx bupropion HCl 150 mg tablet,12 hr 150 mg PO BID #90 tablet 10/15/20 12/18/20 Rx sustained-release chlordiazepoxide HCl 10 mg PO TID #30 cap 11/11/20 12/18/20 Rx melaton
[2020-12-19] MEDS: fentaNYL CITRATE INJ (*CRX) 100 MCG/2 ML VIAL 25 MCG IV PUSH ×2 (15:15→15:26)
--- NOTE | 2020-12-19 15:16 | W.PM.PROC2 ---
Procedure Note - Detailed Date of Procedure 12/19/20 Pre-op Diagnosis Infected Hardware Rt Elbow, Bursitis Post-op Diagnosis same Procedure Performed Removal hardware right elbow with debridement of wound Surgeon Keegan Linares MD Anesthetic Assistant Chantal Phillips Anesthesia general Indications Elbow infection Description of Procedure Patient was identified and proper site identified. He was taken to the operating room and transferred to the OR table. After general anesthetic induction and intubation, he was positioned laterally securing him with padded hip press and padding his torso extremities. Nonsterile tourniquet was placed high in the right arm. Right upper extremity was prepped and draped in usual sterile fashion. Kalia was gravity exsanguinated and then the tourniquet inflated to 200 mmHg remaining of for about 21 minutes. There is gentle scar was used reopening it and along its entire length. Quite bit of subcutaneous scar tissue which was incised full thickness all the way down to the plate. There were pockets of purulence encountered in various positions along the incision. A intraoperative culture was taken. The the plate was cleared of scar tissue and then removed without any difficulty. Ronguer was used to debride any nonviable tissue. At the tip of the olecranon there are couple of small holes which were cleaned up around the margins. At the completion of the debridement tourniquet was released. There is quite a bit of well-vascularized bleeding tissue along the entire length of the wound. The wound was irrigated with a copious amount sterile saline. Quarter-inch [place] was placed and deaf the wound and skin edges reapproximated with three O nylon suture. Sterile dressing was applied. He tolerated the procedure well, was awakened, extubated and taken to recovery in stable condition. There were no known intraoperative complications. Estimated blood loss 100 mL. He received perioperative antibiotics. Estimated Blood Loss -100.0 Tourniquet Time 21 Drains Yes (ferny) Packing No Pathology yes (Cultures) Complications No immediate complications Condition stable Disposition PACU
--- NOTE | 2020-12-19 16:20 | PC.NURSE ---
Returned from OR per bed. Report received from KATELIN Gallardo
[2020-12-19] MEDS: HYDROcodone/acetaminophen (*CRX) 5-325 MG TABLET 2 TAB PO ×2 (16:37→22:32)
[2020-12-19] MEDS: ASPIRIN 325 MG ENTERIC TABLET PO (20:24)
[2020-12-19] MEDS: MELATONIN 3 MG TABLET PO (20:25)
[2020-12-19] MEDS: DOCUSATE SODIUM 100 MG CAPSULE PO (20:25)
[2020-12-19] MEDS: ATORVASTATIN 40 MG TABLET PO (20:25)
[2020-12-19] MEDS: ceFAZolin 2 GM/D5W 50 ML 2 GM/50 ML BAG IVPB (21:26)
[2020-12-20] VITALS (7 sets, daily range): BP systolic 98–129; BP diastolic 61–75; PULSE 73–86; RESP 16–18; TEMP 36–36.7; O2SAT 95–100
[2020-12-20] MEDS: HYDROcodone/acetaminophen (*CRX) 5-325 MG TABLET 1 TAB PO ×2 (05:33→21:18)
[2020-12-20] MEDS: ceFAZolin 2 GM/D5W 50 ML 2 GM/50 ML BAG IVPB ×2 (05:34→13:24)
[2020-12-20] MEDS: GABAPENTIN 300 MG CAPSULE PO ×3 (05:35→21:19)
[2020-12-20 05:53] LABS: Hematocrit 31.8 % (42.0-52.0); Hemoglobin 10.7 g/dL (14.0-18.0); Mean Corpuscular HGB Conc 33.6 g/dl (32-36); Mean Corpuscular Hemoglobin 28.9 pg (26-34); Mean Corpuscular Volume 85.9 fl (80-100); Mean Platelet Volume 9.4 fl (7.4-10.4); Platelet Count Result 281 k/mm3 (150-375); Red Cell Distribution Width 14.8 % (11.5-14.5)
[2020-12-20 06:05] LABS: Anion Gap 9 mmol/L (8-16); Blood Urea Nitrogen 13 mg/dL (9-20); CRP 1.8 mg/dL (<1.0); Carbon Dioxide 25 mmol/L (22-30); Chloride 106 mmol/L (98-107); Estimated CRCL calculation 58 ml/min; Estimated Glomerular Filt Rate > 60; Glucose 102 mg/dL (75-110); Potassium 4.1 mmol/L (3.4-5.0); Sodium 140 mmol/L (137-145)
[2020-12-20] MEDS: buPROPion HCL SR (12 HR) 150 MG TAB PO ×2 (08:51→21:19)
[2020-12-20] MEDS: DOCUSATE SODIUM 100 MG CAPSULE PO ×2 (08:51→21:19)
[2020-12-20] MEDS: ASPIRIN 325 MG ENTERIC TABLET PO ×2 (08:51→21:19)
[2020-12-20] MEDS: terbinafine HCL 250 MG TABLET PO (08:51)
[2020-12-20] MEDS: TAMSULOSIN HCL 0.4 MG CAPSULE PO (08:51)
[2020-12-20] MEDS: CHOLECALCIFEROL 1,000 UNITS TABLET 1000 UNITS PO (08:51)
[2020-12-20] MEDS: METOPROLOL SUCCINATE EXT REL 50 MG TABCR PO (08:52)
[2020-12-20] MEDS: MAGNESIUM OXIDE 400 MG TABLET PO (08:52)
[2020-12-20] MEDS: UMECLIDINIUM/VILANTEROL 62.5-25 MCG ELLIPTA 1 PUFF INHALATION (08:52)
--- NOTE | 2020-12-20 09:47 | PM.IMPN ---
Progress Note: A&P Assessment and Plan (1) Septic olecranon bursitis of right elbow: Code(s): M71.121 - Other infective bursitis, right elbow Status: Chronic Assessment and Plan: Secondary to infected hardware of right elbow. He is now s/p removal of right elbow hardware and debridement of wound. He remains afebrile, no leukocytosis. Pain is well controlled. CRP trending down. Appreciate orthopedic surgery consultation. Continue Ancef x3 and IV Vancomycin. Infectious disease has been consulted and input is appreciated. Initial wound culture collected on 12/18 with moderate growth of Staphylococcus aureus, awaiting susceptibility. Intraoperative cultures are pending. Analgesics available as needed for pain (2) Chronic anemia: Code(s): D64.9 - Anemia, unspecified Status: Acute Assessment and Plan: H&H is consistent with baseline. Monitor labs (3) Chronic obstructive pulmonary disease: Code(s): J44.9 - Chronic obstructive pulmonary disease, unspecified Status: Acute Assessment and Plan: Stable with no acute issues. Oxygen saturations stable on room air. Continue home Anoro Ellipta Albuterol prn (4) Rheumatoid arthritis: Onset Date: ~2011 Qualifiers: Rheumatoid arthritis location: multiple sites Rheumatoid factor presence: with rheumatoid factor Qualified Code(s): M05.79 - Rheumatoid arthritis with rheumatoid factor of multiple sites without organ or systems involvement Code(s): M06.9 - Rheumatoid arthritis, unspecified Status: Chronic Assessment and Plan: Stable. Home Xeljanz is non-formulary. Hold for now. (5) Hypertension: Qualifiers: Hypertension type: essential hypertension Qualified Code(s): I10 - Essential (primary) hypertension Code(s): I10 - Essential (primary) hypertension Status: Chronic Assessment and Plan: Blood pressure reviewed and have been generally well controlled. Last BP 129/63 Continue metoprolol Monitor blood pressure trends Subjective Date/time seen: 12/20/20 09:47 Interval history: Date of service: 12/20/2020 Mahamed Potts is a 65-year-old male with a history of chronic anemia, COPD, CVA, hypertension, hyperlipidemia, rheumatoid arthritis, history of alcohol and tobacco abuse, and prior ORIF of right elbow with hardware in place who is seen in follow-up for septic bursitis of the right elbow, now s/p wound debridement and hardware removal. He is doing well today. He notes some stiffness and soreness in his elbow but denies acute pain. The elbow is splinted and he is unable to discern if there is any drainage. He denies fever, chills, sweats, nausea, vomiting. His appetite is good. Denies urinary symptoms. Denies diarrhea. Denies abdominal pain, cramping, or bloating. No dizziness, lightheadedness, shortness breath, cough, or chest pain. He is eager for discharge home. He reports he is doing well with his alcohol and smoking cessation. States he is approaching 1 month without smoking. He denies any concerns in regards to withdrawal symptoms from alcohol including tremors, hallucinations, agitation. Review of Systems Review of Systems: All systems reviewed & are unremarkable except as noted in HPI and below Exam Narrative: Exam Narrative: Mr. Potts is a thin, well-appearing 65-year-old male who is sitting in a chair by the bedside. He appears comfortable and is in NARD. Neuro: awake, alert and oriented x4, speech clear, no focal neuro deficits noted HEENMT: normocephalic, atraumatic, EOMI, sclerae anicteric, moist oral mucosa, tongue midline, nares patent Respiratory: clear to auscultation bilaterally, nonlabored breathing Cardio: regular rate, regular rhythm with S1-S2 Abdomen: nondistended, normoactive bowel sounds, soft, nontender to palpation, no rigidity or guarding Extremities: right elbow is padded and
--- NOTE | 2020-12-20 12:26 | PM.PNORT ---
Progress Note: A&P Assessment and Plan (1) Septic olecranon bursitis of right elbow: Code(s): M71.121 - Other infective bursitis, right elbow Status: Chronic Assessment and Plan: Plan on keeping this dressing in place for the time being. Will change it as needed over the next few days. Would like to keep the sutures in for at least two weeks. Staph aureus is growing in the culture. Currently on Ancef and vancomycin. Compared her has been consulted for Infectious Disease input. Following. Subjective Subjective Date/Time Seen: 12/20/20 12:26 Post Op day: 1 Principal diagnosis: Status post right elbow wound debridement with hardware removal for infecti Interval history: This document created with [id number] technology and is subject to strapper and buffer irregularities. 65-year-old male who is postop day one hardware removal right elbow. Overnight stay uneventful. That some drainage through his dressing which is not unexpected. His pain is well controlled. Exam Const: General: cooperative, no acute distress and alert Nutritional Appearance: other Orientation/consciousness: patient oriented x3 Limitations: no limitations GI: Inspection: other Skin: General skin exam: normal color Rashes: no rashes Extrem: General: normal to inspection and other Other: Exam of the right elbow wound shows wound is well opposed. Minimal drainage today. Uriah drain removed and elbow redressed ABDs and soft cast padding. This was secured with Jacob bandage. Objective Data Vital Signs Vital Signs: Vital Signs - 24 hr 12/19/20 13:23 12/19/20 14:55 12/19/20 15:10 Temperature 97.5 F L 97.2 F L Pulse Rate 75 67 71 Respiratory Rate 10 L 12 Blood Pressure 133/87 155/97 H 143/91 H Pulse Oximetry 99 100 100 12/19/20 15:25 12/19/20 15:40 12/19/20 15:55 Temperature Pulse Rate 77 74 73 Respiratory Rate 14 14 14 Blood Pressure 155/93 H 166/90 H 156/95 H Pulse Oximetry 100 98 98 12/19/20 16:15 12/19/20 16:30 12/19/20 17:20 Temperature 97.6 F 97.3 F L 97.6 F Pulse Rate 75 72 74 Respiratory Rate 16 16 18 Blood Pressure 156/80 H 150/80 H 149/76 H Pulse Oximetry 96 97 99 12/19/20 18:20 12/19/20 20:00 12/19/20 23:49 Temperature 97.7 F 96.5 F L 96.5 F L Pulse Rate 88 84 69 Respiratory Rate 16 16 16 Blood Pressure 120/72 115/69 136/85 Pulse Oximetry 98 97 99 12/20/20 05:37 12/20/20 08:52 12/20/20 10:00 Temperature 96.9 F L 98.0 F Pulse Rate 76 76 76 Respiratory Rate 16 18 Blood Pressure 129/63 98/62 L Pulse Oximetry 97 100 12/20/20 11:16 Temperature Pulse Rate Respiratory Rate Blood Pressure Pulse Oximetry 95 Intake/Output Intake/Output: Intake & Output 12/17/20 12/18/20 12/19/20 12/20/20 23:59 23:59 23:59 23:59 Intake Total 250 / 250 1580 / 1580 350 / 350 Output Total 1200 / 1200 400 / 400 Balance 250 / 250 380 / 380 -50 / -50 Meds/Results Medications: Active Medications Generic Name Dose Route Start Last Admin Trade Name Freq PRN Reason Stop Dose Admin Hydrocodone Bitart/Acetaminophen 1 tab 12/19/20 16:03 12/20/20 05:33 Hydrocodone/Acetaminophen (*Crx) 5-325 Mg Tablet PO 1 tab Q3H PRN Administration Pain Rated 4-6 Hydrocodone Bitart/Acetaminophen 2 tab 12/19/20 16:03 12/19/20 22:32 Hydrocodone/Acetaminophen (*Crx) 5-325 Mg Tablet PO 2 tab Q6H PRN Administration Pain Rated 7-10 Albuterol 2 puff 12/19/20 00:10 Albuterol Sulfate (*Sp) Aerosol 1 Puff INHALATION Q4H PRN shortness of breath or wheezing Aspirin 325 mg 12/19/20 21:00 12/20/20 08:51 Aspirin 325 Mg Enteric Tablet PO 325 mg Q12HR SOFY Administration Atorvastatin Calcium 40 mg 12/19/20 21:00 12/19/20 20:25 Atorvastatin 40 Mg Tablet PO 40 mg HS SOFY Administration Bupropion HCl 150 mg 12/19/20 09:00 12/20/20 08:51 Bupropion Hcl Sr (12 Hr) 150 Mg Tab PO 150 mg Q12HR SOFY Administration Docusate Sodium 100 mg 12/19/20
[2020-12-20] MEDS: MELATONIN 3 MG TABLET PO (21:19)
[2020-12-20] MEDS: ATORVASTATIN 40 MG TABLET PO (21:19)
[2020-12-21 05:44] LABS: Hematocrit 32.5 % (42.0-52.0); Hemoglobin 10.9 g/dL (14.0-18.0); Mean Corpuscular HGB Conc 33.5 g/dl (32-36); Mean Corpuscular Hemoglobin 29.1 pg (26-34); Mean Corpuscular Volume 86.9 fl (80-100); Mean Platelet Volume 9.4 fl (7.4-10.4); Platelet Count Result 279 k/mm3 (150-375); Red Blood Count 3.74 M/mm3 (4.6-6.20); White Blood Count 6.5 K/mm3 (4.5-10.0)
[2020-12-21 06:00] VITALS: BP 96/72; PULSE 78; RESP 16; TEMP 36.4; O2SAT 100
[2020-12-21 06:04] LABS: Anion Gap 9 mmol/L (8-16); Blood Urea Nitrogen 13 mg/dL (9-20); CRP 2.9 mg/dL (<1.0); Calcium 9.1 mg/dL (8.4-10.2); Carbon Dioxide 26 mmol/L (22-30); Chloride 107 mmol/L (98-107); Estimated CRCL calculation 48 ml/min; Estimated Glomerular Filt Rate > 60; Glucose 94 mg/dL (75-110); Sodium 142 mmol/L (137-145)
[2020-12-21] MEDS: GABAPENTIN 300 MG CAPSULE PO ×3 (06:09→21:10)
[2020-12-21] MEDS: UMECLIDINIUM/VILANTEROL 62.5-25 MCG ELLIPTA 1 PUFF INHALATION (09:49)
[2020-12-21] MEDS: terbinafine HCL 250 MG TABLET PO (09:50)
[2020-12-21] MEDS: ASPIRIN 325 MG ENTERIC TABLET PO ×2 (09:50→21:11)
[2020-12-21] MEDS: CHOLECALCIFEROL 1,000 UNITS TABLET 1000 UNITS PO (09:50)
[2020-12-21] MEDS: TAMSULOSIN HCL 0.4 MG CAPSULE PO (09:50)
[2020-12-21] MEDS: buPROPion HCL SR (12 HR) 150 MG TAB PO ×2 (09:50→21:10)
[2020-12-21] MEDS: MAGNESIUM OXIDE 400 MG TABLET PO (09:50)
[2020-12-21] MEDS: DOCUSATE SODIUM 100 MG CAPSULE PO ×2 (09:50→21:10)
[2020-12-21 10:00] VITALS: BP 92/62; PULSE 85; RESP 16; TEMP 36.1; O2SAT 97
[2020-12-21 14:00] VITALS: BP 105/71; PULSE 99; RESP 16; TEMP 37.2; O2SAT 100
--- NOTE | 2020-12-21 14:51 | PM.IMPN ---
Progress Note: A&P Assessment and Plan (1) Septic olecranon bursitis of right elbow: Code(s): M71.121 - Other infective bursitis, right elbow Status: Chronic Assessment and Plan: Secondary to infected hardware of right elbow. He is POD #2 removal of right elbow hardware and debridement of wound. He remains afebrile, no leukocytosis. Pain is well controlled. Appreciate orthopedic surgery consultation. Initial wound cultures from right elbow with growth of MRSA (per phone report from RN, sensitivities still pending in EMR). Intraoperative cultures are pending. Continue IV Vancomycin. Infectious disease has been consulted and input is appreciated. Anticipate extended duration IV antibiotics Analgesics available as needed for pain (2) Chronic anemia: Code(s): D64.9 - Anemia, unspecified Status: Acute Assessment and Plan: H&H is slightly decreased from baseline postoperatively. Remaining stable with no signs of blood loss and stable vital signs. Monitor labs (3) Chronic obstructive pulmonary disease: Code(s): J44.9 - Chronic obstructive pulmonary disease, unspecified Status: Acute Assessment and Plan: Stable with no acute issues. Oxygen saturations stable on room air. Continue home Anoro Ellipta Albuterol prn (4) Rheumatoid arthritis: Onset Date: ~2011 Qualifiers: Rheumatoid arthritis location: multiple sites Rheumatoid factor presence: with rheumatoid factor Qualified Code(s): M05.79 - Rheumatoid arthritis with rheumatoid factor of multiple sites without organ or systems involvement Code(s): M06.9 - Rheumatoid arthritis, unspecified Status: Chronic Assessment and Plan: Stable. Home Xeljanz is non-formulary. Hold for now. (5) Hypertension: Qualifiers: Hypertension type: essential hypertension Qualified Code(s): I10 - Essential (primary) hypertension Code(s): I10 - Essential (primary) hypertension Status: Chronic Assessment and Plan: Blood pressure reviewed and have been generally well controlled. BP was soft this morning down to 92/62. Improved without intervention up to 105/71. Hold metoprolol Monitor blood pressure trends Subjective Date/time seen: 12/21/20 14:51 Interval history: Date of service: 12/20/2020 Mahamed Potts is a 65-year-old male with a history of chronic anemia, COPD, CVA, hypertension, hyperlipidemia, rheumatoid arthritis, history of alcohol and tobacco abuse, and prior ORIF of right elbow with hardware in place who is seen in follow-up for septic bursitis of the right elbow, now s/p wound debridement and hardware removal. He is feeling well today. He denies any pain from the elbow. He noted yesterday when his bandage was changed there was no drainage or pus and he thought it looked good. Overall he is feeling well and has no complaints. He denies fevers or chills. His appetite is good. No shortness of breath, cough, or chest pain. He had a regular bowel movement. He denies any urinary symptoms. Review of Systems Review of Systems: All systems reviewed & are unremarkable except as noted in HPI and below Exam Narrative: Exam Narrative: Mr. Potts is a thin, well-appearing 65-year-old male who is sitting in a chair by the bedside. He appears comfortable and is in NARD. Neuro: awake, alert and oriented x4, speech clear, no focal neuro deficits noted, equipment associate strength equal bilaterally HEENMT: normocephalic, atraumatic, EOMI, sclerae anicteric, moist oral mucosa, tongue midline, nares patent Respiratory: clear to auscultation bilaterally, nonlabored breathing Cardio: regular rate, regular rhythm with S1-S2 Abdomen: nondistended, normoactive bowel sounds, soft, nontender to palpation, no rigidity or guarding Extremities: right elbow is padded and wrapped and dressing is c/d/i. Right upper extremity neurovascularly intact. Able
[2020-12-21] MEDS: HYDROcodone/acetaminophen (*CRX) 5-325 MG TABLET 1 TAB PO (15:55)
--- NOTE | 2020-12-21 19:37 | WPDCN ---
Assessment and Plan Additional Plan 1. Olecranon bursitis of the right elbow with history of hardware in place and rheumatoid arthritis on Xeljanz. Preliminary culture showed Staph aureus. Patient has had an I&D with explantation of the hardware. Intraoperative cultures are showing Staph aureus with susceptibility pending. Pathology report is also pending. At this point I will continue vancomycin. Anticipating prolonged IV antibiotic therapy. 2. Rheumatoid arthritis on Xeljanz. Patient is an immunosuppressed state. 3. Hypertension stable blood pressure continue current care. 4. Tobacco and alcohol abuse disorder. Patient stated that he has not drunk in 3 months and has not smoked in 1 month. Patient has been encouraged to continue tobacco and alcohol cessation. 5. History of COPD with no acute exacerbation. HPI Data of Consult Date/Time: 12/21/20 19:37 Requesting Physician: Marissa Jason PA-C Primary Care Provider: Kobe Hill PA-C Consult Narrative Narrative: Mahamed Potts is a 65 year old male With history of rheumatoid arthritis on Xeljanz for approximately 1-1/2 years, history of a right elbow fracture requiring open reduction and internal fixation with hardware placement, hypertension, dyslipidemia, stroke and history of alcohol and tobacco abuse next presented to the emergency room with right elbow pain and induration going on for 3-4 weeks. He denied any fever or chills. Denies any trauma. Stated that the induration has progressively gotten bigger and therefore was sent to the emergency room for further evaluation. Patient was started on dicloxacillin initially by primary care physician and was also referred to orthopedic surgeon which she has not seen yet. Currently he denies any fever or chills. No nausea no vomiting no diarrhea. Review of Systems Review of Systems: Narrative: No fever or chills. ENT: Reports system reviewed and no additional complaints, except as documented Cardiovascular: Cardiovascular: Reports no additional cardiovascular complaints Respiratory: Respiratory: Reports no additional respiratory complaints Genitourinary: Genitourinary: Reports no additional male genitourinary complaints Musculoskeletal: Comments: Right elbow swelling and pain progressing over 3-4 weeks. Integumentary/Breasts: Skin/Breast: Reports system reviewed and no additional complaints, except as docu Neurologic: Reports system reviewed and no additional complaints, except as documented Psychiatric: Psychiatric: Reports no additional psychiatric complaints Endocrine: Endocrine: Reports no additional endocrine complaints Hematologic/Lymphatic: Hematologic/Lymphatic: Reports no additional hematologic/lymphatic complaints Allergic/Immunologic: Allergic/Immunologic: Reports no additional allergic/immunologic complaints [facility] Past Medical History Medical History (Updated 12/20/20 @ 12:30 by Keegan Linares MD) (QFT) 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 Anxiety Benign prostatic hyperplasia Chronic anemia Chronic back pain Chronic obstructive pulmonary disease COPD (chronic obstructive pulmonary disease) Depression with anxiety Genu varum of both lower extremities History of cerebrovascular accident Hyperlipidemia Hypertension Peripheral neuropathy Rheumatoid arthritis (~2011) Tobacco abuse Surgical History Surgical History (Updated 12/20/20 @ 12:30 by Keegan Linares MD) History of lumbar laminectomy History of orthopedic surgery ORIF right patellar fracture. ORIF right elbow fracture. History of right-sided carotid endarterectomy Family History Family History Mother No problems noted. Father Heart disease Hypertension Cerebrovascular accident Grandparent Arthritis Other Family history of c
[2020-12-21 21:00] VITALS: BP 115/72; PULSE 83; RESP 18; TEMP 36.5; O2SAT 100
[2020-12-21] MEDS: HYDROcodone/acetaminophen (*CRX) 5-325 MG TABLET 2 TAB PO (21:09)
[2020-12-21] MEDS: MELATONIN 3 MG TABLET PO (21:10)
[2020-12-21] MEDS: ATORVASTATIN 40 MG TABLET PO (21:10)
[2020-12-22] VITALS (7 sets, daily range): BP systolic 105–145; BP diastolic 71–90; PULSE 83–99; RESP 16–18; TEMP 36.1–37.1; O2SAT 99–100
[2020-12-22] MEDS: HYDROcodone/acetaminophen (*CRX) 5-325 MG TABLET 1 TAB PO ×2 (05:05→10:09)
[2020-12-22] MEDS: GABAPENTIN 300 MG CAPSULE PO ×3 (05:05→20:27)
[2020-12-22 05:48] LABS: Hematocrit 33.7 % (42.0-52.0); Hemoglobin 10.9 g/dL (14.0-18.0)
[2020-12-22 06:03] LABS: Anion Gap 9 mmol/L (8-16); Blood Urea Nitrogen 13 mg/dL (9-20); CRP 2.2 mg/dL (<1.0); Calcium 9.3 mg/dL (8.4-10.2); Carbon Dioxide 27 mmol/L (22-30); Chloride 106 mmol/L (98-107); Estimated CRCL calculation 48 ml/min; Estimated Glomerular Filt Rate > 60; Glucose 91 mg/dL (75-110); Sodium 142 mmol/L (137-145)
[2020-12-22] MEDS: UMECLIDINIUM/VILANTEROL 62.5-25 MCG ELLIPTA 1 PUFF INHALATION (08:21)
[2020-12-22] MEDS: TAMSULOSIN HCL 0.4 MG CAPSULE PO (08:22)
[2020-12-22] MEDS: MAGNESIUM OXIDE 400 MG TABLET PO (08:22)
[2020-12-22] MEDS: terbinafine HCL 250 MG TABLET PO (08:22)
[2020-12-22] MEDS: ASPIRIN 325 MG ENTERIC TABLET PO ×2 (08:22→20:27)
[2020-12-22] MEDS: CHOLECALCIFEROL 1,000 UNITS TABLET 1000 UNITS PO (08:22)
[2020-12-22] MEDS: DOCUSATE SODIUM 100 MG CAPSULE PO (08:22)
[2020-12-22] MEDS: buPROPion HCL SR (12 HR) 150 MG TAB PO ×2 (08:22→20:27)
--- NOTE | 2020-12-22 12:27 | PM.IMPN ---
Progress Note: A&P Assessment and Plan (1) Septic olecranon bursitis of right elbow: Code(s): M71.121 - Other infective bursitis, right elbow Status: Chronic Assessment and Plan: Secondary to infected hardware of right elbow. He is POD #2 removal of right elbow hardware and debridement of wound. He remains afebrile, no leukocytosis. Pain is well controlled. Appreciate orthopedic surgery consultation. Initial wound cultures from right elbow with growth of MRSA sensitive to vancomycin. Intraoperative cultures are pending. Continue IV Vancomycin. Infectious disease has been consulted and input is appreciated. Anticipate extended duration IV antibiotics Analgesics available as needed for pain (2) Chronic anemia: Code(s): D64.9 - Anemia, unspecified Status: Acute Assessment and Plan: H&H is slightly decreased from baseline postoperatively. Remaining stable with no signs of blood loss and stable vital signs. Monitor labs (3) Chronic obstructive pulmonary disease: Code(s): J44.9 - Chronic obstructive pulmonary disease, unspecified Status: Acute Assessment and Plan: Stable with no acute issues. Oxygen saturations stable on room air. Continue home Anoro Ellipta Albuterol prn (4) Rheumatoid arthritis: Onset Date: ~2011 Qualifiers: Rheumatoid arthritis location: multiple sites Rheumatoid factor presence: with rheumatoid factor Qualified Code(s): M05.79 - Rheumatoid arthritis with rheumatoid factor of multiple sites without organ or systems involvement Code(s): M06.9 - Rheumatoid arthritis, unspecified Status: Chronic Assessment and Plan: Stable. Home Xeljanz is non-formulary. Holding. (5) Hypertension: Qualifiers: Hypertension type: essential hypertension Qualified Code(s): I10 - Essential (primary) hypertension Code(s): I10 - Essential (primary) hypertension Status: Chronic Assessment and Plan: Blood pressure reviewed and have been generally well controlled. BP was soft yesterday down to 92/62. Improved without intervention and BP is stable at 123/73. Resume metoprolol Monitor blood pressure trends Subjective Date/time seen: 12/22/20 12:27 Interval history: Date of service: 12/20/2020 Mahamed Potts is a 65-year-old male with a history of chronic anemia, COPD, CVA, hypertension, hyperlipidemia, rheumatoid arthritis on immunosuppressive therapy, history of alcohol and tobacco abuse, and prior ORIF of right elbow with hardware in place who is seen in follow-up for septic bursitis of the right elbow, now s/p wound debridement and hardware removal. He is feeling well and has no complaints today. He denies pain in the elbow. No shortness of breath, cough, chest pain. He is eating well. Denies urinary symptoms. No dizziness or lightheadedness. He wants to go home. Review of Systems Review of Systems: All systems reviewed & are unremarkable except as noted in HPI and below Exam Narrative: Exam Narrative: Mr. Potts is a thin, well-appearing 65-year-old male who is sitting in a chair by the bedside. He appears comfortable and is in NARD. Neuro: awake, alert and oriented x4, speech clear, no focal neuro deficits noted, labels molder strength equal bilaterally HEENMT: normocephalic, atraumatic, EOMI, sclerae anicteric, moist oral mucosa, tongue midline, nares patent Respiratory: clear to auscultation bilaterally, nonlabored breathing Cardio: regular rate, regular rhythm with S1-S2 Abdomen: nondistended, normoactive bowel sounds, soft, nontender to palpation, no rigidity or guarding Extremities: right elbow is padded and wrapped and dressing is c/d/i. Right upper extremity neurovascularly intact. Able to wiggle fingers bilaterally. Brisk capillary refill of bilateral fingertips. Lower extremities without edema, erythema, or tenderness to palpation. DP pulses 2+ chris
--- NOTE | 2020-12-22 14:42 | PM.PNORT ---
Progress Note: A&P Assessment and Plan (1) Septic olecranon bursitis of right elbow: Code(s): M71.121 - Other infective bursitis, right elbow Status: Chronic Assessment and Plan: Awaiting final ID recommendations. Plan on leaving sutures in for minimum of two weeks. Following. Subjective Subjective Date/Time Seen: 12/22/20 14:42 Post Op day: 3 Principal diagnosis: Status post debridement right elbow with hardware removal Interval history: No changes of significance over the weekend. No pain in the right elbow. Notes that it itches a little bit at this point. Exam Const: General: cooperative, comfortable and no acute distress Extrem: Other: Dressing right arm dry. Neurovascular status right upper extremity intact. Objective Data Vital Signs Vital Signs: Vital Signs - 24 hr 12/21/20 21:00 12/22/20 00:45 12/22/20 06:14 Temperature 97.7 F 97.7 F 97.6 F Pulse Rate 83 83 85 Respiratory Rate 18 18 16 Blood Pressure 115/72 115/72 105/71 Pulse Oximetry 100 100 99 . 12/22/20 10:00 Temperature 96.9 F L Pulse Rate 87 Respiratory Rate 16 Blood Pressure 123/73 Pulse Oximetry 99 Intake/Output Intake/Output: Intake & Output 12/19/20 12/20/20 12/21/20 12/22/20 23:59 23:59 23:59 23:59 Intake Total 1580 / 1580 1540 / 1540 3160 / 3160 690 / 690 Output Total 1200 / 1200 400 / 400 1750 / 1750 Balance 380 / 380 1140 / 1140 1410 / 1410 690 / 690 Meds/Results Medications: Active Medications Generic Name Dose Route Start Last Admin Trade Name Freq PRN Reason Stop Dose Admin Hydrocodone Bitart/Acetaminophen 1 tab 12/19/20 16:03 12/22/20 10:09 Hydrocodone/Acetaminophen (*Crx) 5-325 Mg Tablet PO 1 tab Q3H PRN Administration Pain Rated 4-6 Hydrocodone Bitart/Acetaminophen 2 tab 12/19/20 16:03 12/21/20 21:09 Hydrocodone/Acetaminophen (*Crx) 5-325 Mg Tablet PO 2 tab Q6H PRN Administration Pain Rated 7-10 Albuterol 2 puff 12/19/20 00:10 Albuterol Sulfate (*Sp) Aerosol 1 Puff INHALATION Q4H PRN shortness of breath or wheezing Aspirin 325 mg 12/19/20 21:00 12/22/20 08:22 Aspirin 325 Mg Enteric Tablet PO 325 mg Q12HR SOFY Administration Atorvastatin Calcium 40 mg 12/19/20 21:00 12/21/20 21:10 Atorvastatin 40 Mg Tablet PO 40 mg HS SOFY Administration Bupropion HCl 150 mg 12/19/20 09:00 12/22/20 08:22 Bupropion Hcl Sr (12 Hr) 150 Mg Tab PO 150 mg Q12HR SOFY Administration Docusate Sodium 100 mg 12/19/20 21:00 12/22/20 08:22 Docusate Sodium 100 Mg Capsule PO 100 mg Q12HR SOFY Administration Gabapentin 300 mg 12/19/20 06:00 12/22/20 13:49 Gabapentin 300 Mg Capsule PO 300 mg Q8HR SOFY Administration Vancomycin HCl 1,000 mg in 250 mls @ 250 mls/hr 12/19/20 17:00 12/21/20 18:00 Vancomycin 1,000 Mg/D5w 250 Ml IVPB Infused Q24H SOFY Infusion Magnesium Hydroxide 30 ml 12/19/20 16:03 Magnesium Hydroxide Susp 30 Ml Udc PO BID PRN Constipation Magnesium Oxide 400 mg 12/19/20 09:00 12/22/20 08:22 Magnesium Oxide 400 Mg Tablet PO 400 mg DAILY SOFY Administration Melatonin 3 mg 12/19/20 21:00 12/21/20 21:10 Melatonin 3 Mg Tablet PO 3 mg HS [facility] Administration Metoprolol Succinate 50 mg 12/19/20 09:00 12/20/20 08:52 Metoprolol Succinate Ext Rel 50 Mg Tabcr PO 50 mg DAILY SOFY Administration Tamsulosin HCl 0.4 mg 12/19/20 09:00 12/22/20 08:22 Tamsulosin Hcl 0.4 Mg Capsule PO 0.4 mg DAILY SOFY Administration Terbinafine HCl 250 mg 12/19/20 09:00 12/22/20 08:22 Terbinafine Hcl 250 Mg Tablet PO 250 mg DAILY SOFY Administration Umeclidinium/Vilanterol 1 puff 12/19/20 08:00 12/22/20 08:21 Umeclidinium/Vilanterol 62.5-25 Mcg Ellipta INHALATION 1 puff DAILYRT SOFY Administration Vitamin D 1,000 units 12/19/20 09:00 12/22/20 08:22 Cholecalciferol 1,000 Units Tablet PO 1,000 units DAILY SOFY Administration Radiology R
[2020-12-22 17:03] LABS: Vancomycin Trough 6.9 ug/mL (10.0-20.0)
[2020-12-22] MEDS: HYDROcodone/acetaminophen (*CRX) 5-325 MG TABLET 2 TAB PO ×2 (17:29→23:06)
[2020-12-22] MEDS: MELATONIN 3 MG TABLET PO (20:27)
[2020-12-22] MEDS: ATORVASTATIN 40 MG TABLET PO (20:28)
[2020-12-23] VITALS (8 sets, daily range): BP systolic 101–140; BP diastolic 58–82; PULSE 79–130; RESP 16–20; TEMP 35.8–36.8; O2SAT 98–100
[2020-12-23 05:42] LABS: Hematocrit 35.6 % (42.0-52.0); Hemoglobin 11.7 g/dL (14.0-18.0)
[2020-12-23 06:01] LABS: Anion Gap 9 mmol/L (8-16); Blood Urea Nitrogen 15 mg/dL (9-20); Calcium 9.4 mg/dL (8.4-10.2); Carbon Dioxide 25 mmol/L (22-30); Chloride 106 mmol/L (98-107); Estimated CRCL calculation 48 ml/min; Estimated Glomerular Filt Rate > 60; Glucose 82 mg/dL (75-110); Potassium 4.1 mmol/L (3.4-5.0); Sodium 140 mmol/L (137-145)
[2020-12-23] MEDS: GABAPENTIN 300 MG CAPSULE PO ×3 (06:16→20:49)
[2020-12-23] MEDS: TAMSULOSIN HCL 0.4 MG CAPSULE PO (08:18)
[2020-12-23] MEDS: CHOLECALCIFEROL 1,000 UNITS TABLET 1000 UNITS PO (08:18)
[2020-12-23] MEDS: UMECLIDINIUM/VILANTEROL 62.5-25 MCG ELLIPTA 1 PUFF INHALATION (08:19)
[2020-12-23] MEDS: DOCUSATE SODIUM 100 MG CAPSULE PO ×2 (08:19→20:48)
[2020-12-23] MEDS: terbinafine HCL 250 MG TABLET PO (08:19)
[2020-12-23] MEDS: buPROPion HCL SR (12 HR) 150 MG TAB PO ×2 (08:19→20:49)
[2020-12-23] MEDS: ASPIRIN 325 MG ENTERIC TABLET PO ×2 (08:19→20:49)
[2020-12-23] MEDS: MAGNESIUM OXIDE 400 MG TABLET PO (08:19)
--- NOTE | 2020-12-23 11:31 | PM.PNORT ---
Progress Note: A&P Assessment and Plan (1) Septic olecranon bursitis of right elbow: Code(s): M71.121 - Other infective bursitis, right elbow Status: Chronic Assessment and Plan: Depending on where he goes will dictate the dressing changes. If he goes home with home health, they can do it two or 3 times a week. If he goes to the group home, would do one dressing change before he follows up with me on January 06. Getting his PICC line today. ID recommendations noted. Subjective Subjective Date/Time Seen: 12/23/20 11:31 Post Op day: 4 Principal diagnosis: Status post washout right elbow olecranon bursa with hardware remova Interval history: 65-year-old male four days out from right elbow washout with hardware removal. No new issues with respect to his elbow. Exam Const: General: cooperative, comfortable and no acute distress Nutritional Appearance: well nourished Extrem: Other: Right elbow dressing changed today. Wound edges well approximated. Very little serosanguineous drainage. No purulence. No elbow effusion. Overall healing well. Objective Data Vital Signs Vital Signs: Vital Signs - 24 hr 12/22/20 14:00 12/22/20 18:00 12/22/20 19:52 Temperature 98.7 F 97.3 F L 98.2 F Pulse Rate 99 90 Respiratory Rate 16 16 Blood Pressure 127/82 145/90 H Pulse Oximetry 100 99 12/22/20 20:00 12/23/20 02:00 12/23/20 06:00 Temperature 98.2 F 98.3 F Pulse Rate 90 79 82 Respiratory Rate 16 16 18 Blood Pressure 116/79 112/82 Pulse Oximetry 99 100 100 12/23/20 10:00 Temperature 96.4 F L Pulse Rate 130 H Respiratory Rate 18 Blood Pressure 101/71 Pulse Oximetry 99 Intake/Output Intake/Output: Intake & Output 12/20/20 12/21/20 12/22/20 12/23/20 23:59 23:59 23:59 23:59 Intake Total 1540 / 1540 3160 / 3160 2420 / 2420 240 / 240 Output Total 400 / 400 1750 / 1750 400 / 400 Balance 1140 / 1140 1410 / 1410 2019 240 / 240 Meds/Results Medications: Active Medications Generic Name Dose Route Start Last Admin Trade Name Freq PRN Reason Stop Dose Admin Hydrocodone Bitart/Acetaminophen 1 tab 12/19/20 16:03 12/22/20 10:09 Hydrocodone/Acetaminophen (*Crx) 5-325 Mg Tablet PO 1 tab Q3H PRN Administration Pain Rated 4-6 Hydrocodone Bitart/Acetaminophen 2 tab 12/19/20 16:03 12/22/20 23:06 Hydrocodone/Acetaminophen (*Crx) 5-325 Mg Tablet PO 2 tab Q6H PRN Administration Pain Rated 7-10 Albuterol 2 puff 12/19/20 00:10 Albuterol Sulfate (*Sp) Aerosol 1 Puff INHALATION Q4H PRN shortness of breath or wheezing Aspirin 325 mg 12/19/20 21:00 12/23/20 08:19 Aspirin 325 Mg Enteric Tablet PO 325 mg Q12HR SOFY Administration Atorvastatin Calcium 40 mg 12/19/20 21:00 12/22/20 20:28 Atorvastatin 40 Mg Tablet PO 40 mg HS SOFY Administration Bupropion HCl 150 mg 12/19/20 09:00 12/23/20 08:19 Bupropion Hcl Sr (12 Hr) 150 Mg Tab PO 150 mg Q12HR SOFY Administration Docusate Sodium 100 mg 12/19/20 21:00 12/23/20 08:19 Docusate Sodium 100 Mg Capsule PO 100 mg Q12HR SOFY Administration Gabapentin 300 mg 12/19/20 06:00 12/23/20 06:16 Gabapentin 300 Mg Capsule PO 300 mg Q8HR SOFY Administration Vancomycin HCl 1,000 mg in 250 mls @ 250 mls/hr 12/23/20 11:00 Vancomycin 1,000 Mg/D5w 250 Ml IVPB Q18H SOFY Magnesium Hydroxide 30 ml 12/19/20 16:03 Magnesium Hydroxide Susp 30 Ml Udc PO BID PRN Constipation Magnesium Oxide 400 mg 12/19/20 09:00 12/23/20 08:19 Magnesium Oxide 400 Mg Tablet PO 400 mg DAILY SOYF Administration Melatonin 3 mg 12/19/20 21:00 12/22/20 20:27 Melatonin 3 Mg Tablet PO 3 mg HS SOFY Administration Metoprolol Succinate 50 mg 12/19/20 09:00 12/20/20 08:52 Metoprolol Succinate Ext Rel 50 Mg Tabcr PO 50 mg DAILY SOFY Administration Tamsulosin HCl 0.4 mg 12/19/20 09:00 12/23/20 08:18 Tamsulosin Hcl 0.4 Mg Capsule PO 0.4 mg TRISHA
[2020-12-23] MEDS: LIDOCAINE HCL 1% PF INJ 5 ML VIAL INFILTRATE (12:00)
[2020-12-23] MEDS: CENTRAL LINE FLUSH 10 ML IV PUSH ×2 (14:15→20:48)
--- NOTE | 2020-12-23 14:43 | PM.IMPN ---
Progress Note: A&P Assessment and Plan (1) Septic olecranon bursitis of right elbow: Code(s): M71.121 - Other infective bursitis, right elbow Status: Chronic Assessment and Plan: Secondary to infected hardware of right elbow. He is POD #4 removal of right elbow hardware and debridement of wound. He remains afebrile, no leukocytosis. Pain is well controlled. Appreciate orthopedic surgery consultation. Initial wound cultures from right elbow with growth of MRSA sensitive to vancomycin. Intraoperative cultures are pending. Continue IV Vancomycin. Infectious disease has been consulted and input is appreciated. Anticipate extended duration IV antibiotics Analgesics available as needed for pain (2) Chronic anemia: Code(s): D64.9 - Anemia, unspecified Status: Acute Assessment and Plan: H&H is slightly decreased from baseline postoperatively. Remaining stable with no signs of blood loss and stable vital signs. trend labs (3) Chronic obstructive pulmonary disease: Code(s): J44.9 - Chronic obstructive pulmonary disease, unspecified Status: Acute Assessment and Plan: Stable with no acute issues. Oxygen saturations stable on room air. Continue home Anoro Ellipta Albuterol prn (4) Rheumatoid arthritis: Onset Date: ~2011 Qualifiers: Rheumatoid arthritis location: multiple sites Rheumatoid factor presence: with rheumatoid factor Qualified Code(s): M05.79 - Rheumatoid arthritis with rheumatoid factor of multiple sites without organ or systems involvement Code(s): M06.9 - Rheumatoid arthritis, unspecified Status: Chronic Assessment and Plan: Stable. Home Xeljanz is non-formulary. Holding. (5) Hypertension: Qualifiers: Hypertension type: essential hypertension Qualified Code(s): I10 - Essential (primary) hypertension Code(s): I10 - Essential (primary) hypertension Status: Chronic Assessment and Plan: Blood pressure reviewed and have been generally well controlled.BP is stable at 140/82 Resume metoprolol Monitor blood pressure trends Time Spent With Patient Time with patient: 25 - 35 minutes Subjective Date/time seen: 12/23/20 14:00 Mahamed Potts is a 65-year-old male with a history of chronic anemia, COPD, CVA, hypertension, hyperlipidemia, rheumatoid arthritis on immunosuppressive therapy, history of alcohol and tobacco abuse, and prior ORIF of right elbow with hardware in place who is seen in follow-up for septic bursitis of the right elbow, now s/p wound debridement and hardware removal. Patient is feeling way better today and is ready to go. He is having hard time because he does need Vanco transfusions outpatient. This is put a burden on him because his girlfriend is uneasy about taking care of him due to miss information about his infection. I did put a call out to his girlfriend named Yessenia however she has not answered the phone or call me back at this point time. I did talk to case management about his case as well and asked about maybe a few an infusion center, however the orders unclear about frequency of the antibiotic at this time. Id is consulted will reach out to ID to see about specific order. Patient did get his PICC line today and has no complaints. Did state that he was constipated would like something to have a bowel movement. He denies chest pain, shortness of breath, nausea, vomiting, diarrhea, abdominal pain, dizziness, lightheadedness, numbness tingling, weakness, and fatigue. Review of Systems Review of Systems: All systems reviewed & are unremarkable except as noted in HPI and below Exam Const: General: cooperative, healthy appearing, comfortable, no acute distress, well developed, alert and awake Nutritional Appearance: well nourished, thin and underweight Orientation/consciousness: patient oriented x3 Limitations: no limitations HENMT:
[2020-12-23] MEDS: ATORVASTATIN 40 MG TABLET PO (20:49)
[2020-12-23] MEDS: MELATONIN 3 MG TABLET PO (20:49)
[2020-12-23] MEDS: HYDROcodone/acetaminophen (*CRX) 5-325 MG TABLET 2 TAB PO (20:52)
[2020-12-24 00:36] VITALS: BP 145/83; PULSE 82; RESP 20; TEMP 36.4; O2SAT 99
[2020-12-24 05:07] VITALS: BP 139/81; PULSE 81; RESP 18; TEMP 36.2; O2SAT 98
[2020-12-24] MEDS: CENTRAL LINE FLUSH 10 ML IV PUSH ×2 (06:15→14:02)
[2020-12-24] MEDS: GABAPENTIN 300 MG CAPSULE PO ×2 (06:15→14:02)
--- NOTE | 2020-12-24 06:57 | PM.PNORT ---
Progress Note: A&P Assessment and Plan (1) Septic olecranon bursitis of right elbow: Code(s): M71.121 - Other infective bursitis, right elbow Status: Chronic Assessment and Plan: Awaiting discharge plans. No new orthopedic orders. Following. Subjective Subjective Date/Time Seen: 12/24/20 06:57 Post Op day: 5 Principal diagnosis: Status post debridement right septic olecranon bursa with hardware removal Interval history: 65-year-old male postop day five right elbow surgery. No issues with the elbow. Awaiting final discharge plans. Exam Const: General: cooperative, comfortable and no acute distress Nutritional Appearance: well nourished Extrem: Other: Right elbow dressing intact. No drainage. Neurovascular is baseline. Objective Data Vital Signs Vital Signs: Vital Signs - 24 hr 12/23/20 10:00 12/23/20 12:40 12/23/20 14:00 Temperature 96.4 F L 96.9 F L Pulse Rate 130 H 92 96 Respiratory Rate 18 20 Blood Pressure 101/71 140/82 Pulse Oximetry 99 99 12/23/20 18:00 12/23/20 20:00 12/23/20 20:39 Temperature 96.8 F L 97.6 F Pulse Rate 105 H 93 93 Respiratory Rate 18 20 20 Blood Pressure 132/76 137/58 L Pulse Oximetry 98 100 100 12/24/20 00:36 12/24/20 05:07 Temperature 97.5 F L 97.2 F L Pulse Rate 82 81 Respiratory Rate 20 18 Blood Pressure 145/83 H 139/81 Pulse Oximetry 99 98 Intake/Output Intake/Output: Intake & Output 12/21/20 12/22/20 12/23/20 12/24/20 23:59 23:59 23:59 23:59 Intake Total 3160 / 3160 2420 / 2420 830 / 830 390 / 390 Output Total 1750 / 1750 400 / 400 Balance 1410 / 1410 2019 830 / 830 390 / 390 Meds/Results Medications: Active Medications Generic Name Dose Route Start Last Admin Trade Name Freq PRN Reason Stop Dose Admin Hydrocodone Bitart/Acetaminophen 1 tab 12/19/20 16:03 12/22/20 10:09 Hydrocodone/Acetaminophen (*Crx) 5-325 Mg Tablet PO 1 tab Q3H PRN Administration Pain Rated 4-6 Hydrocodone Bitart/Acetaminophen 2 tab 12/19/20 16:03 12/23/20 20:52 Hydrocodone/Acetaminophen (*Crx) 5-325 Mg Tablet PO 2 tab Q6H PRN Administration Pain Rated 7-10 Albuterol 2 puff 12/19/20 00:10 Albuterol Sulfate (*Sp) Aerosol 1 Puff INHALATION Q4H PRN shortness of breath or wheezing Aspirin 325 mg 12/19/20 21:00 12/23/20 20:49 Aspirin 325 Mg Enteric Tablet PO 325 mg Q12HR SOFY Administration Atorvastatin Calcium 40 mg 12/19/20 21:00 12/23/20 20:49 Atorvastatin 40 Mg Tablet PO 40 mg HS SOFY Administration Bupropion HCl 150 mg 12/19/20 09:00 12/23/20 20:49 Bupropion Hcl Sr (12 Hr) 150 Mg Tab PO 150 mg Q12HR SOFY Administration Docusate Sodium 100 mg 12/19/20 21:00 12/23/20 20:48 Docusate Sodium 100 Mg Capsule PO 100 mg Q12HR SOFY Administration Docusate Sodium 100 mg 12/23/20 14:54 Docusate Sodium 100 Mg Capsule PO Q12H PRN Constipation Gabapentin 300 mg 12/19/20 06:00 12/24/20 06:15 Gabapentin 300 Mg Capsule PO 300 mg Q8HR SOFY Administration Vancomycin HCl 1,250 mg in 250 mls @ 200 mls/hr 12/24/20 08:00 Vancomycin 1,250 Mg/D5w 250 Ml IVPB Q24H SOFY Magnesium Hydroxide 30 ml 12/19/20 16:03 Magnesium Hydroxide Susp 30 Ml Udc PO BID PRN Constipation Magnesium Oxide 400 mg 12/19/20 09:00 12/23/20 08:19 Magnesium Oxide 400 Mg Tablet PO 400 mg DAILY SOFY Administration Melatonin 3 mg 12/19/20 21:00 12/23/20 20:49 Melatonin 3 Mg Tablet PO 3 mg HS SOFY Administration Metoprolol Succinate 50 mg 12/19/20 09:00 12/20/20 08:52 Metoprolol Succinate Ext Rel 50 Mg Tabcr PO 50 mg DAILY SOFY Administration Sodium Chloride 10 ml 12/23/20 14:00 12/24/20 06:15 Central Line Flush IV PUSH 10 ml Q8HR SOFY Administration Sodium Chloride 10 ml 12/23/20 13:07 Central Line Flush IV PUSH PRN PRN with TPN bag changes Sodium Chloride 20 ml 12/23/20 13:07 Central
[2020-12-24] MEDS: ASPIRIN 325 MG ENTERIC TABLET PO (09:13)
[2020-12-24] MEDS: DOCUSATE SODIUM 100 MG CAPSULE PO (09:13)
[2020-12-24] MEDS: CHOLECALCIFEROL 1,000 UNITS TABLET 1000 UNITS PO (09:13)
[2020-12-24] MEDS: buPROPion HCL SR (12 HR) 150 MG TAB PO (09:13)
[2020-12-24] MEDS: MAGNESIUM OXIDE 400 MG TABLET PO (09:13)
[2020-12-24 09:14] VITALS: PULSE 80
[2020-12-24] MEDS: METOPROLOL SUCCINATE EXT REL 50 MG TABCR PO (09:14)
[2020-12-24] MEDS: terbinafine HCL 250 MG TABLET PO (09:15)
[2020-12-24] MEDS: UMECLIDINIUM/VILANTEROL 62.5-25 MCG ELLIPTA 1 PUFF INHALATION (09:16)
[2020-12-24] MEDS: TAMSULOSIN HCL 0.4 MG CAPSULE PO (09:16)
[2020-12-24 10:00] VITALS: BP 133/100; PULSE 104; RESP 20; TEMP 36.8; O2SAT 98
--- NOTE | 2020-12-24 10:36 | PM.DS ---
DS: Admitting Diagnosis Admitting Diagnosis Admitting Diagnosis: MRSA of the right elbow DS: Discharge Diagnosis Discharge Diagnosis (1) Septic olecranon bursitis of right elbow: Code(s): M71.121 - Other infective bursitis, right elbow Status: Chronic Assessment and Plan: Secondary to infected hardware of right elbow. He is POD #5 removal of right elbow hardware and debridement of wound. He remains afebrile, no leukocytosis. Pain is well controlled. Appreciate orthopedic surgery consultation. Initial wound cultures from right elbow with growth of MRSA sensitive to vancomycin. Intraoperative cultures are pending. Continue IV Vancomycin. Infectious disease has been consulted and input is appreciated. Anticipate extended duration IV antibiotics Analgesics available as needed for pain DC to [facility] for continue antibiotic therapy. PICC placed Vancomycin 1250 Q24hr IV for the next 4 weeks (2) Chronic anemia: Code(s): D64.9 - Anemia, unspecified Status: Acute Assessment and Plan: H&H is slightly decreased from baseline postoperatively. Remaining stable with no signs of blood loss and stable vital signs. trend labs (3) Chronic obstructive pulmonary disease: Code(s): J44.9 - Chronic obstructive pulmonary disease, unspecified Status: Acute Assessment and Plan: Stable with no acute issues. Oxygen saturations stable on room air. Continue home Anoro Ellipta Albuterol prn (4) Rheumatoid arthritis: Onset Date: ~2011 Qualifiers: Rheumatoid arthritis location: multiple sites Rheumatoid factor presence: with rheumatoid factor Qualified Code(s): M05.79 - Rheumatoid arthritis with rheumatoid factor of multiple sites without organ or systems involvement Code(s): M06.9 - Rheumatoid arthritis, unspecified Status: Chronic Assessment and Plan: Stable. Home Xeljanz is non-formulary. Holding. (5) Hypertension: Qualifiers: Hypertension type: essential hypertension Qualified Code(s): I10 - Essential (primary) hypertension Code(s): I10 - Essential (primary) hypertension Status: Chronic Assessment and Plan: Blood pressure reviewed and have been generally well controlled.BP is stable at 140/82 Resume metoprolol Monitor blood pressure trends DS: Summary Hospital Course Reason for hospitalization: Infection of the hardware of the right elbow Hospital Course: Mahamed Potts is a 65-year-old male with a history of chronic anemia, COPD, CVA, hypertension, hyperlipidemia, rheumatoid arthritis on immunosuppressive therapy, history of alcohol and tobacco abuse, and prior ORIF of right elbow with hardware in place who is seen in follow-up for septic bursitis of the right elbow, now s/p wound debridement and hardware removal. Patient is post op day 5. It was found that the infection was growing MRSA. The hardware and infection were debrided by ortho. Iv antibiotics were given throughout your stay. Vancomycin has been started and should continue for the next 4 weeks, per ID. Picc line was placed. Patients labs remain normal for the last few days. Patient has no complaints today. He said that he is ready to go. Blood pressure is stable and remains stable. Patient will be going to [facility] for further care. Status at Discharge Functional status at discharge: independent ambulation Overall status at discharge: patient is back to baseline Time Spent with Patient Time attestation: Total time spent providing and/or coordinating discharge services: Discharge planning, medication reconciliation and dosing, lab result review, diagnostic review, and education. Time spent: Greater than 30 minutes Exam Const: General: cooperative, healthy appearing, comfortable, no acute distress, well developed, alert and awake Nutritional Appearance: well nourished, thin and underweight Or
[2020-12-24 14:00] VITALS: BP 130/90; PULSE 98; RESP 20; TEMP 36.8; O2SAT 99
[2020-12-24] MEDS: MAGNESIUM HYDROXIDE SUSP 30 ML UDC PO (14:08)
== END 2020-12-24 16:50 | DRG 465 ==
LOC: ANHED 19:37 → ANH2MED 22:12
PROVIDERS: Orthopaedic Surgery; Physician Assistant; Admitting Provider Family Medicine; Emergency Provider Emergency Medicine; PCP Physician Assistant; Visit Provider Physician Assistant
PROC: 0RPL04Z Removal of Internal Fixation Device from Right Elbow Joint, Open Approach (ICD-10-PCS; CPT 24110; principal; 2020-12-19 12:30)
PROC: 0RPL04Z Removal of Internal Fixation Device from Right Elbow Joint, Open Approach (ICD-10-PCS; CPT 20694; 2020-12-19 12:30)
DX: T84.614A Infection and inflammatory reaction due to internal fixation device of right ulna, initial encounter (principal); M71.121 Other infective bursitis, right elbow; B95.62 Methicillin resistant Staphylococcus aureus infection as the cause of diseases classified elsewhere; D64.9 Anemia, unspecified; J44.9 Chronic obstructive pulmonary disease, unspecified; I10 Essential (primary) hypertension; F41.8 Other specified anxiety disorders; N40.0 Benign prostatic hyperplasia without lower urinary tract symptoms; G62.9 Polyneuropathy, unspecified; E78.5 Hyperlipidemia, unspecified; M06.9 Rheumatoid arthritis, unspecified; Z87.891 Personal history of nicotine dependence; Z86.73 Personal history of transient ischemic attack (TIA), and cerebral infarction without residual deficits
CPT/HCPCS: 36415; 36569; 73070; 73080; 80048; 80053; 80202; 83735; 85014; 85018; 85025; 85027; 85652; 86140; 87070; 87075; 87147; 87186; 87205; 96374; 97161; 97165; 99285; A4565; A9270; C1751; J0690; J1100; J1885; J2250; J2370; J2405; J2704; J3010; J3370; J7120

== ENCOUNTER 2021-04-27 15:25 | Emergency (ER) | payer MEDICARE, MEDICAID, SELFPAY ==
[2021-04-27] VITALS (10 sets, daily range): BP systolic 136–156; BP diastolic 78–97; PULSE 57–72; RESP 12–20; TEMP 36.9; O2SAT 98–100
--- NOTE | ~2021-04-27 | XR_ITS ---
EXAMINATION: XR chest 1V portable DATE: 04/27/2021 16:19 INDICATION: Shortness of breath and weakness TECHNIQUE: frontal view of the chest was obtained. COMPARISON: Chest radiograph dated 11/06/[address] dated 11/03/2020 FINDINGS: Unchanged course interstitial pattern in the bilateral lower lung zones likely related to chronic int erstitial lung disease with usual interstitial pneumonia (UIP) pattern on prior chest CT. No pleural effusion or pneumothorax. The cardiomediastinal silhouette is normal. Mild lower thoracic dextrocurva ture. Chronic T10 and T12 burst fractures. Right rotator cuff arthropathy. IMPRESSION: 1. Chronic coarse interstitial pattern in the bilateral lower lung zones consistent with UIP pattern chronic interstitial lung disease which is better appreciated on prior CT. Reviewed, dictated and finalized at location A. IMPRESSION: 1. Chronic coarse interstitial pattern in the bilateral lower lung zones consis tent with UIP pattern chronic interstitial lung disease which is better appreci ated on prior CT.
--- NOTE | 2021-04-27 15:35 | ECG_ITS ---
Measurements Intervals Lena Rate: 70 P: 60 NJ: 154 QRS: -5 QRSD: 104 T: 62 QT: 370 QTc: 401 Interpretive Statements SINUS RHYTHM POSSIBLE LEFT ATRIAL ENLARGEMENT DELAYED PRECORDIAL R/S TRANSITION BASELINE ARTIFACT- I, II, III, AVR, AVL BORDERLINE ECG Electronically Signed On 04-27-2021 15:52:16 CDT by Daniel Roldan D.O.
[2021-04-27 15:57] LABS: Basophils Percent Auto 0.3 % (0.2-1.2); Eosinophils Absolute Auto 0.1 K/mm3 (0-0.3); Eosinophils Percent Auto 1.1 % (0-4.4); Hematocrit 35.3 % (42.0-52.0); Hemoglobin 11.5 g/dL (14.0-18.0); Immature Granulocyte Absolute 0.02 K/mm3 (0.00-0.031); Immature Granulocyte Percent A 0.3 % (0-0.5); Lymphocytes Absolute Auto 3.25 K/mm3 (0.9-3.2); Lymphocytes Percent Auto 52.8 % (18.3-44.2); Mean Corpuscular HGB Conc 32.6 g/dl (32-36); Mean Corpuscular Volume 88.9 fl (80-100); Mean Platelet Volume 8.9 fl (7.4-10.4); Monocytes Absolute Auto 0.9 K/mm3 (0.1-0.6); Monocytes Percent Auto 14.8 % (2.6-8.5); Neutrophils Absolute Auto 1.9 K/mm3 (1.3-6.7); Neutrophils Percent Auto 30.7 % (45.5-73.1); Platelet Count Result 399 k/mm3 (150-375); Red Blood Count 3.97 M/mm3 (4.6-6.20); Red Cell Distribution Width 14.9 % (11.5-14.5); White Blood Count 6.2 K/mm3 (4.5-10.0)
[2021-04-27 16:09] LABS: Alanine Aminotransferase 19 U/L (4-50); Alkaline Phosphatase 93 U/L (38-126); Anion Gap 5 mmol/L (8-16); Aspartate Amino Transferase 33 U/L (17-59); Bilirubin,Total 0.3 mg/dL (0.2-1.3); Blood Urea Nitrogen 15 mg/dL (9-20); Calcium 8.7 mg/dL (8.4-10.2); Carbon Dioxide 29 mmol/L (22-30); Chloride 100 mmol/L (98-107); Estimated CRCL calculation 60 ml/min; Estimated Glomerular Filt Rate > 60; Glucose 96 mg/dL (65-110); Potassium 4.1 mmol/L (3.4-5.0); Sodium 134 mmol/L (137-145)
[2021-04-27 16:18] LABS: Add Urine Microscopic? NO; Appearance Urine Clear (Clear); Bilirubin Urine Negative (Negative); Blood Urine Negative (Negative); Color Urine Yellow (Yellow); Glucose Urine UA Negative (Negative); Ketones Urine Negative (Negative); Leukocyte Esterase Ur Negative LEU/UL (Negative); Nitrate Urine Negative (Negative); Protein Urine Negative (Negative); Specific Grav Ur 1.008 (1.001-1.035); Urobilinogen Urine Negative mg/dL (<2.0)
--- NOTE | 2021-04-27 17:13 | PC.NURSE ---
Pt called administration intern light stating he wanted to leave. RN notified. Pt seen walking down the [place] out of unit.
== END 2021-04-28 05:04 | disposition left against medical advice (07) ==
PROVIDERS: Emergency Provider Emergency Medicine; PCP Family Medicine
DX: R06.02 Shortness of breath (principal)
CPT/HCPCS: 36415; 71045; 80053; 81003; 85025; 93005; 99199

== ENCOUNTER 2021-07-29 12:03 | Emergency (ER) | payer MEDICARE, MEDICAID, SELFPAY ==
--- NOTE | ~2021-07-29 | XR_ITS ---
EXAMINATION: XR chest 2V DATE: 07/29/2021 13:17 INDICATION: Smoker presenting with shortness of breath TECHNIQUE: frontal and lateral views of the chest were obtained. COMPARISON: Chest radiograph dated 04/27/[address] dated 11/03/2020 FINDINGS: Hyperexpansion of lungs with increased lucency in the upper lung zones consistent with mild emphysema better appreciated on prior CT. Again seen are subtle peripheral coarse interstitial opacities in th e lower lung zones which on prior CT are associated peripheral honeycombing consistent with usual int erstitial pneumonia (UIP) pattern chronic interstitial lung disease. No other airspace opacities, ple ural effusion or pneumothorax. The cardiomediastinal silhouette is normal. No significant change in c hronic compression fractures at T10, T12 and L1. There is also a chronic nonunited cephalad sternal f racture. IMPRESSION: 1. Stable appearance of mild emphysema with peripheral and basilar predominant UIP pattern chronic in terstitial lung disease. Reviewed, dictated and finalized at location A. PROJECT MANAGER IMPRESSION: 1. Stable appearance of mild emphysema with peripheral and basilar predominant UIP pattern chronic interstitial lung disease.
[2021-07-29 12:15] VITALS: BP 130/102; PULSE 105; RESP 16; TEMP 35.8; O2SAT 100
--- NOTE | 2021-07-29 13:05 | ED.SOB ---
HPI - SOB/Dyspnea General Chief Complaint: Shortness of Breath/Dyspnea Stated Complaint: diarrhea/sob/weakness Time Seen by Provider: 07/29/21 13:05 Source: patient Mode of arrival: ambulatory Limitations: no limitations History of Present Illness HPI Narrative: Mahamed Potts is a 66 yo male with PMH of IUP, high cholesterol, anxiety, chronic pain, and, prostate enlargement, who comes because of shortness of breath and difficulty feeling exhaling air. Patient has history of chronic progressive pulmonary fibrosis he is out of his nebulizer solution but is continuing to take his inhalers. He also smokes a pack of cigarettes a day Related Data Home Medications Medication Instructions Recorded Confirmed aspirin [Aspir-81] 81 mg PO DAILY 12/28/19 07/29/21 cholecalciferol (vitamin D3) 25 mcg PO DAILY 12/28/19 07/29/21 [Vitamin D3] atorvastatin 40 mg PO HS 12/18/20 07/29/21 magnesium oxide 400 mg PO DAILY 12/18/20 07/29/21 Allergies Allergy/AdvReac Type Severity Reaction Status Date / Time No Known Allergies Allergy Verified 07/29/21 13:00 Review of Systems Review of Systems: CONSTITUTIONAL: Denies fever, chills, sweats. EYES: Denies visual changes, redness, discharge. ENT: Denies rhinorrhea, congestion, sore throat, otalgia. CARDIOVASCULAR: Denies chest pain, palpitations, edema. RESPIRATORY: Has dyspnea, wheezing, cough GASTROINTESTINAL: Denies abdominal pain, nausea, vomiting, diarrhea. GENITOURINARY: Denies dysuria, hematuria, abnormal discharge SKIN: Denies rash or itching. NEUROLOGIC: Denies numbness, or focal weakness. PSYCHIATRIC: Denies anxiety or depression. 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 Anxiety Benign prostatic hyperplasia Chronic anemia Chronic back pain Chronic obstructive pulmonary disease COPD (chronic obstructive pulmonary disease) Depression with anxiety Genu varum of both lower extremities History of cerebrovascular accident Hyperlipidemia Hypertension Peripheral neuropathy Rheumatoid arthritis (~2011) Tobacco abuse Surgical History Surgical History History of lumbar laminectomy History of orthopedic surgery ORIF right patellar fracture. ORIF right elbow fracture. History of right-sided carotid endarterectomy Family History Family History Mother No problems noted. Father Heart disease Hypertension Cerebrovascular accident Grandparent Arthritis Other Family history of coronary artery disease Social History Social History Social History: The patient lives in [place] with his girlfriend. He has 1 biological child and 1 adopted. He he smoked up to 2 packs of cigarettes a day and quit in October 2020. He has not consumed alcohol since late October 2020, previously drank up to a 12 pack a day. No illicit substance use. Code status: Full code. Smoking packs per day: 1 Smoking cigarettes per day: 20.0 Years smoked: 45 Smoking pack-years: 45.00 Smoking status: Former smoker Alcohol intake: never Alcohol use details: Consumes 1 beer occasionally Substance use: never Gender identity (if verbalized by the patient): Male Sexual Orientation (if Verbalized by the Patient): Straight or Heterosexual Spiritual care concerns: No Comments At time of signature, I agree with nursing past medical, surgical, social and family history. There is no relevant family history pertinent to the presenting complaint. Exam Narrative: GENERAL: This patient, in mild distress. Patient is fragile and thin HEAD: normocephalic, atraumatic. EYES: Sclera jorge luis
[2021-07-30 21:11] LABS: SARS-CoV-2 RNA PCR Negative
== END 2021-07-29 14:35 | disposition home or self-care (01) ==
PROVIDERS: Emergency Provider Nurse Practitioner
DX: J41.1 Mucopurulent chronic bronchitis (principal); R19.7 Diarrhea, unspecified; Z20.822 Contact with and (suspected) exposure to COVID-19; Z87.891 Personal history of nicotine dependence; N40.0 Benign prostatic hyperplasia without lower urinary tract symptoms; E78.5 Hyperlipidemia, unspecified; I10 Essential (primary) hypertension; G62.9 Polyneuropathy, unspecified; M06.9 Rheumatoid arthritis, unspecified; Z79.82 Long term (current) use of aspirin
CPT/HCPCS: 71046; 87426; 87804; 99213; C9803; G0463; U0003; U0005

== ENCOUNTER 2021-09-21 02:58 | Emergency (ER) | payer MEDICARE, MEDICAID, SELFPAY ==
[2021-09-21] VITALS (29 sets, daily range): BP systolic 94–167; BP diastolic 59–107; PULSE 69–112; RESP 11–98; TEMP 36.3–37.7; O2SAT 17–100
--- NOTE | ~2021-09-21 | XR_ITS ---
EXAMINATION: XR chest 1V portable DATE: 09/21/2021 03:34 INDICATION: Chest pain. TECHNIQUE: A single frontal view of the chest was obtained. COMPARISON: Chest 2 views 07/29/2021, chest CT 11/03/2020 FINDINGS: The lung volumes are normal. There are chronic peripheral interstitial opacities in the mid and lower lung zones. No pleural effusion or pneumothorax. The heart size is normal. IMPRESSION: 1. Stable chronic interstitial lung disease. Reviewed, dictated and finalized at location A.
--- NOTE | 2021-09-21 03:12 | ECG_ITS ---
Measurements Intervals [place] Rate: 95 P: 70 MI: 165 QRS: 14 QRSD: 114 T: 31 QT: 380 QTc: 478 Interpretive Statements VERY POOR QUALITY ECG GIVEN SEVERE BASELINE ARTIFACT SINUS RHYTHM POOR R-WAVE PROGRESSION ABNORMAL ECG COMPARED TO PRIOR TRACING THE CURRENT TRACING HAS SEVERE ARTIFACT IN THE LIMB LEADS Electronically Signed On 09-21-2021 14:19:04 CDT by Abdirahman Zuniga M.D.
[2021-09-21] MEDS: BELLADONNA ALK/PHENOB ELIX 10 ML, MAG HYDROX/ALUMINUM HYD/SIMETH 30 ML, LIDOCAINE HCL 2... PO (03:23)
[2021-09-21 03:39] LABS: Basophils Percent Auto 0.3 % (0.2-1.2); Eosinophils Absolute Auto 0.1 K/mm3 (0-0.3); Eosinophils Percent Auto 1.5 % (0-4.4); Hematocrit 43.2 % (42.0-52.0); Hemoglobin 14.9 g/dL (14.0-18.0); Immature Granulocyte Absolute 0.03 K/mm3 (0.00-0.031); Immature Granulocyte Percent A 0.3 % (0-0.5); Lymphocytes Absolute Auto 2.65 K/mm3 (0.9-3.2); Lymphocytes Percent Auto 30.1 % (18.3-44.2); Mean Corpuscular HGB Conc 34.5 g/dl (32-36); Mean Corpuscular Hemoglobin 29.9 pg (26-34); Mean Corpuscular Volume 86.7 fl (80-100); Mean Platelet Volume 8.8 fl (7.4-10.4); Monocytes Absolute Auto 1.1 K/mm3 (0.1-0.6); Monocytes Percent Auto 12.5 % (2.6-8.5); Neutrophils Absolute Auto 4.9 K/mm3 (1.3-6.7); Neutrophils Percent Auto 55.3 % (45.5-73.1); Platelet Count Result 334 k/mm3 (150-375); Red Blood Count 4.98 M/mm3 (4.6-6.20); Red Cell Distribution Width 14.8 % (11.5-14.5); White Blood Count 8.8 K/mm3 (4.5-10.0)
[2021-09-21 03:48] LABS: Ethanol 228 mg/dL (<10)
[2021-09-21 03:49] LABS: Alanine Aminotransferase 33 U/L (4-50); Albumin Level 4.7 g/dL (3.5-5.1); Alkaline Phosphatase 99 U/L (38-126); Anion Gap 11 mmol/L (8-16); Aspartate Amino Transferase 54 U/L (17-59); Bilirubin,Total 0.4 mg/dL (0.2-1.3); Blood Urea Nitrogen 6 mg/dL (9-20); Calcium 8.5 mg/dL (8.4-10.2); Carbon Dioxide 24 mmol/L (22-30); Chloride 95 mmol/L (98-107); Estimated CRCL calculation 66 ml/min; Estimated Glomerular Filt Rate > 60; Glucose 91 mg/dL (65-110); Magnesium 1.7 mg/dL (1.6-2.3); Potassium 3.7 mmol/L (3.4-5.0); Sodium 130 mmol/L (137-145)
[2021-09-21 03:51] LABS: Prothrombin Time 13.1 Seconds (11.1-14.7)
[2021-09-21 03:52] LABS: Partial Thromboplastin Time 30.6 SECONDS (22.3-36.8)
[2021-09-21 04:01] LABS: Troponin I < 0.012 ng/mL (0.000-0.034)
[2021-09-21 04:15] LABS: Add Urine Microscopic? YES; Appearance Urine Clear (Clear); Bilirubin Urine Negative (Negative); Blood Urine 1+ (Negative); Color Urine Straw (Yellow); Glucose Urine UA Negative (Negative); Ketones Urine Negative (Negative); Leukocyte Esterase Ur Negative LEU/UL (Negative); Nitrate Urine Negative (Negative); Protein Urine Negative (Negative); Urobilinogen Urine Negative mg/dL (<2.0); WBC Urine 0-3 /hpf
[2021-09-21 04:32] LABS: Specific Grav Ur 1.002 (1.001-1.035)
--- NOTE | 2021-09-21 05:09 | ED.GENADULT ---
HPI - General Adult General Chief complaint: Unspecified <Mat Palma MD - Last Filed: 09/21/21 07:12> Stated complaint: acid reflux <Mat Palma MD - Last Filed: 09/21/21 07:12> Time Seen by Provider: 09/21/21 03:08 <Mat Palma MD - Last Filed: 09/21/21 07:12> History of Present Illness HPI narrative: Patient is a 66-year-old gentleman who presents the emergency department with chief complaint of acid reflux. Patient reports that this evening he got kicked out of his house by his significant other drink about 8 beers and was picked up in the [employer] parking lot after he called EMS complaining of acid reflux. Patient denies chest pain denies shortness of breath did have issues with defecating on himself afterwards and reports that he has difficulty urinating and has been having difficulty urinating for some time. The patient reports that he has pain in his suprapubic area. <Mat Palma MD - Last Filed: 09/21/21 07:12> Related Data Home medications: Home Medications Medication Instructions Recorded Confirmed aspirin [Aspir-81] 81 mg PO DAILY 12/28/19 09/17/21 cholecalciferol (vitamin D3) 25 mcg PO DAILY 12/28/19 09/17/21 [Vitamin D3] atorvastatin 40 mg PO HS 12/18/20 09/17/21 magnesium oxide 400 mg PO DAILY 12/18/20 09/17/21 <Mat Palma MD - Last Filed: 09/21/21 07:12> Allergies/adverse reactions: Allergies Allergy/AdvReac Type Severity Reaction Status Date / Time No Known Allergies Allergy Verified 09/21/21 03:10 <Mat Palma MD - Last Filed: 09/21/21 07:12> Review of Systems Review of Systems: A 10 system review of systems was completed on the patient and is negative except for what is stated in the HPI. Nursing and ancillary documentation was reviewed. 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 ORIF right elbow fracture. History of right-sided carotid endarterectomy <Mat Palma MD - Last Filed: 09/21/21 07:12> Family History Family History: Family History Mother No problems noted. Father Heart disease Hypertension Cerebrovascular accident Grandparent Arthritis Other Family history of coronary artery disease <Mat Palma MD - Last Filed: 09/21/21 07:12> Social History Social History: Social History Social History: The patient lives in [place] with his girlfriend. He has 1 biological child and 1 adopted. He he smoked up to 2 packs of cigarettes a day and quit in October 2020. He has not consumed alcohol since late October 2020, previously drank up to a 12 pack a day. No illicit substance use. Code status: Full code. Smoking packs per day: 1 Smoking cigarettes per day: 20.0 Years smoked: 45 Smoking pack-years: 45.00 Smoking status: Current every day smoker Alcohol intake: tiffanie
[2021-09-21 11:23] LABS: Ethanol 105 mg/dL (<10)
--- NOTE | 2021-09-21 12:20 | PC.NURSE ---
This RN called SW to talk and assist this Pt with ride to his car at [facility] parking lot. Pt is weak, yet is able to ambulate with assistance and per Pt he drives also. This RN explained to SW that Pt has money for cab, yet needs to wait until next lab draw in two hours Pt also asked to be [facility], this RN also left SW know of this concern as Pt lives with GF and is now homeless per Pt. SW to talk with Pt over concerns
[2021-09-21 13:29] LABS: Ethanol 49 mg/dL (<10)
--- NOTE | 2021-09-21 13:39 | PCCCNOTE ---
Spoke with pt regarding possible SNF placement. Pt informed that to get placement his SS benefits would be used and he would need to give up his vehicle in order to Medicaid to cover. His meals and meds would be covered at a SNF, but would have to utilize all his assets before Medicaid would start paying. He stated that he did not want to do that and would only need a ride back to his vehicle.
--- NOTE | 2021-09-21 13:47 | PCCCNOTE ---
Cab voucher provided to nurse for pt to return to his vehicle at [facility] parking lot [id number] [facility]
== END 2021-09-21 14:45 | disposition home or self-care (01) ==
PROVIDERS: Emergency Medicine; Emergency Provider General Practice; PCP Physician Assistant
DX: N40.1 Benign prostatic hyperplasia with lower urinary tract symptoms (principal); R33.8 Other retention of urine; D64.9 Anemia, unspecified; J44.9 Chronic obstructive pulmonary disease, unspecified; Z86.73 Personal history of transient ischemic attack (TIA), and cerebral infarction without residual deficits; E78.5 Hyperlipidemia, unspecified; I10 Essential (primary) hypertension; M06.9 Rheumatoid arthritis, unspecified; F41.8 Other specified anxiety disorders; G62.9 Polyneuropathy, unspecified; Z79.82 Long term (current) use of aspirin; Z79.899 Other long term (current) drug therapy; F17.210 Nicotine dependence, cigarettes, uncomplicated; J84.9 Interstitial pulmonary disease, unspecified; R94.31 Abnormal electrocardiogram [ECG] [EKG]; R10.30 Lower abdominal pain, unspecified
CPT/HCPCS: 36415; 71045; 80053; 80307; 81001; 83735; 84484; 85025; 85610; 85730; 93005; 99284; A9270

== ENCOUNTER 2023-08-17 01:46 | Emergency (ER) | payer MEDICARE, MEDICAID, SELFPAY ==
--- NOTE | ~2023-08-17 | XR_ITS ---
Right Knee Technique: AP, lateral, and sunrise views were obtained. Clinical History: Pain COMPARISON: 09/04/2020 Findings: No acute fracture or dislocation is seen. Prior ORIF of the patella is unchanged. Osseous a lignment is anatomic. Joint spaces are preserved without degenerative or erosive change. Soft tissues are unremarkable. No joint effusion is seen. Impression: No acute reality. Prior ORIF of the patella. Reviewed, dictated and finalized at location M. TRONEURODIAGNOSTIC TECHNOLOGIST Impression: No acute reality. Prior ORIF of the patella.
--- NOTE | ~2023-08-17 | CT_ITS ---
CT head without contrast Indication: Head trauma COMPARISON: 11/06/2020 Technique: Serial scans were obtained through the brain without the administration of contrast. Dose reduction technique was used on this scan by utilizing automated exposure control and iterative recon struction technique. The dose-length product (DLP) was 605.33 mGy-cm. Findings: There is no evidence of intracranial hemorrhage, mass lesion, or acute infarct. Chronic rig ht MCA distribution infarct noted. The ventricles and subarachnoid spaces are dilated, consistent wit h mild to moderate atrophy. Low attenuation regions are seen within the periventricular white matter bilaterally, likely representing changes from chronic microvascular ischemic disease. There is no ev idence of edema, mass effect or midline shift. The visualized paranasal sinuses and mastoid air aldo ls are clear. Impression: No intracranial hemorrhage, mass, or acute infarct. Stable chronic right MCA distribution infarct. Atrophy and chronic white matter changes, as above. Reviewed, dictated and finalized at [facility]. ETIC ASSISTANT Impression: No intracranial hemorrhage, mass, or acute infarct. Stable chronic right MCA distribution infarct. Atrophy and chronic white matter changes, as above.
--- NOTE | ~2023-08-17 | CT_ITS ---
Noncontrast CT scan of the cervical spine Technique: Multiple contiguous axial [address] images of the cervical spine were obtained and rec onstructed in 2D sagittal and coronal planes on the acquisition scanner. Dose reduction technique was used on this scan by utilizing automated exposure control, adjustment of the mA and/or kV according to patient size. The dose-length product (DLP) was 280.60 mGy-cm. Clinical History: Pain Findings: No acute fracture or subluxation identified. There is reversal normal cervical lordosis. Th ere is advanced degenerative disc narrowing at C3-C4. There is moderate degenerative disc narrowing a t the remainder of the cervical levels. There is probable left neural foraminal narrowing at C3-C4 di sc osteophyte complex and mild facet arthropathy. There is bilateral neural foraminal narrowing at C4 -C5 with mild disc osteophyte complex present. There is probable canal stenosis at C4-C5 and C5-C6. T here is bilateral neural foraminal narrowing at C5-C6, right worse than left. There is bilateral neur al foraminal narrowing at C6-C7 with probable mild canal stenosis. No prevertebral soft tissue swelli ng. Impression: No fracture or subluxation of the cervical spine. Reversal normal cervical lordosis with moderate to advanced degenerative spondylosis. Reviewed, dictated and finalized at [facility]. DRIVER HELPER Impression: No fracture or subluxation of the cervical spine. Reversal normal cervical lordosis with moderate to advanced degenerative spondy losis.
[2023-08-17 01:58] VITALS: BP 89/75; PULSE 104; RESP 15; TEMP 37.1; O2SAT 95
[2023-08-17 04:25] VITALS: BP 93/69; PULSE 99; RESP 16; O2SAT 95
--- NOTE | 2023-08-17 06:37 | ED.GENADULT ---
HPI - General Adult General Chief complaint: Fall Stated complaint: fall Time Seen by Provider: 08/17/23 06:18 History of Present Illness HPI narrative: patient is a 68-year-old gentleman presents emergency department with chief complaint of ground level fall. The patient reports he is trending of his chair fell and struck the left side of his forehead on a tile floor and landed on his right knee. The patient reports he had difficulty getting up as he does drink a 12 pack of beer the patient states that he had a previous fracture of his patella that had to be of treated with an open reduction internal fixation. The patient states he is feeling much better at this point Related Data Home Medications Medication Instructions Recorded Confirmed aspirin 81 mg tablet,delayed 81 mg PO DAILY 12/28/19 06/21/23 release (Aspir-) magnesium oxide 400 mg (241.3 mg 400 mg PO DAILY 12/18/20 06/21/23 magnesium) tablet finasteride 5 mg tablet 5 mg PO DAILY 04/02/22 06/21/23 mecobalamin (vitamin B12) 1,000 1,000 mcg PO DAILY 04/02/22 06/21/23 mcg chewable tablet Allergies Allergy/AdvReac Type Severity Reaction Status Date / Time No Known Allergies Allergy Verified 03/16/23 13:26 Review of Systems Review of Systems: A 10 system review of systems was completed on the patient and is negative except for what is stated in the HPI. Nursing and ancillary documentation was reviewed. 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 ORIF right elbow fracture. History of right-sided carotid endarterectomy Family History Family History Mother No problems noted. Father Heart disease Hypertension Cerebrovascular accident Grandparent Arthritis Other Family history of coronary artery disease Social History Social History Social History: The patient lives in [place] with his girlfriend. He has 1 biological child and 1 adopted. He he smoked up to 2 packs of cigarettes a day and quit in October 2020. He has not consumed alcohol since late October 2020, previously drank up to a 12 pack a day. No illicit substance use. Code status: Full code. Smoking packs per day: 1 Smoking cigarettes per day: 20.0 Years smoked: 45 Smoking pack-years: 45.00 Smoking status: Former smoker (stopped 08/2021) Additional smoking assessment comments: quit smoking Mar 16, 2022; still vaping Alcohol intake: former Substance use: never Substance use type: does not use Living arrangements: other Occupation/Education: other Gender identity (if verbalized by the patient): Male Sexual Orientation (if Verbalized by the Patient): Straight or Heterosexual Spiritual care concerns: No Exam Narrative: GENERAL: Well-appearing, well-nourished, and in no acute distress. HEAD: Normocephalic, atraumatic. EYES: PERRLA and EOMI. ENT: Nares clear, no rhinorrhea or epistaxis. Mucous membranes moist. NECK: Supple. CHEST: Clear to auscultation. No respiratory distress. HEART: Regular rate and rhythm. No murmur heard. Normal peripheral pulses.
[2023-08-17] MEDS: ACETAMINOPHEN 500 MG TABLET 1000 MG PO (07:18)
[2023-08-17 07:19] VITALS: BP 114/74; PULSE 97; RESP 16; O2SAT 95
== END 2023-08-17 07:21 | disposition home or self-care (01) ==
PROVIDERS: Emergency Provider Emergency Medicine; PCP Family Medicine
DX: S09.90XA Unspecified injury of head, initial encounter (principal); S80.01XA Contusion of right knee, initial encounter; E78.5 Hyperlipidemia, unspecified; I10 Essential (primary) hypertension; J44.9 Chronic obstructive pulmonary disease, unspecified; Z87.891 Personal history of nicotine dependence; W07.XXXA Fall from chair, initial encounter
CPT/HCPCS: 70450; 72125; 73562; 99284; A9270

== ENCOUNTER 2023-11-15 13:33 | Inpatient (IN) | payer MEDICARE, MEDICAID, SELFPAY ==
[2023-11-15] VITALS (15 sets, daily range): BP systolic 123–162; BP diastolic 76–94; PULSE 89–135; RESP 15–20; TEMP 36.1–36.6; O2SAT 94–99; BMI 20.8
--- NOTE | ~2023-11-15 | US_ITS ---
EXAMINATION: US right upper quadrant DATE: 11/17/2023 11:14 INDICATION: Nausea and vomiting. Alcohol abuse. TECHNIQUE: Multiple grayscale and Doppler ultrasound images of the abdomen were obtained. COMPARISON: Chest CT 11/03/2020 FINDINGS: The visualized portions of the head and body of the pancreas are normal. The liver is jennifer l without focal lesion. There is antegrade flow in main portal vein. The gallbladder is normal in siz e. No gallstones or gallbladder wall thickening. There is no sonographic Angulo's sign. The common du ct is normal and measures 7 mm. IMPRESSION: 1. Normal right upper quadrant ultrasound. Reviewed, dictated and finalized at location A.
--- NOTE | ~2023-11-15 | XR_ITS ---
EXAMINATION: XR chest 1V portable DATE: 11/15/2023 15:38 INDICATION: Chest pain. TECHNIQUE: A single frontal view of the chest was obtained. COMPARISON: Chest single view 09/21/2021 FINDINGS: The lung volumes are normal. There is a diffuse interstitial pattern in the lungs with a lo wer lung predominance. No pleural effusion or pneumothorax. The heart size is normal. IMPRESSION: 1. Worsening diffuse interstitial pattern in the lungs, consistent with chronic interstitial lung dis ease without or with superimposed mild pulmonary edema. Reviewed, dictated and finalized at location A. IMPRESSION: 1. Worsening diffuse interstitial pattern in the lungs, consistent with chronic interstitial lung disease without or with superimposed mild pulmonary edema.
--- NOTE | 2023-11-15 14:20 | ECG_ITS ---
SEE SCANNED COPY FOR CONFIRMED REPORT MTDD
--- NOTE | 2023-11-15 14:59 | ED.ALCOHOL ---
HPI - Alcohol General Chief Complaint: Alcohol Stated Complaint: ETOH & CP Time Seen by Provider: 11/15/23 14:03 History of Present Illness HPI narrative: Patient is a 68 year old male with history of arthritis here with multiple complaints. He notes that 3-4 days ago he was kicked out of his lady friend's house for drinking. He notes he has been on a drinking alicia since that time, drinking upwards fo 8-10 beers this morning. He has been living out of his car in the [facility] parking lot. Today he began vomiting after drinking noting some streaks of blood in his vomit which prompted him to call 911 for help. they found him in his car covered in his own feces and vomit and intoxicated. Patient had initially complained of some chest pain to EMS, states he was having some chest pain and bilateral shoulder pain but the chest pain has resolved at this time. He currently notes some epigastric abdominal tenderness. Denies being a daily drinker, no history of withdrawal seizures. Related Data Home Medications Medication Instructions Recorded Confirmed aspirin 81 mg tablet,delayed 81 mg PO DAILY 12/28/19 10/18/23 release (Aspir-) magnesium oxide 400 mg (241.3 mg 400 mg PO DAILY 12/18/20 10/18/23 magnesium) tablet finasteride 5 mg tablet 5 mg PO DAILY 04/02/22 10/18/23 mecobalamin (vitamin B12) 1,000 1,000 mcg PO DAILY 04/02/22 10/18/23 mcg chewable tablet Allergies Allergy/AdvReac Type Severity Reaction Status Date / Time No Known Allergies Allergy Verified 10/18/23 11:07 Review of Systems Review of Systems: All systems reviewed & are unremarkable except as noted in HPI and below PMFSH Past Medical History Medical History (QFT) 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 ORIF right elbow fracture. History of right-sided carotid endarterectomy Family History Family History Mother No problems noted. Father Heart disease Hypertension Cerebrovascular accident Grandparent Arthritis Other Family history of coronary artery disease Social History Social History Social History: The patient lives in [place] with his girlfriend. He has 1 biological child and 1 adopted. He he smoked up to 2 packs of cigarettes a day and quit in October 2020. He has not consumed alcohol since late October 2020, previously drank up to a 12 pack a day. No illicit substance use. Code status: Full code. Smoking packs per day: 1 Smoking cigarettes per day: 20.0 Years smoked: 45 Smoking pack-years: 45.00 Smoking status: Former smoker (stopped 08/2021) Additional smoking assessment comments: quit smoking Mar 16, 2022; still vaping Alcohol intake: former Substance use: never Substance use type: does not use Living arrangements: other Occupation/Education: other Gender identity (if verbalized by the patient): Male Sexual Orientation (if Verbalized by the Patient): Straight or Heterosexual Spiritual care concerns: No Exam Narrative: GENERAL: Well-appearing, well-nourished, and in no acute distress. HEAD: Normocephalic, atraumatic. EYES: PERRLA and EOMI. ENT: Nares clear. Mucous membr
[2023-11-15] MEDS: ONDANSETRON INJ 4 MG/2 ML VIAL IV PUSH (15:24)
[2023-11-15] MEDS: PANTOPRAZOLE SODIUM IV 40 MG VIAL IV PUSH ×2 (15:24→22:19)
[2023-11-15 15:34] LABS: Basophils Percent Auto 0.2 % (0.2-1.2); Eosinophils Absolute Auto 0.1 K/mm3 (0-0.3); Eosinophils Percent Auto 0.9 % (0-4.4); Hematocrit 45.9 % (42.0-52.0); Hemoglobin 16.1 g/dL (14.0-18.0); Immature Granulocyte Absolute 0.04 K/mm3 (0.00-0.031); Immature Granulocyte Percent A 0.3 % (0-0.5); Lymphocytes Absolute Auto 1.92 K/mm3 (0.9-3.2); Lymphocytes Percent Auto 16.1 % (18.3-44.2); Mean Corpuscular HGB Conc 35.1 g/dl (32-36); Mean Corpuscular Hemoglobin 29.1 pg (26-34); Mean Corpuscular Volume 82.9 fl (80-100); Mean Platelet Volume 9.1 fl (7.4-10.4); Monocytes Absolute Auto 0.9 K/mm3 (0.1-0.6); Monocytes Percent Auto 7.2 % (2.6-8.5); Neutrophils Percent Auto 75.3 % (45.5-73.1); Platelet Count Result 291 k/mm3 (150-375); Red Blood Count 5.54 M/mm3 (4.6-6.20); Red Cell Distribution Width 13.5 % (11.5-14.5)
[2023-11-15 15:46] LABS: Prothrombin Time 13.6 Seconds (11.1-14.7)
[2023-11-15 15:57] LABS: Alanine Aminotransferase 43 U/L (6-50); Albumin Level 4.4 g/dL (3.5-5.1); Alkaline Phosphatase 106 U/L (38-126); Anion Gap 14 mmol/L (4-12); Aspartate Amino Transferase 74 U/L (17-59); Bilirubin,Total 0.8 mg/dL (0.2-1.3); Blood Urea Nitrogen 5 mg/dL (9-20); Calcium 8.5 mg/dL (8.4-10.2); Carbon Dioxide 21 mmol/L (22-30); Chloride 85 mmol/L (98-107); Estimated CRCL calculation 77 ml/min; Estimated Glomerular Filt Rate > 60; Glucose 85 mg/dL (65-110); Lipase 53 U/L (23-300); Potassium 4.1 mmol/L (3.4-5.0); Sodium 120 mmol/L (137-145)
[2023-11-15 15:58] LABS: Troponin I < 0.012 ng/mL (0.000-0.034)
[2023-11-15 16:07] LABS: Partial Thromboplastin Time 30.4 Seconds (22.3-36.8)
[2023-11-15 16:10] LABS: Ethanol 221 mg/dL (<10); Large Platelets Present; Platelet Estimate Adequate (Adequate); Schistocytes None Seen
[2023-11-15] MEDS: SODIUM CHLORIDE 0.9% IV 1,000 ML 999 ML IV CONT (16:50)
--- NOTE | 2023-11-15 18:16 | ADMGEN ---
This patient, Mahamed Potts, was admitted to IMU Room 210-01. Patient/family oriented to hospital policies and general routines including ID bracelet, bed and alarms, visiting hours, pain management, procedures, bathroom and other care routines, personal items, smoking policy, room service/diet, and visiting hours. Information on how to activate the Rapid Response Team has been discussed. Patient/Family are encouraged to report perceived risks to care and to ask questions if they do not understand what they are told or what they should do.
[2023-11-15 18:44] LABS: Anion Gap 9 mmol/L (4-12); Blood Urea Nitrogen 5 mg/dL (9-20); Calcium 7.8 mg/dL (8.4-10.2); Carbon Dioxide 24 mmol/L (22-30); Chloride 91 mmol/L (98-107); Estimated CRCL calculation 63 ml/min; Estimated Glomerular Filt Rate > 60; Glucose 75 mg/dL (65-110); Potassium 4.6 mmol/L (3.4-5.0); Sodium 124 mmol/L (137-145)
--- NOTE | 2023-11-15 18:48 | PC.NURSE ---
Spoke with provider about patients high risk for suicide. Patient is not actively having suicidal thoughts but has recently and had a plan, but never carried it out. Patient is under the influence of alcohol, will monitor alcohol level and reassess when patient his no longer intoxicated.
[2023-11-15 18:55] LABS: Troponin I < 0.012 ng/mL (0.000-0.034)
[2023-11-15 20:47] LABS: Glucose Point of Care 81 mg/dl (65-105)
[2023-11-15 21:23] LABS: Hematocrit 45.9 % (42.0-52.0); Hemoglobin 16.1 g/dL (14.0-18.0)
[2023-11-15 21:33] LABS: Sodium 130 mmol/L (137-145)
[2023-11-15 21:47] LABS: Troponin I < 0.012 ng/mL (0.000-0.034)
[2023-11-15] MEDS: GABAPENTIN 300 MG CAPSULE PO (22:19)
[2023-11-15] MEDS: METOPROLOL TARTRATE 50 MG TAB PO (22:19)
[2023-11-15] MEDS: DEXTROSE 5% 1,000 ML 1,000 ML 100 ML IV CONT (22:19)
[2023-11-15] MEDS: ATORVASTATIN 40 MG TABLET PO (22:19)
--- NOTE | 2023-11-15 22:38 | ECG_ITS ---
SEE SCANNED COPY FOR CONFIRMED REPORT MTDD
--- NOTE | 2023-11-15 23:06 | PM.IMHP ---
H&P: HPI History of Present Illness Date/Time: 11/15/23 23:06 Chief Complaint: Vomiting blood, diarrhea Narrative: 68-year-old male with a past medical history of rheumatoid arthritis, prior CVA, COPD with chronic tobacco use, essential hypertension, peripheral neuropathy, BPH and GERD among other comorbidities who presented to the ER via EMS due to vomiting, diarrhea and weakness. The patient was found in his car in the [employer] parking lot where he had been living. The patient is a chronic alcoholic who drinks at least 6-10 beers a day. He reports that 3 or 4 days ago his on and off girlfriend of approximately 14 years kicked him out of the house. He has been living in his car since then. He has been drinking nonstop and not eating any food. He denies any use of NSAIDs beyond Tylenol. After drinking about 6 beers today he began vomiting. He noted some streaks of blood in his vomit which made him call EMS. He reports that he frequently will have loose stools when he is drinking heavy. He was found covered in his own feces and was actively intoxicated with alcohol level above 200 when he arrived to the hospital. He did report some chest discomfort to EMS but this seemed to be related to his vomiting. He also reports some generalized abdominal tenderness time of my evaluation mostly in the epigastric region and in the suprapubic region. He does have a history of BPH in is been told in the past that he needs prostate surgery. He usually takes Flomax and finasteride daily. He is not taken any of his home med since he got kicked out of the house. He does report he occasionally has some blood on the toilet paper when he wipes due to history of a rectal fissure that get irritated. He also has a history of prior hemorrhoids with prior hemorrhoidectomy. He states that his stools only become black when he takes Pepto-Bismol which she has not used recently. Source of information from patient who is only a fair historian, ER physician report, nursing report and review of past medical records. Review of Systems Review of Systems: 12 systems were reviewed with pertinent positives and negatives per HPI. Except as documented in the HPI, all other systems were reviewed and are negative. The patient reports that his rheumatoid arthritis pain has been improved since he has started taking turmeric and curcumin supplement. 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 ORIF right elbow fracture. (right elbow hardware complicated by infection 12/2020) History of right-sided carotid endarterectomy Family History Family History Mother No problems noted. Father Heart disease Hypertension Cerebrovascular accident Grandparent Arthritis Other Family history of coronary artery disease Social History Social History (Updated 11/16/23 @ 03:15 by Milena De DO) Social History: The patient has been for approximately 20 years. He lived in [place] until he met his girlfriend of the last approximately 14 years at which time he moved up to this area. He and his girlfriend have been on and off since proximally 2009. They broke up November 09
[2023-11-16] VITALS (21 sets, daily range): BP systolic 90–130; BP diastolic 63–83; PULSE 71–114; RESP 16–20; TEMP 36.2–37.1; O2SAT 94–100
[2023-11-16 01:24] LABS: Magnesium 1.6 mg/dL (1.6-2.3); Phosphorus 2.8 mg/dL (2.5-4.5); Sodium 129 mmol/L (137-145)
[2023-11-16 04:39] LABS: Hematocrit 42.9 % (42.0-52.0); Hemoglobin 15.2 g/dL (14.0-18.0); Mean Corpuscular HGB Conc 35.4 g/dl (32-36); Mean Corpuscular Hemoglobin 29.7 pg (26-34); Mean Platelet Volume 9.3 fl (7.4-10.4); Platelet Count Result 290 k/mm3 (150-375); Red Blood Count 5.11 M/mm3 (4.6-6.20); Red Cell Distribution Width 13.6 % (11.5-14.5); White Blood Count 10.4 K/mm3 (4.5-10.0)
[2023-11-16 05:03] LABS: Anion Gap 7 mmol/L (4-12); Blood Urea Nitrogen 7 mg/dL (9-20); Calcium 8.6 mg/dL (8.4-10.2); Carbon Dioxide 25 mmol/L (22-30); Chloride 96 mmol/L (98-107); Estimated CRCL calculation 65 ml/min; Estimated Glomerular Filt Rate > 60; Glucose 96 mg/dL (65-110); Potassium 4.1 mmol/L (3.4-5.0); Sodium 128 mmol/L (137-145)
[2023-11-16 05:35] LABS: Alanine Aminotransferase 42 U/L (6-50); Alkaline Phosphatase 86 U/L (38-126); Aspartate Amino Transferase 86 U/L (17-59); Bilirubin,Total 0.9 mg/dL (0.2-1.3)
--- NOTE | 2023-11-16 06:32 | PC.NURSE ---
This patient, Mahamed Potts, was transferred to [[id number]] on 11/16/23 at 0625. Personal belongings sent with patient. Report given to [KATELIN Zavala]. Appropriate documentation sent with patient.
[2023-11-16 07:29] LABS: Sodium 124 mmol/L (137-145)
[2023-11-16] MEDS: DEXTROSE 5% 1,000 ML 1,000 ML 100 ML IV CONT (08:14)
[2023-11-16 08:16] LABS: Glucose Point of Care 99 mg/dl (65-105)
[2023-11-16] MEDS: THIAMINE HCL 100 MG TABLET PO (08:19)
[2023-11-16] MEDS: METOPROLOL SUCCINATE EXT REL 50 MG TABCR PO (08:19)
[2023-11-16] MEDS: FOLIC ACID 1 MG TABLET PO (08:19)
[2023-11-16] MEDS: TAMSULOSIN HCL 0.4 MG CAPSULE PO (08:19)
[2023-11-16] MEDS: chlordiazePOXIDE (*CRX) 25 MG CAPSULE PO ×2 (08:19→21:07)
[2023-11-16] MEDS: FINASTERIDE 5 MG TABLET PO (08:19)
[2023-11-16] MEDS: GABAPENTIN 300 MG CAPSULE PO ×2 (08:19→17:04)
[2023-11-16] MEDS: PANTOPRAZOLE SODIUM IV 40 MG VIAL IV PUSH ×2 (08:20→21:05)
[2023-11-16 12:06] LABS: Glucose Point of Care 111 mg/dl (65-105)
[2023-11-16 14:08] LABS: Sodium 122 mmol/L (137-145)
[2023-11-16] MEDS: LACTATED RINGERS 1,000 ML 150 ML IV CONT (14:22)
--- NOTE | 2023-11-16 14:28 | WPDANESEPPF ---
Anes - Initial Pre Proc Eval Procedure: Operation Date: 11/16/23 16:15 Proposed Procedures p Esophagogastroduodenoscopy - Yoandy Swanson MD Date/Time: 11/16/23 14:28 Surgeon: Anupam Bolanos MD Pre Op Diagnosis: Hyponatremia/Alcohol Intoxication Patient Data Age: 68 Gender: M Height: 1.65 m Weight: 59.2 kg Last Vital Signs Temp 97.2 F L 11/16/23 14:24 Pulse 90 11/16/23 14:24 Resp 18 11/16/23 14:24 BP 121/83 11/16/23 14:24 Pulse Ox 98 11/16/23 14:24 O2 Del Method Room Air 11/16/23 14:24 Allergies Allergy/AdvReac Type Severity Reaction Status Date / Time No Known Allergies Allergy Verified 11/16/23 14:21 Home Medications Medication Instructions Recorded Confirmed Type aspirin 81 mg tablet,delayed 81 mg PO DAILY 12/28/19 11/15/23 History release (Aspir-) acetaminophen 500 mg capsule 1,000 mg PO Q6H PRN fever or pain 12/24/20 11/15/23 Rx #30 caps finasteride 5 mg tablet 5 mg PO DAILY 04/02/22 11/15/23 History gabapentin 300 mg capsule 300 mg PO TID #270 caps 05/27/23 11/15/23 Rx metoprolol succinate 50 mg 50 mg PO DAILY #90 tabs 06/21/23 11/15/23 Rx tablet,extended release 24 hr atorvastatin 40 mg tablet 40 mg PO HS #90 tabs 07/21/23 11/15/23 Rx tamsulosin 0.4 mg capsule 0.4 mg PO DAILY #90 caps 07/21/23 11/15/23 Rx tramadol 50 mg tablet 50 mg PO TID PRN pain #90 tabs 10/18/23 11/15/23 Rx duloxetine 30 mg capsule,delayed 60 mg PO DAILY 11/15/23 11/15/23 History release Laboratory Tests 11/15/23 11/15/23 11/15/23 15:25 18:04 20:13 WBC 12.0 H K/mm3 (4.5-10.0) RBC 5.54 M/mm3 (4.6-6.20) Hgb 16.1 g/dL (14.0-18.0) Hct 45.9 % (42.0-52.0) MCV 82.9 fl (80-100) MCH 29.1 pg (26-34) MCHC 35.1 g/dl (32-36) RDW 13.5 % (11.5-14.5) Plt Count 291 k/mm3 (150-375) MPV 9.1 fl (7.4-10.4) Immature Gran % (Auto) 0.3 % (0-0.5) Neut % (Auto) 75.3 H % (45.5-73.1) Lymph % (Auto) 16.1 L % (18.3-44.2) [place] % (Auto) 7.2 % (2.6-8.5) Eos % (Auto) 0.9 % (0-4.4) Baso % (Auto) 0.2 % (0.2-1.2) Lymph # (Auto) 1.92 K/mm3 (0.9-3.2) [place] # (Auto) 0.9 H K/mm3 (0.1-0.6) Eos # (Auto) 0.1 K/mm3 (0-0.3) Baso # (Auto) 0.0 K/mm3 (0.0-0.1) Abs Immat Gran (auto) 0.04 H K/mm3 (0.00-0.031) Absolute Neuts (auto) 9.0 H K/mm3 (1.3-6.7) Absolute Nucleated RBC 0.000 K/mm3 (0.0-0.012) Nucleated RBC % 0.0 % (0.0-0.2) Platelet Estimate Adequate (Adequate) Large Platelets Present Schistocytes None seen PT 13.6 Seconds (11.1-14.7) INR 1.0 APTT 30.4 Seconds (22.3-36.8) Sodium 120 L mmol/L 124 L mmol/L (137-145) (137-145) Potassium 4.1 mmol/L 4.6 mmol/L (3.4-5.0) (3.4-5.0) Chloride 85 L mmol/L 91 L mmol/L (98-107) (98-107) Carbon Dioxide 21 L mmol/L 24 mmol/L (22-30) (22-30) Anion Gap 14 H mmol/L 9 mmol/L (4-12) (4-12) BUN 5 L D mg/dL 5 L mg/dL (9-20) (9-20) Creatinine 0.70 mg/dL 0.80 mg/dL (0.7-1.3) (0.7-1.3) Estim Creat Clear Calc 77 ml/min 63 ml/min Estimated GFR > 60 > 60 (59 - ) (59 - ) Glucose 85 mg/dL 75 mg/dL (65-110) (65-110) POC Capillary Glucose 81 mg/dl (65-105) Calcium 8.5 mg/dL 7.8 L mg/dL (8.4-10.2) (8.4-10.2) Phosphorus Magnesium Total Bilirubin 0.8 mg/dL (0.2-1.3) Direct Bilirubin AST 74 H U/L (17-59) ALT 43 U/L (6-50) Alkaline Phosphatase 106 U/L (38-126) Troponin I < 0.012 ng/mL < 0.012 ng/mL (0.000-0.034) (0.000-0.034) Total Protein 8.0 g/dL (6.3-8.2) Albumin 4.4 g/dL (3.5-5.1
--- NOTE | 2023-11-16 15:26 | WPDGICN ---
Assessment and Plan Assessment and plan (1) Hematemesis: Code(s): K92.0 - Hematemesis Status: Acute Assessment and Plan: will proceed with urgent egd normal h/h, probably erosive esophagitis but also need to assess for ulcer/varices given alcohol abuse (2) Elevated AST (SGOT): Code(s): R74.01 - Elevation of levels of liver transaminase levels Status: Acute Assessment and Plan: from alcohol abuse will get liver ultrasound to assess if liver dysfunction also get hepatitis panel (3) Acute hyponatremia: Code(s): E87.1 - Hypo-osmolality and hyponatremia Status: Acute Assessment and Plan: by primary (4) Alcohol intoxication: Qualifiers: Complication of substance-induced condition: uncomplicated Qualified Code(s): F10.920 - Alcohol use, unspecified with intoxication, uncomplicated Code(s): F10.929 - Alcohol use, unspecified with intoxication, unspecified Status: Acute Assessment and Plan: ciwa protocol librium, thiamine needs to stop drinking (5) COPD (chronic obstructive pulmonary disease): Qualifiers: COPD type: unspecified COPD Qualified Code(s): J44.9 - Chronic obstructive pulmonary disease, unspecified Code(s): J44.9 - Chronic obstructive pulmonary disease, unspecified Status: Acute (6) Nausea and vomiting: Qualifiers: Vomiting type: unspecified Qualified Code(s): R11.2 - Nausea with vomiting, unspecified Code(s): R11.2 - Nausea with vomiting, unspecified Status: Acute GI Consult Note Consult date/time: 11/16/23 15:26 Reason for consult: hematemesis, alcohol abuse HPI: Mahamed Potts is a 68 year old male with past?medical history of rheumatoid arthritis, prior CVA, COPD with chronic tobacco use, essential hypertension, peripheral neuropathy, BPH and GERD who presented to the ER via EMS due to vomiting and weakness.? The patient was found in his car in the [employer] parking lot where he had been living (he is homeless and says that his girlfriend kciked him out of her house recently).?He is an alcoholic who drinks at least 6-10 beers a day for probably 30 years.?He has been drinking even more than usual and hardly eating, then started vomiting and noted streak of blood in emesis and decided to call EMS. He was found covered in his own feces and was intoxicated with alcohol level above 200 when he arrived to the hospital.?Also noted hyponatremia, ast 82, normal bilirubin, hgb normal at 15. He was admitted to hospital, on CIWA protocol, given iv protonix. Review of Systems Constitutional: Constitutional: Reports lethargy Eyes: Eyes: Denies blurry vision ENT: Reports Normal hearing present Cardiovascular: Cardiovascular: Denies chest pain Respiratory: Respiratory: Denies cough Gastrointestinal: Gastrointestinal: Reports abdominal pain, Reports nausea and Reports vomiting Genitourinary: Genitourinary: Denies dysuria Musculoskeletal: Musculoskeletal: Denies neck pain Integumentary/Breasts: Skin/Breast: Denies rash Neurologic: Denies Abnormal speech present Psychiatric: Psychiatric: Reports anxiety [facility] Past Medical History Medical History (Updated 11/16/23 @ 15:43 by Yoandy Swanson MD) (QFT) 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
--- NOTE | 2023-11-16 16:18 | PM.IMPN ---
Progress Note: A&P Assessment and Plan (1) Acute hyponatremia: Code(s): E87.1 - Hypo-osmolality and hyponatremia Status: Acute Assessment and Plan: Patient has acute hyponatremia due to alcohol intoxication and likely relative volume depletion. Patient's sodium corrected to 124 after only 1 L of fluid. Repeat sodium level had corrected to 130. Fluids were changed to D5W at 100 mL an hour. The patient does have neuropathy and has associated changes with neuropathy but has no evidence of acute encephalopathy are indication for treatment with hypertonic saline. It appears that Nephrology was not consulted from the ER. And sodium not being called. Sodium dropped to 122 so will stop D5W. Will hold on further IV fluids since he is about to start oral intake. Check urine studies. (2) Alcohol intoxication: Qualifiers: Complication of substance-induced condition: uncomplicated Qualified Code(s): F10.920 - Alcohol use, unspecified with intoxication, uncomplicated Code(s): F10.929 - Alcohol use, unspecified with intoxication, unspecified Status: Acute Assessment and Plan: Alcohol level was 221 on admisison. Patient does have history of chronic alcohol abuse. Scheduled Librium added. Continue thiamine and folic acid supplementation. Will monitor for signs or symptoms of withdrawal. (3) Nausea and vomiting: Qualifiers: Vomiting type: unspecified Qualified Code(s): R11.2 - Nausea with vomiting, unspecified Code(s): R11.2 - Nausea with vomiting, unspecified Status: Acute Assessment and Plan: Patient did have some emesis with some reported blood-streaked appearance. However patient's hemoglobin remains normal. He has not had any further emesis currently. He also was covered in stool when he was found in his car. But he has not had any recurrence of diarrheal stools since this morning. He denies any recent antibiotic exposure or travel. Diarrhea is likely due to his alcoholism and malabsorption. Hematemesis was likely due to alcoholic gastritis. GI consulted and EGD performed showing reflux esophagitis grade 2, hiatal hernia but no varices. Stomach and duodenum were normal in appearance. Continue patient on PPI therapy with Protonix. (4) Atypical chest pain: Code(s): R07.89 - Other chest pain Status: Acute Assessment and Plan: Troponins have been negative. No arrhythmias on telemetry. EKG showing normal sinus rhythm with left atrial enlargement and poor R-wave progression. Patient's atypical chest pain likely due to above-mentioned esophagitis. Protonix as discussed. (5) Diarrhea: Qualifiers: Diarrhea type: unspecified type Qualified Code(s): R19.7 - Diarrhea, unspecified Code(s): R19.7 - Diarrhea, unspecified Status: Acute Assessment and Plan: As above. [place] related to his alcoholism. Will monitor clinically. (6) Elevated AST (SGOT): Code(s): R74.01 - Elevation of levels of liver transaminase levels Status: Acute Assessment and Plan: Patient reports a distant history of hepatitis as a child. He does have a mildly elevated AST but this is likely due to his active alcohol use. Hepatitis panel and RUQ US ordered. (7) Alcohol abuse: Code(s): F10.10 - Alcohol abuse, uncomplicated Status: Acute Assessment and Plan: As above (8) Tobacco abuse: Code(s): Z72.0 - Tobacco use Status: Acute Assessment and Plan: Will provide nicotine patch as needed for symptoms of nicotine withdrawal. The patient is not interested in stopping smoking. Plan The patient is going through social upheaval with recent break-up and homelessness. He does verbalize depressive thoughts and suicidal thoughts. He does not have a mode, method or planned to hurt himself at this time. Will continue monitor. Would benefit from outpatient [facility]
[2023-11-16 16:52] LABS: Sodium 126 mmol/L (137-145)
[2023-11-16] MEDS: SUCRALFATE SUSP 100 MG/ML 10 ML UDC 1000 MG PO ×2 (17:04→21:05)
[2023-11-16 17:20] LABS: Glucose Point of Care 110 mg/dl (65-105)
[2023-11-16] MEDS: ATORVASTATIN 40 MG TABLET PO (21:05)
[2023-11-16 23:04] LABS: Creatinine Urine 69.4 mg/dL; Urea Random Urine 318 MG/DL
[2023-11-16 23:05] LABS: Sodium Urine Random 9 meq/L
[2023-11-16 23:56] LABS: Sodium 126 mmol/L (137-145)
[2023-11-17] VITALS: BP 122/73; PULSE 91; PULSE 99
[2023-11-17] MEDS: ACETAMINOPHEN 500 MG TABLET 1000 MG PO (01:05)
[2023-11-17 01:11] LABS: Glucose Point of Care 109 mg/dl (65-105)
[2023-11-17 03:42] VITALS: BP 122/73; PULSE 99
[2023-11-17] MEDS: SUCRALFATE SUSP 100 MG/ML 10 ML UDC 1000 MG PO ×2 (05:13→11:40)
[2023-11-17] MEDS: chlordiazePOXIDE (*CRX) 25 MG CAPSULE PO (05:13)
[2023-11-17 05:17] VITALS: BP 111/71; PULSE 67; RESP 16; TEMP 36.4; O2SAT 96
[2023-11-17 05:31] LABS: Basophils Percent Auto 0.4 % (0.2-1.2); Eosinophils Absolute Auto 0.1 K/mm3 (0-0.3); Eosinophils Percent Auto 1.4 % (0-4.4); Hematocrit 41.3 % (42.0-52.0); Hemoglobin 14.1 g/dL (14.0-18.0); Immature Granulocyte Absolute 0.04 K/mm3 (0.00-0.031); Immature Granulocyte Percent A 0.4 % (0-0.5); Mean Corpuscular HGB Conc 34.1 g/dl (32-36); Mean Corpuscular Hemoglobin 29.4 pg (26-34); Mean Corpuscular Volume 86.2 fl (80-100); Monocytes Absolute Auto 0.9 K/mm3 (0.1-0.6); Monocytes Percent Auto 9.9 % (2.6-8.5); Neutrophils Absolute Auto 5.1 K/mm3 (1.3-6.7); Neutrophils Percent Auto 55.9 % (45.5-73.1); Platelet Count Result 242 k/mm3 (150-375); Red Blood Count 4.79 M/mm3 (4.6-6.20); Red Cell Distribution Width 13.6 % (11.5-14.5); White Blood Count 9.1 K/mm3 (4.5-10.0)
[2023-11-17 05:45] LABS: Alanine Aminotransferase 47 U/L (6-50); Albumin Level 3.6 g/dL (3.5-5.1); Alkaline Phosphatase 89 U/L (38-126); Anion Gap 4 mmol/L (4-12); Aspartate Amino Transferase 86 U/L (17-59); Bilirubin,Total 0.8 mg/dL (0.2-1.3); Blood Urea Nitrogen 11 mg/dL (9-20); Calcium 8.4 mg/dL (8.4-10.2); Carbon Dioxide 28 mmol/L (22-30); Chloride 95 mmol/L (98-107); Estimated CRCL calculation 59 ml/min; Estimated Glomerular Filt Rate > 60; Glucose 93 mg/dL (65-110); Magnesium 1.6 mg/dL (1.6-2.3); Potassium 3.7 mmol/L (3.4-5.0); Sodium 127 mmol/L (137-145)
[2023-11-17 06:32] LABS: Hepatitis B Surface Antigen Negative (Negative)
[2023-11-17 06:37] LABS: HAV RESULT Negative (Negative); Hepatitis B Core IgM Result Negative (Negative)
[2023-11-17 06:49] LABS: Hepatitis C Virus Antibody Negative (Negative)
[2023-11-17 07:06] LABS: Glucose Point of Care 107 mg/dl (65-105)
[2023-11-17 08:00] VITALS: PULSE 76; O2SAT 93
[2023-11-17 08:52] LABS: Glucose Point of Care 112 mg/dl (65-105)
[2023-11-17] MEDS: FINASTERIDE 5 MG TABLET PO (10:02)
[2023-11-17 10:03] VITALS: PULSE 92
[2023-11-17] MEDS: TAMSULOSIN HCL 0.4 MG CAPSULE PO (10:03)
[2023-11-17] MEDS: PANTOPRAZOLE SODIUM IV 40 MG VIAL IV PUSH (10:03)
[2023-11-17] MEDS: THIAMINE HCL 100 MG TABLET PO (10:03)
[2023-11-17] MEDS: METOPROLOL SUCCINATE EXT REL 50 MG TABCR PO (10:03)
[2023-11-17] MEDS: GABAPENTIN 300 MG CAPSULE PO (10:03)
[2023-11-17] MEDS: FOLIC ACID 1 MG TABLET PO (10:03)
[2023-11-17 10:09] VITALS: BP 115/73; PULSE 88
--- NOTE | 2023-11-17 11:22 | PM.DS ---
DS: Admitting Diagnosis Discharge Date 11/17/23 Admitting Diagnosis vomiting, diarrhea and weakness DS: Discharge Diagnosis Discharge Diagnosis (1) Acute hyponatremia: Code(s): E87.1 - Hypo-osmolality and hyponatremia Status: Acute (2) Alcohol intoxication: Qualifiers: Complication of substance-induced condition: uncomplicated Qualified Code(s): F10.920 - Alcohol use, unspecified with intoxication, uncomplicated Code(s): F10.929 - Alcohol use, unspecified with intoxication, unspecified Status: Acute (3) Nausea and vomiting: Qualifiers: Vomiting type: unspecified Qualified Code(s): R11.2 - Nausea with vomiting, unspecified Code(s): R11.2 - Nausea with vomiting, unspecified Status: Acute (4) Atypical chest pain: Code(s): R07.89 - Other chest pain Status: Acute (5) Diarrhea: Qualifiers: Diarrhea type: unspecified type Qualified Code(s): R19.7 - Diarrhea, unspecified Code(s): R19.7 - Diarrhea, unspecified Status: Acute (6) Elevated AST (SGOT): Code(s): R74.01 - Elevation of levels of liver transaminase levels Status: Acute (7) Alcohol abuse: Code(s): F10.10 - Alcohol abuse, uncomplicated Status: Acute (8) Tobacco abuse: Code(s): Z72.0 - Tobacco use Status: Acute DS: Summary Hospital Course Reason for hospitalization: 68yo male with RA, prior CVA, COPD with chronic tobacco use, essential hypertension, peripheral neuropathy, BPH and GERD who presented to the ER via EMS due to vomiting, diarrhea and weakness.??Patient with alcoholism and is homeless. Please see H&P for details. Hospital Course: Patient presents with nausea, vomiting, diarrhea and weakness. He was found to have acute hyponatremia due to alcohol intoxication and likely relative volume depletion.? Patient's sodium corrected to 124 after only 1 L of fluid.? Repeat sodium level had corrected to 130.? Fluids were changed to D5W and sodium dropped again. Urine sodium was 9 and he had a low FENa. We stopped all IV fluids and allowed him to rehydrate and sodium climbed again to 127. Alcohol level was 221 on admission. Patient does have history of chronic alcohol abuse.?We scheduled Librium later after admission. Also treated with thiamine and folic acid supplementation.? He was monitored with CIWA and no signs or symptoms of withdrawal. Patient did have emesis with some reported blood-streaked appearance.? However patient's hemoglobin remainsed normal.? He has not had any further emesis currently.? He also was covered in stool when he was found in his car.? He has not had any recurrence of diarrheal stools since admission.? He denies any recent antibiotic exposure or travel.? Diarrhea is likely due to his alcoholism and malabsorption.? GI consulted and EGD performed showing reflux esophagitis grade 2, hiatal hernia but no varices.? Stomach and duodenum were normal in appearance. Hematemesis was likely due to alcoholic gastritis.? Treated with Carafate and protonix. Patient with atypical chest pain. Troponins were negative.? No arrhythmias on telemetry. EKG showing normal sinus rhythm with left atrial enlargement and poor R-wave progression.? Patient's atypical chest pain likely due to above-mentioned esophagitis.? Patient reports a distant history of hepatitis as a child.? He does have a mildly elevated AST but this is likely due to his active alcohol use. Hepatitis panel and RUQ US were negative. Patient was educatead about the benefits of abstaining from alcohol and tobacco use. The patient is going through social upheaval with recent break-up and homelessness.? He did verbalize depressive thoughts and suicidal thoughts.? He does not have a mode, method or planned to hurt himself at this time.?Case Management consulted but no further suicidal thoughts. His girlfriend has decided to take him back and he has decided to quit drinking and smok
--- NOTE | 2023-11-17 12:36 | WPDANESPN ---
Anes - Prog Note Post-Op Date/Time: 11/17/23 12:36 Cardiovascular status: normal Respiratory status: normal Airway patency: baseline Mental status: baseline Post-Op hydration status: normal Vital Signs: Last Vital Signs Temp 97.6 F 11/17/23 05:17 Pulse 88 11/17/23 10:09 Resp 16 11/17/23 05:17 BP 115/73 11/17/23 10:09 Pulse Ox 93 11/17/23 08:00 O2 Del Method Room Air 11/17/23 08:00 Pain Score (VAS): 0/10 I/O: Intake & Output 11/16/23 11/17/23 11/17/23 23:59 07:59 15:59 Intake Total 222 300 Output Total 850 650 Balance -628 -350 Laboratory Tests 11/17/23 04:59 11/17/23 04:59 11/16/23 11/16/23 11/16/23 13:40 16:37 17:08 WBC RBC Hgb Hct MCV MCH MCHC RDW Plt Count MPV Immature Gran % (Auto) Neut % (Auto) Lymph % (Auto) [place] % (Auto) Eos % (Auto) Baso % (Auto) Lymph # (Auto) [place] # (Auto) Eos # (Auto) Baso # (Auto) Abs Immat Gran (auto) Absolute Neuts (auto) Absolute Nucleated RBC Nucleated RBC % Sodium 122 L 126 L Potassium Chloride Carbon Dioxide Anion Gap BUN Creatinine Estim Creat Clear Calc Estimated GFR Glucose POC Capillary Glucose 110 H Calcium Magnesium Total Bilirubin AST ALT Alkaline Phosphatase Total Protein Albumin Ur Random Sodium Ur Random Urea Urine Creatinine Hepatitis A IgM Ab Hep Bs Antigen Hep B Core IgM Ab Hepatitis C Ab Screen 11/16/23 11/16/23 11/17/23 22:41 23:46 00:58 WBC RBC Hgb Hct MCV MCH MCHC RDW Plt Count MPV Immature Gran % (Auto) Neut % (Auto) Lymph % (Auto) [place] % (Auto) Eos % (Auto) Baso % (Auto) Lymph # (Auto) [place] # (Auto) Eos # (Auto) Baso # (Auto) Abs Immat Gran (auto) Absolute Neuts (auto) Absolute Nucleated RBC Nucleated RBC % Sodium 126 L Potassium Chloride Carbon Dioxide Anion Gap BUN Creatinine Estim Creat Clear Calc Estimated GFR Glucose POC Capillary Glucose 109 H Calcium Magnesium Total Bilirubin AST ALT Alkaline Phosphatase Total Protein Albumin Ur Random Sodium 9 Ur Random Urea 318 Urine Creatinine 69.4 Hepatitis A IgM Ab Hep Bs Antigen Hep B Core IgM Ab Hepatitis C Ab Screen 11/17/23 11/17/23 11/17/23 04:59 07:02 08:45 WBC 9.1 RBC 4.79 Hgb 14.1 Hct 41.3 L MCV 86.2 MCH 29.4 MCHC 34.1 RDW 13.6 Plt Count 242 MPV 10.0 Immature Gran % (Auto) 0.4 Neut % (Auto) 55.9 Lymph % (Auto) 32.0 [place] % (Auto) 9.9 H Eos % (Auto) 1.4 Baso % (Auto) 0.4 Lymph # (Auto) 2.90 [place] # (Auto) 0.9 H Eos # (Auto) 0.1 Baso # (Auto) 0.0 Abs Immat Gran (auto) 0.04 H Absolute Neuts (auto) 5.1 Absolute Nucleated RBC 0.000 Nucleated RBC % 0.0 Sodium 127 L Potassium 3.7 Chloride 95 L Carbon Dioxide 28 Anion Gap 4 BUN 11 Creatinine 0.90 Estim Creat Clear Calc 59 Estimated GFR > 60 Glucose 93 POC Capillary Glucose 107 H 112 H Calcium 8.4 Magnesium 1.6 Total Bilirubin 0.8 AST 86 H ALT 47 Alkaline Phosphatase 89 Total Protein 6.0 L Albumin 3.6 Ur Random Sodium Ur Random Urea Urine Creatinine Hepatitis A IgM Ab Negative Hep Bs Antigen Negative Hep B Core IgM Ab Negative Hepatitis C Ab Screen Negative Post-procedural complaints: none Patient Feedback: Patient satisfied with anesthetic care.
--- NOTE | 2023-11-17 14:39 | WPDGIPROGNO ---
Progress Note: A&P Assessment and Plan (1) Ulcerative esophagitis: Code(s): K22.10 - Ulcer of esophagus without bleeding Status: Acute Assessment and Plan: noted in EGD no more bleeding continue with ppi daily egd in 3 months to assess for healing he says that won't drink anymore (2) Nausea and vomiting: Qualifiers: Vomiting type: unspecified Qualified Code(s): R11.2 - Nausea with vomiting, unspecified Code(s): R11.2 - Nausea with vomiting, unspecified Status: Acute Assessment and Plan: resolved (3) Hematemesis: Code(s): K92.0 - Hematemesis Status: Acute Assessment and Plan: no more bleeding from erosive esophagitis (4) Elevated AST (SGOT): Code(s): R74.01 - Elevation of levels of liver transaminase levels Status: Acute (5) Alcohol intoxication: Qualifiers: Complication of substance-induced condition: uncomplicated Qualified Code(s): F10.920 - Alcohol use, unspecified with intoxication, uncomplicated Code(s): F10.929 - Alcohol use, unspecified with intoxication, unspecified Status: Acute (6) Alcohol abuse: Code(s): F10.10 - Alcohol abuse, uncomplicated Status: Acute (7) COPD (chronic obstructive pulmonary disease): Qualifiers: COPD type: unspecified COPD Qualified Code(s): J44.9 - Chronic obstructive pulmonary disease, unspecified Code(s): J44.9 - Chronic obstructive pulmonary disease, unspecified Status: Acute Subjective Date/time seen: 11/17/23 10:20 Interval history: doing much better, no more nausea and eating he wants to go home today, he says that girlfriend will take him back at her house Review of Systems Review of Systems: All systems reviewed & are unremarkable except as noted in HPI and below Exam Const: General: comfortable and no acute distress HENMT: Face/Nose/Sinus: Normal nares present Eyes: General: appearance normal, both eyes and all related structures Neck: Neck: supple Resp: Auscultation: clear to auscultation bilaterally Cardio: Rate: regular rate Rhythm: regular rhythm GI: Inspection: non-distended GI Palp: Yes Soft to palpation and No Tenderness to palpation present (GI) Auscultation: normal bowel sounds Skin: General skin exam: normal color Neuro: Speech: normal speech Motor exam (neuro): 5/5 motor strength present throughout Extrem: General: normal to inspection Psych: Affect: normal affect Objective Data Vital Signs Vital Signs: Vital Signs - 24 hr 11/16/23 15:38 11/16/23 15:48 11/16/23 15:58 Temperature Pulse Rate 114 H 87 85 Pulse Rate [Monitor] Respiratory Rate 20 19 20 Blood Pressure 90/63 L 105/72 110/70 Pulse Oximetry 97 95 95 Oxygen Delivery Room Air Room Air Room Air 11/16/23 16:00 11/16/23 19:32 11/16/23 19:32 Temperature 98.3 F Pulse Rate 90 90 Pulse Rate [Monitor] 99 Respiratory Rate 18 18 Blood Pressure 126/72 126/72 Pulse Oximetry 95 95 Oxygen Delivery Room Air 11/16/23 20:16 11/16/23 20:53 11/17/23 00:00 Temperature 97.6 F Pulse Rate 87 96 91 Pulse Rate [Monitor] Respiratory Rate 16 Blood Pressure 122/73 Pulse Oximetry 98 Oxygen Delivery 11/17/23 00:00 11/17/23 03:42 11/17/23 05:17 Temperature 97.6 F Pulse Rate 67 Pulse Rate [Monitor] 99 99 Respiratory Rate 16 Blood Pressure 122/73 122/73 111/71 Pulse Oximetry 96 Oxygen Delivery 11/17/23 08:00 11/17/23 10:03 11/17/23 10:09 Temperature Pulse Rate 76 92 88 Pulse Rate [Monitor] Respiratory Rate Blood Pressure 115/73 Pulse Oximetry Oxygen Delivery 11/17/23 08:00 Temperature Pulse Rate Pulse Rate [Monitor] Respiratory Rate Blood Pressure Pulse Oximetry 93 Oxygen Delivery Room Air Intake/Output Intake/Output: Intake & Output 11/14/23 11/15/23 11/16/23 11/17/23 23:59 23:59 23:59 23:59 Intake Total 1000 2453.7 300 Outpu
== END 2023-11-17 11:57 | disposition home or self-care (01) | DRG 392 ==
LOC: ANHED 16:50 → ANHIMU 17:08 → ANH2MED 11-16 06:32
PROVIDERS: Internal Medicine; Internal Medicine Gastroenterology; Admitting Provider Internal Medicine; Emergency Provider Student in an Organized Health Care Education/Training Program; PCP Family Medicine; Visit Provider Internal Medicine
PROC: 0DJ08ZZ Inspection of Upper Intestinal Tract, Via Natural or Artificial Opening Endoscopic (ICD-10-PCS; CPT 43235; principal; 2023-11-16 16:15)
DX: K29.20 Alcoholic gastritis without bleeding (principal); E87.1 Hypo-osmolality and hyponatremia; K90.9 Intestinal malabsorption, unspecified; Z59.02 Unsheltered homelessness; K92.0 Hematemesis; K22.10 Ulcer of esophagus without bleeding; K21.00 Gastro-esophageal reflux disease with esophagitis, without bleeding; E78.5 Hyperlipidemia, unspecified; F10.229 Alcohol dependence with intoxication, unspecified; F41.9 Anxiety disorder, unspecified; F32.A Depression, unspecified; Y90.7 Blood alcohol level of 200-239 mg/100 ml; G62.9 Polyneuropathy, unspecified; G25.2 Other specified forms of tremor; G89.29 Other chronic pain; I10 Essential (primary) hypertension; J44.9 Chronic obstructive pulmonary disease, unspecified; K44.9 Diaphragmatic hernia without obstruction or gangrene; M06.9 Rheumatoid arthritis, unspecified; M54.9 Dorsalgia, unspecified; N40.0 Benign prostatic hyperplasia without lower urinary tract symptoms; R07.89 Other chest pain; Z87.891 Personal history of nicotine dependence; Z86.73 Personal history of transient ischemic attack (TIA), and cerebral infarction without residual deficits
CPT/HCPCS: 36415; 71045; 76705; 80048; 80053; 80074; 80076; 80307; 82570; 82948; 83690; 83735; 84100; 84295; 84300; 84484; 84540; 85014; 85018; 85025; 85027; 85610; 85730; 88305; 93005; 96374; 96375; 99285; A9270; C9113; J2405; J2704; J7030; J7070; J7120

== ENCOUNTER 2023-12-08 01:30 | Emergency (ER) | payer MEDICARE, MEDICAID, SELFPAY ==
--- NOTE | ~2023-12-08 | XR_ITS ---
Left Knee Technique: AP, lateral, and oblique views were obtained. Clinical History: Status post fall Findings: No fracture or dislocation is seen. Osseous alignment is anatomic. Joint spaces are preserv ed without degenerative or erosive change. Soft tissues are unremarkable. No joint effusion is seen. Impression: Unremarkable left knee radiographs. Reviewed, dictated and finalized at location . Impression: Unremarkable left knee radiographs.
--- NOTE | ~2023-12-08 | XR_ITS ---
Portable chest x-ray Comparison: 11/15/2023 Clinical History: Chest pain Findings: No consolidation or pleural effusion seen. No pneumothorax. There is COPD pattern and/or m ild chronic interstitial disease. Cardiomediastinal silhouette is stable. Bones and soft tissues are unremarkable. Impression: COPD and/or mild chronic interstitial disease. No acute abnormality evident. Reviewed, dictated and finalized at location . Impression: COPD and/or mild chronic interstitial disease. No acute abnormality evident.
--- NOTE | ~2023-12-08 | XR_ITS ---
Right elbow Technique: AP, oblique, and lateral views were obtained. Clinical History: Pain COMPARISON: 12/19/2020 Findings: No acute fracture or dislocation is seen. Chronic, nonunited fracture of the radial head is again present. There is mild degenerative change of the elbow joint, with probable small joint effus ion. Impression: No definite acute abnormality seen. Chronic nonunited radial head fracture. Mild degenerative changes noted with probable small elbow joint effusion. Reviewed, dictated and finalized at location . Impression: No definite acute abnormality seen. Chronic nonunited radial head fracture. Mild degenerative changes noted with probable small elbow joint effusion.
[2023-12-08 01:30] VITALS: BP 102/84; PULSE 111; RESP 16; TEMP 36.5; O2SAT 96
--- NOTE | 2023-12-08 01:45 | ECG_ITS ---
[facility] [address] Test Date: 2023-12-08 Pat Name: Mahamed Potts Department: Room: Gender: M General Office Dispatcher: : [id number] Requested By: Herlinda Snyder Order Number: [id number] Whit MD: Daniel Roldan D.O. Measurements Intervals [place] Rate: 105 P: 69 [place]: 166 QRS: 63 QRSD: 106 T: 69 QT: 338 QTc: 447 Interpretive Statements SINUS TACHYCARDIA POSSIBLE LEFT ATRIAL ENLARGEMENT DELAYED PRECORDIAL R/S TRANSITION ST ELEVATION IN ANT/INF LEADS, PROBABLY EARLY REPOLARIZATION BASELINE ARTIFACT- I, AVL, V2 ABNORMAL ECG No previous ECG available for comparison Electronically Signed On 12-08-2023 15:05:22 CDT by Daniel Roldan D.O.
--- NOTE | 2023-12-08 01:46 | ED.FALL ---
HPI - Fall General Chief Complaint: Fall <MITZY Aguayo Last Filed: 12/08/23 02:54> Stated Complaint: KNEE PAIN S/P FALL YESTERDAY <MITZY Aguayo Last Filed: 12/08/23 02:54> Time Seen by Provider: 12/08/23 01:36 <MITZY Aguayo Last Filed: 12/08/23 02:54> History of Present Illness HPI Narrative: 68-year-old male with history of alcoholism, COPD, hypertension hyperlipidemia presents to emergency department via EMS for multiple medical complaints. Patient states he has been an alcoholic for many years. States he drinks about 8-10 beers per day. States he has had multiple falls recently, last fall was yesterday. States he fell yesterday because he was drunk, however is unable to tell me the reasons why he has fallen prior to that.. Denies hitting his head or losing consciousness. He is reporting left knee pain and right elbow pain from his fall yesterday. States he landed on his knee and elbow. He is also reporting exertional shortness of breath which he states he has had for 2 years with some intermittent chest pain he also states he has had for many years. States he is not currently having chest pain, however did report to EMS he was having chest pain while in the truck. He is unable to identify any aggravating or alleviating factors. Reports intermittent cough, denies fever. Last alcoholic beverage was 1 hour ago. He is currently living with his girlfriend. <Herlinda Alex PA-C - Last Filed: 12/08/23 02:54> Related Data Home Medications: Home Medications Medication Instructions Recorded Confirmed aspirin 81 mg tablet,delayed 81 mg PO DAILY 12/28/19 11/15/23 release (Aspir-) duloxetine 30 mg capsule,delayed 60 mg PO DAILY 11/15/23 11/15/23 release <MITZY Aguayo Last Filed: 12/08/23 02:54> Allergies/Adverse Reactions: Allergies Allergy/AdvReac Type Severity Reaction Status Date / Time No Known Allergies Allergy Verified 12/08/23 01:40 <MITZY Aguayo Last Filed: 12/08/23 02:54> Review of Systems Review of Systems: CONSTITUTIONAL: Denies fever, chills, or sweats. EYES: Denies visual changes, redness, or discharge. ENT: Denies rhinorrhea, congestion, sore throat, or otalgia. CARDIOVASCULAR: See HPI RESPIRATORY: Denies cough or dyspnea. GASTROINTESTINAL: Denies abdominal pain, nausea, vomiting, or diarrhea. GENITOURINARY: Denies dysuria or hematuria. SKIN: Denies rash or itching. MUSCULOSKELETAL: See HPI NEUROLOGIC: Denies headache, numbness, or weakness. PSYCHIATRIC: Denies anxiety or depression. 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 Alcohol abuse Anxiety Benign prostatic hyperplasia Chronic anemia Chronic back pain COPD (chronic obstructive pulmonary disease) Depression with anxiety Genu varum of both lower extremities Hematemesis History of cerebrovascular accident With residual left-sided visual deficit and minimal left-sided weakness Hyperlipidemia Hypertension Interstitial lung disease due to collagen vascular disease Peripheral neuropathy Rheumatoid arthritis (~2011) Tobacco abuse Ulcerative esophagitis <Herlinda Alex PA-C - Last Filed: 12/08/23 02:54> Surgical History Surgical History: Surgical History History of lumbar laminectomy History of orthopedic surgery ORIF right patellar fracture. ORIF right elbow fracture. (right elbow hardware complicated by infection 12/2020) History of right-sided carotid endarterectomy <Herlinda Alex PA-C - Last Filed: 12/08/23 02:54> Family History Family History: Family History Mother No problems noted.
[2023-12-08 02:12] LABS: Basophils Percent Auto 0.1 % (0.2-1.2); Eosinophils Percent Auto 0.4 % (0-4.4); Hematocrit 41.3 % (42.0-52.0); Hemoglobin 14.1 g/dL (14.0-18.0); Immature Granulocyte Absolute 0.03 K/mm3 (0.00-0.031); Immature Granulocyte Percent A 0.3 % (0-0.5); Lymphocytes Absolute Auto 1.99 K/mm3 (0.9-3.2); Lymphocytes Percent Auto 18.4 % (18.3-44.2); Mean Corpuscular HGB Conc 34.1 g/dl (32-36); Mean Corpuscular Hemoglobin 29.3 pg (26-34); Mean Corpuscular Volume 85.9 fl (80-100); Mean Platelet Volume 9.4 fl (7.4-10.4); Monocytes Absolute Auto 1.1 K/mm3 (0.1-0.6); Neutrophils Absolute Auto 7.6 K/mm3 (1.3-6.7); Neutrophils Percent Auto 70.8 % (45.5-73.1); Platelet Count Result 422 k/mm3 (150-375); Red Blood Count 4.81 M/mm3 (4.6-6.20); Red Cell Distribution Width 13.9 % (11.5-14.5); White Blood Count 10.8 K/mm3 (4.5-10.0)
[2023-12-08 02:22] LABS: Alanine Aminotransferase 16 U/L (6-50); Alkaline Phosphatase 107 U/L (38-126); Anion Gap 11 mmol/L (4-12); Aspartate Amino Transferase 30 U/L (17-59); Bilirubin,Total 0.6 mg/dL (0.2-1.3); Blood Urea Nitrogen 2 mg/dL (9-20); Calcium 8.7 mg/dL (8.4-10.2); Carbon Dioxide 20 mmol/L (22-30); Chloride 99 mmol/L (98-107); Estimated CRCL calculation 72 ml/min; Estimated Glomerular Filt Rate > 60; Glucose 101 mg/dL (65-110); Lipase 177 U/L (23-300); Potassium 3.5 mmol/L (3.4-5.0); Sodium 130 mmol/L (137-145)
[2023-12-08 02:24] LABS: Appearance Urine Clear (Clear); Bilirubin Urine Negative (Negative); Blood Urine Negative (Negative); Color Urine Yellow (Yellow); Glucose Urine UA Negative (Negative); Ketones Urine Negative (Negative); Leukocyte Esterase Ur Negative LEU/UL (Negative); Nitrate Urine Negative (Negative); Protein Urine Negative (Negative); Urobilinogen Urine 0.2 mg/dL (<2.0)
[2023-12-08 02:27] LABS: Specific Grav Ur 1.003 (1.001-1.035)
[2023-12-08 02:29] LABS: Add Urine Microscopic? NO
[2023-12-08 02:30] LABS: INR 1.1; Prothrombin Time 14.4 Seconds (11.1-14.7)
[2023-12-08 02:30] LABS: Ethanol 120 mg/dL (<10)
[2023-12-08 02:31] LABS: Partial Thromboplastin Time 31.5 Seconds (22.3-36.8)
[2023-12-08 02:36] LABS: Magnesium 1.1 mg/dL (1.6-2.3)
[2023-12-08 02:43] LABS: Amphetamine Screen Urine Negative (Negative); Barbiturate Screen Urine Negative (Negative); Benzodiazepines Screen Urine Negative (Negative); Cannabinoid Screen Urine Negative (Negative); Cocaine Screen Urine Negative (Negative); Methadone Screen Urine Negative (Negative); Opiate Screen Urine Negative (Negative); Phencyclidine Screen Urine Negative (Negative)
[2023-12-08 02:43] LABS: Troponin I < 0.012 ng/mL (0.000-0.034)
[2023-12-08] MEDS: SODIUM CHLORIDE 0.9% IV 1,000 ML 999 ML IV CONT (02:45)
[2023-12-08] MEDS: MAGNESIUM SULFATE 3GM/D5W100ML 3 GM/100 ML BAG IVPB (02:54)
[2023-12-08 03:01] VITALS: BP 101/65; PULSE 97; RESP 16; O2SAT 98
[2023-12-08 04:57] VITALS: BP 148/77; PULSE 94; RESP 16; O2SAT 95
[2023-12-08 05:35] LABS: Troponin I < 0.012 ng/mL (0.000-0.034)
== END 2023-12-08 06:26 | disposition home or self-care (01) ==
PROVIDERS: Physician Assistant; Emergency Provider Emergency Medicine; PCP Family Medicine
DX: S80.02XA Contusion of left knee, initial encounter (principal); S50.02XA Contusion of left elbow, initial encounter; F10.229 Alcohol dependence with intoxication, unspecified; Y90.6 Blood alcohol level of 120-199 mg/100 ml; E83.42 Hypomagnesemia; I69.998 Other sequelae following unspecified cerebrovascular disease; H53.9 Unspecified visual disturbance; J44.9 Chronic obstructive pulmonary disease, unspecified; J84.9 Interstitial pulmonary disease, unspecified; N40.0 Benign prostatic hyperplasia without lower urinary tract symptoms; D64.9 Anemia, unspecified; E78.5 Hyperlipidemia, unspecified; G62.9 Polyneuropathy, unspecified; M06.9 Rheumatoid arthritis, unspecified; M35.9 Systemic involvement of connective tissue, unspecified; F41.8 Other specified anxiety disorders; F17.290 Nicotine dependence, other tobacco product, uncomplicated; Z79.82 Long term (current) use of aspirin; Z79.899 Other long term (current) drug therapy; R00.0 Tachycardia, unspecified; R94.31 Abnormal electrocardiogram [ECG] [EKG]; W19.XXXA Unspecified fall, initial encounter
CPT/HCPCS: 36415; 71045; 73080; 73564; 80053; 80307; 81003; 83690; 83735; 84484; 85025; 85610; 85730; 93005; 96365; 96366; 99284; A4565; J3475; J7030

== ENCOUNTER → 2023-12-23 13:06 | Outpatient (CLI) | payer MEDICARE, MEDICAID, SELFPAY ==
--- NOTE | ~2023-12-23 | XR_ITS ---
XR lumbar spine min 4V DATE: 12/23/2023 13:29 INDICATION: Low back pain TECHNIQUE: AP, lateral, bilateral oblique views COMPARISON: November 06, 2020 CT lumbar spine 11/15/2023 and 09/21/2021 AP chest FINDINGS: There is stable chronic burst fracture at T12 since 11/06/2020. There is a stable chronic moderate anterior wedge compression fracture at L1 since 11/06/2020. There is moderately severe biconcave fracture deformity of T10, which is not included in the October CT examination, preventing comparison. However, the T10 fracture appears to be present on prio r chest regressed dating back to 09/21/2021, indicating that this is chronic as well There is osteopenia. There is 18 degrees levoscoliosis measured from T12 to L4. No apparent pars interarticularis defect is noted. There is multilevel degenerative disc disease of the lumbar spine, moderately severe L1-2 and L2-3, m oderate L3-4, and severe at L4-5 and L5-S1. The sacroiliac joints are intact. Possible recent been displaced fracture at the anterior aspect of the left sixth rib; recommend clini tara correlation. There are old bilateral rib fractures. IMPRESSION: 18 degrees levoscoliosis Osteopenia Multilevel prominent degenerative disc disease Fracture deformities of T10, T12, L1; the latter two are chronic and stable since 11/06/2020. The T10 fracture is present upon retrospective review of 11/15/2023 and 09/21/2021 AP chest radiographic views. Possible subtle very anterior left sixth rib recent fracture Reviewed, dictated and finalized at location A. IMPRESSION: 18 degrees levoscoliosis Osteopenia Multilevel prominent degenerative disc disease Fracture deformities of T10, T12, L1; the latter two are chronic and stable sin 11/06/2020. The T10 fracture is present upon retrospective review of 11/15/2023 and 09/21/2021 AP chest radiographic views. Possible subtle very anterior left sixth rib recent fracture
== END ==
PROVIDERS: PCP Family Medicine; Visit Provider Family Medicine
DX: M85.88 Other specified disorders of bone density and structure, other site (principal); M51.36 Other intervertebral disc degeneration, lumbar region
CPT/HCPCS: 72110

== ENCOUNTER 2024-02-01 19:04 | Emergency (ER) | payer MEDICARE, SELFPAY ==
[2024-02-01 19:08] VITALS: BP 124/74; PULSE 114; RESP 20; TEMP 36.8; O2SAT 98
--- NOTE | 2024-02-01 19:31 | ECG_ITS ---
Test Date: 2024-02-01 19:34:18 Measurements Intervals [place] Rate: 102 P: 75 [place]: 149 QRS: -28 QRSD: 102 T: 45 QT: 332 QTc: 434 Interpretive Statements SINUS TACHYCARDIA POSSIBLE LEFT ATRIAL ENLARGEMENT PEAKED T WAVES- CONSIDER HYPERKALEMIA BASELINE ARTIFACT- I, III, AVR, AVL, AVF, V1-V6 ABNORMAL ECG Compared to ECG 12/08/2023 01:55:35 PEAKED T WAVES NOW PRESENT Electronically Signed On 02-02-2024 06:13:05 CDT by Daniel Roldan D.O.
--- NOTE | 2024-02-01 19:31 | PC.NURSE ---
Pt up to triage desk asking if he were to go home and call an ambulance if he would get to go straight to the back. Explained to pt how triage system works. States that he is afraid of having a heart attack. Admits to having chest pain, but did not tell the immigration investigator. EKG ordered and completed.
--- NOTE | 2024-02-01 19:40 | PC.NURSE ---
Pt back up to desk stating that he has decided that he is leaving. Used wheelchair to wheel self outside and then left. Pt axox4.
== END 2024-02-01 19:40 | disposition left against medical advice (07) ==
PROVIDERS: Emergency Provider Student in an Organized Health Care Education/Training Program; PCP Family Medicine
DX: E86.0 Dehydration (principal)
CPT/HCPCS: 93005; 99199

== ENCOUNTER 2024-02-01 23:10 | Emergency (ER) | payer MEDICARE, SELFPAY ==
--- NOTE | ~2024-02-01 | XR_ITS ---
EXAMINATION: XR chest 2V Exam Date/Time: 02/01/2024 23:55 CDT HISTORY: cp, sob Comparison: 12/08/2023. RESULT: Lines, tubes, and devices: None. Lungs and pleura: Moderate diffuse reticular opacities, peripheral and basilar predominance, slightl y increased since the prior exam. No focal consolidation or pneumothorax. Cardiomediastinal silhouette: Stable. Other: No acute osseous or upper abdominal finding. IMPRESSION: Interstitial edema overlying chronic lung disease, versus worsening interstitial lung disease. Reviewed, dictated and finalized at location K. IMPRESSION: Interstitial edema overlying chronic lung disease, versus worsening interstitia l lung disease.
--- NOTE | ~2024-02-01 | CT_ITS ---
EXAMINATION: CTA chest PE protocol DATE: 02/02/2024 03:41 INDICATION: Shortness of breath and palpitations TECHNIQUE: Computed tomography (CT) pulmonary angiogram of the chest was performed with 100 mL Omnipa que-350 intravenous contrast. Additional 3D reconstructions utilizing coronal maximum intensity proje ction (MIP) were performed. Automated exposure control and iterative reconstruction technique were em ployed. The dose-length product was 198.05 mGy-cm. COMPARISON: 11/03/2020 FINDINGS: No pulmonary embolism.Mild emphysema. Internal progression of peripheral and lower lung predominant i rregular septal line thickening with some groundglass opacity and honeycombing consistent with usual interstitial pneumonia (UIP) pattern chronic interstitial lung disease. No pleural effusion. Heart si ze is normal. Atherosclerotic coronary artery calcification. Chronic small pericardial effusion. Thor acic aorta is normal in caliber with no dissection. No pathologically enlarged thoracic lymphadenopat hy. Visualized upper abdomen is unremarkable. Chronic nonunited sternal fracture and several chronic compression and burst fractures in the thoracic and upper lumbar spine. Mild S-shaped thoracolumbar s coliosis. IMPRESSION: 1. No pulmonary embolism. 2. Mild emphysema with interval progression of UIP pattern chronic interstitial lung disease. Reviewed, dictated and finalized at location A.
[2024-02-01 23:15] VITALS: BP 140/83; PULSE 109; RESP 18; TEMP 37.2; O2SAT 96
--- NOTE | 2024-02-01 23:27 | ECG_ITS ---
Test Date: 2024-02-01 23:33:19 Measurements Intervals [place] Rate: 104 P: 75 [place]: 155 QRS: 0 QRSD: 102 T: 53 QT: 337 QTc: 444 Interpretive Statements SINUS TACHYCARDIA POSSIBLE LEFT ATRIAL ENLARGEMENT DELAYED PRECORDIAL R/S TRANSITION BASELINE ARTIFACT- I, II, III, AVR, AVL, AVF, V1-V2, V4-V6 BORDERLINE ECG Compared to ECG 02/01/2024 19:34:18 No significant changes Electronically Signed On 02-02-2024 06:05:59 CDT by Daniel Roldan D.O.
[2024-02-02 00:20] LABS: Basophils Percent Auto 0.3 % (0.2-1.2); Eosinophils Absolute Auto 0.1 K/mm3 (0-0.3); Eosinophils Percent Auto 0.8 % (0-4.4); Hematocrit 38.1 % (42.0-52.0); Hemoglobin 13.5 g/dL (14.0-18.0); Immature Granulocyte Absolute 0.03 K/mm3 (0.00-0.031); Immature Granulocyte Percent A 0.3 % (0-0.5); Lymphocytes Absolute Auto 2.64 K/mm3 (0.9-3.2); Lymphocytes Percent Auto 26.9 % (18.3-44.2); Mean Corpuscular HGB Conc 35.4 g/dl (32-36); Mean Corpuscular Hemoglobin 29.1 pg (26-34); Mean Corpuscular Volume 82.1 fl (80-100); Mean Platelet Volume 9.2 fl (7.4-10.4); Monocytes Absolute Auto 0.9 K/mm3 (0.1-0.6); Monocytes Percent Auto 9.3 % (2.6-8.5); Neutrophils Absolute Auto 6.1 K/mm3 (1.3-6.7); Neutrophils Percent Auto 62.4 % (45.5-73.1); Platelet Count Result 357 k/mm3 (150-375); Red Blood Count 4.64 M/mm3 (4.6-6.20); Red Cell Distribution Width 14.6 % (11.5-14.5); White Blood Count 9.8 K/mm3 (4.5-10.0)
[2024-02-02 00:27] LABS: Alanine Aminotransferase 44 U/L (6-50); Alkaline Phosphatase 124 U/L (38-126); Anion Gap 14 mmol/L (4-12); Aspartate Amino Transferase 62 U/L (17-59); Bilirubin,Total 0.6 mg/dL (0.2-1.3); Calcium 8.6 mg/dL (8.4-10.2); Carbon Dioxide 23 mmol/L (22-30); Chloride 90 mmol/L (98-107); Estimated CRCL calculation 72 ml/min; Estimated Glomerular Filt Rate > 60; Glucose 82 mg/dL (65-110); Lipase 183 U/L (23-300); Potassium 3.4 mmol/L (3.4-5.0); Sodium 127 mmol/L (137-145)
[2024-02-02 00:29] LABS: INR 1.1; Prothrombin Time 14.4 Seconds (11.1-14.7)
[2024-02-02 00:30] LABS: Partial Thromboplastin Time 29.4 Seconds (22.3-36.8)
[2024-02-02 00:38] LABS: Troponin I < 0.012 ng/mL (0.000-0.034)
[2024-02-02 00:40] LABS: Blood Urea Nitrogen < 2 mg/dL (9-20)
[2024-02-02 00:46] VITALS: PULSE 115; RESP 20; O2SAT 97
[2024-02-02 01:09] LABS: Magnesium 1.4 mg/dL (1.6-2.3)
--- NOTE | 2024-02-02 01:12 | ED.CHESTPAIN ---
HPI - Chest Pain General Chief Complaint: Chest Pain Stated Complaint: PALPITATIONS, CHEST PRESSURE, SOB, DIARRHEA Time Seen by Provider: 02/02/24 00:44 Source: patient Mode of arrival: ambulatory Limitations: no limitations History of Present Illness HPI narrative: Patient presents with left-sided chest pressure and palpitations as well as shortness of breath and diarrhea of a few weeks duration. He has a history of COPD not on supplemental oxygen. Patient states he uses both a nebulizer and an inhaler. He takes Tylenol for his arthritis cannot take NSAIDs because of history of bleeds. He denies any abdominal pain. No suicidal ideation. He is complaining of back pain secondary to history of spinal fracture. He denies any fevers or recent antibiotics. He states because of his frequent diarrhea the skin on his buttocks is raw as is the skin on his scrotum given he wears a brief. Of note, patient had presented emergency department earlier but left without being seen. Patient has heavy alcohol use starting 4-5 days ago. He states his last drink was at 4:00 p.m. and it is reported that he has 4 12 oz beers per day, more recently. He took 8-10 melatonin last night because he has only been getting 1-2 hours of sleep for the last few days. 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 Alcohol abuse Anxiety Benign prostatic hyperplasia Chronic anemia Chronic back pain COPD (chronic obstructive pulmonary disease) Depression with anxiety Genu varum of both lower extremities Hematemesis History of cerebrovascular accident With residual left-sided visual deficit and minimal left-sided weakness Hyperlipidemia Hypertension Interstitial lung disease due to collagen vascular disease Peripheral neuropathy Rheumatoid arthritis (~2011) Tobacco abuse Ulcerative esophagitis Surgical History Surgical History History of lumbar laminectomy History of orthopedic surgery ORIF right patellar fracture. ORIF right elbow fracture. (right elbow hardware complicated by infection 12/2020) History of right-sided carotid endarterectomy Family History Family History Mother No problems noted. Father Heart disease Hypertension Cerebrovascular accident Grandparent Arthritis Other Family history of coronary artery disease Social History Social History Social History: The patient has been for approximately 20 years. He lived in [facility] until he met his girlfriend of the last approximately 14 years at which time he moved up to this area. He and his girlfriend have been on and off since proximally 2009. They broke up November 2023 and since that time patient has been living in his car. He has 1 biological child and 1 stepchild. He is essentially estranged from his children and states he would not want them contacted in the event of emergency. He he smoked up to 2 packs of cigarettes a day but cut back to a pack per day in 2021. He drinks up to a 12 pack per day. He denies any illicit substance use. He used to be a sheet metal fabricator for 25 years. He states that his mother placed him in a managed care facility and absconded with his group home fund around 2009. Code status: Full code. He is estranged from his children. He does not have any friends. He currently b
[2024-02-02 02:02] LABS: NT Pro B Type Natriuretic Pept 125 pg/mL (19.9-100)
[2024-02-02] MEDS: MORPHINE SULFATE (*CRX) 4 MG/ML INJ IV PUSH (02:09)
[2024-02-02] MEDS: SODIUM CHLORIDE 0.9% IV 1,000 ML 999 ML IV CONT (02:09)
[2024-02-02] MEDS: MAGNESIUM SULF 1 GM/D5W 100 ML 1 GM/100 ML BAG IVPB (02:10)
[2024-02-02 02:18] LABS: Influenza A QL RT-PCR Negative (Negative); Influenza B QL RT-PCR Negative (Negative); RSV RNA, RT-PCR Negative (Negative); SARS-CoV-2 RNA PCR Negative (Negative)
[2024-02-02 02:30] VITALS: BP 135/88; PULSE 96; RESP 15; O2SAT 96
[2024-02-02 02:38] LABS: Appearance Urine Clear (Clear); Bilirubin Urine Negative (Negative); Blood Urine Negative (Negative); Color Urine Yellow (Yellow); Glucose Urine UA Negative (Negative); Ketones Urine Negative (Negative); Leukocyte Esterase Ur Negative LEU/UL (Negative); Nitrate Urine Negative (Negative); Protein Urine Negative (Negative); Specific Grav Ur 1.002 (1.001-1.035); Urobilinogen Urine 0.2 mg/dL (<2.0); pH Urine 6.5 (5.0-9.0)
[2024-02-02 02:41] LABS: Add Urine Microscopic? NO
[2024-02-02 03:08] LABS: D Dimer > 20.00 ug/mL (<0.48)
[2024-02-02] MEDS: NYSTATIN OINTMENT 15 GM TUBE 1 APPLIC TOPICAL (03:09)
[2024-02-02 03:43] LABS: Troponin I < 0.012 ng/mL (0.000-0.034)
--- NOTE | 2024-02-02 04:32 | ECG_ITS ---
Test Date: 2024-02-02 04:46:01 Measurements Intervals [place] Rate: 95 P: 73 [place]: 152 QRS: -1 QRSD: 111 T: 60 QT: 347 QTc: 438 Interpretive Statements SINUS RHYTHM POSSIBLE LEFT ATRIAL ENLARGEMENT INTRAVENTRICULAR CONDUCTION DELAY BORDERLINE R WAVE PROGRESSION, ANTERIOR LEADS PEAKED T WAVES- CONSIDER HYPERKALEMIA BASELINE ARTIFACT- I, II, III, AVR, AVL, AVF, V1-V6 ABNORMAL ECG Compared to ECG 02/01/2024 23:33:19 HEART RATE HAS DECREASED PEAKED T WAVES NOW PRESENT Electronically Signed On 02-02-2024 06:11:09 CDT by Daniel Roldan D.O.
[2024-02-02 04:37] VITALS: BP 117/82; PULSE 104; RESP 16; O2SAT 97
[2024-02-02] MEDS: LACTATED RINGERS 1,000 ML 999 ML IV CONT (05:41)
[2024-02-02 07:24] VITALS: PULSE 93; RESP 14; O2SAT 100
== END 2024-02-02 07:28 | disposition home or self-care (01) ==
PROVIDERS: Emergency Provider Student in an Organized Health Care Education/Training Program; PCP Family Medicine
DX: E87.1 Hypo-osmolality and hyponatremia (principal); E83.42 Hypomagnesemia; D64.9 Anemia, unspecified; R19.7 Diarrhea, unspecified; L22 Diaper dermatitis; L89.301 Pressure ulcer of unspecified buttock, stage 1; F10.10 Alcohol abuse, uncomplicated; Y90.9 Presence of alcohol in blood, level not specified; Z20.822 Contact with and (suspected) exposure to COVID-19; I10 Essential (primary) hypertension; I69.998 Other sequelae following unspecified cerebrovascular disease; H53.9 Unspecified visual disturbance; E78.5 Hyperlipidemia, unspecified; N40.0 Benign prostatic hyperplasia without lower urinary tract symptoms; J98.4 Other disorders of lung; M35.9 Systemic involvement of connective tissue, unspecified; M06.9 Rheumatoid arthritis, unspecified; G62.9 Polyneuropathy, unspecified; K22.10 Ulcer of esophagus without bleeding; F17.290 Nicotine dependence, other tobacco product, uncomplicated; Z79.82 Long term (current) use of aspirin; Z79.899 Other long term (current) drug therapy
CPT/HCPCS: 36415; 71046; 71275; 80053; 81003; 83690; 83735; 83880; 84484; 85025; 85380; 85610; 85730; 87637; 93005; 96361; 96365; 96375; 99284; A9270; J2270; J3475; J7030; J7120; Q9967

== ENCOUNTER 2024-03-08 20:35 | Emergency (ER) | payer MEDICARE, SELFPAY ==
--- NOTE | ~2024-03-08 | CT_ITS ---
EXAMINATION: CT thoracic lumbar wo con DATE: 03/08/2024 21:48 INDICATION: Low back pain. Fall. TECHNIQUE: Computed tomography (CT) of the thoracic and lumbar spine was performed without intravenou s contrast. Automated exposure control and iterative reconstruction technique were employed. The dose -length product was 853.07 mGy-cm. COMPARISON: Chest CT 02/02/24. FINDINGS: CT THORACIC SPINE: There is mild emphysema. Chronic interstitial lung disease is noted. There is 17 d egrees dextroscoliosis of thoracic spine. There is a chronic compression fracture of T4. There are ch ronic burst fractures of T10 and T12. There is mild chronic anterior wedging of T11 vertebral body. T here is mildly decreased disc height at T9-T10, severely decreased disc height at T10-T11, and mildly decreased disc height at T11-T12. There is multilevel facet joint osteoarthritis, severe on the left at T10-T11. There is multilevel mild neural foraminal stenosis bilaterally. At T10-T11, there is sev ere bilateral neural foraminal stenosis. At T11-T12, there is moderate right neural foraminal stenosi s. There is mild central canal stenosis at T2-T3, T7-T8, T10-T11, and T11-T12. CT LUMBAR SPINE: Alignment is normal. There is a chronic compression fracture of L1. There is moderat jessica decreased disc height at L1-L2, L2-L3, and L3-L4. There is severely decreased disc height at L4-L 5 and L5-S1 with mild chronic height loss of L4 and L5 vertebral bodies. The following disc levels ar e specifically discussed: T12-L1: The disc is bulging. There is moderate bilateral facet joint osteoarthritis. There is moderat e right and mild left neural foraminal stenosis. There is mild central canal stenosis. L1-L2: The disc is bulging. There is mild bilateral facet joint osteoarthritis. There is mild bilater al neural foraminal stenosis. There is mild central canal stenosis. L2-L3: The disc is bulging. There is mild bilateral facet joint osteoarthritis. There is moderate chris ateral neural foraminal stenosis. There is mild central canal stenosis. L3-L4: The disc is bulging. There is moderate bilateral facet joint osteoarthritis. There is moderate bilateral neural foraminal stenosis. There is moderate central canal stenosis. L4-L5: The disc is bulging. There is severe bilateral facet joint osteoarthritis. There is moderate b ilateral neural foraminal stenosis. There is severe central canal stenosis. L5-S1: The disc is bulging. There is severe bilateral facet joint osteoarthritis. There is moderate b ilateral neural foraminal stenosis. There is mild central canal stenosis. IMPRESSION: 1. No acute fracture. 2. Severe thoracic and lumbar spondylosis. Reviewed, dictated and finalized at location A.
--- NOTE | ~2024-03-08 | CT_ITS ---
EXAMINATION: CT brain wo con DATE: 03/08/2024 21:47 INDICATION: Fall. TECHNIQUE: Computed tomography (CT) of the head was performed without intravenous contrast. The mA wa s adjusted according to patient size. Iterative reconstruction technique was employed. The dose-lengt h product was 605.33 mGy-cm. COMPARISON: Head CT 08/17/2023 FINDINGS: There is a large distribution of old infarct involving the right frontal, temporal, and par ietal lobes, right insula, and right basal ganglia. There is no intracranial hemorrhage, acute infarc tion, or abnormal intracranial mass lesion. There is ex vacuo dilatation of right lateral ventricle. There are likely changes of left ocular lens replacement surgery. There is mild mucosal thickening in the paranasal sinuses. The mastoid air cells are normal. IMPRESSION: 1. Large old infarct in the expected distribution of right middle cerebral artery. Reviewed, dictated and finalized at location A. IMPRESSION: 1. Large old infarct in the expected distribution of right middle cerebral suzi ry.
--- NOTE | ~2024-03-08 | CT_ITS ---
EXAMINATION: CT cervical spine wo con DATE: 03/08/2024 21:47 INDICATION: Neck tenderness. Fall. TECHNIQUE: Computed tomography (CT) of the cervical spine was performed without intravenous contrast. Automated exposure control and iterative reconstruction technique were employed. The dose-length pro duct was 167.74 mGy-cm. COMPARISON: CT cervical spine 08/17/2023 FINDINGS: There is mild emphysema. There is 5 degrees levocurvature of cervical spine. There is kypho sis of cervical spine. Vertebral body heights are normal. There is mildly decreased disc height at C2 -C3 and severely decreased disc height from C3-C4 through C6-C7. The following disc levels are specif ically discussed: C2-C3: There is moderate right and severe left uncovertebral joint osteoarthritis. There is mild bila teral facet joint osteoarthritis. There is mild bilateral neural foraminal stenosis. There is mild ce ntral canal stenosis. C3-C4: There is severe bilateral uncovertebral joint osteoarthritis. There is mild bilateral facet yary int osteoarthritis. There is mild right and moderate left neural foraminal stenosis. There is moderat e central canal stenosis. C4-C5: There is severe bilateral uncovertebral joint osteoarthritis. There is mild bilateral facet yary int osteoarthritis. There is moderate bilateral neural foraminal stenosis. There is severe central ca nal stenosis. C5-C6: There is severe bilateral uncovertebral joint osteoarthritis. There is moderate bilateral face t joint osteoarthritis. There is moderate bilateral neural foraminal stenosis. There is moderate cent ral canal stenosis. C6-C7: There is severe bilateral uncovertebral joint osteoarthritis. There is moderate bilateral face t joint osteoarthritis. There is mild right and moderate left neural foraminal stenosis. There is mil d central canal stenosis. C7-T1: There is mild bilateral uncovertebral joint osteoarthritis. There is mild right and moderate l eft facet joint osteoarthritis. There is mild bilateral neural foraminal stenosis. There is mild cent ral canal stenosis. IMPRESSION: 1. No fracture. 2. Severe cervical spondylosis. Reviewed, dictated and finalized at location A.
--- NOTE | ~2024-03-08 | XR_ITS ---
EXAMINATION: XR knee RT 3V DATE: 03/08/2024 21:22 INDICATION: Anterior right knee pain. TECHNIQUE: 3 views of right knee were obtained. COMPARISON: Right knee radiograph 08/17/23 FINDINGS: There is a healed fracture deformity of patella with internal fixation with cable and 2 scr ews. There is incongruence at the articular surface. The medial and lateral compartment joint spaces are normal. No knee joint effusion. IMPRESSION: 1. No acute fracture. Reviewed, dictated and finalized at location A. IMPRESSION: 1. No acute fracture.
[2024-03-08 20:32] VITALS: BP 145/94; PULSE 97; RESP 20; TEMP 36.4; O2SAT 99
--- NOTE | 2024-03-08 21:06 | ED.ALCOHOL ---
HPI - Alcohol General Chief Complaint: Alcohol Stated Complaint: fall out of car in driveway, intoxicated Time Seen by Provider: 03/08/24 20:44 Source: patient Mode of arrival: EMS Limitations: intoxication History of Present Illness HPI narrative: This is a 69-year-old male who presents to the ED via EMS for intoxication and a fall. Per EMS patient's blood sugar was at 52 so they started D10. The they report patient has been on continent of bladder and stool. they report the patient suffered a fall and his significant other was unable to help him up so EMS was called. Patient states that he drinks every day but drank a lot more today. States that he drank beer all day but is unsure of how much he drank. He states he has chronic back pain but no acute pain. denies any is injury during the fall today. Denies syncope. 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 Alcohol abuse Anxiety Benign prostatic hyperplasia Chronic anemia Chronic back pain COPD (chronic obstructive pulmonary disease) Depression with anxiety Genu varum of both lower extremities Hematemesis History of cerebrovascular accident With residual left-sided visual deficit and minimal left-sided weakness Hyperlipidemia Hypertension Interstitial lung disease due to collagen vascular disease Peripheral neuropathy Rheumatoid arthritis (~2011) Tobacco abuse Ulcerative esophagitis Surgical History Surgical History History of lumbar laminectomy History of orthopedic surgery ORIF right patellar fracture. ORIF right elbow fracture. (right elbow hardware complicated by infection 12/2020) History of right-sided carotid endarterectomy Family History Family History Mother No problems noted. Father Heart disease Hypertension Cerebrovascular accident Grandparent Arthritis Other Family history of coronary artery disease Social History Social History Social History: The patient has been for approximately 20 years. He lived [place] until he met his girlfriend of the last approximately 14 years at which time he moved up to this area. He and his girlfriend have been on and off since proximally 2009. They broke up November 2023 and since that time patient has been living in his car. He has 1 biological child and 1 stepchild. He is essentially estranged from his children and states he would not want them contacted in the event of emergency. He he smoked up to 2 packs of cigarettes a day but cut back to a pack per day in 2021. He drinks up to a 12 pack per day. He denies any illicit substance use. He used to be a sheet metal operator for 25 years. He states that his mother placed him in a managed care facility and absconded with his assisted fund around 2009. Code status: Full code. He is estranged from his children. He does not have any friends. He currently broke up with his significant other. He states he has nose surrogate decision maker in cannot think of anyone that he would want to make decisions for him if he could not. Smoking packs per day: 1 Smoking cigarettes per day: 20.0 Years smoked: 40 Smoking pack-years: 40.00 Smoking status: Current every day smoker Tobac
--- NOTE | 2024-03-08 21:26 | PC.NURSE ---
pt unable to assist in changing himself. Pt noted to have redness to buttock area. Pt verbalized unsure when changed depend last. Pt completely saturated in stool and urine to point of depend falling apart.
--- NOTE | 2024-03-08 21:47 | PC.NURSE ---
attempted to call gf per pt request- phone call declined and went to voicemail.
--- NOTE | 2024-03-08 21:55 | PC.NURSE ---
manan - leann jeffrey come pick patient up.
[2024-03-08 22:53] VITALS: BP 132/87; PULSE 102; RESP 18; TEMP 36.6; O2SAT 96
== END 2024-03-08 22:55 | disposition home or self-care (01) ==
PROVIDERS: Emergency Provider Physician Assistant; PCP Family Medicine
DX: F10.10 Alcohol abuse, uncomplicated (principal); Y90.9 Presence of alcohol in blood, level not specified; M25.561 Pain in right knee; I10 Essential (primary) hypertension; E78.5 Hyperlipidemia, unspecified; J44.9 Chronic obstructive pulmonary disease, unspecified; J84.9 Interstitial pulmonary disease, unspecified; I69.998 Other sequelae following unspecified cerebrovascular disease; H53.8 Other visual disturbances; G62.9 Polyneuropathy, unspecified; D64.9 Anemia, unspecified; N40.0 Benign prostatic hyperplasia without lower urinary tract symptoms; M35.9 Systemic involvement of connective tissue, unspecified; M06.9 Rheumatoid arthritis, unspecified; F17.290 Nicotine dependence, other tobacco product, uncomplicated; Z79.82 Long term (current) use of aspirin; Z79.899 Other long term (current) drug therapy; M47.814 Spondylosis without myelopathy or radiculopathy, thoracic region; M47.816 Spondylosis without myelopathy or radiculopathy, lumbar region; M47.812 Spondylosis without myelopathy or radiculopathy, cervical region; W19.XXXA Unspecified fall, initial encounter
CPT/HCPCS: 70450; 72125; 72128; 72131; 73562; 99284

== ENCOUNTER 2024-05-06 21:37 | Emergency (ER) | payer MEDICARE, SELFPAY ==
--- NOTE | ~2024-05-06 | CT_ITS ---
Noncontrast CT scan of the cervical spine Technique: Multiple contiguous axial [address] images of the cervical spine were obtained and rec onstructed in 2D sagittal and coronal planes on the acquisition scanner. Dose reduction technique was used on this scan by utilizing automated exposure control, adjustment of the mA and/or kV according to patient size. The dose-length product (DLP) was 152.90 mGy-cm. Clinical History: Pain COMPARISON: 03/08/2024 Findings: No acute fracture or subluxation. Osseous limit is unchanged from prior exam. Stable revers al normal cervical lordosis. There is severe degenerative disc disease throughout the cervical spine, unchanged. There is probable mild to moderate canal stenosis at C3-C4, bilateral neural foraminal na rrowing. There is severe spinal canal stenosis at C4-C5, with severe bilateral neural foraminal narro wing. There is moderate to severe spinal canal stenosis at C5-C6, with bilateral neural foraminal shelly rowing. There is bilateral neural foraminal narrowing at C6-C7, with probable moderate canal stenosis . No prevertebral soft tissue swelling. Impression: No acute abnormality. Stable severe degenerative spondylosis with reversal of the normal cervical lordosis. Reviewed, dictated and finalized at location . Impression: No acute abnormality. Stable severe degenerative spondylosis with reversal of the normal cervical ron dosis.
--- NOTE | ~2024-05-06 | CT_ITS ---
Non-contrast Head CT History: Status post fall COMPARISON: 03/08/2024 Technique: Axial non-contrast imaging of the brain was performed. Dose reduction technique was used on this scan by utilizing automated exposure control and iterative reconstruction technique. The dose -length product (DLP) was 681.00 mGy-cm. Findings: There is no evidence of intracranial hemorrhage, mass lesion, or acute infarct. Stable ext ensive chronic encephalomalacia involving the right frontal lobe/right basal ganglia.. The ventricle s and subarachnoid spaces are normal in size. The calvarium appears normal. The visualized paranasa l sinuses and mastoid air cells are clear. Impression: No acute abnormality seen. Stable chronic encephalomalacia involving the right frontal lobe and right basal ganglia. Reviewed, dictated and finalized at location . Impression: No acute abnormality seen. Stable chronic encephalomalacia involving the right frontal lobe and right basa l ganglia.
--- NOTE | ~2024-05-06 | XR_ITS ---
Right Hand Technique: PA, oblique, and lateral views were obtained. Clinical History: Status post fall Findings: No acute fracture or dislocation is seen. Probable old, healed fracture deformity of the di stal radius. Joint spaces are preserved. Soft tissues are unremarkable. Impression: No acute abnormality evident. Reviewed, dictated and finalized at location . Impression: No acute abnormality evident.
[2024-05-06 21:50] VITALS: BP 109/75; PULSE 99; RESP 18; TEMP 37.2; O2SAT 99
--- NOTE | 2024-05-06 23:22 | ED_ITS ---
HPI - Fall General Chief Complaint: Fall Stated Complaint: +etoh, fell out of vehicle onto concrete Time Seen by Provider: 05/06/24 23:21 Source: patient Mode of arrival: ambulatory Limitations: no limitations History of Present Illness HPI Narrative: This is a 69-year-old male who presents to the ED via EMS with chief complaint of ground level fall out of his car into the driveway this evening. Patient reports that he drank 3 beers this evening. When he got out of his car in the driveway, he states that his cane this the concrete and landed in the grass. This caused him to stumble and fall onto his right side. Reports pain to the right wrist and right scalp. Denies any further sites of pain or injury. Denies LOC. Denies numbness, weakness. is bedside and states that he has not had any confusion or other abnormal behavior. Denies nausea or vomiting. 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 Alcohol abuse Anxiety Benign prostatic hyperplasia Chronic anemia Chronic back pain COPD (chronic obstructive pulmonary disease) Depression with anxiety Genu varum of both lower extremities Hematemesis History of cerebrovascular accident With residual left-sided visual deficit and minimal left-sided weakness Hyperlipidemia Hypertension Interstitial lung disease due to collagen vascular disease Peripheral neuropathy Rheumatoid arthritis (~2011) Tobacco abuse Ulcerative esophagitis Surgical History Surgical History History of lumbar laminectomy History of orthopedic surgery ORIF right patellar fracture. ORIF right elbow fracture. (right elbow hardware complicated by infection 12/2020) History of right-sided carotid endarterectomy Family History Family History Mother No problems noted. Father Heart disease Hypertension Cerebrovascular accident Grandparent Arthritis Other Family history of coronary artery disease Social History Social History Social History: The patient has been for approximately 20 years. He lived in floor until he met his girlfriend of the last approximately 14 years at which time he moved up to this area. He and his girlfriend have been on and off since proximally 2009. They broke up November 2023 and since that time patient has been living in his car. He has 1 biological child and 1 stepchild. He is essentially estranged from his children and states he would not want them contacted in the event of emergency. He he smoked up to 2 packs of cigarettes a day but cut back to a pack per day in 2021. He drinks up to a 12 pack per day. He denies any illicit substance use. He used to be a sheet rock applier for 25 years. He states that his mother placed him in a managed care facility and absconded with his fdc fund around 2009. Code status: Full code. He is estranged from his children. He does not have any friends. He currently broke up with his significant other. He states he has nose surrogate decision maker in cannot think of anyone that he would want to make decisions for him if he could not. Smoking packs per day: 1 Smoking cigarettes per day: 20.0 Years smoked: 40 Smoking pack-years: 40.00 Smoking status: Current every day smoker Tobacco type: cigarettes Additional smoking assessment comments: quit smoking Mar 16, 2022; still vaping Alcohol intake: current Drinks per week: 30 Substance use: never Substance use type: does not use Do You Feel Safe in your Home?: Yes Lack of Transportation: No Lack of Food: Never True Current Housing: I Do Not Have Housing Concerned About Future Housing: YES Difficulty Paying Gas/Electric Bills: No Difficulty Paying for Meds: No Currently Unemployed: No Education: Trade/Vocational Certificate Difficulty w/ Childcare or Family Care: No Living arrangements: other Occupation/Education: other Gender identity (if verbalized by the patient): Male Sexual Orientation (if Verbalized by the Patient): Straight or Heterosexual Spiritual care concerns: No Exam Narrative: GENERAL: Well-appearing, well-nourished, and in no acute distress. HEAD: Normocephalic, atraumatic. EYES: PERRLA and EOMI. ENT: Nares clear, no rhinorrhea or epistaxis. Mucous membranes moist. Oropharynx without tonsillar hypertrophy exudate or other lesions. NECK: Supple. No adenopathy or masses. CHEST: No respiratory distress. Clear to auscultation. No wheezes rales or rhonchi HEART: Regular rate and rhythm. No murmur heard. Normal peripheral pulses. ABDOMEN: Soft, nontender, nondistended, normal active bowel sounds. MSK: Normal range of motion. No edema. No midline spinal tenderness throughout. Mild tenderness and difficulty with passive range of motion of the right wrist. No deformities. SKIN: Right frontal scalp hematoma present. NEURO: Alert and oriented x4. No focal deficits. PSYCH: Normal mood and affect. Course Vital Signs Vital signs: Vital Signs Temperature 98.9 F 05/06/24 21:50 Pulse Rate 99 05/06/24 21:50 Respiratory Rate 18 05/06/24 21:50 Blood Pressure 109/75 05/06/24 21:50 Pulse Oximetry 99 05/06/24 21:50 Temperature 98.9 F 05/06/24 21:50 Pulse Rate 99 05/06/24 21:50 Respiratory Rate 18 05/06/24 21:50 Blood Pressure 109/75 05/06/24 21:50 Pulse Oximetry 99 05/06/24 21:50 MDM - Fall MDM Narrative Medical decision making narrative: This is a 69 yo male who presents to the ED for chief complaint of a fall and head injury. Vitals normal. Exam shows right frontal scalp hematoma. No neurologic deficits. No other signs of trauma CT imaging of the brain and cervical spine are without acute findings. Right wrist x-ray does not reveal any fracture. Patient will be discharged in stable condition. Supportive measures discussed and return precautions given. Patient is understanding and agreeable with plan for discharge with PCP follow-up. Discharge Plan Discharge Clinical Impression: Fall, Hematoma of frontal scalp Patient Disposition: Home, Self-Care Condition: Stable Instructions: Antibiotic Form Additional Instructions: Your exam and imaging today are reassuring. You can use an [id number] wrist brace as needed for the right wrist. If you have any new or worsening symptoms please return to the ER for further evaluation. Prescriptions: No Action magnesium oxide 400 mg (241.3 mg magnesium) tablet 400 mg PO BID Qty: 20 0RF lidocaine 5 % adhesive patch,medicated 1 patch topical DAILY Qty: 30 4RF Rx Instructions: leave on most painful area for up to 12 hrs tramadol 50 mg tablet 50 mg PO Q6H PRN (Reason: pain) Qty: 30 0RF Hold Instructions: .Provider Order aspirin [Aspir-81] 81 mg Tablet,Delayed Release (Dr/Ec) 81 mg PO DAILY duloxetine 30 mg capsule,delayed release(DR/EC) 60 mg PO DAILY sucralfate 100 mg/mL Suspension 1,000 mg PO ACHS 13 Days Qty: 520 0RF thiamine HCl (vitamin B1) [Vitamin B-1] 100 mg Tablet 100 mg PO QAM Qty: 30 0RF nystatin 100,000 unit/gram ointment 1 applic topical QID Qty: 30 0RF acetaminophen 500 mg capsule 1,000 mg PO Q6H PRN (Reason: pain) Qty: 20 0RF acetaminophen 500 mg capsule 1,000 mg PO Q6H PRN (Reason: fever or pain) Qty: 30 0RF finasteride 5 mg tablet 5 mg PO DAILY Qty: 90 1RF albuterol sulfate 2.5 mg /3 mL (0.083 %) solution for nebulization 2.5 mg inhalation Q4H PRN (Reason: shortness of breath or wheezing) Qty: 90 1RF atorvastatin 40 mg tablet 40 mg PO HS Qty: 90 2RF Rx Instructions: TAKE 1 TABLET BY MOUTH EVERY DAY tamsulosin 0.4 mg capsule 0.4 mg PO DAILY Qty: 90 2RF Rx Instructions: TAKE 1 CAPSULE BY MOUTH EVERY DAY mirtazapine 15 mg tablet See Rx Instructions PO QHS Qty: 30 0RF Rx Instructions: Take 0.5-1 tablet orally every day at bedtime for insomnia; pantoprazole [Protonix] 40 mg tablet,delayed release (DR/EC) 40 mg PO BID Qty: 180 3RF metoprolol succinate 50 mg tablet extended release 24 hr 50 mg PO DAILY Qty: 90 2RF gabapentin 300 mg capsule 300 mg PO TID Qty: 270 1RF albuterol sulfate 90 mcg/actuation HFA aerosol inhaler 1 inh inhalation Q4H PRN (Reason: shortness of breath or wheezing) Qty: 8.5 1RF Follow-up/Referrals: Colette Dye MD [Primary Care Provider] - Time of Disposition: 01:31
[2024-05-07 01:44] VITALS: BP 107/74; PULSE 91; RESP 17; O2SAT 97
== END 2024-05-07 01:46 | disposition home or self-care (01) ==
PROVIDERS: Emergency Provider Physician Assistant; PCP Family Medicine
DX: S00.03XA Contusion of scalp, initial encounter (principal); W18.30XA Fall on same level, unspecified, initial encounter; Z79.82 Long term (current) use of aspirin; F41.8 Other specified anxiety disorders; J44.9 Chronic obstructive pulmonary disease, unspecified; E78.5 Hyperlipidemia, unspecified; I10 Essential (primary) hypertension; I69.312 Visuospatial deficit and spatial neglect following cerebral infarction; G62.9 Polyneuropathy, unspecified; F17.210 Nicotine dependence, cigarettes, uncomplicated
CPT/HCPCS: 70450; 72125; 73130; 99284

== ENCOUNTER 2025-04-02 11:31 | Outpatient (CLI) | payer MEDICARE, SELFPAY ==
--- OUTSIDE RECORDS SUMMARY | 2015-04-14 05:15 | XMS_ITS | Continuity of Care Document ---
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 Role Phone Shayan Lambert MD Unavailable Unavailable Allergies, Adverse Reactions, Alerts Substance Reaction Status Criticality No Known Allergies Resolved No Inform ation Medications Medication Instructions Dosage Effective Dates (start - stop) Status Comments ATORVASTATIN CALCIUM (unknown strength) Not Available - Active CELEBREX (unknown strength) Not Available - Active ASPIRIN (unknown strength) Not Available - Active METHOTREXATE (unknown strength) Not Available - Active PREDNISONE (unknown strength) Not Available - Active FOLIC ACID (unknown strength) Not Available - Active VITAMIN B-1 (unknown strength) Not Available - Active LISINOPRIL (unknown strength) Not Available - Active GABAPENTIN (unknown strength) Not Available - Active VITAMIN B-12 (unknown strength) Not Available - Active HYDROCODONE-ACETAMINOPH EN (unknown strength) Not Available - Active DULOXETINE HCL (unknown strength) Not Available - Active Procedures Procedure Date COMPREH OV/OUT PT MRI LUMBAR SPINE Office/outpt New Advance Directives Directive Yes / No Effective Date File Name No Information Encounters Encounter Description Practice Location Reason(s) For Visit Diagnoses Date Provider Providers Copied on Encounter COMPREH OV/OUT PT [facility], [address], [place], [place], [id number], [place] tel:[phone] [facility] Upper back pain (chief complaint) 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 [address], [place], [place], [id number], [place]. tel:[phone] Referring Provider: Arturo Pope, [address] [place] [address], [id number] . tel:[phone] [facility], [address] [place], [place], [id number], tel:[phone] [facility] No Information Sep-2 5 Rayne Morris. [address] [place] [address], [id number], . tel:[phone] Referring Provider: Arturo Pope, [address] [place] [address], [id number] . tel:[phone] Office/outpt [facility], [address] [place], [place], [id number], tel:[phone] [facility] low back pain (chief complaint) LumbagoRadicu litis, Thoracic or LumbarLumbosa cral SpondylosisLu mb/lumbosac Disc DegenSpinal Stenosis-lumb ar Sep-1 5 Baccas Sakeena. [address] [place] [address], [id number], . Referring Provider: Arturo Pope, [address] [place] [address], [id number] . tel:[phone] Family History Family Member Type Diagnosis Age At Onset No Information Payers Payer name Insurance type Covered libertarian ID Authoriza tion(s) Medicare Part B MB [id number] [employer]ET[employer] [id number] Social History Type Description Quantity Date Captured Comments Alcohol Use Details beer 5 drinks daily Caffeine Use Details coffee and tea 6 cups per day 2014 Tobacco Use Status Occasional cigarette smoker Smoking Status Current some day smoker Smoking Tobacco Use Details Cigarette: No Details Available Cigarette: No Details Available Sex Male Vital Signs Date / Time: Height Weight BMI Pulse Rate Blood Pressure Temperature Respiratory Rate Body Surface Area Head Circumference Head Circ. Percentile Wt./Mikhail. Percentile BMI percentile Pulse Ox Inhaled Ox 10:55 AM 67.00 in 59.421 kg (131.00 lbs) 20.5 2 kg/m eter (2) 89 /min 133/91 mm[Hg] 97.60 F Chief Complaint And Reason For Visit From encounter dated '04/14/2015 10:15'. Upper back pain (chief complaint). Description: The problem is worsening. It occurs persistently. Location of pain is gluteal area and left flank. Pain is radiated to the left calf and left thigh. Symptoms are aggravated by standing and walking. Reason For Referral Reason For Referral No Information History Of Present Illness Encounter Date Complaint History Of Prese nt Illness Upper back pain The problem is w orsening. It occurs persistently. Location of pain is gluteal area and left flank. Pain is radiated to the left calf and left thigh. Symptoms are aggravated by standing and walking. low back pain Onset: 6 months ago. Severity level is severe. The problem is worsening. It occurs persistently. Location of pain is lower back. Pain is radiated to the left ankle, left calf and left thigh.The patient describes the pain as shooting. Context: no injury. Symptoms are aggravated by daily activities, lying/rest, sitting, standing and walking.The patient denies relieving factors. Associated symptoms include bladder dysfunction not spinal related, bowel dysfunction not spinal related, numbness to the & tingling left foot and weakness in the left lower extremity. Pertinent negatives include bladder incontinence, bladder retention, bowel incontinence and bowel retention. Additional information: Ambulates with walker. Hx of lumbar sx X2, 1990, 2000 in [place]. Recently seen by Dr. Reed, pain management for LESI X2 which offered temporary relief. Accompanied by friend. Functional Status Date Functional Assessmen t No Information Instructions Date Instruction Additional Infor mation No Information Assessments Type Assessment Date assessment Intervertebral disc stenosis of neural canal of lumbar region impression L4-S1 laminectomy and fusion. Oc Patient Care Teams Name Effective Dates (start - stop) Status Members No Information
--- OUTSIDE RECORDS SUMMARY | 2024-05-12 04:00 | XMS_ITS ---
Author Organization [facility] [place] Address [address] [place] [address] Care Team Providers Care Barrel Loader Name Role Phone Migration, Provider Unavailable Unavailable REASON FOR VISIT EMR-Robert Encounters Encounter Location Date Provider Diagnosis [facility] [address] [place] [address] 05/12/2024 Provider Migration Plan Of Treatment No Information Progress Notes * Mahamed POTTSDOB: 6 (70 yo M)Acc No.[id number]:05/12/2024 Patient: Harjit Mahamed DAN :1955 A ge:69 Y S ex:Male Address:[address] [place], [address] Subjective: * Chief Complaints: * E MR-Robert * * Date:
--- OUTSIDE RECORDS SUMMARY | 2024-05-13 04:00 | XMS_ITS ---
Author Organization [facility] Address [address] [place] [id number] Care Team Providers Care Clinical Secretary Name Role Phone Migration, Provider Unavailable Unavailable Allergies No Known Allergies REASON FOR VISIT EMR-Robert Medications Medication SIG (Take, Route, Frequency, Duration) Notes Start Date End Date Status Enbrel 50 MG/ML Solution Prefilled Syringe inject 1 milliliter by subcutaneous route every week Subcutaneous 05/12/2017 Active Gabapentin 300 MG Capsule take 1 capsule by oral route 3 times every day Oral 05/12/2017 Active Folic Acid 1 MG Tablet take 1 tablet by oral route every day Oral 05/12/2017 Active Lisinopril 20 MG Tablet take 1 tablet by oral route every day Oral 05/12/2017 Active Methotrexate 2.5 MG Tablet 8 tablets orally once a week on tuesday Oral 05/12/2017 Active potassium 99 mg tablet 99 mg TABLET 1 tablet orally daily ORAL *Reorder from [employer] for eRx and Interaction Alerts* 05/12/2017 Active DULoxetine HCl 60 MG Capsule Delayed Release Particles take 1 capsule by oral route every day Oral 05/12/2017 Active Vitamin D3 Gummies Adult 25 MCG (1000 UT) Tablet Chewable 1 tablet orally daily Oral 05/12/2017 Active Chantix Starting Month Sotero 0.5 MG X 11 & 1 MG X 42 Tablet take 1 tablet by oral route every day Oral 05/27/2017 Active Atorvastatin Calcium 80 MG Tablet take 1 tablet by oral route every day Oral 05/12/2017 Active Vitamin B-12 500 MCG Tablet take 1 tablet by oral route every day Oral 05/12/2017 Active traZODone HCl 100 MG Tablet take 1 tablet by oral route every day after meals Oral 05/12/2017 Active Turmeric 450-50 mg Capsule 1 orally daily Oral *Pick strength-form from [employer] for eRX* 05/12/2017 Active Aspirin Adult Low Strength 81 MG Tablet Delayed Release take 1 tablet by oral route every day Oral 05/12/2017 Active Propranolol HCl ER 80 MG Capsule Extended Release 24 Hour take 1 capsule by oral route every day Oral 05/12/2017 Active Encounters Encounter Location Date Provider Diagnosis [facility] [address] [place] [address] 05/13/2024 Provider Migration Plan Of Treatment No Information Progress Notes * Mahamed POTTSDOB: [birth year] (70 yo M)Acc No.[id number]:05/13/2024 Patient: Mahamed MARINELLI :1955 A ge:69 Y S ex:Male Address:[address] [place] [address] , [place], [address] Subjective: * Chief Complaints: * E MR-Robert * Medications: T akingAtorvastatin Calcium 80 MG Tablet take 1 tablet by oral route every day Oral Chantix Starting Month Sotero 0.5 MG X 11 & 1 MG X 42 Tablet take 1 tablet by oral route every day Oral DULoxetine HCl 60 MG Capsule Delayed Release Particles take 1 capsule by oral route every day Oral Enbrel 50 MG/ML Solution Prefilled Syringe inject 1 milliliter by subcutaneous route every week Subcutaneous Folic Acid 1 MG Tablet take 1 tablet by oral route every day Oral Gabapentin 300 MG Capsule take 1 capsule by oral route 3 times every day Oral Lisinopril 20 MG Tablet take 1 tablet by oral route every day Oral Methotrexate 2.5 MG Tablet 8 tablets orally once a week on tuesday Oral Propranolol HCl ER 80 MG Capsule Extended Release 24 Hour take 1 capsule by oral route every day Oral traZODone HCl 100 MG Tablet take 1 tablet by oral route every day after meals Oral Vitamin B-12 500 MCG Tablet take 1 tablet by oral route every day Oral Aspirin Adult Low Strength 81 MG Tablet Delayed Release take 1 tablet by oral route every day Oral Turmeric 450-50 mg Capsule 1 orally daily Oral , Notes to Pharmacist: *Pick strength-form from [employer] for eRX*Vitamin D3 Gummies Adult 25 MCG (1000 UT) Tablet Chewable 1 tablet orally daily Oral potassium 99 mg tablet 99 mg TABLET 1 tablet orally daily ORAL , Notes to Pharmacist: *Reorder from [employer] for eRx and Interaction Alerts*Taking Atorvastatin Calcium 80 MG Tablet take 1 tablet by oral route every day Oral Taking Chantix Starting Month Sotero 0.5 MG X 11 & 1 MG X 42 Tablet take 1 tablet by oral route every day Oral Taking DULoxetine HCl 60 MG Capsule Delayed Release Particles take 1 capsule by oral route every day Oral Taking Enbrel 50 MG/ML Solution Prefilled Syringe inject 1 milliliter by subcutaneous route every week Subcutaneous Taking Folic Acid 1 MG Tablet take 1 tablet by oral route every day Oral Taking Gabapentin 300 MG Capsule take 1 capsule by oral route 3 times every day Oral Taking Lisinopril 20 MG Tablet take 1 tablet by oral route every day Oral Taking Methotrexate 2.5 MG Tablet 8 tablets orally once a week on tuesday Oral Taking Propranolol HCl ER 80 MG Capsule Extended Release 24 Hour take 1 capsule by oral route every day Oral Taking traZODone HCl 100 MG Tablet take 1 tablet by oral route every day after meals Oral Taking Vitamin B-12 500 MCG Tablet take 1 tablet by oral route every day Oral Taking Aspirin Adult Low Strength 81 MG Tablet Delayed Release take 1 tablet by oral route every day Oral Taking Turmeric 450-50 mg Capsule 1 orally daily Oral , Notes to Pharmacist: *Pick strength-form from [employer] for eRX*Taking Vitamin D3 Gummies Adult 25 MCG (1000 UT) Tablet Chewable 1 tablet orally daily Oral Taking potassium 99 mg tablet 99 mg TABLET 1 tablet orally daily ORAL , Notes to Pharmacist: *Reorder from [employer] for eRx and Interaction Alerts* * Allergies: N .K.D.A. * * Date:
--- NOTE | ~2025-04-02 | XR_ITS ---
X-rays right hand Indication: Joint pain Comparison: 05/07/2024 Technique: 3 views right hand Findings/Impression: 1. No acute fracture or dislocation right hand. 2. Chronic subluxation first finger MCP joint. 3. No significant degenerative changes. 4. Chronic fracture/deformity distal radius, with consequent positive ulnar variance. Reviewed, dictated and finalized at location R.
--- NOTE | ~2025-04-02 | XR_ITS ---
EXAMINATION: XR shoulder RT min 2V, 04/02/2025 12:30 CDT HISTORY: multiple joint pain COMPARISON: No comparisons available. Findings: No acute fracture or malalignment. Moderate degenerative changes with underlying rotator cuff injury suspected Soft tissues unremarkable. Impression: No acute fracture or malalignment. Reviewed, dictated and finalized at location A. Impression: No acute fracture or malalignment.
--- NOTE | ~2025-04-02 | XR_ITS ---
EXAMINATION: XR hip RT min 2V, 04/02/2025 12:30 CDT HISTORY: multiple joint pain COMPARISON: No comparisons available. Findings: No acute fracture or malalignment. No significant degenerative changes. Soft tissues unremarkable. Impression: No acute fracture or malalignment. Reviewed, dictated and finalized at location A. Impression: No acute fracture or malalignment.
--- NOTE | ~2025-04-02 | XR_ITS ---
EXAMINATION: [id number], 04/02/2025 12:30 CDT HISTORY: multiple joint pain COMPARISON: No comparisons available. Findings: No acute fracture or malalignment. No significant degenerative changes. Soft tissues unremarkable. Impression: No acute fracture or malalignment. Reviewed, dictated and finalized at location A. Impression: No acute fracture or malalignment.
--- NOTE | ~2025-04-02 | XR_ITS ---
EXAMINATION: XR hand LT 2V, 04/02/2025 12:30 CDT HISTORY: multiple joint pain COMPARISON: No comparisons available. Findings: No acute fracture or malalignment. Moderate degenerative changes Soft tissues unremarkable. Impression: No acute fracture or malalignment. Reviewed, dictated and finalized at location A. Impression: No acute fracture or malalignment.
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
--- NOTE | ~2025-04-02 | XR_ITS ---
XR elbow LT 2V 04/02/2025 13:20 Indication: Joint pain Procedure: 2 views left elbow Comparison: No prior studies for comparison. Findings: Osteopenia. No fracture, subluxation or dislocation. No significant soft tissue abnormality. No foreign bodies. Impression: 1: No acute fracture. Reviewed, dictated and finalized at location O. Impression: 1: No acute fracture.
--- NOTE | ~2025-04-02 | XR_ITS ---
EXAMINATION: XR shoulder LT min 2V, 04/02/2025 12:30 CDT HISTORY: multiple joint pain COMPARISON: No comparisons available. Findings: No acute fracture or malalignment. Moderate degenerative changes Soft tissues unremarkable. Impression: No acute fracture or malalignment. Reviewed, dictated and finalized at location A. Impression: No acute fracture or malalignment.
--- NOTE | ~2025-04-02 | XR_ITS ---
X-rays right elbow Indication: Pain Comparison: 12/08/2023 Technique: 2 views right elbow Findings/Impression: 1. No acute fracture, dislocation, or joint effusion. 2. Chronic fracture radial head with nonunion. 3. Moderate degenerative changes. Reviewed, dictated and finalized at location R.
--- NOTE | ~2025-04-02 | XR_ITS ---
EXAMINATION: XR hip LT min 2V, 04/02/2025 12:30 CDT HISTORY: multiple joint pain COMPARISON: No comparisons available. Findings: No acute fracture or malalignment. No significant degenerative changes. Soft tissues unremarkable. Impression: No acute fracture or malalignment. Reviewed, dictated and finalized at location A. Impression: No acute fracture or malalignment.
--- OUTSIDE RECORDS SUMMARY | 2025-04-02 12:29 | XMS_ITS | Patient Health Record ---
Author Organization [facility] Address [address] [place] [address] Care Team Providers Care Shredder Picker Name Role Phone Migration, Provider Unavailable Unavailable Allergies No Known Allergies Reason For Referral No Information Medications Medication SIG (Take, Route, Frequency, Duration) Notes Start Date End Date Status Enbrel 50 MG/ML Solution Prefilled Syringe inject 1 milliliter by subcutaneous route every week Subcutaneous 05/12/2017 Active potassium 99 mg tablet 99 mg TABLET 1 tablet orally daily ORAL *Reorder from [employer] for eRx and Interaction Alerts* 05/12/2017 Active DULoxetine HCl 60 MG Capsule Delayed Release Particles take 1 capsule by oral route every day Oral 05/12/2017 Active Vitamin D3 Gummies Adult 25 MCG (1000 UT) Tablet Chewable 1 tablet orally daily Oral 05/12/2017 Active Gabapentin 300 MG Capsule take [...] every day after meals Oral 05/12/2017 Active Chantix Starting Month Sotero 0.5 MG X 11 & 1 MG X 42 Tablet take 1 tablet by oral route every day Oral 05/27/2017 Active Turmeric 450-50 mg Capsule 1 orally daily Oral *Pick strength-form from [employer] for eRX* 05/12/2017 Active Atorvastatin Calcium 80 MG Tablet take 1 tablet by oral route every day Oral 05/12/2017 Active Aspirin Adult Low Strength 81 [...] a week on tuesday Oral 05/12/2017 Active Problems Problem Type SNOMED Code ICD Code Onset Dates Problem Status W/U Status Risk Notes Problem Hyperlipidemia (74603513) Hyperlipidemia, unspecified (E78.5) Active confirmed Problem Tobacco user (131477330) Nicotine dependence, cigarettes, uncomplicated (F17.210) Active confirmed Problem Essential hypertension (78730684) Essential (primary) hypertension (I10) Active confirmed Problem Left carotid artery occlusion (717558429249383) Occlusion and stenosis of left carotid artery (I65.22) Active confirmed Problem Heart murmur (finding) (38526576) Cardiac murmur, unspecified (R01.1) 017 Active confirmed Problem Shortness of breath (547602419) Shortness of breath (R06.02) Active confirmed Problem Electrocardiogram abnormal (938787655) Abnormal electrocardiogram [ECG] [EKG] (R94.31) 017 Active confirmed Problem Family history of ischemic heart disease (178202033) Family history of ischemic heart disease and other diseases of the circulatory system (Z82.49) Active confirmed Encounters Encounter Location Date Provider Diagnosis [facility] [address] [address] 05/12/2024 Provider Migration [facility] [address] [place] [address] 05/13/2024 Provider Migration Plan Of Treatment No Information Insurance Providers Payer Name Payer Address Payer Phone Subscriber Number Group Number Insured Name Patient Relationship to Insured Coverage Start Date Coverage End Date [employer] [place] [address] [address] [place] [phone] [id number] Mahamed Potts Self - patient is the insured
--- OUTSIDE RECORDS SUMMARY | 2025-04-02 12:29 | XMS_ITS | Clinical Summary ---
Author Organization [facility] Address [address] [place] [address] Care Team Providers Care Dispensing And Measuring Optician Name Role Phone Unavailable Primary Care Provider Unavailabl e Source Comments [facility],non-owned Affiliates and Associated Physician Practices is amultiple site organization consisting of ambulatory clinics and hospital sitesin [place], [place], [place] and [place]. This disclosure is being madepursuant to the Care Everywhere program and may not contain all information available regarding this patient. Last updated 18.[facility] Snapflow Allergies No known active allergies Medications * Be aware that medications may not be up to date on this document. Alwaysverify current medications with the patient. acetaminophen (TYLENOL) 325 MG tablet Take 2 (two) tablets by mouth every 6 hours Maximum allowable Acetaminophen amount = 4 Grams (4000 mg) / 24 hours. 2 Active albuterol (PROVENTIL;EMELIA TOLIN) (5 MG/ML) 0.5% nebulizer solution Inhale 0.5 mL by mouth every 4 hours as needed for Shortness of Breath or Wheezing 2 Active salmeterol (SEREVENT) 50 MCG/DOSE diskus inhaler Inhale 1 (one) puff by mouth every 12 hours 2 Active tiotropium (SPIRIVA) 18 MCG inhalation capsule Inhale 1 (one) capsule by mouth once daily 2 Active gabapentin (NEURONTIN) 300 MG capsule Take 1 (one) capsule by mouth 3 times daily 2 Active atorvastatin (LIPITOR) 20 MG tablet Take 1 (one) tablet by mouth at bedtime 2 Active metoprolol succinate XL 24hr (TOPROL XL) 25 MG tablet Take 1 (one) tablet by mouth once daily 2 Active lidocaine (LIDODERM) 5 % patch Apply 1 (one) patch to skin every 24 hours 2 Active polyethylene glycol 3350 (MIRALAX) 17 g packet Take 17 (seventeen) g by mouth once daily 2 Active finasteride (PROSCAR) 5 MG tablet Take 1 (one) tablet by mouth once daily 2 Active tamsulosin (FLOMAX) 0.4 MG capsule Take 1 (one) capsule by mouth once daily At the same time every day after a meal. 2 Active nicotine (NICODERM CQ) 7 MG/24HR patchIndicatio ns:Nicotine Dependence Apply 1 (one) patch to skin once daily Reasons: Nicotine Addiction 2 Active methocarbamol (ROBAXIN) 750 MG tablet Take 1 (one) tablet by mouth every 6 hours as needed for Muscle Spasms 2 Active folic acid (FOLVITE) 1 MG tablet Take 1 (one) tablet by mouth once daily 2 Active hydroxychloroq uine (PLAQUENIL) 200 MG tablet Take 1 (one) tablet by mouth once daily 2 Active enoxaparin (LOVENOX) 30 MG/0.3ML injection Inject 30 (thirty) mg subcutaneously every 12 hours 2 Active thiamine (VITAMIN B-1) 100 MG tablet Take 1 (one) tablet by mouth once daily 2 Active ALPRAZolam (XANAX) 0.25 MG tablet Take 1 (one) tablet by mouth nightly as needed for Anxiety or Insomnia 2 Active melatonin 3 MG tabletIndicati ons:Insomnia Take 2 (two) tablets by mouth once daily Reasons: Trouble Sleeping 2 Active Active Problems Problem Noted Date Diagnosed Date Multiple closed fractures of thoracic spine 11/08 Inadequate social support 11/25/2021 Homeless 11/25/2021 Alcohol abuse 11/24/2021 Unsteady gait 11/24/2021 Neck pain, acute 11/24/2021 Alcohol intake above recommended sensible limits 11/24/2021 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 4 or more times a week 11/23/2021 Q2: How many drinks containi ng alcohol do you have on a typical day when you are drinking? 5 or 6 Q3: How often do you have si x or more drinks on one occasion? 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 Gender Identity Not on file Sexual Orientation Not on file Last Filed Vital Signs Vital Sign Reading Time Taken Comments Blood Pressure 99/69 12/02/2021 11:14 AM CDT Pulse 56 12/02/2021 11:14 AM CDT Temperature 36.6 C (97.8 F) 12/02/2021 11:14 AM CDT Respiratory Rate 18 12/02/2021 11:14 AM CDT Oxygen Saturation 99% 12/02/2021 11:14 AM CDT Inhaled Oxygen Concentration 21% 11/26/2021 4 :23 AM CDT Weight 56.7 kg (125 lb) 11/23/2021 9:53 PM CDT Height 162.6 cm (5' 4) 11/23/2021 9:53 PM CDT Body Mass Index 21.46 11/23/2021 9:53 PM CDT Plan of Treatment Health Maintenance Due Date Last Done Comments COLOGUARD (AGES 45-75) - COL ON CA SCREENING 1955 COLON MONITORING 1955 COLONOSCOPY - COLON CA SCREENING 1956 CT COLONOGRAPHY - COLON CA SCREENING 1955 Colorectal Cancer Screening 1955 FIT - COLON CA SCREENING 1955 FLEX SIG - COLON CA SCREENING 1955 MEDICARE AWV 12 MONTHS 1955 HEPATITIS C SCREENING 01/19/1974 DTAP/TDAP/TD VACCINES (1 - Tdap) 01/23/1975 PNEUMOCOCCAL VACCINE 50+ (1 of 2 - PCV) 01/23/1975 ZOSTER VACCINE (1 of 2) 01/23/2006 AAA SCREENING 01/23/2021 DEPRESSION SCREENING 07/11/2024 COVID-19 VACCINE (3 - 2024-2 6 season) 2025 10/28/2020, 09/30/2020 INFLUENZA VACCINE (#1) 2025 Respiratory Syncytial Virus (RSV) Vaccine Pt: or over 60 yrs (1 - 1-dose 75+ series) 01/23/2031 HEPATITIS B VACCINE Aged Out No longe r eligible based on patient's age to complete this topic HIB VACCINE Aged Out No longer eligi ble based on patient's age to complete this topic HPV VACCINE Aged Out No longer eligi ble based on patient's age to complete this topic MENINGOCOCCAL (Group B) VACCINE SHARED DECISION-MAKING Aged Out No longer eligible based on patient's age to complete this topic MENINGOCOCCAL GROUPS A/C/Y/W VACCINE Aged Out No longer eligible b ased on patient's age to complete this topic Insurance MEDICARE MEDICAID - OUT OF STATE * Guarantor: MAHAMED MOORE Account Type Relation to Patient Date of Phone Billing Address Personal/Family [address] [place] [address] [employer] MEDICARE MANAGED CARE MEDICARE [place] MED[place]ID - [place] Member Subscriber Plan / Payer (Ef fective for All Dates) Name:Mahamed Moore Relation to Subscriber:Self Name:Mahamed Moore Payer ID:Not on file Group ID:Not on file Type:Medicaid [place] Address: [place] [id number] * Guarantor: MAHAMED MOORE Account Type Relation to Patient Date of Phone Billing Address Personal/Family [address] [phone] [employer] MEDICARE MANAGED CARE MEDICARE ADV [place]ID - [place] * Guarantor: MAHAMED MOORE Account Type Relation to Patient Date of Phone Billing Address Personal/Family [address] [place] [address] [employer] MEDICARE MANAGED CARE MEDICARE ADV MEDICAID - [place] MEDICARE MED[place]ID [place] TPL THIRD GREEN PARTY LIABILITY Advance Directives * LIMITED RESUSCITATION-PRIOR AND AFTER ARREST (Latest Code Status on File) Date Activated Date Inactivated Comments 11/28/2021 11:47 AM 12/02/2021 7:50 PM Question Answer Comments Limited Resuscitation: No Chest Compress ionNo Intubation, No Invasive VentilationNo Cardioversion, No Defibrilation, No External or Internal PacemakerNo Cardioactive Drugs, No Vasopressors
--- OUTSIDE RECORDS SUMMARY | 2025-04-02 12:29 | XMS_ITS | Encounter Summary ---
Author Organization [facility] Address [facility] [place] [address] Care Team Providers Care Revenue Accountant Name Role Phone Colette Dye MD Primary Care Provider [phone] Encounter Details Date Type Department Care Team (Late st Contact Info) Description 11/28/2024 Language Learning Class Message Enc [facility] Call Center [address] [place] [phone] [place], [facility] Provider thiamine 100 MG Tab Social History Tobacco Use Types Packs/Day Years Used Date Smoking Tobacco: Every Day Cigarettes 1 40 Smokeless Tobacco: Never Alcohol Use Standard Drinks/Week Comments Yes 0 (1 standard drink = 0.6 oz pur e alcohol) 4 beers daily [facility] Utilities Answer Date Recorded In the past 12 months has [employer], gas, oil, or water [employer] threatened to shut off services in your home? No 03/14/2024 Humiliation, Afraid, Rape, and Kick questionnair e Answer Date Recorded Within the last year, have y ou been afraid of your partner or ex-partner? No 03/14/2024 Within the last year, have y ou been humiliated or emotionally abused in other ways by your partner or ex-partner? No Within the last year, have y ou been kicked, hit, slapped, or otherwise physically hurt by your partner or ex-partner? No 03/14/2024 Within the last year, have y ou been raped or forced to have any kind of sexual activity by your partner or ex-partner? No 03/14/2024 Overall Financial Resource Strain (CARDIA) Answe r Date Recorded How hard is it for you to pa y for the very basics like food, housing, medical care, and heating? Somewhat hard 03/14/2024 Hunger Vital Sign Answer Date Recorded Within the past 12 months, y ou worried that your food would run out before you got the money to buy more. Never true 03/14/20 24 Within the past 12 months, t he food you bought just didn't last and you didn't have money to get more. Never true 03/14/2024 PRAPARE - Transportation Answer Date Re corded In the past 12 months, has l ack of transportation kept you from medical appointments or from getting medications? No 10/2023 In the past 12 months, has l ack of transportation kept you from meetings, work, or from getting things needed for daily living? No 03/14/2024 Housing Stability Vital Sign Answer Julien e Recorded In the last 12 months, was t here a time when you were not able to pay the mortgage or rent on time? No 03/14/2024 In the past 12 months, how m any times have you moved where you were living? 1 03/14/2024 At any time in the past 12 m [facility], were you homeless or living in a penitentiary (including now)? No 03/14/2024 Sex and Gender Information Value Date Recorded Sex Assigned at Not on file Legal Sex Male 8:47 PM CDT Gender Identity Not on file Sexual Orientation Not on file documented as of this encounter Functional Status * Are you deaf or do you have serious difficulty hearing Answer Date of Assessment Author Status No 03/14/2024 9:58 PM [facility] Miroslava Stone RN Active * Are you blind or do you have serious difficulty seeing, even when wearing glasses? Answer Date of Assessment Author Status No 03/14/2024 9:58 PM Miroslava Shepard RN Active * Do you have serious difficulty walking or climbing stairs? Answer Date of Assessment Author Status Yes 03/14/2024 9:58 PM [facility] Miroslava Stone RN Active * Do you have difficulty dressing or bathing? Answer Date of Assessment Author Status No 03/14/2024 9:58 PM Miroslava Shepard RN Active * Because of a physical, mental, or emotional condition, do you have difficulty doing errands alone such as visiting a doctor's office or shopping? Answer Date of Assessment Author Status Yes 03/14/2024 9:58 PM Miroslava Shepard RN Active documented as of this encounter Mental Status * Because of a physical, mental, or emotional condition, do you have serious difficulty concentrating, remembering, or making decisions? Answer Entry Date Author Status No 03/14/2024 9:58 PM CDT Miroslava Stone RN Active documented in this encounter Plan of Treatment Not on file documented as of this encounter Goals Goal Patient Goal Type Associated Problems Recent Progress Patient-Stated? Author Establish Peer Support (Alcohol) Lifestyle No Genevieve Eisenberg RN documented as of this encounter Visit Diagnoses Not on filedocumented in this encounter Care Teams Revenue Accountant Relationship Specialty Start Date End Date Colette Dye MD [address] [place] [address] PCP - General FAMILY PRACTICE 03/11/24 documented as of this encounter
--- OUTSIDE RECORDS SUMMARY | 2025-04-02 12:29 | XMS_ITS | Clinical Summary ---
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 Cerebrovascular accident (CVA) 04/17/2014 Surgical History Surgery Date Site/Laterality Comments [place] TEAEC W/PATCH GRF CAROTID VERTB SUBCLAV NECK INC Carotid Thromboendarterectomy - Right, 05/09/14 (Added by TW Conv) Family History Medical History Relation Name Comments Heart attack Father Family history of myocardial infarction - (Added by TW Conv) Relation Name Status Comments Father Social History Tobacco Use Types Packs/Day Years Used Date Smoking Tobacco: Former Sex and Gender Information Value Date Recorded Sex Assigned at Not on file 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 Gender Identity Not on file Sexual Orientation Not on file Obstetrics History Last Filed Vital Signs Vital Sign Reading Time Taken Comments Blood Pressure 152/101 05/24/2014 10:28 AM DANCE COSTUME DESIGNER Pulse 92 05/24/2014 10:28 AM DANCE COSTUME DESIGNER Temperature - - Respiratory Rate - - Oxygen Saturation 96% 04/11/2014 4:00 PM CDT Inhaled Oxygen Concentration - - Weight 60.8 kg (133 lb 15.9 oz) 014 10:28 AM DANCE COSTUME DESIGNER Height 170.2 cm (5' 7) 05/24/2014 10:2 8 AM DANCE COSTUME DESIGNER Body Mass Index 20.99 05/24/2014 10: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
--- OUTSIDE RECORDS SUMMARY | 2025-04-02 12:29 | XMS_ITS | Clinical Summary ---
Author Organization [facility] Address [facility] [place] [address] Care Team Providers Care Case Briefer Name Role Phone Colette Dye MD Primary Care Provider [phone] Allergies No known active allergies Medications albuterol (2.5 MG/3ML) 0.083% nebulizer solution Take 3 mLs by nebulization every 4 (four) hours as needed. 2 Active atorvastatin 40 MG tablet Take 1 tablet (40 mg total) by mouth nightly at bedtime. 1 Active finasteride 5 MG tablet Take 1 tablet (5 mg total) by mouth daily. 2 Active metoprolol succinate ER 50 MG 24 hr tablet Take 1 tablet (50 mg total) by mouth daily. 2 Active tamsulosin 0.4 MG Cap Take 1 capsule (0.4 mg total) by mouth after dinner. 1 Active gabapentin (NEURONTIN) 300 MG capsule Take 1 capsule (300 mg total) by mouth 3 (three) times daily. Active mirtazapine (REMERON) 15 MG tablet Take 1 tablet (15 mg total) by mouth nightly at bedtime. 4 Active pantoprazole EC (PROTONIX) 40 MG tablet Take 1 tablet (40 mg total) by mouth 2 (two) times a day. 4 Active albuterol sulfate HFA 108 (90 Base) MCG/ACT inhaler Inhale 1 puff into the lungs every 4 (four) hours as needed for Wheezing or Shortness of breath. 4 Active aspirin EC (ECOTRIN) 81 MG tablet Take 1 tablet (81 mg total) by mouth daily. Active acetaminophen (TYLENOL) 500 MG tablet Take 1 tablet (500 mg total) by mouth every 6 (six) hours as needed for Pain or Fever. Active Linolenic Acid (OMEGA 3 OR) Take 2 capsules by mouth 2 (two) times a day. Active TURMERIC OR Take 1 capsule by mouth daily. Active acidophilus (FLORAJEN) capsule Take 1 capsule by mouth daily. 30 capsule 4 Active folic acid (FOLVITE) 1 MG tablet Take 1 tablet (1 mg total) by mouth daily. 30 tablet 4 Active multi vitamin/mineral s (THERA-M ENHANCED) tablet Take 1 tablet by mouth daily. 30 tablet 4 Active vitamin B-1 (THIAMINE) 100 MG tablet Take 1 tablet (100 mg total) by mouth daily. 30 tablet 4 Active Active Problems Problem Noted Date Diagnosed Date PNA (pneumonia) 03/14/2024 Alcohol intoxication 03/10/2024 Urinary retention 10/25/2021 Immunizations Immunization Administration Dates Next Due MODERNA COVID-19 (12+) MRNA, LNP-S, PF, 100 MCG/ 0.5 ML DOSE 10/28/2020,09/30/2020 Social History Tobacco Use Types Packs/Day Years Used Date Smoking Tobacco: Every Day Cigarettes 1 40 Smokeless Tobacco: Never Alcohol Use Standard Drinks/Week Comments Yes 0 (1 standard drink = 0.6 oz pur e alcohol) 4 beers daily [facility] Utilities Answer Date Recorded In the past 12 months has [facility] [employer], gas, oil, or water [employer] threatened to shut off services in your [...] any time in the past 12 [facility], were you homeless or living in a longterm (including now)? No 03/14/2024 Sex and Gender Information Value Date Recorded Sex Assigned at Not on file Legal Sex Male 8:47 PM CDT Gender Identity Not on file Sexual Orientation Not on file Last Filed Vital Signs Vital Sign Reading Time Taken Comments Blood Pressure 117/85 03/16/2024 12:34 PM CDT Pulse 83 03/16/2024 12:34 PM CDT Temperature 36.8 C (98.2 F) 03/16/2024 12:34 PM CDT Respiratory Rate 18 03/16/2024 12:34 PM CDT Oxygen Saturation 96% 03/16/2024 12:34 PM CDT Inhaled Oxygen Concentration - - Weight 55.5 kg (122 lb 5.7 oz) 03/16/2024 5:33 A M CDT Height 162.6 cm (5' 4) 03/14/2024 8:07 AM CDT Body Mass Index 21 03/14/2024 8:07 AM CDT Plan of Treatment Health Maintenance Due Date Last Done Comments Colorectal Cancer Screening Colonoscopy (10 Years) 1955 Hepatitis C 01/23/1974 DTaP, Tdap and Td Vaccines ( 1 - Tdap) 01/23/1975 Zoster Vaccines (1 of 2) 01/23/2006 Pneumococcal Vaccine: 50+ Years (2 of 2 - PCV) 12/26/2017 12/26/2016 Annual Medicare Wellness Visit 01/23/2021 PHQ-2 (Physician [place]) 07/11/2024 COVID-19 Vaccine (3 - 2024-2 6 season) 2025 10/28/2020, 09/30/2020 RSV Immunization or 60+ Years (1 - 1-dose 75+ series) 01/23/2031 Meningococcal B Vaccine Aged Out No l onger eligible based on patient's age to complete this topic Meningococcal Vaccine Aged Out No devorah cesar eligible based on patient's age to complete this topic RSV Immunizations Under 20 Months Aged Out No longer eligible b ased on patient's age to complete this topic Goals Goal Patient Goal Type Associated Problems Recent Progress Patient-Stated? Author Establish Peer Support (Alcohol) Lifestyle No Genevieve Eisenberg, RN Insurance MEDICARE [facility] Advance Directives Documents on File Type Date Recorded Patient Well Logging Captain Mud Analysis Expl anation Advance Directives and Living Will 11/24/2021 9:48 AM 10/26/2021 POLST * Full Code (Latest Code Status on File) Date Activated Date Inactivated Comments 03/14/2024 11:31 AM 03/16/2024 6:07 PM * DNR Date Activated Date Inactivated Comments 03/10/2024 11:19 PM 03/11/2024 5:45 PM * DNR Date Activated Date Inactivated Comments 10/25/2021 4:54 PM 10/26/2021 6:25 PM Care Teams Case Briefer Relationship Specialty Start Date End Date Colette Dye MD [address] [place], [place] [id number] PCP - General FAMILY PRACTICE 03/11/24
[2025-04-02 14:17] LABS: Hematocrit 43.4 % (42.0-52.0); Hemoglobin 14.1 g/dL (14.0-18.0); Mean Corpuscular HGB Conc 32.5 g/dl (32-36); Mean Corpuscular Hemoglobin 29.3 pg (26-34); Mean Corpuscular Volume 90.0 fl (80-100); Platelet Count Result 324 k/mm3 (150-375); Red Blood Count 4.82 M/mm3 (4.6-6.20); White Blood Count 10.4 K/mm3 (4.5-10.0)
[2025-04-02 14:53] LABS: Free T4 Free Thyroxine 1.20 ng/dL (0.78-2.19)
[2025-04-02 15:06] LABS: Hepatitis B Surface Antigen Negative (Negative)
[2025-04-02 15:11] LABS: HIV 1/2 Ab P24 Ag Result Negative (Negative)
[2025-04-02 15:23] LABS: HCV RETEST 1 0.02 S/C; HCV RETEST 2 0.02 S/C; Hepatitis B Surface Anti Res Negative
[2025-04-02 15:59] LABS: Alanine Aminotransferase 25 U/L (6-50); Albumin Level 4.6 g/dL (3.5-5.1); Alkaline Phosphatase 119 U/L (38-126); Anion Gap 12 mmol/L (4-12); Aspartate Amino Transferase 38 U/L (17-59); Bilirubin,Total 0.6 mg/dL (0.2-1.3); Blood Urea Nitrogen 14 mg/dL (9-20); Calcium 9.4 mg/dL (8.4-10.2); Carbon Dioxide 24 mmol/L (22-30); Chloride 102 mmol/L (98-107); Creatine Kinase 156 U/L (55-170); Estimated Glomerular Filt Rate > 60; Glucose 81 mg/dL (65-110); Magnesium 2.0 mg/dL (1.6-2.3); Potassium 4.4 mmol/L (3.4-5.0); Sodium 138 mmol/L (137-145); Total Protein 8.5 g/dL (6.3-8.2); Uric Acid 6.6 mg/dL (3.5-8.5)
[2025-04-02 16:27] LABS: Thyroid Stimulating Hormone 1.550 uIU/mL (0.465-4.680)
[2025-04-02 16:47] LABS: Vitamin B12 290.0 pg/mL (239-931)
[2025-04-03 07:09] LABS: Hep B Core Ab, Total Negative (Negative)
[2025-04-03 10:09] LABS: Anti-CCP Ab, IgG/IgA >250 units (0-19)
[2025-04-04 07:09] LABS: ANA by IFA Rfx Titer/Pattern Negative (.)
== END 2025-04-02 11:32 | disposition home or self-care (01) ==
PROVIDERS: PCP Family Medicine; Visit Provider Internal Medicine Rheumatology
DX: Z29.81 Encounter for HIV pre-exposure prophylaxis (principal); M19.90 Unspecified osteoarthritis, unspecified site; R53.83 Other fatigue; M79.10 Myalgia, unspecified site; E55.9 Vitamin D deficiency, unspecified; Z51.81 Encounter for therapeutic drug level monitoring; E53.8 Deficiency of other specified B group vitamins
CPT/HCPCS: 36415; 73030; 73070; 73120; 73502; 73560; 80053; 82306; 82550; 82607; 82746; 83735; 84439; 84443; 84550; 85027; 85652; 86038; 86200; 86430; 86480; 86703; 86704; 86706; 86803; 87340; 87517; G0432